=== PATIENT | female | born 1950 | race Caucasian/White ===

== ENCOUNTER 2018-02-04 08:22 | Outpatient (RCR) | payer MEDICARE, OTHER, SELFPAY | END 2018-02-20 23:59 | LOC: DC 08:22 | PROVIDERS: Family Provider Internal Medicine; PCP Internal Medicine; Visit Provider Internal Medicine | DX: E11.9 Type 2 diabetes mellitus without complications (principal); Z71.3 Dietary counseling and surveillance | CPT/HCPCS: G0108 ==

== ENCOUNTER 2018-02-22 14:54 | Outpatient (RCR) | payer MEDICARE, OTHER, SELFPAY | END 2018-03-22 23:59 | LOC: DC 14:54 | PROVIDERS: Family Provider Internal Medicine; PCP Internal Medicine; Visit Provider Internal Medicine | DX: E11.9 Type 2 diabetes mellitus without complications (principal); Z71.3 Dietary counseling and surveillance | CPT/HCPCS: 97802 ==

== ENCOUNTER → 2018-03-09 08:34 | Outpatient (CLI) | payer MEDICARE, OTHER, SELFPAY ==
[2018-03-09 10:46] LABS: Microalbumin,Random Urine 5.7 mg/L (NO RANGE EST.); Microalbumin:Creatinine Ratio 34.5 mg/g CRE (<30 mg/g CRE)
[2018-03-09 10:58] LABS: Hemoglobin A1c 8.6 % (4.2-6.3)
[2018-03-09 11:07] LABS: ALB/GLOB Ratio 0.9 RATIO (0.9-2.4); AST(SGOT) 14 U/L (15-37); Alanine Aminotransfer ALT/SGPT 25 U/L (13-56); Albumin, Serum 3.4 g/dL (3.2-5.0); Alkaline Phosphatase 120 U/L (45-117); Anion Gap 9 (5-15); BUN 15 mg/dL (7-18); BUN/Creat Ratio 19.4 RATIO (10-20); Calcium,Total 8.8 mg/dL (8.5-10.1); Chloride 103 mmol/L (98-107); Cholesterol 190 mg/dL (200); Creatinine, Serum 0.77 mg/dL (0.55-1.02); EST Glomerular Filtration Rate 80 mL/min (>60); Est Glom Filt Rate - Afr Amer 96 mL/min (>60); Globulin 3.8 g/dL (2.2-4.2); Glucose 152 mg/dL (74-106); High Density Lipoprotein 74 mg/dL; Protein, Total 7.2 g/dL (6.4-8.2); Sodium Level 140 mmol/L (136-145); T4 Free Direct 1.25 ng/dL (0.76-1.46); Thyroid Stim Hormone (TSH) 1.35 uIU/mL (0.358-3.74); Triglycerides 57 mg/dL; Very Low Density Lipoprotein 11 mg/dL (5-40)
== END ==
PROVIDERS: Family Provider Internal Medicine; PCP Internal Medicine; Visit Provider Internal Medicine
DX: E11.9 Type 2 diabetes mellitus without complications (principal); E03.9 Hypothyroidism, unspecified; I10 Essential (primary) hypertension
CPT/HCPCS: 36415; 80053; 80061; 82043; 82570; 83036; 84439; 84443

== ENCOUNTER 2018-04-01 16:32 | Outpatient (RCR) | payer MEDICARE, OTHER, SELFPAY | END 2018-04-22 23:59 | LOC: DC 16:32 | PROVIDERS: Family Provider Internal Medicine; PCP Internal Medicine; Visit Provider Internal Medicine | DX: E11.9 Type 2 diabetes mellitus without complications (principal); Z71.3 Dietary counseling and surveillance | CPT/HCPCS: G0109 ==

== ENCOUNTER 2018-05-05 17:14 | Outpatient (RCR) | payer MEDICARE, OTHER, SELFPAY | END 2018-05-22 23:59 | LOC: DC 17:14 | PROVIDERS: Family Provider Internal Medicine; PCP Internal Medicine; Visit Provider Internal Medicine | DX: E11.9 Type 2 diabetes mellitus without complications (principal); Z71.3 Dietary counseling and surveillance | CPT/HCPCS: G0109 ==

== ENCOUNTER 2018-06-02 16:07 | Outpatient (RCR) | payer MEDICARE, OTHER, SELFPAY | END 2018-06-22 23:59 | LOC: DC 16:07 | PROVIDERS: Family Provider Internal Medicine; PCP Internal Medicine; Visit Provider Internal Medicine | DX: E11.9 Type 2 diabetes mellitus without complications (principal); Z71.3 Dietary counseling and surveillance | CPT/HCPCS: G0109 ==

== ENCOUNTER → 2018-06-08 07:58 | Outpatient (CLI) | payer MEDICARE, OTHER, SELFPAY ==
[2018-06-08 10:14] LABS: Absolute Lymphocyte Count 1.74 X10^3/ul (0.83-4.51); Absolute Neutrophil Count 3.2 X10^3/uL (2.0-7.7); Basophil# 0.07 X10^3/uL; Basophil% 1.2 % (0-1); Eosinophil# 0.32 X10^3/uL; Eosinophils% 5.5 % (0-5); Hematocrit 35.9 % (37-47); Hemoglobin 11.6 g/dl (12.0-15.0); Lymphocyte # 1.74 X10^3/ul (4.0); Lymphocyte % 29.7 % (19-41); Mean Corp Hgb Conc 32.3 g/gl (32-36); Mean Corpuscular Hgb 29.8 pg (27.0-32.0); Mean Corpuscular Volume 92.3 fL (81-99); Mean Platelet Vol. 9.9 fl (6.2-12.0); Monocyte# 0.57 X10^3/uL; Monocyte% 9.7 % (0-10); Neutrophil # 3.15 X10^3/uL (2.7-7.7); Neutrophil % 53.9 % (47-70); Platelet Count 314 K/mm3 (150-450); RBC Distribution Width CV 13.7 % (11.6-14.6); RBC Distribution Width SD 45.8 fl (35.1-43.9); Red Blood Count 3.89 M/mm3 (4.2-5.4); White Blood Count 5.9 K/mm3 (4.4-11.0)
[2018-06-08 10:16] LABS: POSITIVE COUNT NO; POSITIVE DIFFERENTIAL NO; POSITIVE MORPHOLOGY NO
[2018-06-08 10:40] LABS: AST(SGOT) 18 U/L (15-37); Alanine Aminotransfer ALT/SGPT 22 U/L (13-56); Albumin, Serum 3.3 g/dL (3.2-5.0); Alkaline Phosphatase 95 U/L (45-117); Anion Gap 9 (5-15); BUN 15 mg/dL (7-18); BUN/Creat Ratio 17.4 RATIO (10-20); Calcium,Total 8.4 mg/dL (8.5-10.1); Chloride 104 mmol/L (98-107); Creatinine, Serum 0.86 mg/dL (0.55-1.02); EST Glomerular Filtration Rate 70 mL/min (>60); Est Glom Filt Rate - Afr Amer 85 mL/min (>60); Globulin 3.2 g/dL (2.2-4.2); Glucose 187 mg/dL (74-106); Potassium 4.2 mmol/L (3.5-5.1); Protein, Total 6.5 g/dL (6.4-8.2); Sodium Level 140 mmol/L (136-145)
[2018-06-08 11:30] LABS: Hemoglobin A1c 8.9 % (4.2-6.3)
== END ==
PROVIDERS: Family Provider Internal Medicine; PCP Internal Medicine; Visit Provider Internal Medicine
DX: E11.9 Type 2 diabetes mellitus without complications (principal); E03.9 Hypothyroidism, unspecified
CPT/HCPCS: 36415; 80053; 83036; 85025

== ENCOUNTER → 2018-06-10 08:26 | Outpatient (CLI) | payer MEDICARE, OTHER, SELFPAY ==
--- NOTE | 2018-06-10 08:30 | BD_ITS ---
STUDY: DUAL ENERGY X-RAY ABSORPTIOMETRY / DXA REASON FOR EXAM: Female, 67 years old. The patient is postmenopausal. Loss of height. TECHNIQUE: Bone Mineral Density (BMD) measurements of lumbar spine and bilateral hips were obtained. COMPARISON: Comparison is made with prior study dated August 29, 2002. FINDINGS: Lumbar Spine (L1-L4): g/cm2 (0.807) / T-score (-3.1) / Z-score (-1.5) Findings are suggestive of osteopenia with a high fracture risk. Left Femur Total: g/cm2 (0.822) / T-score (-1.5) / Z-score (-0.3) Left Femoral Neck: g/cm2 (0.814) / T-score (-1.6) / Z-score (-0.1) Right Femur Total: g/cm2 (0.787) / T-score (-1.8) / Z-score (-0.5) Right Femoral Neck: g/cm2 (0.796) / T-score (-1.7) / Z-score (-0.3) The T-Scores on the most recent prior examination were: Lumbar Spine (L1-L4): There has been worsening of bone density since the previous examination. Left Femur Total: which represents a worsening of 16.9%. BD/Dexa Bone Density Study IMPRESSION: The patient is considered osteoporotic as outlined below according to World Rex Organization (WHO) criteria with a high fracture risk. There has been worsening of bone density since the previous examination. Reference Information: The T-score is the number of standard deviations above or below the standard which is normal for young adults at their peak bone mineral density. The World Health Organization (WHO) interprets the T-scores as follows: Above -1 Normal bone density Between -1 and -2.5 Osteopenia Equal to / or below -2.5 Osteoporosis As a practical clinical guideline, osteopenia may be graded as follows: Mild -1 through -1.5 Moderate -1.6 through -2.0 Severe -2.1 through -2.4 The Z-score is the number of standard deviations above or below age-matched controls. A Z-score of less than -1.5 would be considered abnormal. References: 1. NIH Osteoporosis and Related Bone Diseases http://www.osteo.org 2. International Society for Clinical Densitometry http://www.iscd.org 3. National Osteoporosis Foundation http://www.nof.org Electronically Signed: Curry Maciel MD at 10:04 EDT Tel [phone], Service support ,
== END ==
PROVIDERS: Family Provider Internal Medicine; PCP Internal Medicine; Visit Provider Internal Medicine
DX: M81.0 Age-related osteoporosis without current pathological fracture (principal); Z78.0 Asymptomatic menopausal state
CPT/HCPCS: 77080

== ENCOUNTER → 2018-06-14 09:33 | Outpatient (CLI) | payer MEDICARE, OTHER, SELFPAY | PROVIDERS: Family Provider Internal Medicine; PCP Internal Medicine; Visit Provider Internal Medicine | DX: Z12.11 Encounter for screening for malignant neoplasm of colon (principal) | CPT/HCPCS: 82274 ==

== ENCOUNTER 2018-06-24 17:03 | Outpatient (RCR) | payer MEDICARE, OTHER, SELFPAY | END 2018-07-23 23:59 | LOC: DC 17:03 | PROVIDERS: Family Provider Internal Medicine; PCP Internal Medicine; Visit Provider Internal Medicine | DX: E11.9 Type 2 diabetes mellitus without complications (principal); Z71.3 Dietary counseling and surveillance | CPT/HCPCS: G0109 ==

== ENCOUNTER → 2018-08-20 14:26 | Outpatient (CLI) | payer MEDICARE, OTHER, SELFPAY ==
--- NOTE | 2018-08-20 14:29 | RAD_ITS ---
STUDY: X-RAY - PELVIS AND LEFT HIP REASON FOR EXAM: Female, 67 years old. Extreme left hip pain for 3 days. No injury. TECHNIQUE: Radiological exam, hip, unilateral, with pelvis when performed; 2 or 3 views. COMPARISON: None. FINDINGS: There is a non-specific bowel gas pattern. Normal visualized soft tissue structures. Normal bilateral iliac wings, sacroiliac joints and visualized sacrum. Normal bilateral superior and inferior pubic rami. Normal pubic symphysis. Normal bilateral ischial tuberosities. Normal visualized left femoral head. Normal left acetabulum. Normal left hip joint. RAD/HIP, UNI W/ Pelvis 2-3 Views IMPRESSION: Normal x-ray examination of the pelvis and left hip. Electronically Signed: Luke Harris DO at 19:41 EDT Tel [phone], Service support ,
== END ==
PROVIDERS: Family Provider Internal Medicine; PCP Internal Medicine; Referring Provider Internal Medicine; Visit Provider Internal Medicine
DX: M25.552 Pain in left hip (principal)
CPT/HCPCS: 73502

== ENCOUNTER 2018-09-27 10:11 | Outpatient (RCR) | payer MEDICARE, OTHER, SELFPAY | END 2018-10-22 23:59 | LOC: DC 10:11 | PROVIDERS: Family Provider Internal Medicine; PCP Internal Medicine; Visit Provider Internal Medicine | DX: E11.9 Type 2 diabetes mellitus without complications (principal); Z71.3 Dietary counseling and surveillance | CPT/HCPCS: 97803 ==

== ENCOUNTER 2018-09-29 08:00 | Outpatient (RCR) | payer MEDICARE, OTHER, SELFPAY ==
--- NOTE | 2018-08-31 08:10 | HP.PTEVAL ---
Patient's Visit Information MARISSA WINKLER is a 67 year old F referred to Physical Therapy by ADOLPH Velazquez with a diagnosis of LEFT SCIATICA/PIRIFORMIS. Date of Evaluation: 08/31/18 Physical Therapist: Aleks Rodriguez PT, - Visit Plan Frequency: 2x /Week Duration: 4 Weeks Plan: INTIALLY MODALITIES FOR PAIN RELIVEIVE,PROGRESS TO GRADED RROM/TUAN EX'S,. DLS ,POSTURAL EX'S - Subjective Subjective: This 67 y/o female presents to physical therapy with left sciatica /piriformis since 2weeks. Symptoms where incidous onset bno trauma or injury . Patient seen family DR recommended to see orthopedic. Patient had x-rays recommended PT. Patient symptoms located left L-S -gluteus radiates to anterior tibials. Symptoms worse bending,sitting,standing. Pain affects sleeping unable to sleep. C/O parathesia/tingling lower leg. Coughing/sneezing -. Bowel/bladder -. Patient taking mlocicam/tramadol. Patient has h/o lumbar pain many years ago.Symptoms not better with no activity. VOCATION: [email or web address] SOCAIL: - Pain Left Back Pain Intensity (Out of 10): 7 Pain Intensity Range: 10 Left Lower Extremity Pain Intensity (Out of 10): 7 Pain Intensity Range: 10 - Objective POSTURE: rounded shoulders head foward. PALPATION: tender Left L-S. NEURO: c/o parathesia/tingling lower leg,light touch intact,reflexes 2/3 L3-4,L4-5,L5-S1. MMT:4-/5 quad/hams ,hip flexion 4-/5,ankle 4/5. LUMBAR ROM: flexion WFL,extension mod loss pain left side,side glides min loss. SYMMTIES : align. GAIT: mild decrease antalgic. FLEXABLITY: hams MIN,Piriformis min loss. - Special Tests L/S Slump test left side: Positive L/S Slump test right side: Negative L/S Left Straight Leg Raise: Positive Lumbar Standing: Flexion - Mechanical Response: No effect Lumbar Standing: Flexion - Symptoms During Testing: Decreases Lumbar Standing: Flexion - Symptoms After Testing: No better Lumbar Standing: Extension - Mechanical Response: No effect Lumbar Standing: Extension - Symptoms During Testing: Increases Lumbar Standing: Extension - Symptoms After Testing: Worse Lumbar Standing: Right Side Glides - Mechanical Response: No effect Lumbar Standing: Right Side [place] - Symptoms During Testing: No effect Lumbar Standing: Right Side [place] - Symptoms After Testing: No effect Lumbar Standing: Left Side [place] - Mechanical Response: No effect Lumbar Standing: Left Side [place] - Symptoms During Testing: Increases Lumbar Standing: Left Side [place] - Symptoms After Testing: Worse Lumbar Lying: Flexion - Mechanical Response: No effect Lumbar Lying: Flexion - Symptoms During Testing: Abolishes Lumbar Lying: Flexion - Symptoms After Testing: No better Lumbar Lying: Extension - Mechanical Response: No effect Lumbar Lying: Extension - Symptoms During Testing: Increases Lumbar Lying: Extension - Symptoms After Testing: Worse - Goals Goal 1:: Independant with HEP Goal Time Frame: 4-6 Weeks Goal 2:: Indepependant with posture for ADL'S Goal Time Frame: 4-6 Weeks Goal 3:: Decrease lumbar pain and radicular symptoms by 50% or greatwer to improve function with ADL'S. Goal Time Frame: 4-6 Weeks Goal 4:: Patient to improve lumbar ROM for function of recovery Goal Time Frame: 4-6 Weeks Goal 5:: Patient to improve back owestry by 5 points to improve QOL Goal Time Frame: 4-6 Weeks - Rehabilitation Potential Physical Therapy Diagnosis: This patient has left lumbar pain with radicular symptoms possible left lateral stenosis vs derrangement below with pain with extension ,better flexion ,impairs gait ,standing and ADL'S Rehabilitation Potential: Good - Anticipated Interventions Patient/Client Instruction: Educate patient on: Condition, Plan of Care For the Purpose of:: To decrease pain, To increase ROM, To improve muscle performance and motor function, To improve ability to perform ADL's, To increase tolerance to activity/condition/position, To improve ability of physical actions for home/community/work/leisure, To improve health of tissue, To decrease soft tissue restriction, To increase flexibility/ROM, To assume or resume ADL's, To improve tolerance to ADL's Therapeutic Exercise to Include: Strength training, Body mechanics, Postural training, Flexibilty training, Dynamic Lumbar Stabilization, Tuan Exercises For the Purpose of:: To decrease pain, To increase ROM, To increase tolerance to activity/condition/position, To improve ability of physical actions for home/community/work/leisure, To improve health of tissue, To decrease soft tissue restriction, To increase flexibility/ROM, To reduce risk of recurrence, To improve ability to perform tasks related to life management TENS: Yes IF ES: Yes Cryotherapy (ice pack, ice massage): Yes Thermo therapy (hot pack): Yes Ultrasound (thermal/non thermal): Yes For the Purpose of:: To decrease pain, To increase ROM, To improve nutrient delivery to tissue, To increase oxygenation perfusion, To improve health of tissue, To decrease soft tissue restriction Thank you for the opportunity to evaluate your patient. For Medicare and Medicare HMO plans, please review the plan of care and approve it. It will need to be FAXED BACK to us at [phone] for Medicare purposes. Please let me know if there are questions or concerns regarding this plan of care. Physician Signature: Date:
--- NOTE | 2018-09-29 08:30 | HP.PTDCSUM ---
HP - PT D/C Summary It has been my pleasure to treat MARISSA WINKLER under orders from ADOLPH Velazquez, for the diagnosis of LEFT SCIATICA/PIRIFORMIS for a total of 9 visit(s). Discharge Date: 09/29/18 Please see the following information for a summary of their discharge status. - Subjective Subjective: Doing well no pain . Able to sleep all night. Working and all ADL'S no problem - Pain Left Back Pain Intensity (Out of 10): 0 Left Lower Extremity Pain Intensity (Out of 10): 0 - Overall Improvement % Improvement: 90 - Objective Objective/Function: POSTURE: mild foward posture. GAIT:reciprocal pattern. NEURO: intact denies parathesia/tingling. MMT: quads/hams4/5,hip 4/5,ankle 5/5. LUMBAR ROM: flexion WFL loss,extension min loss. -SLR - Goals Goal 1:: Independant with HEP Goal Progress: Goal Met Goal 2:: Indepependant with posture for ADL'S Goal Progress: Goal Met Goal 3:: Decrease lumbar pain and radicular symptoms by 50% or greatwer to improve function with ADL'S. Goal Progress: Goal Met Goal 4:: Patient to improve lumbar ROM for function of recovery Goal Progress: Goal Met Goal 5:: Patient to improve back owestry by 5 points to improve QOL Goal Progress: Goal Met - Plan Plan: D/C TO HEP - D/C Information Discharge Comments: HEP ..MET GOALS If there are questions or concerns regarding this patient's physical therapy, please feel free to call me at [phone]. Thank you for the referral of this patient. Sincerely, Aleks Rodriguez, PT,
== END 2018-09-29 19:00 | disposition home or self-care (01) ==
LOC: PT 08:00
PROVIDERS: Family Provider Internal Medicine; PCP Internal Medicine; Referring Provider Physician Assistant; Visit Provider Physician Assistant
DX: G57.02 Lesion of sciatic nerve, left lower limb (principal)
CPT/HCPCS: 97012; 97110; 97162; 97530

== ENCOUNTER → 2018-10-25 08:24 | Outpatient (CLI) | payer MEDICARE, OTHER, SELFPAY ==
[2018-10-18 13:58] VITALS: BMI 22.7
[2018-10-25 10:14] LABS: Absolute Lymphocyte Count 1.28 X10^3/ul (0.83-4.51); Absolute Neutrophil Count 4.7 X10^3/uL (2.0-7.7); Basophil# 0.04 X10^3/uL; Basophil% 0.6 % (0-1); Eosinophils% 2.9 % (0-5); Hematocrit 39.3 % (37-47); Hemoglobin 12.8 g/dl (12.0-15.0); Lymphocyte # 1.28 X10^3/ul (4.0); Lymphocyte % 18.8 % (19-41); Mean Corp Hgb Conc 32.6 g/gl (32-36); Mean Corpuscular Hgb 30.8 pg (27.0-32.0); Mean Corpuscular Volume 94.7 fL (81-99); Mean Platelet Vol. 10.4 fl (6.2-12.0); Monocyte# 0.54 X10^3/uL; Monocyte% 7.9 % (0-10); Neutrophil # 4.74 X10^3/uL (2.7-7.7); Neutrophil % 69.7 % (47-70); Platelet Count 327 K/mm3 (150-450); RBC Distribution Width CV 13.6 % (11.6-14.6); RBC Distribution Width SD 45.1 fl (35.1-43.9); Red Blood Count 4.15 M/mm3 (4.2-5.4); White Blood Count 6.8 K/mm3 (4.4-11.0)
[2018-10-25 10:15] LABS: POSITIVE COUNT NO; POSITIVE DIFFERENTIAL NO; POSITIVE MORPHOLOGY NO
[2018-10-25 10:41] LABS: Vitamin D,25 Hydroxy 35.7 ng/mL (29.95-100.01)
[2018-10-25 10:48] LABS: Hemoglobin A1c 8.3 % (4.2-6.3)
[2018-10-25 10:56] LABS: Microalbumin,Random Urine 5.5 mg/L (NO RANGE EST.); Microalbumin:Creatinine Ratio 5.6 mg/g CRE (<30 mg/g CRE)
[2018-10-25 11:02] LABS: Anion Gap 7 (5-15); BUN 15 mg/dL (7-18); BUN/Creat Ratio 18.2 RATIO (10-20); Calcium,Total 8.8 mg/dL (8.5-10.1); Chloride 105 mmol/L (98-107); Creatinine, Serum 0.82 mg/dL (0.55-1.02); EST Glomerular Filtration Rate 74 mL/min (>60); Est Glom Filt Rate - Afr Amer 89 mL/min (>60); Glucose 150 mg/dL (74-106); Potassium 4.2 mmol/L (3.5-5.1); Sodium Level 141 mmol/L (136-145); T4 Free Direct 1.11 ng/dL (0.76-1.46); Thyroid Stim Hormone (TSH) 2.28 uIU/mL (0.358-3.74)
--- OUTSIDE RECORDS SUMMARY | 2018-12-18 08:50 | XMS RPT_ITS ---
:1950 Author Organization [place] Support Name Relationship Address Phone SWAPNIL HOWARD Unavailable [id number] + [place] [address] LARRY LEE Unavailable [address] + [place] [address] [facility] Unavailable [address] + [place] [address] HORKeysha, SWAPNIL Unavailable [address] + [place] [address] LARRY LEE Unavailable [address] + [place] [address] [facility] Unavailable [address] + [place] [address] HORKeysha, SWAPNIL Unavailable [address] + [place] [address] LARRY LEE Unavailable [address] + [place] [address] [facility] Unavailable [address] + [place] [address] HORY, SWAPNIL Unavailable [address] + [place] [address] LARRY LEE Unavailable [address] + [place] [address] [facility]available [address] + [place] [address] HORKeysha, SWAPNIL Unavailable [address] + [place] [address] LARRY LEE Unavailable [address] + [place] [address] [facility] Unavailable [address] + [place] [address] HORY, SWAPNIL Unavailable [address] + [place] [address] LARRY LEE Unavailable [address] + [place] [address] [facility]available [address] + [place] [address] HORY, SWAPNIL Unavailable [address] + [place] [address] LARRY LEE Unavailable [address] + [place] [address] [facility] Unavailable [address] + [place] [address] HORKeysha, SWAPNIL Unavailable [address] + [place] [address] LARRY LEE Unavailable [address] + [place] [address] [facility] Unavailable [address] + [place] [address] HORY, SWAPNIL Unavailable [address] + [place] [address] LARRY LEE Unavailable [address] + [place] [address] [facility] Unavailable [address] + [place] [address] HORKeysha, SWAPNIL Unavailable [address] + [place] [address] LARRY LEE Unavailable [address] + [place] [address] [facility] Unavailable [address] + [place] [address] HORKeysha, SWAPNIL Unavailable [address] + [place] [address] LARRY LEE Unavailable [address] + [place] [address] [facility] Unavailable [address] + [place] [address] HORY, SWAPNIL Unavailable [address] + [place] [address] LARRY LEE Unavailable [address] + [place] [address] [facility] Unavailable [address] + [place] [address] HORY, SWAPNIL Unavailable [address] + [place] [address] LARRY LEE Unavailable [address] + [place] [address] [facility] Unavailable [address] + [place] [address] HORY, SWAPNIL Unavailable [address] + [place] [address] LARRY LEE Unavailable [address] + [place] [address] [facility] Unavailable [address] + [place] [address] HORY, SWAPNIL Unavailable [address] + [place] [address] LARRY LEE Unavailable [address] + [place] [address] [facility] Unavailable [address] + [place] [address] HORY, SWAPNIL Unavailable [address] + [place] [address] LARRY LEE Unavailable [address] + [place] [address] [facility]available [address] + [place] [address] HORY, SWAPNIL Unavailable [address] + [place] [address] LARRY LEE Unavailable [address] + [place] [address] [facility] Unavailable [address] + [place] [address] HORY, SWAPNIL Unavailable [address] + [place] [address] LARRY LEE Unavailable [address] + [place] [address] [facility] Unavailable [address] + [place] [address] HORY, SWAPNIL Unavailable [address] + [place] [address] LARRY LEE Unavailable [address] + [place] [address] [facility] Unavailable [address] + [facility] [place] [address] HORY, SWAPNIL Unavailable [address] + [place] [address] LARRY LEE Unavailable [address] + [facility] [place] [address] [facility] Unavailable [address] + [facility] [place] [address] HORY, SWAPNIL Unavailable [address] + [facility] [place] [address] LARRY LEE Unavailable [address] + [facility] [place] [address] [facility] Unavailable [address] + [facility] [place] [address] HORY, SWAPNIL Unavailable [address] + [facility] [place] [address] LARRY LEE Unavailable [address] + [facility] [place] [address] [facility]available [address] + [facility] [address] HORY, SWAPNIL Unavailable [address] + [place] [address] LARRY LEE Unavailable [address] + [facility] [place] [address] [facility] Unavailable [address] + [facility] [place] [address] LARRY LEE Unavailable [address] + [facility] [place] [place] [address] [facility] Unavailable [address] + [place] [address] Care Team Providers Name Role Phone GENET, PURVI (MULTI SPINDLE OPERATOR) Referring Unavailable GENET, PURVI (MULTI SPINDLE OPERATOR) Attending Unavailable GENET, PURVI (MULTI SPINDLE OPERATOR) Referring Unavailable GENET, PURVI (MULTI SPINDLE OPERATOR) Referring Unavailable GENET, PURVI (MULTI SPINDLE OPERATOR) Referring Unavailable Oleghe, Efewongbe Attending Unavailable Oleghe, Efewongbe Referring Unavailable Oleghe, Efewongbe Primary Care Unavailable Oleghe, Efewongbe Attending Unavailable Oleghe, Efewongbe Referring Unavailable Oleghe, Efewongbe Primary Care Unavailable Oleghe, Efewongbe Attending Unavailable Oleghe, Efewongbe Referring Unavailable Oleghe, Efewongbe Primary Care Unavailable Oleghe, Efewongbe Attending Unavailable Oleghe, Efewongbe Referring Unavailable Oleghe, Efewongbe Primary Care Unavailable Oleghe, Efewongbe Attending Unavailable Oleghe, Efewongbe Referring Unavailable Oleghe, Efewongbe Primary Care Unavailable Oleghe, Efewongbe Attending Unavailable Oleghe, Efewongbe Referring Unavailable Oleghe, Efewongbe Primary Care Unavailable Oleghe, Efewongbe Attending Unavailable Oleghe, Efewongbe Referring Unavailable Oleghe, Efewongbe Primary Care Unavailable Oleghe, Efewongbe Attending Unavailable Oleghe, Efewongbe Referring Unavailable Oleghe, Efewongbe Attending Unavailable Oleghe, Efewongbe Referring Unavailable Oleghe, Efewongbe Primary Care Unavailable Sue Serna Attending Unavailable Oleghe, Efewongbe Attending Unavailable Oleghe, Efewongbe Referring Unavailable Oleghe, Efewongbe Primary Care Unavailable Oleghe, Efewongbe Attending Unavailable Oleghe, Efewongbe Referring Unavailable Oleghe, Efewongbe Primary Care Unavailable Oleghe, Efewongbe Attending Unavailable Oleghe, Efewongbe Primary Care Unavailable Oleghe, Efewongbe Attending Unavailable Oleghe, Efewongbe Referring Unavailable Oleghe, Efewongbe Primary Care Unavailable Oleghe, Efewongbe Attending Unavailable Oleghe, Efewongbe Referring Unavailable Oleghe, Efewongbe Primary Care Unavailable Oleghe, Efewongbe Attending Unavailable Oleghe, Efewongbe Referring Unavailable Oleghe, Efewongbe Primary Care Unavailable Oleghe, Efewongbe Attending Unavailable Oleghe, Efewongbe Referring Unavailable Oleghe, Efewongbe Attending Unavailable Oleghe, Efewongbe Referring Unavailable [place]leg[place], Efewongbe Primary Care Unavailable Wayt, Felix Attending Unavailable Oleghe, Efewongbe Referring Unavailable Wayt, Felix Attending Unavailable Wayt, Felix Referring Unavailable Oleghe, Efewongbe Primary Care Unavailable Oleghe, Efewongbe Attending Unavailable Oleghe, Efewongbe Referring Unavailable Oleghe, Efewongbe Attending Unavailable Oleghe, Efewongbe Referring Unavailable Oleghe, Efewongbe Attending Unavailable Oleghe, Efewongbe Referring Unavailable Oleghe, Efewongbe Primary Care Unavailable Oleghe, Efewongbe Attending Unavailable Oleghe, Efewongbe Referring Unavailable Oleghe, Efewongbe Primary Care Unavailable PROBLEMS PROBLEMS DATE TYPE CONDITION / CODE ATTENDING STATUS SOURCE 10/27/2018 Active Other abnormal and NA Active [facility] inconclusive [facility] [place] findings on Repository diagnostic imaging of breast / R92.8(ICD-10) 10/18/2018 Unknown M25.552 - Pain in [place], Active [place] left hip / [facility] M25.552(ICD-10) Hospital Repository 10/18/2018 Unknown M81.0 - Age-related [place]leghe, Active [place] osteoporosis [facility] without current Hospital pathological Repository fracture / M81.0(ICD-10) 10/04/2018 Active Unknown / GENET, PURVI Active [facility] UNK(Unknown) ([facility]) [place] Repository 10/04/2018 Active Encounter for NA Active [facility] screening mammogram [facility] [place] for malignant Repository neoplasm of breast / Z12.31(ICD-10) 10/06/2018 Unknown G57.02 - Lesion of Felix Grant Active [place] sciatic nerve, left Community lower limb / Hospital G57.02(ICD-10) Repository 10/29/2018 Unknown E11.9 - Type 2 [place], Active [place] diabetes mellitus [facility] without Hospital complications / Repository E11.9(ICD-10) 08/30/2018 Unknown M54.32 - Sciatica, Felix Grant Active [place] left side / Community M54.32(ICD-10) Hospital Repository 08/20/2018 Unknown M79.606 - Pain in [place], Active [place] leg, unspecified / [facility] M79.606(ICD-10) Hospital Repository 06/14/2018 Unknown Z12.11 - Encounter [place], Active [place] for screening for [facility] malignant neoplasm Hospital of colon / Repository Z12.11(ICD-10) 06/08/2018 Unknown E03.9 - [place], Active [place] Hypothyroidism, [facility] unspecified / Hospital E03.9(ICD-10) Repository 06/04/2018 Unknown Z78.0 - Oleghe, Active [place] Asymptomatic [facility] menopausal state / Hospital Z78.0(ICD-10) Repository 03/09/2018 Unknown I10 - Essential [place]he, Active [place] (primary) [facility] hypertension / Hospital I10(ICD-10) Repository PROCEDURES PROCEDURES No Procedure Records FoundRESULTS RESULTS PROGRESS Observed: 10/27/2018 Status: COMPLETED Source: [place] 2:40 PM [facility] [place] REPOSITORY HNO ID: [id number] Author: Shannen Fernandez Service: (none) Author Type: (none) Type: Progress Notes Filed: 10/27/2018 2:41 PM Note Text: Radiology Service Progress Note PATIENT NAME: Marissa Lee DATE OF SERVICE: October 27, 2018 TIME: 2:40 PM PATIENT IDENTITY VERIFICATION COMPLETED USING TWO (2) METHODS: Patient confirmed name verbally and Date of . PATIENT GENDER DATA: Female. status: : No status: NO. PATIENT RELEVANT IMPLANT DATA REVIEWED: Not Applicable RADIOLOGY DEPARTMENT: [facility] diagnostic mammogram PERIPHERAL IV DATA: Not applicable SIGNED BY: Shannen Fernandez October 27, 2018 2:40 PM [facility] Observed: 10/27/2018 Status: COMPLETED Source: [place] 11:16 AM [facility] [place] REPOSITORY HNO ID: [id number] Author: Mammography Coordinator Service: (none) Author Type: Physician Type: Letter Filed: 10/28/2018 11:31 PM Note Text: October 27, 2018 PID: [id number] Marissa Anneall [address] [place] [address] Dear Ms. Lee, We are pleased to inform you that the results of your recent breast imaging exam on 10/27/2018 are normal and we recommend that you return to your annual screening Mammography schedule. Your mammogram demonstrates that you have dense breast tissue, which could hide abnormalities. Dense breast tissue, in and of itself, is a relatively common condition. Therefore, this information is not provided to cause undue concern; rather, it is to raise your awareness and promote discussion with your health care provider regarding the presence of dense breast tissue in addition to other risk factors. Early detection of cancer is very important. We also understand recommendations regarding breast cancer screening are controversial. Please discuss with your primary care provider which strategy is best for you and whether a mammogram is right for you. Your imaging studies and report will be kept on file at [facility] as part of your permanent medical record and are available for your continuing care. Thank you for allowing us to help in meeting your health care needs. Sincerely, Dr. Meléndez Interpreting Radiologist [facility] (Return to Annual Mammogram schedule) [facility] Observed: 10/27/2018 Status: COMPLETED Source: [place] 11:16 AM [facility] REPOSITORY HNO ID: [id number] Author: Mammography Coordinator Service: (none) Author Type: Physician Type: Letter Filed: 10/28/2018 11:31 PM Note Text: October 27, 2018 PID: [id number] Marissa JMadonna Lee [address] [place] [address] Dear Ms. Lee, We are pleased to inform you that the results of your recent breast imaging exam on 10/27/2018 are normal and we recommend that you return to your annual screening Mammography schedule. Your mammogram demonstrates that you have dense breast tissue, which could hide abnormalities. Dense breast tissue, in and of itself, is a relatively common condition. Therefore, this information is not provided to cause undue concern; rather, it is to raise your awareness and promote discussion with your health care provider regarding the presence of dense breast tissue in addition to other risk factors. Early detection of cancer is very important. We also understand recommendations regarding breast cancer screening are controversial. Please discuss with your primary care provider which strategy is best for you and whether a mammogram is right for you. Your imaging studies and report will be kept on file at [facility] as part of your permanent medical record and are available for your continuing care. Thank you for allowing us to help in meeting your health care needs. Sincerely, Dr. Meléndez Interpreting Radiologist [facility] (Return to Annual Mammogram schedule) PROGRESS Observed: 10/27/2018 Status: COMPLETED Source: [place] 11:15 AM [facility] REPOSITORY HNO ID: [id number] Author: Kaylah Bryant Service: (none) Author Type: Triage Nurse Type: Progress Notes Filed: 10/27/2018 11:15 AM Note Text: Radiology Service Progress Note PATIENT NAME: Marissa Lee DATE OF SERVICE: October 27, 2018 TIME: 11:15 AM PATIENT IDENTITY VERIFICATION COMPLETED USING TWO (2) METHODS: Patient confirmed name verbally and Date of . PATIENT GENDER DATA: Female. status: : No status: N/A PATIENT RELEVANT IMPLANT DATA REVIEWED: Not Applicable RADIOLOGY DEPARTMENT: Ultrasound PERIPHERAL IV DATA: Not applicable SIGNED BY: KAYLAH BRYANT RDMS RVT October 27, 2018 11:15 AM [facility] [employer] [employer] Observed: 10/27/2018 Status: F Source: [facility] 11:09 AM [facility] REPOSITORY * * *Final Report* * * DATE OF EXAM: Oct 27 2018 11:09AM WRU [id number] - [facility] LT / PROCEDURE REASON: Abnormal mammogram * * * * Physician Interpretation * * * * #[id number] - [facility] #[id number] - [email or web address] BREAST [employer] LT UNILATERAL LEFT DIGITAL DIAGNOSTIC MAMMOGRAM WITH CAD: 10/27/2018 HISTORY: Diagnostic Mammogram /Call back/abnormal mamm: Left Abnormal Mammogram. RESULT: TECHNIQUE: The study was acquired using full field digital technology and interpreted from soft copy. Current study was also evaluated with a Computer Aided Detection (CAD). Comparison is made to exams dated: 10/04/2018 mammogram, 06/11/2017 mammogram, and 10/29/2015 mammogram - [facility]. The tissue of left breast is heterogeneously dense. This may lower the sensitivity of mammography. Additional imaging reveals area of interest in the left breast on prior exam is not reproduced and presumably represents superimposed breast tissue. No significant masses, calcifications, or other findings are seen in the breast. IMPRESSION: There is no mammographic evidence of malignancy. LIMITED ULTRASOUND OF LEFT BREAST: 10/27/2018 RESULT: Comparison is made to exams dated: 10/04/2018 mammogram, 06/11/2017 mammogram, and 10/29/2015 mammogram - [facility]. Color flow and real-time ultrasound of the left breast upper outer quadrant were performed. Thompson scale images of the real-time examination were reviewed. IMPRESSION: There is no sonographic evidence of malignancy. There is no abnormality seen in the left breast to correspond with the mammographic density. Return to annual mammogram screening schedule is recommended. Matthew correa/leland:10/27/2018 11:16:03 Multiple national specialty organizations have released breast cancer screening guidelines for women at average risk for developing breast cancer - guidelines that are based on both evidence and opinion, yet differ on when to start and how often to screen for breast cancer. With representation from Breast Imaging, Internal Medicine, Women's Health, Family Medicine, and Medical/Surgical Oncology, the [facility] has carefully reviewed the data and reached the following consensus: 1) All women should engage in shared decision-making with their providers to decide when to start and how often to screen; 2) All women should have the opportunity to start screening mammography at age 40; 3) For women ages 45-55, we recommend annual screening mammograms; 4) For women ages 55 and over, we support both the transition from an annual to a biennial interval if this aligns more with patient's values and preferences, or continuation with annual screening; 5) All women should discuss with their providers when to stop screening mammograms. Tumbling Instructor(s): Shannen Buckner, RT(R)(M), [facility]; Kaylah Bryant, [facility] letter sent: Return to Annual OVERALL STUDY BIRADS: 2 Benign finding Navigation Teacher: Leland Transcribe Date/Time: Oct 27 2018 10:36A Dictated by : MATTHEW MELÉNDEZ MD This examination was interpreted and the report reviewed and electronically signed by: MATTHEW MELÉNDEZ MD on Oct 27 2018 11:16AM EST [id number] Observed: 10/27/2018 Status: F Source: [place] 10:36 AM [facility] REPOSITORY * * *Final Report* * * DATE OF EXAM: Oct 27 2018 10:36AM [id number] - [facility] / PROCEDURE REASON: Abnormal mammogram * * * * Physician Interpretation * * * * RESULT: #[id number] - [facility] #[id number] - [facility] US BREAST LTD LT UNILATERAL LEFT DIGITAL DIAGNOSTIC MAMMOGRAM WITH CAD: 10/27/2018 HISTORY: Diagnostic Mammogram /Call back/abnormal mamm: Left Abnormal Mammogram. RESULT: TECHNIQUE: The study was acquired using full field digital technology and interpreted from soft copy. Current study was also evaluated with a Computer Aided Detection (CAD). Comparison is made to exams dated: 10/04/2018 mammogram, 06/11/2017 mammogram, and 10/29/2015 mammogram - [facility]. The tissue of left breast is heterogeneously dense. This may lower the sensitivity of mammography. Additional imaging reveals area of interest in the left breast on prior exam is not reproduced and presumably represents superimposed breast tissue. No significant masses, calcifications, or other findings are seen in the breast. IMPRESSION: There is no mammographic evidence of malignancy. LIMITED ULTRASOUND OF LEFT BREAST: 10/27/2018 RESULT: Comparison is made to exams dated: 10/04/2018 mammogram, 06/11/2017 mammogram, and 10/29/2015 mammogram - [facility]. Color flow and real-time ultrasound of the left breast upper outer quadrant were performed. Thompson scale images of the real-time examination were reviewed. IMPRESSION: There is no sonographic evidence of malignancy. There is no abnormality seen in the left breast to correspond with the mammographic density. Return to annual mammogram screening schedule is recommended. Matthew correa/leland:10/27/2018 11:16:03 Multiple national specialty organizations have released breast cancer screening guidelines for women at average risk for developing breast cancer - guidelines that are based on both evidence and opinion, yet differ on when to start and how often to screen for breast cancer. With representation from Breast Imaging, Internal Medicine, Women's Health, Family Medicine, and Medical/Surgical Oncology, the [facility] has carefully reviewed the data and reached the following consensus: 1) All women should engage in shared decision-making with their providers to decide when to start and how often to screen; 2) All women should have the opportunity to start screening mammography at age 40; 3) For women ages 45-55, we recommend annual screening mammograms; 4) For women ages 55 and over, we support both the transition from an annual to a biennial interval if this aligns more with patient's values and preferences, or continuation with annual screening; 5) All women should discuss with their providers when to stop screening mammograms. Tumbling Instructor(s): Shannen Buckner, RT(R)(M), [facility]; Kaylah Bryant, [facility] letter sent: Return to Annual OVERALL STUDY BIRADS: 2 Benign finding Navigation Teacher: Leland Transcribe Date/Time: Oct 27 2018 10:36A Dictated by: MATTHEW MELÉNDEZ MD This examination was interpreted and the report reviewed and electronically signed by: MATTHEW MELÉNDEZ MD on Oct 27 2018 11:16AM EST [id number] CBC W/DIFF, AUTOMATED Collected: 10/25/2018 Status: F Source: [place] 8:34 AM [facility] REPOSITORY TYPE CODE TESTS RESULT OUT OF RANGE REFERENCE UNITS LAB L100.1000 4.4-11.0 K/mm3 Normal WBC 6.8 LAB L100.1200 4.2-5.4 M/mm3 Low RBC 4.15 LAB L100.1300 12.0-15.0 g/dl Normal HGB 12.8 LAB L100.1400 37-47 % Normal HCT 39.3 LAB L100.1500 81-99 fL Normal MCV 94.7 LAB L100.1600 27.0-32.0 pg Normal MCH 30.8 LAB L100.1700 32-36 g/gl Normal MCHC 32.6 LAB L100.1810 11.6-14.6 % Normal RDW CV 13.6 LAB L100.1820 35.1-43.9 fl High RDW SD 45.1 LAB L100.1900 150-450 K/mm3 Normal PLT 327 LAB L100.2000 6.2-12.0 fl Normal MPV 10.4 LAB L100.2100 47-70 % Normal NEUT% 69.7 LAB L100.2200 19-41 % Low LY% 18.8 LAB L100.2300 0-10 % Normal MONO% 7.9 LAB L100.2400 0-5 % Normal EO% 2.9 LAB L100.2500 0-1 % Normal BASO% 0.6 LAB L100.2550 0.0-0.9 % Normal IM GRAN % 0.100 Result Comment: IG% - Immature Granulocytes (promyelocytes, myelocytes and metamyelocytes) > 1% indicates that a LEFT SHIFT is Present. LAB L100.2620 2.0-7.7 X10 3/uL Normal Absolute Neut 4.7 LAB L100.2720 0.83-4.51 X10 3/ul Normal Absolute Lymph 1.28 Performed By: #### L100.0100 #### [facility] [address] [place], [address] VITAMIN D,25 HYDROXY Collected: 10/25/2018 Status: F Source: [place] 8:34 AM [facility] REPOSITORY TYPE CODE TESTS RESULT OUT OF RANGE REFERENCE UNITS LAB L506.1000 29.95-100.01 ng/mL Normal Vitamin D 35.7 25-OH Result Comment: Vitamin D 25(OH) Status Range Deficiency <20 ng/mL (50nmol/L) Insuffciency 20 - 30 ng/mL (50 - 75 nmol/L) Sufficiency 30 - 100 ng/mL (75 - 250 nmol/L) Toxicity >100 ng/mL (>250 nmol/L) Performed By: #### L506.1000 #### [facility] [address] [place], [address] HEMOGLOBIN A1C Collected: 10/25/2018 Status: F Source: [place] 8:34 AM [facility] REPOSITORY TYPE CODE TESTS RESULT OUT OF RANGE REFERENCE UNITS LAB L501.9985 4.2-6.3 % High HGB A1C 8.3 Performed By: #### L501.9985 #### [facility] [address] [place], [address] MICROALB:CREAT Collected: 10/25/2018 Status: F Source: [place] RATIO,[place] UR 8:34 AM [facility] REPOSITORY TYPE CODE TESTS RESULT OUT OF RANGE REFERENCE UNITS LAB L501.1200 NO RANGE EST. mg/dL Normal UR CREAT 98.30 LAB L502.0500 NO RANGE EST. mg/L Normal 5.5 MICROALBUMIN ,UR LAB L502.0600 <30 mg/g CRE mg/g CRE Normal 5.6 MALB:CREAT Performed By: #### L502.0250 #### [facility] [address] [place], [place], [address] BASIC METABOLIC Collected: 10/25/2018 Status: F Source: [place] PROFILE (BMP) 8:34 AM [facility] REPOSITORY TYPE CODE TESTS RESULT OUT OF RANGE REFERENCE UNITS LAB L501.0100 74-106 mg/dL High GLU 150 Result Comment: Fasting Glucose result greater than or equal to 126 mg/dL suggests DIABETES MELLITUS per A.D.A. criteria. Please note revised GLUCOSE reference range effective 2017. LAB L501.1000 7-18 mg/dL Normal BUN 15 LAB L501.1100 0.55-1.02 mg/dL Normal CREAT,SERUM 0.82 Result Comment: The validity of the calculated GFR AND GFRAA in patients over 70 years has not been determined. Clinical correlation is essential. LAB L501.1110 >60 mL/min Normal EST GFR 74 Result Comment: Non- GFR Calc LAB L501.1115 >60 mL/min Normal EST GFR - AA 89 Result Comment: GFR Calc LAB L501.1300 10-20 RATIO Normal BUN/CRE 18.2 LAB L501.2200 8.5-10.1 mg/dL CA Normal 8.8 LAB L501.5300 136-145 mmol/L NA Normal 141 LAB L501.5600 3.5-5.1 mmol/L K Normal 4.2 LAB L501.5900 98-107 mmol/L CL Normal 105 LAB L501.6100 21.0-32.0 mmol/L Normal CO2 29.0 LAB L501.6200 5-15 Normal GAP 7 Performed By: #### L500.2500, L501.9520, L506.0400 #### [facility] [address] [place], [address] THYROID STIM HORMONE Collected: 10/25/2018 Status: F Source: [place] (TSH) 8:34 AM [facility] REPOSITORY TYPE CODE TESTS RESULT OUT OF RANGE REFERENCE UNITS LAB L501.9520 0.358-3.74 uIU/mL Normal TSH 2.28 Performed By: #### L500.2500, L501.9520, L506.0400 #### [facility] [address] [place], [address] T4 FREE DIRECT Collected: 10/25/2018 Status: F Source: [place] 8:34 AM [facility] REPOSITORY TYPE CODE TESTS RESULT OUT OF RANGE REFERENCE UNITS LAB L506.0400 0.76-1.46 ng/dL Normal T4 FREE 1.11 DIRECT Performed By: #### L500.2500, L501.9520, L506.0400 #### [facility] [address] [place], [address] INTERNAL MEDICINE Observed: 10/18/2018 Status: F Source: [place] OFFICE VISIT 4:41 PM [facility] REPOSITORY [facility] [address] [place] [address] [place] [address] OFFICE VISIT Date of Service: 10/18/18 MR#: [id number] Acct: [id number] Name: MARISSA LEE Rep #: [id number] : 1950 Provider: Jesu Dennison MD Age/Sex: 67/F Location: [facility] Status: Signed Intake Vital Signs10/18/18 Height 5 ft 6 in Intake Visit Reasons: 6 WK FU, REQ MON Chief Complaint: Follow-up Is patient in pain?: No Allergies Tetracyclines Allergy (Verified 09/06/18 13:55) Unknown Medications Amlodipine Besylate 5 mg PO DAILY 03/31/14 [History Confirmed 09/06/18] levothyroxine 88 mcg tablet 88 mcg PO DAILY #90 tab 11/03/17 [Rx Confirmed 09/06/18] aspirin 81 mg tablet,delayed release PO 01/19/18 [History Confirmed 09/06/18] blood pressure monitor kit See Dose Instructions .ROUTE .MEDSUPPLY #1 ea 01/19/18 [Rx Confirmed 09/06/18] calcium carbonate 600 mg calcium (1,500 mg) tablet 600 mg PO ONCE tab 01/19/18 [History Confirmed 09/06/18] cholecalciferol (vitamin D3) 2,000 unit capsule 2,000 unit PO ONCE 01/19/18 [History Confirmed 09/06/18] insulin glargine (U-300) conc. 300 unit/mL (1.5 mL) subcutaneous pen 22 unit SC QDAY #4.5 ml 05/28/18 [Rx Confirmed 09/06/18] rosuvastatin 5 mg tablet 5 mg PO QDAY #90 tab 06/04/18 [Rx Confirmed 09/06/18] insulin lispro (U- 100) 100 unit/mL subcutaneous solution 5 unit SC .TIDAC #10 ml 09/06/18 [Rx Confirmed 09/06/18] lisinopril 20 mg tablet 20 mg PO DAILY #90 tab 09/06/18 [Rx Confirmed 09/06/18] denosumab 60 mg/mL subcutaneous syringe 60 mg SC [id number] #1 ml 10/18/18 [Rx Confirmed 10/18/18] Post menopausal: Yes PFSH Medical History Hypertension (Chronic) Diabetes (Chronic) Hypothyroidism (Chronic) Surgical History History of tonsillectomy (Acute) Family History Father Hypertension Cancer kidney Mother Hypertension Social History Smoking Status: Never smoker alcohol intake: never substance use type: does not use what type of physical activity do you participate in: walking frequency: daily HPI HPI Chief Complaint: Follow-up Details: MARISSA LEE, is a 67yo F who presents to the office today for follow up of her chronic medical conditions. Blood pressure is stable. She reports compliance with her medications. Blood sugar again with very control. She has completed a session with diabetes education. Bone density scan reviewed. Suggestive of osteoporosis with worsening compared to her last bone density in 2001. ROS Const Constitutional: No weight change, body ache, chills, fatigue, sleep problems, fever(s), change in appetite, snoring, weakness, frequent falls, headache(s) or excessive sweating Eyes Eyes: No change in vision, eye pain, light sensitivity or blurry vision ENT ENT: No headache(s), abnormal hearing, ear pain, tinnitus, nasal congestion, sore throat or neck pain Resp Respiratory: No snoring, cough, shortness of breath or wheezing Cardio Cardiology: No excessive sweating, chest pain at rest, chest pain with exertion, shortness of breath, dyspnea on exertion, palpitations, orthopnea or lightheadedness Gastro GI: No abdominal pain, change in bowel habits, constipation, diarrhea, vomiting, nausea/dyspepsia or cramping Genitourinary-Female: No burning urination, painful urination, urinary incontinence, urinary frequency, abnormal vaginal bleeding, pelvic pain or other Musc Musculoskeletal: No neck pain, abnormal walking, joint pain, back pain, limited range of motion, numbness or tingling Skin Skin: No redness, dry skin, itching, lesions, wounds or rash Neuro Neurology: No weakness, frequent falls, headache(s), abnormal hearing, abnormal walking, numbness, tingling, abnormal speech, dizziness or memory loss Psych Psychiatric: No change in appetite, No memory loss, No anxiety, No depression, No Thoughts of harming yourself/Others Endo Endocrine: No fatigue, excessive sweating, cold intolerance, increased thirst/drinking, heat intolerance, flushing or increased hunger Aller/Imm Allergy/Immunologic: No wheezing, itchy eyes, hives or seasonal allergy symptoms Elfego/Lymp Hematologic/Lymphatic: No easy bleeding, easy bruising or enlarged lymph nodes Exam Const General: cooperative, no acute distress, well developed Orientation: alert, awake, oriented x3 [facility] Head: normocephalic, atraumatic Ears: hearing grossly normal bilaterally Resp Effort AND Inspection: normal respiratory effort, able to speak in complete sentences Auscultation: Bilateral: Clear to Auscultation Cardio Rate: regular rate Rhythm: regular rhythm Heart Sounds: S1 normal, S2 normal GI Palpation: soft, no hepatosplenomegaly Musc Other: Neuro General: alert, awake, oriented x3, moves all extremities, CN's II-XI intact bilaterally Extrem General: no pedal edema Psych Appearance: grossly normal Affect: normal affect Assessment AND Plan 1. Hypertension I10 Plan Blood pressure. 136/82 mmHg. No concerns at this time. Continue current medication. Continue lifestyle and dietary modifications. 2. Type 2 diabetes mellitus E11.9 Plan She brings along a blood sugar log which again shows very controlled. Again I think this is likely due to her diet. BMP and A1c ordered. Follow-up with results. Continue current management. Orders Orders: 3. Osteoporosis M81.0 Plan Most recent bone density suggestive of osteoporosis with T score of -3.1 in her lumbar spine. Calcium and vitamin D supplements. BMP and vitamin D check. Muscle strengthening exercises. Prescription for Prolia sent. Before coverage, will start on Fosamax. Orders Orders: 4. Hypothyroidism E03.9 Plan Stable. No concerns at this time. Thyroid function studies ordered. Follow-up with results. Orders Orders: 5. Left hip pain M25.552 Plan Resolved. Has completed physical therapy and is currently not on meloxicam anymore. Will monitor. Orders Orders: 6. Healthcare maintenance Z00.00 Plan Recent Pap smear and mammogram done at the [facility].. Patient an abnormality was noted and a repeat was suggested. I have asked that she have them fax over results for our records. Has received her flu and pneumonia shot. This note was generated with [employer] dictation software. It may contain incorrect words, spelling, and punctuation that were not noted in checking the note before signing. Plan Detail Other Medications New: Coding Level of Care Code Off vis,est,level 4 Diagnoses Hypertension I10 Type 2 diabetes mellitus E11.9 Osteoporosis M81.0 Hypothyroidism E03.9 Left hip pain M25.552 Healthcare maintenance Z00.00 10/18/18 1641 <Electronically signed by Jesu Dennison MD> Date Jesu Dennison MD Cosigner Signature: Date (if applicable) CC: PROGRESS Observed: 10/12/2018 Status: COMPLETED Source: [place] 7:56 AM [facility] REPOSITORY HNO ID: [id number] Author: Danuta Arvizu Psr Service: (none) Author Type: (none) Type: Progress Notes Filed: 10/12/2018 8:00 AM Note Text: Pap logged and normal pap letter mailed to patient. Danuta Arvizu Psr CNCO Observed: 10/04/2018 Status: COMPLETED Source: [place] 4:38 PM [facility] REPOSITORY HNO ID: [id number] Author: Mammography Coordinator Service: (none) Author Type: Physician Type: Letter Filed: 10/05/2018 11:33 PM Note Text: October 04, 2018 PID: [id number] Marissa CherelleMadonna Lee [address] [place] [address] Dear Ms. Lee, Your recent breast imaging exam on 10/04/2018 showed a possible finding that requires additional imaging studies for a complete evaluation. Most such findings are probably benign (not cancer). Please call [phone] or [phone] to schedule an appointment for your additional imaging if you have not already done so. Your breast images and report will be kept on file here as part of your permanent medical record and are available for your continuing care. Thank you for allowing us to help in meeting your health care needs. Sincerely, Dr. Lopez Interpreting Radiologist [facility] (Additional imaging) CYTOLOGY Observed: 10/04/2018 Status: F Source: [place] 11:19 AM [facility] REPOSITORY Specimen originated from [facility] Specimen #: [id number] Submitting Physician: PURVI DE LEÓN SPECIMEN SUBMITTED A: CERVICAL, SCREENING, FLUID FINAL DIAGNOSIS A. CERVICAL, SCREENING, FLUID Satisfactory for interpretation. Negative for intraepithelial lesion or malignancy. Atrophic specimen. This specimen has been analyzed by the ThinPrep Imaging System, an automated imaging and review system, which assists the laboratory in evaluating cells on ThinPrep Pap tests. Following automated imaging, selected godfrey from every slide are reviewed by a amusement machine mechanic. PAUL Simental(ASCP) (Electronic Signature) CLINICAL DATA ROUTINE EXAM, HPV Testing: No HPV test Date of Last Menstrual Period: Postmenopausal STAINS A: CERVICAL, SCREENING, FLUID THIN PREP MARBLE CUTTER OPERATOR Tracie Bennett M.D., Hourly Associate Date of Report: 10/11/2018 Date of Procedure: 10/04/2018 Date of Receipt: 10/05/2018 Submitted by: PURVI DE LEÓN Location: [facility] Diagnostic interpretation performed at [facility], [address] [place] [address]. The Pap Smear is a screening test for cervical cancer. False negative results occur with all screening tests, emphasizing the need for rescreening at recommended intervals, and clinical correlation. CNOV Observed: 10/04/2018 Status: COMPLETED Source: [place] 11:00 AM [facility] REPOSITORY Office Visit (WOOB) MARISSA LEE ([id number]) 1950 F Date Time Provider Department 10/04/18 11:00 AM PURVI DE LEÓN (AISHWARYA) WOOB During your visit today, we recorded the following information about you: Blood pressure Weight Height 120/76 64.5 kg 1.676 m Purvi eD León APRN.CNP 10/04/2018 11:20 AM Signed Marissa Lee is a 67 year old who presents for her annual gynecologic exam without complaints. Postmenopausal: Yes since early 40's HRT use: No. Last Pap: 2012 normal HPV: 2012 negative History of abnormal pap: No Last mammogram: 2018 pending History of abnormal mammogram: No Sexually active: No Hot flashes: No Night sweats: No Vaginal dryness: Yes Obstetric History T0 L3 SAB0 TAB0 Ectopic0 Multiple0 Live Births0 PAST MEDICAL HISTORY Diagnosis Date - Hypertension - Hypothyroid - Type II or unspecified type diabetes mellitus without mention of complication, not stated as uncontrolled PAST SURGICAL HISTORY Procedure Laterality Date - REMOVAL ADENOIDS,PRIMARY,<12 Y/O Adenoidectomy - REMOVAL OF TONSILS,<12 Y/O Tonsillectomy - SKIN LESION BIOPSY 02/2015 FAMILY HISTORY Problem Relation Age of Onset - Hypertension Mother - Hypertension Father - Cancer Father renal - Thyroid Sister SOCIAL HISTORY Social History Substance Use Topics - Smoking status: Never Smoker - Smokeless tobacco: Never Used - Alcohol use No REVIEW OF SYSTEMS Abdomen: No abdominal pain, nausea, vomiting, diarrhea, or constipation. No bloating, early satiety, indigestion, or increased flatulence. Bladder: No dysuria, gross hematuria, urinary frequency, or incontinence +urgency Breast: No breast lumps, nipple d/c, overlying skin changes, redness or skin retraction Allergies and current medication updated:Yes EXAM: There were no vitals taken for this visit. GENERAL: pleasant, female in no apparent distress HEENT: Normocephalic, atraumatic, mucus membranes moist and no lesions NECK: Supple, full range of motion, no adenopathy and thyroid normal DERMATOLOGY: Normal, without lesions, non-icteric and non-hirsute BREAST: soft, non-tender, symmetric, no dominant mass, normal nipple-areolar complex, no lymphadenopathy and no nipple discharge CHEST: Normal inspiratory effort ABDOMEN: soft, non-tender and no masses PELVIC: external genitalia normal, normal Bartholin's glands, urethra, [place]'s glands, no vulvar lesions, no cervical lesions, good vaginal support, physiologic discharge present, normal appearing perineal body and perianal region BIMANUAL: uterus normal size, shape and consistency, no adnexal masses, non-tender and no cervical motion tenderness RECTOVAGINAL: deferred. NEURO: alert and oriented x3,exam grossly non-focal EXTREMITIES: normal ASSESSMENT/PLAN: 1) Health maintenance: Pap done with reflex HPV Mammogram up to date Nutrition, exercise and routine health maintenance exams reviewed. Calcium/Vitamin D supplementation information provided. BMD: up to date 2) Follow up one year or sooner as needed Purvi De León APRN.AISHWARYA Arvizu Pstejas 10/12/2018 8:00 AM Signed Pap logged and normal pap letter mailed to patient. Danuta Arvizu Psr Referring Provider: PURVI DE LEÓN (AISHWARYA) [[id number]] Allergies As of Date: 10/04/2018 Noted Allergy Reaction TETRACYCLINE 10/20/2005 4 - Hives Date Reviewed: 10/04/2018 Reviewed by: Purvi Montemayor) Genet - Fully Assessed Reason for Visit: Well Woman [1463] Primary Visit Diagnosis:Encounter for gynecological examination (general) (routine) without abnormal findings [Z01.419] Other Visit Diagnoses:Visit for screening mammogram [Z12.31] Encounter for Papanicolaou smear for cervical cancer screening [Z12.4] Order(s):RJ SCREENING [[id number]] Order #: [id number] FUTURE PAP FLUID CERVICAL SCREENING [[id number]] Order #: [id number]. #[id number] Prescriptions as of 10/04/2018 Sig: TOUDORON SOLOSTAR U-300 INSULIN* Inject 22 Units subcutaneousl* AMLODIPINE 5 MG TABLET Take 5 mg by mouth once daily. * LISINOPRIL 10 MG TABLET Take one(2) tablet daily. * LEVOXYL 88 MCG TABLET Take one(1) tablet daily. * HUMALOG PEN 100 UNIT/ML SUBCU* Use as directed. * ASPIRIN 81 MG TABLET Take one(1) tablet daily. * CALCIUM 600 + D(3) 600 MG-125* Take one(1) tablet twice garcia* Problem List As Of Date: 10/04/2018 (None) Disposition: Return in 1 year (on 10/04/2019) for Annual Exam. Follow-up and Disposition History Recorded Letter Text Purvi De León CNP [facility] [address] [place] [phone] Marissa Lee [address] [place] [id number] 10/12/2018 [facility]: [id number] Dear Marissa, We are pleased to inform you that your recent Pap Test was within normal limits. Because Pap tests are so effective in the early detection of cervical cancer, you are encouraged to continue having the test at regular intervals. You will be due for a 1 year Gynecological Exam after this date 10/04/2019. If you have any questions regarding the above information, do not hesitate to call our office at between the hours of 8:00 a.m. and 5:00 p.m. Sincerely, Purvi De León CNP Encounter Status:Closed by PURVI DE LEÓN on 10/04/18 PROGRESS Observed: 10/04/2018 Status: COMPLETED Source: [place] 10:53 AM [facility] REPOSITORY HNO ID: [id number] Author: Purvi Montemayor) Genet Service: (none) Author Type: Nurse Practitioner Type: Progress Notes Filed: 10/04/2018 11:20 AM Note Text: Marissa Lee is a 67 year old who presents for her annual gynecologic exam without complaints. Postmenopausal: Yes since early 's HRT use: No. Last Pap: 2012 normal HPV: 2012 negative History of abnormal pap: No Last mammogram: 2017 pending History of abnormal mammogram: No Sexually active: No Hot flashes: No Night sweats: No Vaginal dryness: Yes Obstetric History T0 L3 SAB0 TAB0 Ectopic0 Multiple0 Live Births0 PAST MEDICAL HISTORY Diagnosis Date - Hypertension - Hypothyroid - Type II or unspecified type diabetes mellitus without mention of complication, not stated as uncontrolled PAST SURGICAL HISTORY Procedure Laterality Date - REMOVAL ADENOIDS,PRIMARY,<12 Y/O Adenoidectomy - REMOVAL OF TONSILS,<12 Y/O Tonsillectomy - SKIN LESION BIOPSY 02/2015 FAMILY HISTORY Problem Relation Age of Onset - Hypertension Mother - Hypertension Father - Cancer Father renal - Thyroid Sister SOCIAL HISTORY Social History Substance Use Topics - Smoking status: Never Smoker - Smokeless tobacco: Never Used - Alcohol use No REVIEW OF SYSTEMS Abdomen: No abdominal pain, nausea, vomiting, diarrhea, or constipation. No bloating, early satiety, indigestion, or increased flatulence. Bladder: No dysuria, gross hematuria, urinary frequency, or incontinence +urgency Breast: No breast lumps, nipple d/c, overlying skin changes, redness or skin retraction Allergies and current medication updated:Yes EXAM: There were no vitals taken for this visit. GENERAL: pleasant, female in no apparent distress HEENT: Normocephalic, atraumatic, mucus membranes moist and no lesions NECK: Supple, full range of motion, no adenopathy and thyroid normal DERMATOLOGY: Normal, without lesions, non-icteric and non-hirsute BREAST: soft, non-tender, symmetric, no dominant mass, normal nipple-areolar complex, no lymphadenopathy and no nipple discharge CHEST: Normal inspiratory effort ABDOMEN: soft, non-tender and no masses PELVIC: external genitalia normal, normal Bartholin's glands, urethra, [place]'s glands, no vulvar lesions, no cervical lesions, good vaginal support, physiologic discharge present, normal appearing perineal body and perianal region BIMANUAL: uterus normal size, shape and consistency, no adnexal masses, non-tender and no cervical motion tenderness RECTOVAGINAL: deferred. NEURO: alert and oriented x3,exam grossly non-focal EXTREMITIES: normal ASSESSMENT/PLAN: 1) Health maintenance: Pap done with reflex HPV Mammogram up to date Nutrition, exercise and routine health maintenance exams reviewed. Calcium/Vitamin D supplementation information provided. BMD: up to date 2) Follow up one year or sooner as needed Purvi De León APRN.CNP [facility] SCREENING Observed: 10/04/2018 Status: F Source: [place] 10:43 AM [facility] REPOSITORY * * *Final Report* * * DATE OF EXAM: Oct 04 2018 10:43AM [facility] [id number] - [facility] SCREENING / PROCEDURE REASON: Screening breast examination * * * * Physician Interpretation * * * * RESULT: #[id number] - [facility] SCREENING BILATERAL DIGITAL SCREENING MAMMOGRAM WITH CAD: 10/04/2018 HISTORY: Screening Breast Examination\ Screening Mammogram - patient reports NO breast symptoms /priors available for comparison. RESULT: TECHNIQUE: The study was acquired using full field digital technology and interpreted from soft copy. Current study was also evaluated with a Computer Aided Detection (CAD). Comparison is made to exams dated: 06/11/2017 mammogram, 10/29/2015 mammogram - [facility], 03/06/2014 mammogram, and 12/06/2012 mammogram - [facility]. There are scattered fibroglandular elements in both breasts. There is possible architectural distortion in the left breast anterior depth upper region seen on the mediolateral oblique view only. No other significant masses, calcifications, or other findings are seen in either breast. IMPRESSION: INCOMPLETE: NEEDS ADDITIONAL IMAGING EVALUATION The possible architectural distortion in the left breast is indeterminate. Additional views are recommended. Chidi Lopez M.D., jr/penrad:10/04/2018 16:38:16 Tumbling Instructor: Melly MARSH)(Vera), [facility] letter sent: Additional Imaging Needed Mammogram BI-RADS: 0 Incomplete: needs additional imaging evaluation If this report indicates you need additional imaging, and it has NOT yet been performed, please call , to schedule. We sincerely thank you for choosing the [facility] for your breast imaging needs. Multiple national specialty organizations have released breast cancer screening guidelines for women at average risk for developing breast cancer - guidelines that are based on both evidence and opinion, yet differ on when to start and how often to screen for breast cancer. With representation from Breast Imaging, Internal Medicine, Women's Health, Family Medicine, and Medical/Surgical Oncology, the [facility] has carefully reviewed the data and reached the following consensus: 1) All women should engage in shared decision-making with their providers to decide when to start and how often to screen; 2) All women should have the opportunity to start screening mammography at age 40; 3) For women ages 45-55, we recommend annual screening mammograms; 4) For women ages 55 and over, we support both the transition from an annual to a biennial interval if this aligns more with patient's values and preferences, or continuation with annual screening; 5) All women should discuss with their providers when to stop screening mammograms. Navigation Teacher: Lealnd Transcribe Date/Time: Oct 04 2018 10:44A Dictated by: CHIDI LOPEZ MD This examination was interpreted and the report reviewed and electronically signed by: CHIDI LOPEZ MD on Oct 04 2018 4:38PM EST [id number] PT D/C SUMMARY (1) Observed: 09/30/2018 Status: F Source: [place] 2:08 PM [facility] REPOSITORY [facility] Physical Therapy Health[address] [place], [place] [address] Fax REHABILITATION SERVICES DISCHARGE SUMMARY MR#: [id number] Acct: [id number] Name: JESUSREJIMARISSA Cherelle Rep #: [id number] : 1950 67 From: [employer]. HORACIO jacob PT, OCS Referring Dr.: ADOLPH Grant Status: REG RCR Insurance: MEDICARE PART A B AARP HP - PT D/C Summary It has been my pleasure to treat MARISSA LEE under orders from ADOLPH Velazquez, for the diagnosis of LEFT SCIATICA/PIRIFORMIS for a total of 9 visit(s). Discharge Date: 09/29/18 Please see the following information for a summary of their discharge status. - Subjective Subjective: Doing well no pain . Able to sleep all night. Working and all ADL'S no problem - Pain Left Back Pain Intensity (Out of 10): 0 Left Lower Extremity Pain Intensity (Out of 10): 0 - Overall Improvement % Improvement: 90 - Objective Objective/Function: POSTURE: mild foward posture. GAIT:reciprocal pattern. NEURO: intact denies parathesia/tingling. MMT: quads/hams4/5,hip 4/5,ankle 5/5. LUMBAR ROM: flexion WFL loss,extension min loss. -SLR - Goals Goal 1:: Independant with HEP Goal Progress: Goal Met Goal 2:: Indepependant with posture for ADL'S Goal Progress: Goal Met Goal 3:: Decrease lumbar pain and radicular symptoms by 50% or greatwer to improve function with ADL'S. Goal Progress: Goal Met Goal 4:: Patient to improve lumbar ROM for function of recovery Goal Progress: Goal Met Goal 5:: Patient to improve back owestry by 5 points to improve QOL Goal Progress: Goal Met - Plan Plan: D/C TO HEP - D/C Information Discharge Comments: HEP ..MET GOALS If there are questions or concerns regarding this patient's physical therapy, please feel free to call me at [phone]. Thank you for the referral of this patient. Sincerely, Aleks Rodriguez PT, <Electronically signed by Cert. HORACIO Garcia PT, OCS> 09/30/18 1408 CC: ADOLPH Grant; Jesu Dennison MD [place] Signed INTERNAL MEDICINE Observed: 09/09/2018 Status: F Source: [place] OFFICE VISIT 5:02 PM [facility] Internal Medicine [address] [place] [address] [address] [place] [address] OFFICE VISIT Date of Service: 09/06/18 MR#: [id number] Acct: [id number] Name: MARISSA LEE Rep #: [id number] : 1950 Provider: Jesu Dennison MD Age/Sex: 67/F [place] [facility] [place] [facility] [place] Status: Signed Intake Vital Signs09/06/18 Height 5 ft 6 in 09/06/18 Blood Pressure 145/82 H 09/06/18 Blood Pressure Location Lt brachial 09/06/18 Blood Pressure Position Sitting Intake Visit Reasons: 3 mo f/u Chief Complaint: Follow-up of chronic medical conditions and left leg pain Is patient in pain?: Yes (L leg pain ) Pain scale (1-10): 3 Allergies Tetracyclines Allergy (Verified 09/06/18 13:55) Unknown Medications Amlodipine Besylate 5 mg PO DAILY 03/31/14 [History Confirmed 09/06/18] levothyroxine 88 mcg tablet 88 mcg PO DAILY #90 tab 11/03/17 [Rx Confirmed 09/06/18] aspirin 81 mg tablet,delayed release PO 01/19/18 [History Confirmed 09/06/18] blood pressure monitor kit See Dose Instructions .ROUTE .MEDSUPPLY #1 ea 01/19/18 [Rx Confirmed 09/06/18] calcium carbonate 600 mg calcium (1,500 mg) tablet 600 mg PO ONCE tab 01/19/18 [History Confirmed 09/06/18] cholecalciferol (vitamin D3) 2,000 unit capsule 2,000 unit PO ONCE 01/19/18 [History Confirmed 09/06/18] insulin glargine (U-300) conc. 300 unit/mL (1.5 mL) subcutaneous pen 22 unit SC QDAY #4.5 ml 05/28/18 [Rx Confirmed 09/06/18] rosuvastatin 5 mg tablet 5 mg PO QDAY #90 tab 06/04/18 [Rx Confirmed 09/06/18] ketorolac 15 mg/mL injection cartridge 15 mg IM ONCE #1 ml 08/20/18 [Rx Confirmed 09/06/18] tramadol 50 mg tablet 50 mg PO Q6H PRN #20 tab 08/27/18 [Rx Confirmed 09/06/18] insulin lispro (U- 100) 100 unit/mL subcutaneous solution 5 unit SC .TIDAC #10 ml 09/06/18 [Rx Confirmed 09/06/18] lisinopril 20 mg tablet 20 mg PO DAILY #90 tab 09/06/18 [Rx Confirmed 09/06/18] meloxicam 15 mg tablet 15 mg PO DAILY #30 tab 09/06/18 [Rx Confirmed 09/06/18] Post menopausal: Yes PFSH Medical History Hypertension (Chronic) Diabetes (Chronic) Hypothyroidism (Chronic) Surgical History History of tonsillectomy (Acute) Family History Father Hypertension Cancer kidney Mother Hypertension Social History Smoking Status: Never smoker alcohol intake: never substance use type: does not use what type of physical activity do you participate in: walking frequency: daily HPI HPI Chief Complaint: Follow-up of chronic medical conditions and left leg pain Details: MARISSA LEE, is a 67 F who presents to the office today for follow-up. She was seen about 2 weeks ago for an acute onset left hip pain. Imaging done was without any significant abnormalities however examination suggestive of possible sacroiliitis. She was referred to Ortho due to persistent pain from where she was subsequently referred to physical therapy. She has noted some improvement however still has significant pain. Currently on meloxicam and tramadol as needed. She brings along her blood sugar log which shows very blood sugar control. She reports compliance with her medication and is currently on 22 units of Toujeo. She is scheduled to follow-up with travel rn. ROS Const Constitutional: No anorexia, body ache, chills, fever(s), decreased energy, malaise, night sweats, weight change, sleep problems, other, snoring, weakness, frequent falls, headache(s), abnormal sleep pattern, change in appetite, excessive sweating or fatigue Eyes Eyes: No blurry vision, change in vision, double vision, discharge, dry eyes, bulging eyes, floaters, eye pain, light sensitivity, spots in vision, tunnel vision, other or visual disturbances ENT ENT: No ear pain, ear discharge, ear pressure, hearing loss, tinnitus, dizziness/vertigo, balance problems, nosebleed/epistaxis, nasal congestion, nasal obstruction, nose pain, sinus pressure, sinus pain, nasal discharge, post nasal drip, facial pain, dental pain, dry mouth, bad breath, hoarseness, mouth lesions, mouth pain, sore throat, difficulty swallowing, neck pain, abnormal hearing, headache(s), other, lip swelling, throat swelling or tongue swelling Resp Respiratory: No cough, change in phlegm color, chest congestion, excessive phlegm production, hemoptysis, pain on inspiration, shortness of breath, pain with cough, snoring, stridor, other or wheezing Cardio Cardiology: No chest pain at rest, chest pain with exertion, leg pain with exertion, shortness of breath, dyspnea on exertion, generalized swelling, irregular heart rhythm, lightheadedness, orthopnea, radiating jaw, neck or arm pain, fast heart rate, slow heart rate, palpitations, other or excessive sweating Gastro GI: No abdominal pain, belching, bloating, change in bowel habits, change in stool character, coffee ground emesis, constipation, cramping, diarrhea, heartburn, difficulty swallowing, feeling full early, excessive flatus, incontinent of stools, Vomiting blood/hematemesis, blood in stool, loose stools, Black,tarry stools, nausea/dyspepsia, pain with swallowing, vomiting or other Genitourinary-Female: No difficulty urinating, burning urination, painful urination, urinary incontinence, urinary frequency, urinary urgency, urinary hesitancy, urinary retention, blood in urine, Frequent nighttime urination/ nocturia, post void dribbling, suprapubic fullness, side pain, sexual problems, genital lesions, genital itching, hot flashes, abnormal periods, abnormal vaginal bleeding, absent period, painful periods, light periods, heavy periods, difficulty getting , painful intercourse, pelvic pain, vaginal dryness, vaginal odor, Vaginal Itching or other Musc Musculoskeletal: Positive for other (Sharp pain in L hip.); no joint pain, back pain, deformity, joint swelling, limited range of motion, loss of height, muscle cramps, decreased muscle mass, body aches, neck pain, radiating pain into limb, stiffness, abnormal walking, numbness or tingling Skin Skin: No acne, hair loss, change in hair, nail changes, boil, change in skin color, dry skin, redness, excessive hair growth, yellowing of the skin, lesions, rash, skin pain, skin ulcer, sores, skin swelling, wounds, other or itching Breast Breast: No change in breast shape, breast lump, breast pain, breast skin changes, breast swelling, nipple discharge or other Neuro Neurology: No abnormal walking, abnormal hearing, abnormal movements, abnormal speech, unsteady gait/balance, dizziness, weakness, frequent falls, headache(s), lack of coordination, loss of vision, numbness, tingling, visual disturbances, restless legs, fainting, tremor(s), other, behavioral changes, confusion or memory loss Psych Psychiatric: No abnormal sleep pattern, No lack of enjoyment, No anxiety, No behavioral changes, No change in appetite, No confusion, No depression, No difficulty concentrating, No hopelessness, No irritability, No memory loss, No mood swings, No panic attacks, No paranoia, No Thoughts of harming yourself/Others, No hallucinations, No other Endo Endocrine: No change in body appearance, cold intolerance, excessive sweating, fatigue, flushing, heat intolerance, increased thirst/drinking, increased hunger, increased urination or other Aller/Imm Allergy/Immunologic: No food intolerance, itchy eyes, lip swelling, seasonal allergy symptoms, throat swelling, tongue swelling, hives, wheezing or other Elfego/Lymp Hematologic/Lymphatic: No easy bleeding, easy bruising, enlarged lymph nodes or other Exam Const General: cooperative, no acute distress, well developed Orientation: alert, awake, oriented x3 [facility] Head: normocephalic, atraumatic Ears: hearing grossly normal bilaterally Resp Effort AND Inspection: normal respiratory effort, able to speak in complete sentences Auscultation: Bilateral: Clear to Auscultation Cardio Rate: regular rate Rhythm: regular rhythm Heart Sounds: S1 normal, S2 normal GI Palpation: soft, no hepatosplenomegaly Musc Other: Straight leg raise test negative. Tenderness on flexion and rotation of the hip. Neuro General: alert, awake, oriented x3, moves all extremities, CN's II-XI intact bilaterally Extrem General: no pedal edema Psych Appearance: grossly normal Affect: normal affect Immunizations Fluad 2018-19 65yr up(PF)45 mcg(15 mcgx3)/0.5 mL intramuscular syringe Performing Provider: Jesu Dennison MD Administered by: Moraima Anaya on 09/06/18 14:47 Dose Route Admin Location Lot Number Expiration Date NDC Transportation Supervisor 0.5 mL IM Left Deltoid [id number] 05/22/19 48640-163-58 SEQIRUS VIS Given Date VIS Publication Date 09/06/18 03/06/15 Eligibility Eligibility Date Assessment AND Plan 1. Left hip pain M25.552 Plan Somewhat better per Patient. Currently undergoing physical therapy. Continue meloxicam 15 mg daily. Take with food. Follow-up in 6 weeks 2. Type 2 diabetes mellitus E11.9 Plan Still not optimally controlled. Scheduled to start with diabetes education in about a week. Continue blood sugar log. Titrate Humalog as needed. 3. Hypertension I10 Plan Mildly elevated today however, home log with better control. We will make no changes at this time. Continue current medications. 4. Healthcare maintenance Z00.00 Plan Up-to-date with her Pap smear and mammogram. She also states that she has received her pneumonia vaccines. Flu shot given today. This note was generated with [employer] dictation software. It may contain incorrect words, spelling, and punctuation that were not noted in checking the note before signing. Plan Detail Other Orders Orders: Other Medications New: Changed: Refilled: insulin lispro (U- 5-10 units with meals base5 units (0.05 mL) subcut .TIDAC 10 mL 3RF d on sliding scale Discontinued: Fluad 65yr up(PF)45 mcg(15 mcgx3)/0.5 mL intramuscu0.5 mL IM ONCE 1 mL 0RF NS Z23 lar syringe (flu vac 2017 [id number](PF)) Discontinue d Reason: Office Medication has been Documented as given Coding Level of Care Code Off vis,est,level 3 Diagnoses Left hip pain M25.552 Type 2 diabetes mellitus E11.9 Hypertension I10 Healthcare maintenance Z00.00 09/09/18 1702 <Electronically signed by Jesu Dennison MD> Date Jesu Dennison MD Cosigner Signature: Date (if applicable) CC: INITAL EVALUATION (1) Observed: 09/01/2018 Status: F Source: [place] - PT 2:50 PM [facility] REPOSITORY [facility] Physical [facility] [address] [place] [address] Fax REHABILITATION SERVICES INITIAL EVALUATION MR#: [id number] Acct: [id number] Name: MARISSA LEE Rep #: [id number] : 1950 67 From: Aleks Rodriguez PT, Cert. T, OCS Referring Dr.: ADOLPH Grant Status: REG RCR Insurance: MEDICARE PART A B AAR Patient's Visit Information MARISSA LEE is a 67 year old F referred to Physical Therapy by ADOLPH Velazquez with a diagnosis of LEFT SCIATICA/PIRIFORMIS. Date of Evaluation: 08/31/18 Physical Therapist: Aleks Rodriguez PT, - Visit Plan Frequency: 2x /Week Duration: 4 Weeks Plan: INTIALLY MODALITIES FOR PAIN RELIVEIVE,PROGRESS TO GRADED RROM/TUAN EX'S,. DLS ,POSTURAL EX'S - Subjective Subjective: This 67 y/o female presents to physical therapy with left sciatica /piriformis since 2weeks. Symptoms where incidous onset bno trauma or injury . Patient seen family DR recommended to see orthopedic. Patient had x-rays recommended PT. Patient symptoms located left L-S -gluteus radiates to anterior tibials. Symptoms worse bending,sitting,standing. Pain affects sleeping unable to sleep. C/O parathesia/tingling lower leg. Coughing/sneezing -. Bowel/bladder -. Patient taking mlocicam/tramadol. Patient has h/o lumbar pain many years ago.Symptoms not better with no activity. VOCATION: [facility] [employer] [facility] SOCAIL: - Pain Left Back Pain Intensity (Out of 10): 7 Pain Intensity Range: 10 Left Lower Extremity Pain Intensity (Out of 10): 7 Pain Intensity Range: 10 - Objective POSTURE: rounded shoulders head foward. PALPATION: tender Left L-S. NEURO: c/o parathesia/tingling lower leg,light touch intact,reflexes 2/3 L3-4,L4-5,L5-S1. MMT:4-/5 quad/hams ,hip flexion 4-/5,ankle 4/5. LUMBAR ROM: flexion WFL,extension mod loss pain left side,side glides min loss. SYMMTIES : align. GAIT: mild decrease antalgic. FLEXABLITY: hams MIN,Piriformis min loss. - Special Tests L/S Slump test left side: Positive L/S Slump test right side: Negative L/S Left Straight Leg Raise: Positive Lumbar Standing: Flexion - Mechanical Response: No effect Lumbar Standing: Flexion - Symptoms During Testing: Decreases Lumbar Standing: Flexion - Symptoms After Testing: No better Lumbar Standing: Extension - Mechanical Response: No effect Lumbar Standing: Extension - Symptoms During Testing: Increases Lumbar Standing: Extension - Symptoms After Testing: Worse Lumbar Standing: Right Side Glides - Mechanical Response: No effect Lumbar Standing: Right Side [place] - Symptoms During Testing: No effect Lumbar Standing: Right Side [place] - Symptoms After Testing: No effect Lumbar Standing: Left Side [place] - Mechanical Response: No effect Lumbar Standing: Left Side [place] - Symptoms During Testing: Increases Lumbar Standing: Left Side [place] - Symptoms After Testing: Worse Lumbar Lying: Flexion - Mechanical Response: No effect Lumbar Lying: Flexion - Symptoms During Testing: Abolishes Lumbar Lying: Flexion - Symptoms After Testing: No better Lumbar Lying: Extension - Mechanical Response: No effect Lumbar Lying: Extension - Symptoms During Testing: Increases Lumbar Lying: Extension - Symptoms After Testing: Worse - Goals Goal 1:: Independant with HEP Goal Time Frame: 4-6 Weeks Goal 2:: Indepependant with posture for ADL'S Goal Time Frame: 4-6 Weeks Goal 3:: Decrease lumbar pain and radicular symptoms by 50% or greatwer to improve function with ADL'S. Goal Time Frame: 4-6 Weeks Goal 4:: Patient to improve lumbar ROM for function of recovery Goal Time Frame: 4-6 Weeks Goal 5:: Patient to improve back owestry by 5 points to improve QOL Goal Time Frame: 4-6 Weeks - Rehabilitation Potential Physical Therapy Diagnosis: This patient has left lumbar pain with radicular symptoms possible left lateral stenosis vs derrangement below with pain with extension ,better flexion ,impairs gait ,standing and ADL'S Rehabilitation Potential: Good - Anticipated Interventions Patient/Client Instruction: Educate patient on: Condition, Plan of Care For the Purpose of:: To decrease pain, To increase ROM, To improve muscle performance and motor function, To improve ability to perform ADL's, To increase tolerance to activity/condition/position, To improve ability of physical actions for home/community/work/leisure, To improve health of tissue, To decrease soft tissue restriction, To increase flexibility/ROM, To assume or resume ADL's, To improve tolerance to ADL's Therapeutic Exercise to Include: Strength training, Body mechanics, Postural training, Flexibilty training, Dynamic Lumbar Stabilization, Tuan Exercises For the Purpose of:: To decrease pain, To increase ROM, To increase tolerance to activity/condition/position, To improve ability of physical actions for home/community/work/leisure, To improve health of tissue, To decrease soft tissue restriction, To increase flexibility/ROM, To reduce risk of recurrence, To improve ability to perform tasks related to life management TENS: Yes IF ES: Yes Cryotherapy (ice pack, ice massage): Yes Thermo therapy (hot pack): Yes Ultrasound (thermal/non thermal): Yes For the Purpose of:: To decrease pain, To increase ROM, To improve nutrient delivery to tissue, To increase oxygenation perfusion, To improve health of tissue, To decrease soft tissue restriction Thank you for the opportunity to evaluate your patient. For Medicare and Medicare HMO plans, please review the plan of care and approve it. It will need to be FAXED BACK to us at [phone] for Medicare purposes. Please let me know if there are questions or concerns regarding this plan of care. Physician Signature: Date: <Electronically signed by Aleks Rodriguez PT, Cert. HORACIO, OCS> 09/01/18 2638 CC: ADOLPH Grant; Jesu Dennison MD [place] Signed For Medicare only, by signing this I certify the plan of care. Physicians Signature Date ORTHOPEDIC VISIT Observed: 08/31/2018 Status: F Source: [place] REPORT 4:34 PM [facility] REPOSITORY [facility] Orthopaedics AND Sports Medicine [address] [place] [address] [place] [address] OFFICE VISIT Date of Service: 08/30/18 MR#: [id number] Acct: [id number] Name: MARISSA LEE Rep #: [id number] : 1950 Provider: ADOLPH Grant Age/Sex: 67/F [place] [facility] [facility] [place] [place] Status: Signed Intake Intake Visit Reasons: LEFT HIP Is patient in pain?: Yes Pain scale (1-10): 6 Allergies Tetracyclines Allergy (Verified 08/30/18 14:12) Unknown Medications Amlodipine Besylate 5 mg PO DAILY 03/31/14 [History Confirmed 06/04/18] Lisinopril 20 mg PO DAILY 03/31/14 [History Confirmed 06/04/18] levothyroxine 88 mcg tablet 88 mcg PO DAILY #90 tab 11/03/17 [Rx Confirmed 06/04/18] aspirin 81 mg tablet,delayed release PO 01/19/18 [History Confirmed 06/04/18] blood pressure monitor kit See Dose Instructions .ROUTE .MEDSUPPLY #1 ea 01/19/18 [Rx Confirmed 06/04/18] calcium carbonate 600 mg calcium (1,500 mg) tablet 600 mg PO ONCE tab 01/19/18 [History Confirmed 06/04/18] cholecalciferol (vitamin D3) 2,000 unit capsule 2,000 unit PO ONCE 01/19/18 [History Confirmed 06/04/18] insulin lispro (U- 100) 100 unit/mL subcutaneous solution 5 unit SC .TIDAC #10 ml 02/16/18 [Rx Confirmed 06/04/18] insulin glargine (U-300) conc. 300 unit/mL (1.5 mL) subcutaneous pen 22 unit SC QDAY #4.5 ml 05/28/18 [Rx Confirmed 06/04/18] rosuvastatin 5 mg tablet 5 mg PO QDAY #90 tab 06/04/18 [Rx Confirmed 06/04/18] ketorolac 15 mg/mL injection cartridge 15 mg IM ONCE #1 ml 08/20/18 [Rx Confirmed 08/20/18] meloxicam 7.5 mg tablet 7.5 mg PO DAILY #20 tab 08/20/18 [Rx Confirmed 08/20/18] tramadol 50 mg tablet 50 mg PO Q6H PRN #20 tab 08/27/18 [Rx] PFSH Medical History Hypertension (Chronic) Diabetes (Chronic) Hypothyroidism (Chronic) Surgical History History of tonsillectomy (Acute) Family History Father Hypertension Cancer kidney Mother Hypertension Social History Smoking Status: Never smoker alcohol intake: never substance use type: does not use what type of physical activity do you participate in: walking frequency: daily HPI LEFT HIP: Details: MARISSA LEE is a 67 year old F here today for left hip pain. Patient notes that she has left lateral hip pain, into her knee and into her left calf. She denies any low back pain. She states that she has had pain for about 2 weeks with no known injury. She woke up one morning with this pain. She describes her pain as a burning pain. Patient has increased pain with laying down flat and she has difficulty sleeping. Patient saw her PCP who did hip xrays and has given her meloxicam and tramadol for pain which is not helpful. She denies any physical therapy, injections or MRI. ROS Const Reports system reviewed and no additional complaints, except as docu Eyes Reports system reviewed and no additional complaints, except as docu ENT Reports system reviewed and no additional complaints, except as docu Card Reports system reviewed and no additional complaints, except as docu Resp Reports system reviewed and no additional complaints, except as docu GI Reports system reviewed and no additional complaints, except as docu Reports system reviewed and no additional complaints, except as docu Musc Reports joint pain, Reports body aches Skin/Breast Reports system reviewed and no additional complaints, except as docu Neuro Yes system reviewed and no additional complaints, except as docu Psych Reports system reviewed and no additional complaints, except as docu Endo Reports system reviewed and no additional complaints, except as docu Ortho Exam Left Hip Hip: Absent soft tissue swelling, erythema or TTP Greater Troch Impingement Test: 1 Special Tests: pain with log roll, iliopsoas snap or IT band snap Dion test: 1 Sravan's Signs: no Overreaction Homans Sign: No HIP: Patient has FROM and normal 5/5 strength in the left hip. She does have localized tenderness within the sciatic notch / piriformis muscle. This is most notable / recreated on palpation with patient is lying on her right side with the hip and knee flexed Spine Neuro: Yes Light Touch Sensation (normal); no Guzman's or Straight Leg Raise General: moves all extremities Speech: speech normal Gait: antalgic DTR's: Rt Patellar: 4+, Lt Patellar: 4+, Rt Ankle: 4+, Lt Ankle: 4+ SPINE TESTING CERVICAL THORACIC LUMBAR Valsalvas: Negative SLR: Negative, Le Musculoskeletal General: Yes normal posture; no joint tenderness Thoracic/Lumbar Spine: No lumbar spinal tenderness, No thoracic spinal tenderness, No straight leg raise positive Sacrum: No swelling, No tenderness Strength 0=absent - 5=normal Details: PAtient has normal sensation in the entire lower extremity. She does though have some weakness in the left foot most notably with dorsiflexion against resistance. Some minor weakness with plantar flexion. Hip flexion and extension appears normal strength. Knee flexion and extension is pretty normal with maybe a very slight weakness. Assessment AND Plan Problems 1. Left hip pain M25.552 2. Sciatica of left side M54.32 Plan Obtained Xrays of patient's left hip. Personally reviewed Xrays. There is no obvious fracture, dislocation, or lucency noted. See chart for further details. Patients pains in the leg are intermittent pains that can change location in the leg and often radiate down the leg. She has had back problems in the jocelyn but states that she has not had any recent injury or pains in the back. She has no tenderness on palpation today and her straight leg raises both seated and supine are negative for any rediculopathy. She has some recreation of pains with palpation of the sciatic notch as discussed. HEr gait is a little antalgic at the same time she has no drop foot or disuse of the extremity. The concern as discussed with patient is that there is some weakness in the foot indicating some nerve involvement. Again though the pains are not there all the time. Patient is a diabetic with sugars typically running over 250 and thus I do not want to do PO steroids at this time. We are going to set her up with physical therapy as well as an EMG at this time. We discussed doing an MRI as well to look for disc involvement at the same time with some evidence of piriformis involvement will see if therapy can help this. she needs to notify RACHELLE of any foot drop or gross motor dysfunction in which an MRI would be indicated RACHELLE. We need to see her back in 2-3 weeks or sooner if other changes. Orders Orders: Plan Detail Follow Up 3 Weeks Coding Level of Care Code Off vis,new,level 3 Diagnoses Left hip pain M25.552 Sciatica of left side M54.32 08/31/18 1634 <Electronically signed by Felix FARFAN> Date Felix FARFAN Cosigner Signature: Date (if applicable) CC: INTERNAL MEDICINE Observed: 08/23/2018 Status: F Source: [place] OFFICE VISIT 3:18 PM [facility] Internal Medicine [address] [place] [address] [address] [place] [address] OFFICE VISIT Date of Service: 08/20/18 MR#: [id number] Acct: [id number] Name: MARISSA LEE Rep #: [id number] : 1950 Provider: Jesu Dennison MD Age/Sex: 67/F [facility] [facility] Status: Signed Intake Vital Signs08/20/18 Height 5 ft 6 in Intake Visit Reasons: Bad leg cramping Chief Complaint: left leg pain Is patient in pain?: Yes (left leg) Pain scale (1-10): 7 Allergies Tetracyclines Allergy (Verified 06/04/18 09:07) Unknown Medications Amlodipine Besylate 5 mg PO DAILY 03/31/14 [History Confirmed 06/04/18] Lisinopril 20 mg PO DAILY 03/31/14 [History Confirmed 06/04/18] levothyroxine 88 mcg tablet 88 mcg PO DAILY #90 tab 11/03/17 [Rx Confirmed 06/04/18] aspirin 81 mg tablet,delayed release PO 01/19/18 [History Confirmed 06/04/18] blood pressure monitor kit See Dose Instructions .ROUTE .MEDSUPPLY #1 ea 01/19/18 [Rx Confirmed 06/04/18] calcium carbonate 600 mg calcium (1,500 mg) tablet 600 mg PO ONCE tab 01/19/18 [History Confirmed 06/04/18] cholecalciferol (vitamin D3) 2,000 unit capsule 2,000 unit PO ONCE 01/19/18 [History Confirmed 06/04/18] insulin lispro (U- 100) 100 unit/mL subcutaneous solution 5 unit SC .TIDAC #10 ml 02/16/18 [Rx Confirmed 06/04/18] insulin glargine (U-300) 300 unit/mL (1.5 mL) subcutaneous pen 22 unit SC QDAY #4.5 ml 05/28/18 [Rx Confirmed 06/04/18] rosuvastatin 5 mg tablet 5 mg PO QDAY #90 tab 06/04/18 [Rx Confirmed 06/04/18] ketorolac 15 mg/mL injection cartridge 15 mg IM ONCE #1 ml 08/20/18 [Rx Confirmed 08/20/18] meloxicam 7.5 mg tablet 7.5 mg PO DAILY #20 tab 08/20/18 [Rx Confirmed 08/20/18] PFSH Medical History Hypertension (Chronic) Diabetes (Chronic) Hypothyroidism (Chronic) Surgical History History of tonsillectomy (Acute) Family History Father Hypertension Cancer kidney Mother Hypertension Social History Smoking Status: Never smoker alcohol intake: never substance use type: does not use what type of physical activity do you participate in: walking frequency: daily HPI HPI Chief Complaint: left leg pain Details: MARISSA LEE, is a 67yo F who presents to the office today due to persistent left hip pain. Said to have started about 3 days ago. Pain is said to begin in her buttock area and radiates down her leg. Denies pain in her spine. Denies any known precipitating factor. Has been taking Tylenol without any improvement in her symptoms. No other neurological deficits. ROS Const Constitutional: No weight change, body ache, chills, fatigue, sleep problems, fever(s), change in appetite, snoring, weakness, frequent falls, headache(s) or excessive sweating Eyes Eyes: No change in vision, eye pain, light sensitivity or blurry vision ENT ENT: No headache(s), abnormal hearing, ear pain, tinnitus, nasal congestion, sore throat or neck pain Resp Respiratory: No snoring, cough, shortness of breath or wheezing Cardio Cardiology: No excessive sweating, chest pain at rest, chest pain with exertion, shortness of breath, dyspnea on exertion, palpitations, orthopnea or lightheadedness Gastro GI: No abdominal pain, change in bowel habits, constipation, diarrhea, vomiting, nausea/dyspepsia or cramping Genitourinary-Female: No burning urination, painful urination, urinary incontinence, urinary frequency, abnormal vaginal bleeding, pelvic pain or other Musc Musculoskeletal: Positive for other (left leg pain.) and muscle cramps; no neck pain, abnormal walking, joint pain, back pain, limited range of motion or tingling Skin Skin: No redness, dry skin, itching, lesions, wounds or rash Neuro Neurology: No weakness, frequent falls, headache(s), abnormal hearing, abnormal walking, tingling, abnormal speech, dizziness or memory loss Psych Psychiatric: No change in appetite, No memory loss, No anxiety, No depression, No Thoughts of harming yourself/Others Endo Endocrine: No fatigue, excessive sweating, cold intolerance, increased thirst/drinking, heat intolerance, flushing or increased hunger Aller/Imm Allergy/Immunologic: No wheezing, itchy eyes, hives or seasonal allergy symptoms Elfego/Lymp Hematologic/Lymphatic: No easy bleeding, easy bruising or enlarged lymph nodes Exam Const General: cooperative, no acute distress, well developed Orientation: alert, awake, oriented x3 HENMT Head: normocephalic, atraumatic Ears: hearing grossly normal bilaterally Resp Effort AND Inspection: normal respiratory effort, able to speak in complete sentences Auscultation: Bilateral: Clear to Auscultation Cardio Rate: regular rate Rhythm: regular rhythm Heart Sounds: S1 normal, S2 normal GI Palpation: soft, no hepatosplenomegaly Musc Other: Straight leg raise test negative. Tenderness on flexion and rotation of the hip. 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 Left hip pain M25.552 Plan Acute. No history of trauma.??? Sacroiliitis. X-ray however ordered. Inadvertently given Kenalog. An order for Toradol had been put in. Meloxicam 7.5 mg daily as needed. Advised to take this with food. Advised to call the office with worsening symptoms. Orders Orders: 2. Type 2 diabetes mellitus E11.9 Plan Poorly controlled. Patient attest to being under a lot of stress. I am not very sure how compliant she is with her medications and dietary changes. She did not follow-up probably with diabetes education. However, my concern is for further poor control with administration of Kenalog. She was advised to adjust her insulin by 2 units upwards for blood sugars over 150mg/dl and titrate downwards with better control. This note was generated with [employer] dictation software. It may contain incorrect words, spelling, and punctuation that were not noted in checking the note before signing. Plan Detail Other Orders Orders: Other Medications New: Discontinued: Kenalog (triamcinolone acetonide) Discontinued Qoopxz23 mg IM ONCE 1 mL 0RF NS M79.606 : Office Medication has been Documented as given Coding Level of Care Code Off vis,est,level 3 Diagnoses Left hip pain M25.552 Type 2 diabetes mellitus E11.9 08/23/18 1518 <Electronically signed by Jesu Dennison MD> Date Jesu Dennison MD Cosigner Signature: Date (if applicable) CC: HIP, UNI W/ PELVIS Observed: 08/20/2018 Status: F Source: [place] 2-3 VIEWS 2:29 PM [facility] REPOSITORY [facility] Imaging Services [address] [place] [address] HIP, UNI W/ Pelvis 2-3 Views MR#: [id number] Acct: [id number] Name: MARISSA LEE Rep #: [id number] : 1950 F 67 From: Luke Harris DO PCP: Jesu Dennison MD Status: REG CLI Study: HIP, UNI W/ Pelvis 2-3 Views Date of Exam: 08/20/18 Exam# [id number] Ordering Dr: Jesu Dennison MD STUDY: X-RAY - PELVIS AND LEFT HIP REASON FOR EXAM: Female, 67 years old. Extreme left hip pain for 3 days. No injury. TECHNIQUE: Radiological exam, hip, unilateral, with pelvis when performed; 2 or 3 views. COMPARISON: None. FINDINGS: There is a non-specific bowel gas pattern. Normal visualized soft tissue structures. Normal bilateral iliac wings, sacroiliac joints and visualized sacrum. Normal bilateral superior and inferior pubic rami. Normal pubic symphysis. Normal bilateral ischial tuberosities. Normal visualized left femoral head. Normal left acetabulum. Normal left hip joint. RAD/HIP, UNI W/ Pelvis 2-3 Views IMPRESSION: Normal x-ray examination of the pelvis and left hip. Electronically Signed: Luke Harris DO at 19:41 EDT Tel [phone], Service support , CC: Jesu Dennison MD Navigation Teacher: Signed Observed: 06/14/2018 Status: F Source: [place] STOOL OCCULT BLOOD 9:37 AM [facility] IFOB REPOSITORY [facility] iFOB Occult Blood Negative Performed By: #### M100.7900 #### [facility] [address] [place], [address] DEXA BONE DENSITY Observed: 06/10/2018 Status: F Source: [place] STUDY 8:28 AM [facility] REPOSITORY [facility] Imaging Services [address] [place] [address] Dexa Bone Density Study MR#: [id number] Acct: [id number] Name: MARISSA LEE Rep #: [id number] : 1950 F 67 From: Curry Maciel MD PCP: Jesu Dennison MD Status: REG CLI Study: Dexa Bone Density Study Date of Exam: 06/10/18 Exam# [id number] Ordering Dr: Jesu Dennison MD STUDY: DUAL ENERGY X-RAY ABSORPTIOMETRY / DXA REASON FOR EXAM: Female, 67 years old. The patient is postmenopausal. Loss of height. TECHNIQUE: Bone Mineral Density (BMD) measurements of lumbar spine and bilateral hips were obtained. COMPARISON: Comparison is made with prior study dated August 29, 2002. FINDINGS: Lumbar Spine (L1-L4): g/cm2 (0.807) / T-score (-3.1) / Z-score (-1.5) Findings are suggestive of osteopenia with a high fracture risk. Left Femur Total: g/cm2 (0.822) / T-score (-1.5) / Z- score (-0.3) Left Femoral Neck: g/cm2 (0.814) / T-score (-1.6) / Z- score (-0.1) Right Femur Total: g/cm2 (0.787) / T-score (-1.8) / Z- score (-0.5) Right Femoral Neck: g/cm2 (0.796) / T-score (-1.7) / Z-score (-0.3) The T-Scores on the most recent prior examination were: Lumbar Spine (L1-L4): There has been worsening of bone density since the previous examination. Left Femur Total: which represents a worsening of 16.9%. BD/Dexa Bone Density Study IMPRESSION: The patient is considered osteoporotic as outlined below according to World Rex Organization (WHO) criteria with a high fracture risk. There has been worsening of bone density since the previous examination. Reference Information: The T-score is the number of standard deviations above or below the standard which is normal for young adults at their peak bone mineral density. The World Health Organization (WHO) interprets the T-scores as follows: Above -1 Normal bone density Between -1 and -2.5 Osteopenia Equal to / or below -2.5 Osteoporosis As a practical clinical guideline, osteopenia may be graded as follows: Mild -1 through -1.5 Moderate -1.6 through -2.0 Severe -2.1 through -2.4 The Z-score is the number of standard deviations above or below age-matched controls. A Z-score of less than -1.5 would be considered abnormal. References: 1. NIH Osteoporosis and Related Bone Diseases http://www.osteo.org 2. International Society for Clinical Densitometry http://www.iscd.org 3. National Osteoporosis Foundation http://www.nof.org Electronically Signed: Curry Maciel MD at 10:04 EDT Tel [phone], Service support , CC: Jesu Dennison MD Navigation Teacher: Signed CBC W/DIFF, AUTOMATED Collected: 06/08/2018 Status: F Source: [place] 8:03 AM [facility] REPOSITORY TYPE CODE TESTS RESULT OUT OF RANGE REFERENCE UNITS LAB L100.1000 4.4-11.0 K/mm3 Normal WBC 5.9 LAB L100.1200 4.2-5.4 M/mm3 Low RBC 3.89 LAB L100.1300 12.0-15.0 g/dl Low HGB 11.6 LAB L100.1400 37-47 % Low HCT 35.9 LAB L100.1500 81-99 fL Normal MCV 92.3 LAB L100.1600 27.0-32.0 pg Normal MCH 29.8 LAB L100.1700 32-36 g/gl Normal MCHC 32.3 LAB L100.1810 11.6-14.6 % Normal RDW CV 13.7 LAB L100.1820 35.1-43.9 fl High RDW SD 45.8 LAB L100.1900 150-450 K/mm3 Normal PLT 314 LAB L100.2000 6.2-12.0 fl Normal MPV 9.9 LAB L100.2100 47-70 % Normal NEUT% 53.9 LAB L100.2200 19-41 % Normal LY% 29.7 LAB L100.2300 0-10 % Normal MONO% 9.7 LAB L100.2400 0-5 % High EO% 5.5 LAB L100.2500 0-1 % High BASO% 1.2 LAB L100.2550 0.0-0.9 % Normal IM GRAN % 0.000 Result Comment: IG% - Immature Granulocytes (promyelocytes, myelocytes and metamyelocytes) > 1% indicates that a LEFT SHIFT is Present. LAB L100.2620 2.0-7.7 X10 3/uL Normal Absolute Neut 3.2 LAB L100.2720 0.83-4.51 X10 3/ul Normal Absolute Lymph 1.74 Performed By: #### L100.0100, L501.9985 #### [facility] [address] [place], [place], [id number] HEMOGLOBIN A1C Collected: 06/08/2018 Status: F Source: [place] 8:03 AM [facility] REPOSITORY TYPE CODE TESTS RESULT OUT OF RANGE REFERENCE UNITS LAB L501.9985 4.2-6.3 % High HGB A1C 8.9 Performed By: #### L100.0100, L501.9985 #### [facility] [address] [place], [place], [id number] COMPREHENSIVE METABOLIC Collected: 06/08/2018 Status: F Source: [place] [facility] 8:03 AM [facility] REPOSITORY TYPE CODE TESTS RESULT OUT OF RANGE REFERENCE UNITS LAB L501.0100 74-106 mg/dL High GLU 187 Result Comment: Fasting Glucose result greater than or equal to 126 mg/dL suggests DIABETES MELLITUS per A.D.A. criteria. Please note revised GLUCOSE reference range effective 2017. LAB L501.1000 7-18 mg/dL Normal BUN 15 LAB L501.1100 0.55-1.02 mg/dL Normal CREAT,SERUM 0.86 Result Comment: The validity of the calculated GFR AND GFRAA in patients over 70 years has not been determined. Clinical correlation is essential. LAB L501.1110 >60 mL/min Normal EST GFR 70 Result Comment: Non- GFR Calc LAB L501.1115 >60 mL/min Normal EST GFR - AA 85 Result Comment: GFR Calc LAB L501.1300 10-20 RATIO Normal BUN/CRE 17.4 LAB L501.1500 6.4-8.2 g/dL T Normal PROT 6.5 LAB L501.1800 3.2-5.0 g/dL Normal ALB 3.3 LAB L501.1950 2.2-4.2 g/dL Normal GLOB 3.2 LAB L501.2000 0.9-2.4 RATIO Normal A/G 1.0 LAB L501.2200 8.5-10.1 mg/dL Low CA 8.4 LAB L501.4100 15-37 U/L Normal AST 18 LAB L501.4305 45-117 U/L Normal ALK P 95 LAB L501.4405 13-56 U/L Normal ALT 22 LAB L501.4600 0.20-1.00 mg/dL T Normal BILI 0.50 LAB L501.5300 136-145 mmol/L NA Normal 140 LAB L501.5600 3.5-5.1 mmol/L K Normal 4.2 LAB L501.5900 98-107 mmol/L CL Normal 104 LAB L501.6100 21.0-32.0 mmol/L Normal CO2 27.0 LAB L501.6200 5-15 Normal GAP 9 Performed By: #### L500.4050 #### [facility] [address] [place], [address] INTERNAL MEDICINE Observed: 06/04/2018 Status: F Source: [place] OFFICE VISIT 12:40 PM [facility] Internal Medicine [address] [place] [address] OFFICE VISIT Date of Service: 06/04/18 MR#: [id number] Acct: [id number] Name: MARISSA LEE Rep #: [id number] : 1950 Provider: Jesu Dennison MD Age/Sex: 67/F Location: [facility] Status: Signed Intake Vital Signs06/04/18 Height 5 ft 6 in 06/04/18 Weight: 147 lb 06/04/18 Body Mass Index (BMI) 23.7 06/04/18 Blood Pressure 124/72 Intake Visit Reasons: FU Chief Complaint: Follow-up visit - Diabetes Is patient in pain?: No Allergies Tetracyclines Allergy (Verified 06/04/18 09:07) Unknown Medications Amlodipine Besylate [Amlodipine Besylate] 5 mg PO DAILY 03/31/14 [History Confirmed 06/04/18] Lisinopril [Lisinopril] 20 mg PO DAILY 03/31/14 [History Confirmed 06/04/18] levothyroxine 88 mcg tablet 88 mcg PO DAILY #90 tab 11/03/17 [Rx Confirmed 06/04/18] aspirin 81 mg tablet,delayed release PO 01/19/18 [History Confirmed 06/04/18] blood pressure monitor kit See Dose Instructions .ROUTE .MEDSUPPLY #1 ea 01/19/18 [Rx Confirmed 06/04/18] calcium carbonate 600 mg calcium (1,500 mg) tablet 600 mg PO ONCE tab 01/19/18 [History Confirmed 06/04/18] cholecalciferol (vitamin D3) 2,000 unit capsule 2,000 unit PO ONCE 01/19/18 [History Confirmed 06/04/18] insulin lispro (U-100) 100 unit/mL subcutaneous solution 5 unit SC .TIDAC #10 ml 02/16/18 [Rx Confirmed 06/04/18] insulin glargine (U-300) 300 unit/mL (1.5 mL) subcutaneous pen 22 unit SC QDAY #4.5 ml 05/28/18 [Rx Confirmed 06/04/18] rosuvastatin 5 mg tablet 5 mg PO QDAY #90 tab 06/04/18 [Rx Confirmed 06/04/18] PFSH Medical History Hypertension (Chronic) Diabetes (Chronic) Hypothyroidism (Chronic) Surgical History History of tonsillectomy (Acute) Family History Father Hypertension Cancer kidney Mother Hypertension Social History Smoking Status: Never smoker alcohol intake: never substance use type: does not use what type of physical activity do you participate in: walking frequency: daily HPI HPI Chief Complaint: Follow-up visit - Diabetes Details: MARISSA LEE, is a 67yo F who presents to the office today for follow-up of her chronic medical conditions. She has no acute complaints at this time. She brings along the blood sugar log which shows an average better blood sugar control. Last A1c was 8.6. Blood pressure is also optimally controlled. She reports compliance with her medications. ROS Const Constitutional: No chills, fatigue, fever(s), frequent falls, malaise, weakness, sleep problems or change in appetite Eyes Eyes: No blurry vision, change in vision, double vision, discharge or visual disturbances ENT ENT: No abnormal hearing, ear pain, ear pressure, tinnitus or dizziness/vertigo Resp Respiratory: No cough, shortness of breath or wheezing Cardio Cardiology: No chest pain at rest, chest pain with exertion, shortness of breath, dyspnea on exertion, generalized swelling, irregular heart rhythm, lightheadedness, orthopnea, fast heart rate or palpitations Gastro GI: No abdominal pain, change in bowel habits, constipation, diarrhea, nausea/dyspepsia or vomiting Genitourinary-Female: No difficulty urinating, burning urination, painful urination, urinary incontinence, urinary frequency, urinary urgency, urinary hesitancy, urinary retention, Frequent nighttime urination/ nocturia, sexual problems, genital lesions, abnormal vaginal bleeding, pelvic pain, vaginal dryness, vaginal odor or Vaginal Itching Musc Musculoskeletal: No joint pain, back pain, joint swelling, limited range of motion or numbness Skin Skin: No change in skin color, itching, rash or wounds Breast Breast: No breast lump or breast pain Neuro Neurology: No frequent falls, weakness, abnormal hearing, numbness, unsteady gait/balance, dizziness, loss of vision, memory loss or visual disturbances Psych Psychiatric: No memory loss, No anxiety, No change in appetite, No depression, No Thoughts of harming yourself/Others Endo Endocrine: No fatigue, heat intolerance, increased thirst/drinking, increased hunger or increased urination Aller/Imm Allergy/Immunologic: No wheezing, itchy eyes or seasonal allergy symptoms Elfego/Lymp Hematologic/Lymphatic: No easy bleeding, easy bruising or enlarged lymph nodes Exam Const General: cooperative, no acute distress, well developed Orientation: alert, awake, oriented x3 [facility] Head: normocephalic, atraumatic Ears: hearing grossly normal bilaterally Resp Effort AND Inspection: normal respiratory effort, able to speak in complete sentences Auscultation: Bilateral: Clear to Auscultation Cardio Rate: regular rate Rhythm: regular rhythm Heart Sounds: S1 normal, S2 normal GI Palpation: soft, no hepatosplenomegaly Neuro General: alert, awake, oriented x3, moves all extremities, CN's II-XI intact bilaterally Extrem General: no pedal edema Psych Appearance: grossly normal Affect: normal affect Assessment AND Plan 1. Type 2 diabetes mellitus E11.9 Plan From her log, it appears patient is achieving better control. Still some occasional highs. Increase Long acting insulin from 22 to 24. Continue pre meal per sliding scale. Will start on 5mg crestor daily. Continue dietary modifications. A1C ordered. Orders Orders: 2. Hypertension I10 Plan Better controlled. Continue current medications. Continue lifestyle modification. 3. Osteopenia M85.80 Plan Currently on calcium and vitamin D daily. Repeat DEXA scan. 4. Healthcare maintenance Z00.00 Plan Up-to-date with her Pap smear and mammogram. She also states that she has received her pneumonia vaccines. She is not open to colonoscopy. Stool occult ordered. This note was generated with [employer] software. It may contain incorrect words, spelling, and punctuation that were not noted in checking the note before signing. Plan Detail Other Orders Orders: Other Medications New: Follow Up 3 Months Coding Level of Care Code Off vis,est,level 4 Diagnoses Type 2 diabetes mellitus E11.9 Hypertension I10 Osteopenia M85.80 Healthcare maintenance Z00.00 06/04/18 1240 <Electronically signed by Jesu Dennison MD> Date Jesu Dennison MD Cosigner Signature: Date (if applicable) CC: MICROALB:CREAT Collected: 03/09/2018 Status: F Source: [place] [facility] UR 8:40 AM [facility] REPOSITORY TYPE CODE TESTS RESULT OUT OF RANGE REFERENCE UNITS LAB L501.1200 NO RANGE EST. mg/dL Normal UR CREAT 16.60 LAB L502.0500 NO RANGE EST. mg/L Normal 5.7 MICROALBUMIN ,UR LAB L502.0600 <30 mg/g CRE mg/g CRE High 34.5 MALB:CREAT Performed By: #### L502.0250 #### [facility] [address] [facility]. [place], [place], [address] HEMOGLOBIN A1C Collected: 03/09/2018 Status: F Source: [place] 8:40 AM [facility] REPOSITORY TYPE CODE TESTS RESULT OUT OF RANGE REFERENCE UNITS LAB L501.9985 4.2-6.3 % High HGB A1C 8.6 Performed By: #### L501.9985 #### [facility] [address] [facility] [place], [address] COMPREHENSIVE METABOLIC Collected: 03/09/2018 Status: F Source: [place] PROFIL 8:40 AM [facility] REPOSITORY Order Comment: Comments: Fasting Comments: Fasting TYPE CODE TESTS RESULT OUT OF RANGE REFERENCE UNITS LAB L501.0100 74-106 mg/dL High GLU 152 Result Comment: Fasting Glucose result greater than or equal to 126 mg/dL suggests DIABETES MELLITUS per A.D.A. criteria. Please note revised GLUCOSE reference range effective 2017. LAB L501.1000 7-18 mg/dL Normal BUN 15 LAB L501.1100 0.55-1.02 mg/dL Normal CREAT,SERUM 0.77 Result Comment: The validity of the calculated GFR AND GFRAA in patients over 70 years has not been determined. Clinical correlation is essential. LAB L501.1110 >60 mL/min Normal EST GFR 80 Result Comment: Non- GFR Calc LAB L501.1115 >60 mL/min Normal EST GFR - AA 96 Result Comment: GFR Calc LAB L501.1300 10-20 RATIO Normal BUN/CRE 19.4 LAB L501.1500 6.4-8.2 g/dL T Normal PROT 7.2 LAB L501.1800 3.2-5.0 g/dL Normal ALB 3.4 LAB L501.1950 2.2-4.2 g/dL Normal GLOB 3.8 LAB L501.2000 0.9-2.4 RATIO Normal A/G 0.9 LAB L501.2200 8.5-10.1 mg/dL CA Normal 8.8 LAB L501.4100 15-37 U/L Low AST 14 LAB L501.4305 45-117 U/L High ALK P 120 LAB L501.4405 13-56 U/L Normal ALT 25 LAB L501.4600 0.20-1.00 mg/dL T Normal BILI 0.60 LAB L501.5300 136-145 mmol/L NA Normal 140 LAB L501.5600 3.5-5.1 mmol/L K Normal 4.0 LAB L501.5900 98-107 mmol/L CL Normal 103 LAB L501.6100 21.0-32.0 mmol/L Normal CO2 28.0 LAB L501.6200 5-15 Normal GAP 9 Performed By: #### L500.4050, L500.4100, L501.9520, L506.0400 #### [facility] [address] [place], [address] LIPID PROFILE Collected: 03/09/2018 Status: F Source: [place] 8:40 AM [facility] REPOSITORY Order Comment: Comments: Fasting Comments: Fasting TYPE CODE TESTS RESULT OUT OF RANGE REFERENCE UNITS LAB L501.4900 200 mg/dL Normal CHOL 190 Result Comment: <200 mg/dL Desirable 200-240 mg/dL Borderline >240 mg/dL High Risk LAB L501.5000 mg/dL Normal TRIG 57 Result Comment: The drugs N-Acetylcysteine and Metamizole may falsely depress this assay. Serum Triglycerides Reference Interval Normal <150 mg/dL Borderline high 150 - 199 mg/dL High 200 - 499 mg/dL Very High > or = 500 mg/dL LAB L501.6400 mg/dL Normal HDL 74 Result Comment: The drugs N-Acetylcysteine and Metamizole may falsely depress this assay. Reference Range HDL <40 mg/dL Low HDL Cholesterol HDL >or= 60 mg/dL High HDL Cholesterol LAB L501.6500 0-130 mg/dL Normal LDL 105 LAB L501.6600 5-40 mg/dL Normal VLDL 11 Performed By: #### L500.4050, L500.4100, L501.9520, L506.0400 #### [facility] [address] [place], [place], [id number] THYROID STIM HORMONE Collected: 03/09/2018 Status: F Source: [place] (TSH) 8:40 AM [facility] REPOSITORY Order Comment: Comments: Fasting Comments: Fasting TYPE CODE TESTS RESULT OUT OF RANGE REFERENCE UNITS LAB L501.9520 0.358-3.74 uIU/mL Normal TSH 1.35 Performed By: #### L500.4050, L500.4100, L501.9520, L506.0400 #### [facility] [address] [place], [place], [address] T4 FREE DIRECT Collected: 03/09/2018 Status: F Source: [place] 8:40 AM [facility] REPOSITORY Order Comment: Comments: Fasting Comments: Fasting TYPE CODE TESTS RESULT OUT OF RANGE REFERENCE UNITS LAB L506.0400 0.76-1.46 ng/dL Normal T4 FREE 1.25 DIRECT Performed By: #### L500.4050, L500.4100, L501.9520, L506.0400 #### [facility] [address] [place], [place], [address] INTERNAL MEDICINE Observed: 02/16/2018 Status: F Source: [place] OFFICE VISIT 11:41 AM [facility] Internal Medicine [address] [place] [address] [place] [address] OFFICE VISIT Date of Service: 02/16/18 MR#: [id number] Acct: [id number] Name: MARISSA LEE Rep #: [id number] : 1950 Provider: Jesu Dennison MD Age/Sex: 67/F [place] [facility] [place] [place]: Signed Intake Vital Signs02/16/18 Height 5 ft 7 in 02/16/18 Weight: 146 lb 6 oz 02/16/18 Body Mass Index (BMI) 22.9 02/16/18 Blood Pressure 116/80 Intake Visit Reasons: 1 MO FU Chief Complaint: Follow-up visit Is patient in pain?: No Allergies Tetracyclines Allergy (Verified 03/31/14 07:42) Unknown Medications Amlodipine Besylate [Amlodipine Besylate] 5 mg PO DAILY 03/31/14 [History Confirmed 01/19/18] Lisinopril [Lisinopril] 20 mg PO DAILY 03/31/14 [History Confirmed 01/19/18] levothyroxine 88 mcg tablet 88 mcg PO DAILY #90 tab 11/03/17 [Rx Confirmed 01/19/18] aspirin 81 mg tablet,delayed release PO 01/19/18 [History Confirmed 01/19/18] blood pressure monitor kit See Dose Instructions .ROUTE .MEDSUPPLY #1 ea 01/19/18 [Rx Confirmed 01/19/18] calcium carbonate 600 mg calcium (1,500 mg) tablet 600 mg PO ONCE tab 01/19/18 [History Confirmed 01/19/18] cholecalciferol (vitamin D3) 2,000 unit capsule 2,000 unit PO ONCE 01/19/18 [History Confirmed 01/19/18] insulin glargine (U-100) 100 unit/mL subcutaneous solution 22 unit SC DAILY ml 02/16/18 [History Confirmed 02/16/18] insulin lispro (U-100) 100 unit/mL subcutaneous solution 5 unit SC .TIDAC #10 ml 02/16/18 [Rx Confirmed 02/16/18] PFSH Medical History Hypertension (Chronic) Diabetes (Chronic) Hypothyroidism (Chronic) Surgical History History of tonsillectomy (Acute) Family History Father Hypertension Cancer kidney Mother Hypertension Social History Smoking Status: Never smoker alcohol intake: never substance use type: does not use what type of physical activity do you participate in: walking frequency: daily HPI HPI Chief Complaint: Follow-up visit Details: MARISSA LEE, is a 67yo F who presents to the office today for follow-up. She has no acute complaints at this time. She brings along her blood sugar log which shows pretty decent blood sugars with occasional elevations. Her blood pressure log also shows well-controlled blood pressure. ROS Const Constitutional: No weight change, body ache, chills, fatigue, sleep problems, fever(s), change in appetite, snoring, weakness, frequent falls, headache(s) or excessive sweating Eyes Eyes: No change in vision, eye pain, light sensitivity or blurry vision ENT ENT: No headache(s), abnormal hearing, ear pain, tinnitus, nasal congestion, sore throat or neck pain Resp Respiratory: No snoring, cough, shortness of breath or wheezing Cardio Cardiology: No excessive sweating, chest pain at rest, chest pain with exertion, shortness of breath, dyspnea on exertion, palpitations, orthopnea or lightheadedness Gastro GI: No abdominal pain, change in bowel habits, constipation, diarrhea, vomiting, nausea/dyspepsia or cramping Musc Musculoskeletal: No neck pain, abnormal walking, joint pain, back pain, limited range of motion or tingling Skin Skin: No redness, dry skin, itching, lesions, wounds or rash Neuro Neurology: No weakness, frequent falls, headache(s), abnormal hearing, abnormal walking, tingling, abnormal speech, dizziness or memory loss Psych Psychiatric: No change in appetite, No memory loss, No anxiety, No depression, No Thoughts of harming yourself/Others Endo Endocrine: No fatigue, excessive sweating, cold intolerance, increased thirst/drinking, heat intolerance, flushing or increased hunger Aller/Imm Allergy/Immunologic: No wheezing, itchy eyes, hives or seasonal allergy symptoms Elfego/Lymp Hematologic/Lymphatic: No easy bleeding, easy bruising or enlarged lymph nodes Exam Const General: cooperative, no acute distress, well developed Orientation: alert, awake, oriented x3 HENMT Head: normocephalic, atraumatic Ears: hearing grossly normal bilaterally Resp Effort AND Inspection: normal respiratory effort, able to speak in complete sentences Auscultation: Bilateral: Clear to Auscultation Cardio Rate: regular rate Rhythm: regular rhythm Heart Sounds: S1 normal, S2 normal GI Palpation: soft, no hepatosplenomegaly Neuro General: alert, awake, oriented x3, moves all extremities, CN's II-XI intact bilaterally Extrem General: no pedal edema Psych Appearance: grossly normal Affect: normal affect Assessment AND Plan 1. Type 2 diabetes mellitus E11.9 Plan Blood sugar log shows pretty much decent blood sugar control. She still has occasional significant elevations in the 300s. I believe patient would benefit tremendously from diabetes education. Will make no adjustments to her medications at this time. Continue blood sugar log checking blood sugars twice a day. Follow-up in 2 months. A1c, microalbumin creatinine ratio and lipid profile ordered. Orders Orders: 2. Hypothyroidism E03.9 Plan Stable. Thyroid function test ordered. Continue current medication. Orders Orders: 3. Hypertension I10 Plan Better controlled. Continue current medication. Continue life style modification. This note was generated with [employer] dictation software. It may contain incorrect words, spelling, and punctuation that were not noted in checking the note before signing. Orders Orders: Plan Detail Other Medications Changed: To: insulin lispro (U- 5-10 units with meals based on5 units (0.05 mL) Sub-Q .TIDAC sliding scale Follow Up 2 Months Coding Level of Care Code Off vis,est,level 3 Diagnoses Type 2 diabetes mellitus E11.9 Hypothyroidism E03.9 Hypertension I10 02/16/18 1141 <Electronically signed by Jesu Dennison MD> Date Jesu Dennison MD Cosigner Signature: Date (if applicable) CC: INTERNAL MEDICINE Observed: 01/19/2018 Status: F Source: [place] OFFICE VISIT 3:11 PM [facility] Internal Medicine [address] [place] [address] OFFICE VISIT Date of Service: 01/19/18 MR#: [id number] Acct: [id number] Name: MARISSA LEE Rep #: [id number] : 1950 Provider: Jesu Dennison MD Age/Sex: 67/F Location: [facility] Status: Signed Intake Vital Signs01/19/18 Height 5 ft 7 in Intake Visit Reasons: FU VISIT Chief Complaint: Follow-up visit Is patient in pain?: Yes (right hip) Pain scale (1-10): 3 Allergies Tetracyclines Allergy (Verified 03/31/14 07:42) Unknown Medications Amlodipine Besylate [Amlodipine Besylate] 5 mg PO DAILY 03/31/14 [History Confirmed 01/19/18] Insulin Glargine,Hum.rec.anlog [Lantus] 28 units SC DAILY 03/31/14 [History Confirmed 01/19/18] Insulin Lispro [Humalog] units SC DAILY 03/31/14 [History Confirmed 01/19/18] Lisinopril [Lisinopril] 20 mg PO DAILY 03/31/14 [History Confirmed 01/19/18] levothyroxine 88 mcg tablet 88 mcg PO DAILY #90 tab 11/03/17 [Rx Confirmed 01/19/18] aspirin 81 mg tablet,delayed release PO 01/19/18 [History Confirmed 01/19/18] blood pressure monitor kit See Dose Instructions .ROUTE .MEDSUPPLY #1 ea 01/19/18 [Rx Confirmed 01/19/18] calcium carbonate 600 mg calcium (1,500 mg) tablet 600 mg PO ONCE tab 01/19/18 [History Confirmed 01/19/18] cholecalciferol (vitamin D3) 2,000 unit capsule 2,000 unit PO ONCE 01/19/18 [History Confirmed 01/19/18] PFSH Medical History Hypertension (Chronic) Diabetes (Chronic) Hypothyroidism (Chronic) Surgical History History of tonsillectomy (Acute) Family History Father Hypertension Cancer kidney Mother Hypertension Social History Smoking Status: Never smoker alcohol intake: never substance use type: does not use what type of physical activity do you participate in: walking frequency: daily HPI HPI Chief Complaint: Follow-up visit Details: MARISSA LEE, is a 67yo F who presents to the office today for follow-up of her chronic medical conditions. She has a history of hypertension, diabetes mellitus type 2, hypothyroidism and osteoarthritis. She reports right hip pain which has been ongoing for some time however she noted slight worsening around the holiday. She describes pain which is worse in the morning and improves as the day goes on. She currently takes only Tylenol as needed and has had no limitations of her daily activity. She denies any history of falls. Last A1c was around 8. She is currently only on insulin (both long-acting and meal coverage). She reports compliance with her medication. She routinely follows up with an funeral greeter in [facility]. Blood pressure in office today is mildly elevated at 139/88 mmHg. She is currently on 20 mg of lisinopril and 5 mg of amlodipine. She states that she for the most part is compliant with a low-salt diet and exercises every day. ROS Const Constitutional: No weight change, body ache, chills, fatigue, sleep problems, fever(s), change in appetite, snoring, weakness, frequent falls, headache(s) or excessive sweating Eyes Eyes: No change in vision, eye pain, light sensitivity or blurry vision ENT ENT: No headache(s), abnormal hearing, ear pain, tinnitus, nasal congestion, sore throat or neck pain Resp Respiratory: No snoring, cough, shortness of breath or wheezing Cardio Cardiology: No excessive sweating, chest pain at rest, chest pain with exertion, shortness of breath, dyspnea on exertion, palpitations, orthopnea or lightheadedness Gastro GI: No abdominal pain, change in bowel habits, constipation, diarrhea, vomiting, nausea/dyspepsia or cramping Musc Musculoskeletal: Positive for other (right hip pain); no neck pain, abnormal walking, joint pain, back pain, limited range of motion, numbness or tingling Skin Skin: No redness, dry skin, itching, lesions, wounds or rash Neuro Neurology: No weakness, frequent falls, headache(s), abnormal hearing, abnormal walking, numbness, tingling, abnormal speech, dizziness or memory loss Psych Psychiatric: No change in appetite, No memory loss, No anxiety, No depression, No Thoughts of harming yourself/Others Endo Endocrine: No fatigue, excessive sweating, cold intolerance, increased thirst/drinking, heat intolerance, flushing or increased hunger Aller/Imm Allergy/Immunologic: No wheezing, itchy eyes, hives or seasonal allergy symptoms Elfego/Lymp Hematologic/Lymphatic: No easy bleeding, easy bruising or enlarged lymph nodes Exam Const General: cooperative, no acute distress, well developed Orientation: alert, awake, oriented x3 HENCT Head: normocephalic, atraumatic Ears: hearing grossly normal bilaterally Resp Effort AND Inspection: normal respiratory effort, able to speak in complete sentences Auscultation: Bilateral: Clear to Auscultation Cardio Rate: regular rate Rhythm: regular rhythm Heart Sounds: S1 normal, S2 normal GI Palpation: soft, no hepatosplenomegaly Neuro General: alert, awake, oriented x3, moves all extremities, CN's II-XI intact bilaterally Extrem General: no pedal edema Psych Appearance: grossly normal Affect: normal affect Assessment AND Plan 1. Osteoarthritis M19.90 Plan Right hip. No significant limitation of activity. Only takes Tylenol as needed. Exercise as tolerated. Will monitor. 2. Type 2 diabetes mellitus E11.9 Plan Not optimally controlled. Last 4 A1c's have been around 8-9. Currently on Tujeo and mealtime insulin. Advised patient to keep a blood sugar log. 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 Follow-up in 1 month. Orders Referrals: 3. Hypertension I10 Plan Also not optimally controlled. Patient reports compliance with her diet, salt intake and medication. Advised to keep blood pressure log. Follow-up in 1 month and if blood pressure is still not optimally controlled, will increase amlodipine to 10 mg daily. This note was generated with [employer] dictation software. It may contain incorrect words, spelling, and punctuation that were not noted in checking the note before signing. Plan Detail Other Medications New: Follow Up 1 Month Coding Level of Care Code Off vis,est,level 3 Diagnoses Osteoarthritis M19.90 Type 2 diabetes mellitus E11.9 Hypertension I10 01/19/18 1511 <Electronically signed by Jesu Dennison MD> Date Jesu Dennison MD Cosigner Signature: Date (if applicable) CC: ALLERGIES ALLERGIES DATE TYPE / CODE NAME / CODE REACTION SEVERITY SOURCE 09/06/2018 Drug Tetracyclines/F0010 Unknown Unknown [place] Allergy/416 23428(RXNORM) Community 797309([facility] ED CT) Repository 10/20/2005 DRUG TETRACYCLINE HIVES Low [facility] INGREDI/[facility] [place] 048794([facility] ED CT) ENCOUNTERS ENCOUNTERS ADMIT/DISCHARGE ACCOUNT ADMITTING ENCOUNTER LOCATION SOURCE NUMBER CLASS 11/02/2018 [id number] Ambulatory [facility] Hospital ing:DC Repository 10/27/2018/10/27/20 [id number] Ambulatory [address] Repository 10/27/2018/10/27/20 [id number] Ambulatory [address] Repository 10/25/2018 [id number] Ambulatory [facility] Hospital ing:MTLAB Repository 10/18/2018/10/18/20 [id number] Ambulatory BMSBuilding:[place] [facility] [place] [place] 10/04/2018/10/05/20 [id number] Ambulatory [address] Repository 10/04/2018/10/04/20 [id number] Ambulatory [address] Repository 09/29/2018/09/29/20 [id number] Ambulatory [address] Hospital ing:PT Repository 09/27/2018/10/22/20 [id number] Ambulatory [address] Hospital ing:[place] Repository 09/06/2018/09/06/20 [id number] Ambulatory BMSBuilding:B [place] 18 MS.[facility] Repository 08/30/2018/08/30/20 [id number] Ambulatory BMSBuilding:B [place] 18 MS.SMO [facility] Hospital Repository 08/20/2018 [id number] Ambulatory [facility] Hospital ing:MTRAD Repository 08/20/2018/08/20/20 [id number] Ambulatory BMSBuilding:B [place] 18 [place] [facility] Hospital Repository 06/24/2018/07/23/20 [id number] [place] Hospital[facility] Hospital ing:[place] Repository 06/14/2018 [id number] [facility] ing:MTLAB Repository 06/10/2018 [id number] [facility] ing:OPBD Repository 06/08/2018 [id number] [facility] ing:MTLAB Repository 06/04/2018/06/04/20 [id number] Ambulatory BMSBuilding:B [place] 18 [place]AR[place] [facility] Hospital Repository 06/02/2018/06/22/20 [id number] Ambulatory [place] HospitalBuild Hospital ing:[place] Repository 05/28/2018 [id number] Ambulatory BMSBuilding:B [place] [facility] Hospital Repository 05/05/2018/05/22/20 [id number] Ambulatory [place] HospitalBuild Hospital ing:DC Repository 05/04/2018 [id number] Ambulatory BMSBuilding:B [place] [facility] Hospital Repository 04/01/2018/04/22/20 [id number] Ambulatory [place] HospitalBuild Hospital ing:[place] Repository 03/09/2018 [id number] [facility] ing:MTLAB Repository 02/22/2018/03/22/20 [id number] [place] HospitalBuild Hospital ing:[place] Repository 02/16/2018/02/17/20 [id number] Ambulatory BMSBuilding:B [place] 18 [place] [facility] Hospital Repository 02/04/2018/02/21/20 [id number] Ambulatory [place] [facility] Hospital[facility] Hospital ing:DC Repository 01/19/2018/01/19/20 [id number] Ambulatory BMSBuilding:B [place] 18 [place] [facility] Hospital Repository PAYERS PAYERS ENCOUNTER GUARANTOR PAYER SUBSCRIBER SOURCE 11/02/2018 MARISSA J Primary MARISSA J [place] [address] Insurance:MEDICARE MENDENHALLDOB: Community [address] [place] [address] PART [facility] [id number] Hospital 74578Zbu: (419) Number: Repository [phone] () [id number] Date:2018-02-02 11/02/2018 Secondary MARISSA J [place] Insurance:AARPPolicy MENDENHALLDOB: Community Number: [id number] Hospital [id number] Repository Date:8299-11-[address], [place] [address]BG: 11/02/2018 Tertiary NOT GIVENUNK [place] Insurance:SELF PAY [facility] Number: Effective Repository Date:2018-10-23 10/25/2018 MARISSA J Primary MARISSA J [place] [address] Insurance:MEDICARE MENDENHALLDOB: [address] PART A [facility] [id number] Hospital 50808Qne: (419) Number: Repository [phone] () [id number] Date:2018-10-25 10/25/2018 Secondary MARISSA J [place] Insurance:AARPPolicy MENDENHALLDOB: Community Number: [id number] Hospital [id number] Repository Date:1482-58-16[address], [place] [address]VJ: 10/25/2018 Tertiary NOT GIVENUNK [place] Insurance:SELF PAY [facility] Number: Effective Repository Date:2018-10-25 10/18/2018 MARISSA J Primary MARISSA J [place] [address] Insurance:MEDICARE MENDENHALLDOB: Community [address] [place] [address] PART [facility] [id number] Hospital 605[address]Cvn: (419) Number: Repository [phone] () [id number] Date:2018-09-06 10/18/2018 Secondary MARISSA J [place] Insurance:AARPPolicy MENDENHALLDOB: Community Number: [id number] Hospital [id number] Repository Date:3777-25-62[address], [place] [address]GB: 10/18/2018 Tertiary NOT GIVENUNK [place] Insurance:SELF PAY [facility] Number: Effective Repository Date:2018-10-18 09/29/2018 MARISSA J Primary MARISSA J [place] [address] Insurance:MEDICARE MENDENHALLDOB: [address] PART [facility] [id number] Hospital [address]Psp: (419) Number: Repository [phone] () [id number] Date:2017-10-23 09/29/2018 Secondary MARISSA J [place] Insurance:AARPPolicy MENDENHALLDOB: Community Number: [id number] Hospital [id number] Repository Date:7640-76-36FX [facility] [place], [place] [address]DS: 09/29/2018 Tertiary NOT GIVENUNK [place] Insurance:SELF PAY [facility] Number: Effective Repository Date:2018-08-30 09/27/2018 MARISSA J Primary MARISSA J [place] [address] Insurance:MEDICARE MENDENHALLDOB: [address] PART [facility] [id number] Hospital [address]Prj: (419) Number: Repository [phone] () [id number] Date:2018-02-02 09/27/2018 Secondary MARISSA J [place] Insurance:AARPPolicy MENDENHALLDOB: Community Number: [id number] Hospital [id number] Repository Date:8115-70-96[address], [place] [address]ZG: 09/27/2018 Tertiary NOT GIVENUNK [place] Insurance:SELF PAY [facility] Number: Effective Repository Date:2018-07-24 09/06/2018 MARISSA J Primary MARISSA J [place] [address] Insurance:MEDICARE MENDENHALLDOB: [address] [facility] [id number] Hospital [address]Ksg: (419) Number: Repository [phone] () [id number] Date:2018-06-04 09/06/2018 Secondary MARISSA J [place] Insurance:AARPPolicy MENDENHALLDOB: Community Number: [id number] Hospital [id number] Repository Date:1104-85-64[address], [place] [address]XQ: 09/06/2018 Tertiary NOT GIVENUNK [place] Insurance:SELF PAY [facility] Number: Effective Repository Date:2018-09-02 08/30/2018 MARISSA J Primary MARISSA J [place] [address] Insurance:MEDICARE MENDENHALLDOB: [address] [facility] [id number] Hospital [address]Oac: (419) Number: Repository [phone] () [id number] Date:2018-08-24 08/30/2018 Secondary MARISSA J [place] Insurance:AARPPolicy MENDENHALLDOB: Community Number: [id number] Hospital [id number] Repository Date:8755-37-66[address]FDZBW, [place] [address]UH: 08/30/2018 Tertiary NOT GIVENUNK [place] Insurance:SELF PAY [facility] Number: Effective Repository Date:2018-08-30 08/20/2018 MARISSA J Primary MARISSA J [place] [address] Insurance:MEDICARE MENDENHALLDOB: [address] [facility] [id number] [facility] 17935Vzo: (419) Number: Repository [phone] () [id number] Date:2018-08-20 08/20/2018 Secondary MARISSA J [place] Insurance:AARPPolicy MENDENHALLDOB: Community Number: [id number] Hospital [id number] Repository Date:4358-42-38[address]X [address], [place] [address]AF: 08/20/2018 Tertiary NOT GIVENUNK [place] Insurance:SELF PAY [facility] Number: Effective Repository Date:2018-08-20 08/20/2018 MARISSA J Primary MARISSA J [place] [address] Insurance:MEDICARE MENDENHALLDOB: Community [address] [place] [address] [facility] [id number] Hospital [address]Afz: (419) Number: Repository [phone] () [id number] Date:2018-08-19 08/20/2018 Secondary MARISSA J [place] Insurance:AARPPolicy MENDENHALLDOB: Community Number: [id number] Hospital [id number] Repository Date:8942-56-71CJ [address], [place] [address]OM: 08/20/2018 Tertiary NOT GIVENUNK [place] Insurance:SELF PAY [facility] Number: Effective Repository Date:2018-08-20 06/24/2018 MARISSA J Primary MARISSA J [place] [address] Insurance:MEDICARE MENDENHALLDOB: [address] [facility] [id number] Hospital [address]Ody: (419) Number: Repository [phone] () [id number] Date:2018-02-02 06/24/2018 Secondary MARISSA J [place] Insurance:AARPPolicy MENDENHALLDOB: Community Number: [id number] [facility] [id number] Repository Date:2739-61-91RT [facility] [address], [place] [address]PL: 06/24/2018 Tertiary NOT GIVENUNK [place] Insurance:SELF PAY [facility] Number: Effective Repository Date:2018-06-23 06/14/2018 MARISSA J Primary MARISSA J [place] [address] Insurance:MEDICARE MENDENHALLDOB: Community [address] [place] [address] [facility] [id number] Hospital 323[address]Jku: (419) Number: Repository [phone] () [id number] Date:2018-06-14 06/14/2018 Secondary MRAISSA J [place] Insurance:AARPPolicy MENDENHALLDOB: Community Number: [id number] Hospital [id number] Repository Date:6523-69-93[address], [place] [address]IG: 06/14/2018 Tertiary NOT GIVENUNK [place] Insurance:SELF PAY [facility] Number: Effective Repository Date:2018-06-14 06/10/2018 MARISSA J Primary MARISSA J [place] [address] Insurance:MEDICARE MENDENHALLDOB: Community [address] [place] [address] [facility] [id number] Hospital 13099Nos: (419) Number: Repository [phone] () [id number] Date:2018-06-04 06/10/2018 Secondary MARISSA J [place] Insurance:AARPPolicy MENDENHALLDOB: Community Number: [id number] Hospital [id number] Repository Date:4800-15-91[address]QX[place], [place] [address]LT: 06/10/2018 Tertiary NOT GIVENUNK [place] Insurance:SELF PAY [facility] Number: Effective Repository Date:2018-06-04 06/08/2018 MARISSA J Primary MARISSA J [place] [address] Insurance:MEDICARE MENDENHALLDOB: [address] [facility] [id number] Hospital [address]Zrl: (419) Number: Repository [phone] () [id number] Date:2018-06-08 06/08/2018 Secondary MARISSA J [place] Insurance:AARPPolicy MENDENHALLDOB: Community Number: [id number] [id number] Repository Date:1800-00-17[address], [place] [address]FJ: 06/08/2018 Tertiary NOT [place]IV[place]UNK [place] Insurance:SELF PAY [facility]: Effective Repository Date:2018-06-08 06/04/2018 MARISSA J Primary MARISSA J [place] M[address]EN[address]ALLPO [address]OX Insurance:MEDICARE MENDENHALLDOB: Community [address] [place] [address] PART [facility] [id number] Hospital [id number]: (419) Number: Repository [phone] () [id number] Date:2018-05-05 06/04/2018 Secondary MARISSA J [place] Insurance:AARPPolicy MENDENHALLDOB: Community Number: [id number] [facility] [id number] Repository Date:0175-22-28[address], [place] [address]XD: 06/04/2018 Tertiary NOT GIVENUNK [place] Insurance:SELF PAY [facility] Number: Effective Repository Date:2018-05-20 06/02/2018 MARISSA J Primary MARISSA J [place] M[address]ENHALLPO [address]OX Insurance:MEDICARE MENDENHALLDOB: [address] PART [facility] [id number] Hospital [address]Yzf: (419) Number: Repository [phone] () [id number] Date:2018-02-02 06/02/2018 Secondary MARISSA J [place] Insurance:AARPPolicy MENDENHALLDOB: Community Number: [id number] [facility] [id number] Repository Date:4098-09-12[address], [place] [address]CN: 06/02/2018 Tertiary NOT GIVENUNK [place] Insurance:SELF PAY [facility] Number: Effective Repository Date:2018-05-23 05/28/2018 MARISSA J Primary MARISSA J [place] [address]ALL[address] Insurance:MEDICARE MENDENHALLDOB: Community [address] [place] [address] [facility] [id number] Hospital [address]Blc: (419) Number: Repository [phone] () [id number] Date:2018-05-28 05/28/2018 Secondary MARISSA J [place] Insurance:AARPPolicy MENDENHALLDOB: Community Number: [id number] [facility] [id number] Repository Date:8166-31-00[address], [place] [address]II: 05/28/2018 Tertiary NOT GIVENUNK [place] Insurance:SELF PAY [facility] Number: Effective Repository Date:2018-05-28 05/05/2018 MARISSA J Primary MARISSA J [place] [address] Insurance:MEDICARE MENDENHALLDOB: Community [address] [place] [address] [facility] [id number] Hospital [address]Ywj: (419) Number: Repository [phone] () [id number] Date:2018-02-02 05/05/2018 Secondary MARISSA J [place] Insurance:AARPPolicy MENDENHALLDOB: Community Number: [id number] Hospital [id number] Repository Date:0984-93-47EW [address], [place] [address]XQ: 05/05/2018 Tertiary NOT GIVENUNK [place] Insurance:SELF PAY [facility] Number: Effective Repository Date:2018-04-23 05/04/2018 MARISSA J Primary MARISSA J [place] [address] Insurance:MEDICARE MENDENHALLDOB: Community [address] [place] [address] [facility] [id number] Hospital [address]655Met: (419) Number: Repository [phone] () [id number] Date:2018-02-16 05/04/2018 Secondary MARISSA J [place] Insurance:AARPPolicy MENDENHALLDOB: Community Number: [id number] Hospital [id number] Repository Date:8345-23-44EO [address], [place] [address]JU: 05/04/2018 Tertiary NOT GIVENUNK [place] Insurance:SELF PAY [facility] Number: Effective Repository Date:2018-02-16 04/01/2018 MARISSA J Primary MARISSA J [place] [address] Insurance:MEDICARE MENDENHALLDOB: Community [address] [place] [address] [facility] [id number] Hospital [address]Whl: (419) Number: Repository [phone] () [id number] Date:2018-02-02 04/01/2018 Secondary MARISSA J [place] Insurance:AARPPolicy MENDENHALLDOB: Community Number: [id number] Hospital [id number] Repository Date:9385-75-24HY [address], [place] [address]AC: 04/01/2018 Tertiary NOT GIVENUNK [place] Insurance:SELF PAY [facility] Number: Effective Repository Date:2018-03-23 03/09/2018 MARISSA J Primary MARISSA J [place] [address] Insurance:MEDICARE MENDENHALLDOB: Community [address] [place] [address] [facility] [id number] Hospital [address]Smf: (419) Number: Repository [phone] () [id number] Date:2018-03-09 03/09/2018 Secondary MARISSA J [place] Insurance:AARPPolicy MENDENHALLDOB: Community Number: [id number] [facility] [id number] Repository Date:2312-80-10US [address], [place] [address]GE: 03/09/2018 Tertiary NOT GIVENUNK [place] Insurance:SELF PAY [facility] Number: Effective Repository Date:2018-03-09 02/22/2018 AMRISSA J Primary MARISSA J [place] [address] Insurance:MEDICARE MENDENHALLDOB: [address] PART [facility] [id number] Hospital [address]Xya: (419) Number: Repository [phone] () [id number] Date:2018-02-02 02/22/2018 Secondary MARISSA J [place] Insurance:AARPPolicy MENDENHALLDOB: Community Number: [id number] Hospital [id number] Repository Date:6045-84-24ZF [address], [place] [address]NL: 02/22/2018 Tertiary NOT GIVENUNK [place] Insurance:SELF PAY [facility] Number: Effective Repository Date:2018-02-21 02/16/2018 MARISSA J Primary MARISSA J [place] [address] Insurance:MEDICARE MENDENHALLDOB: Community [address] [place] [address] [facility] [id number] Hospital [address]Ved: (419) Number: Repository [phone] () [id number] Date:2018-01-19 02/16/2018 Secondary MARISSA J [place] Insurance:AARPPolicy MENDENHALLDOB: Community Number: [id number] [id number] Repository Date:4734-60-32ID [address], [place] [address]AL: 02/16/2018 Tertiary NOT GIVENUNK [place] Insurance:SELF PAY [facility] Number: Effective Repository Date:2018-02-16 02/04/2018 MARISSA J Primary MARISSA J [place] [address] Insurance:MEDICARE MENDENHALLDOB: Community [address] [place] [address] [facility] [id number] Hospital [address]Inq: (419) Number: Repository [phone] () [id number] Date:2018-02-02 02/04/2018 Secondary MARISSA J [place] Insurance:AARPPolicy MENDENHALLDOB: Community Number: [id number] Hospital [id number] Repository Date:0657-59-18EK [address], [place] [address]EK: 02/04/2018 Tertiary NOT GIVENUNK [place] Insurance:SELF PAY [facility] Number: Effective Repository Date:2018-02-02 01/19/2018 MARISSA J Primary MARISSA J [place] [address] Insurance:MEDICARE MENDENHALLDOB: Community [address] [place] [address] [facility] [id number] Hospital [address]Jrs: (419) Number: Repository [phone] () [id number] Date:2018-01-01 01/19/2018 Secondary NOT GIVENUNK [place] Insurance:SELF PAY [facility] Number: Effective Repository Date:2018-01-01
== END ==
PROVIDERS: Family Provider Internal Medicine; PCP Internal Medicine; Referring Provider Internal Medicine; Visit Provider Internal Medicine
DX: E11.9 Type 2 diabetes mellitus without complications (principal); M81.0 Age-related osteoporosis without current pathological fracture; M25.552 Pain in left hip
CPT/HCPCS: 36415; 80048; 82043; 82306; 82570; 83036; 84439; 84443; 85025

== ENCOUNTER → 2019-06-27 11:08 | Outpatient (CLI) | payer MEDICARE, OTHER, SELFPAY ==
[2019-06-27 10:30] VITALS: BMI 22.7
[2019-06-27 12:45] LABS: Anion Gap 6 (5-15); BUN 16 mg/dL (7-18); BUN/Creat Ratio 23.4 RATIO (10-20); Calcium,Total 9.1 mg/dL (8.5-10.1); Chloride 109 mmol/L (98-107); Creatinine, Serum 0.68 mg/dL (0.55-1.02); EST Glomerular Filtration Rate 91 mL/min (>60); Est Glom Filt Rate - Afr Amer 110 mL/min (>60); Glucose 49 mg/dL (74-106); Potassium 3.8 mmol/L (3.5-5.1); Sodium Level 143 mmol/L (136-145)
== END ==
PROVIDERS: PCP Internal Medicine; Visit Provider Internal Medicine
DX: I10 Essential (primary) hypertension (principal)
CPT/HCPCS: 36415; 80048

== ENCOUNTER → 2019-10-17 11:01 | Outpatient (CLI) | payer MEDICARE, OTHER, SELFPAY ==
[2019-10-17 10:33] VITALS: BMI 23.6
[2019-10-17 12:02] LABS: Absolute Lymphocyte Count 1.78 X10^3/uL (0.83-4.51); Absolute Neutrophil Count 5.6 X10^3/uL (2.0-7.7); Basophil# 0.06 X10^3/uL; Basophil% 0.7 % (0-1); Eosinophil# 0.21 X10^3/uL; Eosinophils% 2.5 % (0-5); Hematocrit 40.8 % (37-47); Hemoglobin 13.2 g/dL (12.0-15.0); Lymphocyte # 1.78 X10^3/ul (4.0); Lymphocyte % 21.5 % (19-41); Mean Corp Hgb Conc 32.4 g/dL (32-36); Mean Corpuscular Hgb 30.6 pg (27.0-32.0); Mean Corpuscular Volume 94.7 fL (81-99); Monocyte# 0.65 X10^3/uL; Monocyte% 7.9 % (0-10); NRBC Flagged by Analyzer 0 % (0-5); Neutrophil # 5.56 X10^3/uL (2.7-7.7); Neutrophil % 67.3 % (47-70); Platelet Count 349 K/mm3 (150-450); RBC Distribution Width CV 13.2 % (11.6-14.6); RBC Distribution Width SD 46.5 fl (35.1-43.9); Red Blood Count 4.31 M/mm3 (4.2-5.4); White Blood Count 8.3 K/mm3 (4.4-11.0)
[2019-10-17 12:23] LABS: ALB/GLOB Ratio 1.2 RATIO (0.9-2.4); AST(SGOT) 14 U/L (15-37); Alanine Aminotransfer ALT/SGPT 22 U/L (13-56); Albumin, Serum 3.8 g/dL (3.2-5.0); Alkaline Phosphatase 72 U/L (45-117); Anion Gap 7 (5-15); BUN 20 mg/dL (7-18); BUN/Creat Ratio 24.6 RATIO (10-20); Calcium,Total 9.3 mg/dL (8.5-10.1); Chloride 104 mmol/L (98-107); Cholesterol 157 mg/dL (200); Creatinine, Serum 0.81 mg/dL (0.55-1.02); EST Glomerular Filtration Rate 75 mL/min (>60); Est Glom Filt Rate - Afr Amer 90 mL/min (>60); Globulin 3.3 g/dL (2.2-4.2); Glucose 156 mg/dL (74-106); High Density Lipoprotein 79 mg/dL; Potassium 4.1 mmol/L (3.5-5.1); Protein, Total 7.1 g/dL (6.4-8.2); Sodium Level 139 mmol/L (136-145); Thyroid Stim Hormone (TSH) 1.14 uIU/mL (0.358-3.74); Triglycerides 82 mg/dL; Very Low Density Lipoprotein 16 mg/dL (5-40)
[2019-10-17 12:40] LABS: Microalbumin,Random Urine 10.6 mg/L (NO RANGE EST.); Microalbumin:Creatinine Ratio 10.6 mg/g CRE (<30 mg/g CRE)
== END ==
PROVIDERS: PCP Internal Medicine; Visit Provider Internal Medicine
DX: E03.9 Hypothyroidism, unspecified (principal); M81.0 Age-related osteoporosis without current pathological fracture; I10 Essential (primary) hypertension; E11.9 Type 2 diabetes mellitus without complications
CPT/HCPCS: 36415; 80053; 80061; 82043; 82570; 84443; 85025

== ENCOUNTER → 2019-11-07 11:42 | Outpatient (CLI) | payer MEDICARE, OTHER, SELFPAY ==
[2019-10-17 10:33] VITALS: BMI 23.6
--- NOTE | 2019-11-07 12:17 | BI_ITS ---
MAMMOGRAPHY - BILATERAL SCREENING REASON FOR EXAM: Female, 69 years old. Routine annual screening examination. PERTINENT HISTORY: Sister with breast cancer. TECHNIQUE: Digital bilateral breast isac (3D mammographic acquisition) in the CC and MLO projections. 2-D mediolateral oblique (MLO) and craniocaudad (CC) views of both breasts were obtained. CAD: Full Field Digital Mammography with Computer Added Detection was performed. COMPARISON: Comparison is made with prior examination dated October 04, 2018. FINDINGS: Breast Composition: There are scattered areas of fibroglandular density. There are no dominant masses or suspicious calcifications. There is asymmetry of breast tissue where more breast tissue is seen in the retroareolar region of the left breast as compared to the right side. Stable appearance of the small bilateral axillary lymph nodes. No other significant abnormalities are identified. There has been no significant change since the prior study. BI/SCREEN MAMM (CAD) W/ISAC BILAT IMPRESSION: Stable bilateral screening mammogram. Yearly follow-up mammogram recommended. (A) ASSESSMENT CATEGORY: BIRADS Category 2: Benign. A letter regarding these results will be sent to the patient by the facility within 30 days. Approximately 10% of breast cancers are not detected by mammography. A normal mammogram should not delay biopsy of a clinically suspicious abnormality. [id number] Electronically Signed: Curry Maciel, at 13:39 EST , Service support ,
== END ==
PROVIDERS: Family Provider Internal Medicine; PCP Internal Medicine; Referring Provider Internal Medicine; Visit Provider Internal Medicine
DX: Z12.31 Encounter for screening mammogram for malignant neoplasm of breast (principal); Z80.3 Family history of malignant neoplasm of breast
CPT/HCPCS: 77063; 77067

== ENCOUNTER 2020-04-18 08:44 | Emergency (ER) | payer MEDICARE, OTHER, SELFPAY ==
[2019-12-12 10:17] VITALS: BMI 23.6
[2020-04-18 08:45] VITALS: BP 159/82; PULSE 67; RESP 21; TEMP 36.4; O2SAT 99; BMI 24.7
[2020-04-18 09:02] LABS: Basophil# 0.04 X10^3/uL; Basophil% 0.4 % (0-1); Eosinophil# 0.04 X10^3/uL; Eosinophils% 0.4 % (0-5); Hematocrit 40.8 % (37-47); Lymphocyte % 11.3 % (19-41); Mean Corp Hgb Conc 31.9 g/dL (32-36); Mean Corpuscular Hgb 30.7 pg (27.0-32.0); Mean Corpuscular Volume 96.5 fL (81-99); Mean Platelet Vol. 9.5 fl (6.2-12.0); Monocyte# 0.52 X10^3/uL; Monocyte% 5.3 % (0-10); NRBC Flagged by Analyzer 0 % (0-5); Neutrophil % 82.3 % (47-70); Platelet Count 289 K/mm3 (150-450); RBC Distribution Width CV 13.7 % (11.6-14.6); RBC Distribution Width SD 49.1 fl (35.1-43.9); Red Blood Count 4.23 M/mm3 (4.2-5.4); White Blood Count 9.7 K/mm3 (4.4-11.0)
--- NOTE | 2020-04-18 09:08 | CT_ITS ---
STUDY: CT BRAIN WITHOUT CONTRAST REASON FOR EXAM: Female, 69 years old. CONFUSION UPON WAKING UP, LOW BS, HX-DB ON INSULIN, HTN RADIATION DOSAGE (If Supplied By Facility): CTDIvol = ( 60.81 ) mGy, DLP = ( 998.67 ) mGycm TECHNIQUE: Transaxial CT imaging of the brain was performed without administration of intravenous contrast material. Individualized dose optimization techniques were used for this CT. COMPARISON: No relevant priors. FINDINGS: Normal soft tissue structures. Normal calvarium. There is mild cerebral atrophy with widening of the extra-axial spaces and ventricular dilatation. Normal white matter tracts of the cerebral hemispheres. Normal basal ganglia and thalami. Normal brainstem. There is mild cerebellar atrophy. There is no intracranial hemorrhage. There are no findings of an acute ischemic infarction. Normal visualized paranasal sinuses. CT/Brain/Head without Contrast IMPRESSION: Chronic involutional changes of the brain. Electronically Signed: Curry Maciel, at 9:42 EDT , Service support ,
--- NOTE | 2020-04-18 09:08 | EKG12_ITS ---
Test Reason : NEURO SX Blood Pressure : / mmHG Vent. Rate : 061 BPM Atrial Rate : 061 BPM P-R Int : 146 ms QRS Dur : 082 ms QT Int : 438 ms P-R-T Axes : 042 006 023 degrees QTc Int : 440 ms Normal sinus rhythm Normal ECG Confirmed by ROX LAZO ([id number]), makeup editor ROBINSON WILLAMS ([id number]) on 04/23/2020 10:55:20 AM Referred By: AMANDA Confirmed By:ROX LAZO
[2020-04-18 09:17] LABS: AST(SGOT) 42 U/L (15-37); Alanine Aminotransfer ALT/SGPT 33 U/L (13-56); Albumin, Serum 3.6 g/dL (3.2-5.0); Alkaline Phosphatase 59 U/L (45-117); Anion Gap 4 (5-15); BUN 19 mg/dL (7-18); BUN/Creat Ratio 25.2 RATIO (10-20); Calcium,Total 8.7 mg/dL (8.5-10.1); Chloride 109 mmol/L (98-107); Creatinine, Serum 0.75 mg/dL (0.55-1.02); EST Glomerular Filtration Rate 81 mL/min (>60); Est Glom Filt Rate - Afr Amer 98 mL/min (>60); Estimated Creatinine Clearance 51.11 ml/min; Globulin 3.7 g/dL (2.2-4.2); Glucose 131 mg/dL (74-106); Potassium 4.8 mmol/L (3.5-5.1); Protein, Total 7.3 g/dL (6.4-8.2); Sodium Level 142 mmol/L (136-145)
--- NOTE | 2020-04-18 09:22 | ED.DCSUM_ITS ---
History of Present Illness Chief Complaint: Confusion Informant: Patient Onset: Today Context: - - Woke with symptoms Current Severity: - - Resolved Maximum Severity: Moderate Narrative: Patient presents with a 45-minute episode of confusion and weakness this morning. She states she woke around 715 this morning. She states she did not have the strength to turn in bed or sit up. When asked specifically if one side was weaker than the other she stated to her right arm did not want to move right. She states symptoms lasted approximate 45 minutes and resolved. Her son checked her blood sugar at that time and is in the 70s. She felt fine when she went to bed last evening. Right now she states she feels back to her normal baseline. - Past Medical History (1) Diabetes Status: Chronic (2) Hypertension Status: Chronic (3) Hypothyroidism Status: Chronic (4) Type 2 diabetes mellitus Status: Chronic Past Medical History - Allergies and Home Meds Allergies/Adverse Reactions: Allergies Tetracyclines Allergy (Verified 04/18/20 08:49) Unknown Primary Care Physician: Jesu Dennison MD [Primary Care Provider] - Prior records reviewed: Yes Smoking Status: Never smoker Review of Systems General: Denies: Chills, Fever Eyes: Denies: Visual changes - bilaterally ENT: Denies: Bilateral ear pain Cardiovascular: Denies: Chest pain Respiratory: Denies: Dyspnea, Cough Gastrointestinal: Denies: Abdominal pain, Nausea, Vomiting, Diarrhea Genitourinary: Denies: Dysuria Musculoskeletal: Denies: Extremity Pain Skin: Denies: Rash Neurological: Reports: Weakness - Now improved. Denies: Headache Hematologic: Denies: Easy bruising, Easy bleeding Allergy: Denies: Uticaria Physical Exam Vital Signs/Narrative: Vital Signs Temp Pulse Resp BP Pulse Ox 04/18/20 08:45 97.6 F L 67 21 H 159/82 H 99 Inital Vital Signs reviewed: Yes General: Well nourished, Well developed Head: Normocephalic ENT: Moist mucous membranes Neck: Supple Cardiovascular: Regular rate, Regular rhythm Respiratory: No distress, CTA bilaterally Abdomen: Soft, Nontender Extremities: Nontender Skin: Normal color Neurological: Alert, Oriented x3, Normal Strength, Normal Sensation, - - NIH equals 0 at the time of my exam. Psychological: Normal affect Diagnostic/Tx/Re-eval Impressions Brain CT 04/18/20 09:08 IMPRESSION: Chronic involutional changes of the brain. Electronically Signed: Curry Maciel, at 9:42 EDT , Service support , Brain MRI 04/18/20 10:09 IMPRESSION: No acute intracranial abnormality Electronically Signed: Saadia Tamayo MD at 13:45 EDT Tel , Service support , Head MRA 04/18/20 10:11 IMPRESSION: Normal MRA of the head Electronically Signed: Leslie Juarez, at 13:25 EDT Tel , Service support , 04/18/20 09:08 Brain/Head without Contrast [CT] Stat 04/18/20 10:09 MRI Brain [Brain without Contrast] [MRI] Stat 04/18/20 10:11 MRA Head ONLY without Contrast [MRI] Stat Laboratory Results 04/18/20 04/18/20 04/18/20 08:49 08:49 08:49 WBC 9.7 RBC 4.23 Hgb 13.0 Hct 40.8 MCV 96.5 MCH 30.7 MCHC 31.9 L RDW Std Deviation 49.1 H RDW Coeff of Odalys 13.7 Plt Count 289 MPV 9.5 Immature Gran % (Auto) 0.300 Neut % (Auto) 82.3 H Lymph % (Auto) 11.3 L [place] % (Auto) 5.3 Eos % (Auto) 0.4 Baso % (Auto) 0.4 Absolute Neuts (auto) 8.0 H Absolute Lymphs (auto) 1.10 Nucleated RBC % 0 Sodium 142 Potassium 4.8 Chloride 109 H Carbon Dioxide 29.0 Anion Gap 4 L BUN 19 H Creatinine 0.75 Estim Creat Clear Calc 51.11 Est GFR (MDRD) Af Amer 98 Est GFR (MDRD) Non-Af 81 BUN/Creatinine Ratio 25.2 H Glucose 131 H Calcium 8.7 Total Bilirubin 0.60 AST 42 H ALT 33 Alkaline Phosphatase 59 Troponin I < 0.015 Total Protein 7.3 Albumin 3.6 Globulin 3.7 Albumin/Globulin Ratio 1.0 Urine Color Urine Clarity Urine pH Ur Specific [place] Urine Protein Urine Glucose (UA) Urine Ketones Urine Occult Blood Urine Nitrite Urine Bilirubin Urine Urobilinogen Ur Leukocyte Esterase Urine RBC Urine WBC Ur Squamous Epith Cells Urine Bacteria Urine Mucus 04/18/20 09:37 WBC RBC Hgb Hct MCV MCH MCHC RDW Std Deviation RDW Coeff of Odalys Plt Count MPV Immature Gran % (Auto) Neut % (Auto) Lymph % (Auto) [place] % (Auto) Eos % (Auto) Baso % (Auto) Absolute Neuts (auto) Absolute Lymphs (auto) Nucleated RBC % Sodium Potassium Chloride Carbon Dioxide Anion Gap BUN Creatinine Estim Creat Clear Calc Est GFR (MDRD) Af Amer Est GFR (MDRD) Non-Af BUN/Creatinine Ratio Glucose Calcium Total Bilirubin AST ALT Alkaline Phosphatase Troponin I Total Protein Albumin Globulin Albumin/Globulin Ratio Urine Color Yellow Urine Clarity Clear Urine pH 6.0 Ur Specific [place] 1.020 Urine Protein Negative Urine Glucose (UA) Normal Urine Ketones 50 H Urine Occult Blood 10 H Urine Nitrite Negative Urine Bilirubin Negative Urine Urobilinogen Normal Ur Leukocyte Esterase Negative Urine RBC 0 SEEN Urine WBC 0-5 SEEN Ur Squamous Epith Cells 0 SEEN Urine Bacteria 0 SEEN Urine Mucus 0 SEEN - EKG Initial EKG Interpretation: Sinus Rhythm - Sinus at 61. No acute ischemia. - Medical Decision Making Test results are discussed with the patient. Because she had subjectively more weakness in the right arm than elsewhere there was concern for TIA. MRIs at this time are negative. I will discuss patient's findings with her PCP whom she is scheduled to see next week. ED Disposition - Plan for ED Patient: Disposition: Home or Assisted Living Diagnosis: Confusion Instructions: ED Confusion Referrals: Jesu Dennison MD [Primary Care Provider] - Keep Ilda appointment
[2020-04-18 09:42] LABS: Bacteria 0 SEEN /hpf (None Seen); Mucous, Urine 0 SEEN /hpf (<or=2+); Red Blood Cells-Urine 0 SEEN /hpf (0-5); Squamous Epithelial Cells - UA 0 SEEN /hpf (5-10)
[2020-04-18 09:48] LABS: Color, Urine Yellow (Yellow); Glucose, Dipstick Normal (Normal); Ketone-Dipstick 50 mg/dl (Negative); Leukocyte Esterase-Dipstick Negative /ul (Negative); Nitrite-Dipstick Negative (Negative); Occult Blood-Urine 10 /ul (Negative); Protein-Dipstick Negative (Negative); Urine Bilirubin Dipstick Negative (Negative); Urine Clarity Clear (Clear); Urine Urobilinogen Normal (Normal)
[2020-04-18 09:55] LABS: White Blood Cells 0-5 SEEN /hpf (0-5)
--- NOTE | 2020-04-18 10:09 | MRI_ITS ---
STUDY: MRI BRAIN WITHOUT CONTRAST REASON FOR EXAM: Female, 69 years old. tia, episode of confusion/weakness this a.m. TECHNIQUE: Standardized multiplanar fat and water weighted pulse sequences were obtained. COMPARISON: CT of the head dated 04/18/2020 FINDINGS: There is mild cerebral atrophy with widening of the extra-axial spaces and ventricular dilatation. Normal white matter tracts of the supratentorial brain. Normal bilateral basal ganglia. Normal thalami. There is no extra-axial fluid accumulation. Normal flow voids within the major intracranial circulation suggesting patency by spin echo criteria. Normal sella turcica, pituitary gland, infundibular stalk, optic chiasm and hypothalamus. Normal tectal plate and pineal gland. Normal midbrain, milena and medulla. Normal cerebellum. Normal basal cisterns. MRI/Brain without Contrast IMPRESSION: No acute intracranial abnormality Electronically Signed: Saadia Tamayo MD at 13:45 EDT Tel , Service support ,
--- NOTE | 2020-04-18 10:11 | MRI_ITS ---
STUDY: MRA OF THE HEAD WITHOUT CONTRAST REASON FOR EXAM: Female, 69 years old. tia, confusion,weakness x 45 min. today TECHNIQUE: 3-D gabq-[id number]-gmkgox (TOF) imaging was performed with MIPs. The study was performed unenhanced. COMPARISON: CT and MR brain performed the same day. Head MRA 03/31/2014 FINDINGS: Normal bilateral petrous carotid arteries. Normal right cavernous carotid artery with a normal supraclinoid bifurcation. Normal left cavernous carotid artery with a normal supraclinoid bifurcation. Normal right A1 segments of the anterior cerebral artery. Normal left A1 segments of the anterior cerebral artery. Normal intact anterior communicating artery (ACOM). Normal bilateral A2 segments of the anterior cerebral arteries. Normal right M1 and M2 segments of the middle cerebral arteries, with a normal M1 bifurcation. Normal left M1 and M2 segments of the middle cerebral arteries, with a normal M1 bifurcation. Normal right posterior communicating artery (PCOM). Normal left posterior communicating artery (PCOM). Normal bilateral vertebral arteries. Normal basilar artery with a normal basilar bifurcation. The visualized bilateral superior cerebellar (SCA) arteries are normal. Normal bilateral P1, P2 and visualized P3 segments of the posterior cerebral arteries. There is no demonstrated aneurysm of the rosebud of [place]. There is no major vessel occlusion or hemodynamically significant stenosis. Mild cerebral atrophy. MRI/MRA Head ONLY without Contrast IMPRESSION: Normal MRA of the head Electronically Signed: Leslie Juarez, at 13:25 EDT Tel , Service support ,
[2020-04-18 10:51] VITALS: BP 143/76; PULSE 61; RESP 18; O2SAT 100
[2020-04-18 12:00] VITALS: BP 152/74; PULSE 61; RESP 18; O2SAT 99
[2020-04-18 14:26] VITALS: BP 138/62; PULSE 74; RESP 15; O2SAT 97
== END 2020-04-18 14:32 | disposition home or self-care (01) ==
PROVIDERS: Emergency Provider Emergency Medicine; PCP Internal Medicine
DX: R41.0 Disorientation, unspecified (principal); E11.9 Type 2 diabetes mellitus without complications; E03.9 Hypothyroidism, unspecified; I10 Essential (primary) hypertension; Z79.82 Long term (current) use of aspirin; Z79.4 Long term (current) use of insulin
CPT/HCPCS: 70450; 70544; 70551; 80053; 81001; 84484; 85025; 93005; 99285; A4216

== ENCOUNTER → 2020-05-08 12:47 | Outpatient (CLI) | payer MEDICARE, OTHER, SELFPAY ==
[2020-04-23 09:58] VITALS: BMI 24.7
--- NOTE | 2020-05-08 12:48 | CDU_ITS ---
Reason For Study: TIA Rt. Velocities/BP Lt. Velocities/BP Prox CCA 102.1/27.8 cm/sec. Prox CCA 113.3/26.2 cm/sec. Mid CCA 94.3/27.8 cm/sec. Mid CCA 94.9/23.7 cm/sec. Dist CCA 83.9/25.2 cm/sec. Dist CCA 77.7/26.2 cm/sec. Prox ICA 77.3/22.5 cm/sec. Prox ICA 65.1/19 cm/sec. Mid ICA 77.7/24.9 cm/sec. Mid ICA 76.1/31.1 cm/sec. Dist ICA 87.6/32.3 cm/sec. Dist ICA 86/33.3 cm/sec. Rt. ICA/CCA = 0.9. Lt. ICA/CCA = 0.9. Prox ECA 119.3/20.6 cm/sec. Prox ECA 112/13.3 cm/sec. Rt. Vert. 49.5/11.4 cm/sec. Lt. Vert. 54.2/14.6 cm/sec. Right Extracranial There is intimal thickening but no significant atherosclerotic plaque noted in the right common carotid artery. There is intimal thickening but no significant atherosclerotic plaque noted in the right internal carotid artery. There is intimal thickening but no significant atherosclerotic plaque noted in the right external carotid artery. Antegrade flow is noted in the right vertebral artery. Left Extracranial There is intimal thickening but no significant atherosclerotic plaque noted in the left common carotid artery. There is homogeneous, smooth atherosclerotic plaque noted in the left internal carotid artery. There is intimal thickening but no significant atherosclerotic plaque noted in the left external carotid artery. Antegrade flow is noted in the left vertebral artery. There is heterogeneous, irregular atherosclerotic plaque noted in the left bulb. Procedure Carotid Duplex [id number]. Exam performed in department. Interpretation Summary No evidence of hemodynamically significant plaque or stenosis right extracranial internal carotid with less than 50% stenosis <50% stenosis right external carotid No evidence of hemodynamically significant plaque or stenosis left extracranial internal carotid with less than 50% stenosis <50% stenosis left external carotid Small amount of calcific plaque of the left carotid bulb Patent and antegrade bilateral vertebrals Ordering Physician: Jesu Dennison Referring Physician: Jesu Dennison Performed By: Ambar Yan RVT
--- NOTE | 2020-05-08 12:48 | ECHOD_ITS ---
Reason For Study: TIA/CVA Procedure This was a 2D Doppler, Color Flow transthoracic echocardiogram. The exam was of adequate technical quality. Exam performed in department. Left Ventricle Normal LV size. Left ventricular systolic function is normal. The estimated ejection fraction is 65 %. No evidence for diastolic dysfunction. No regional wall motion abnormalities noted. Right Ventricle Normal RV size. Normal systolic function. Atria Normal left atrium. Normal right atrium. Aneurysmal atrial septum. Bubble contrast study negative for right to left interatrial shunt. Mitral Valve There is no mitral annular calcification. Mild diffuse mitral valve thickening. Mild (1+) mitral valve insufficiency. Tricuspid Valve Normal tricuspid valve. Trivial tricuspid valve insufficiency. Right ventricular systolic pressure estimated to be 26 mmHg. Aortic Valve Trisinus/trileaflet aortic valve. Normal aortic valve. Pulmonic Valve The pulmonic valve is not well visualized. Trivial pulmonic valve insufficiency. Great Vessels Normal sized aortic root. Pericardium/Pleural No pericardial effusion. MMode/2D Measurements & Calculations LVIDd: 4.3 cm IVSd: 1.2 cm Ao root diam: 3.7 cm LVIDs: 2.2 cm LVPWd: 1.1 cm LA dimension: 3.6 cm RVDd: 3.3 cm FS: 47.9 % LAV(MOD-bp): 48.6 ml LA A4 area: 17.8 cm2 RA A4 area: 12.1 cm2 LAV(MOD-bp) Indexed: 27.6 ml/m2 LAV(MOD-sp2): 44.0 ml LAV(MOD-sp4): 51.7 ml Time Measurements MV dec time: 0.20 sec Doppler Measurements & Calculations MV E max ej: 66.3 cm/sec Lat Peak E' Ej: 6.1 cm/sec Med Peak E' Ej: 9.9 cm/sec MV A max ej: 88.4 cm/sec E/E' lat: 10.9 E/E' med: 6.7 MV E/A: 0.75 MV V2 max: 88.9 cm/sec MV P1/2t max ej: 74.2 cm/sec Ao V2 max: 114.7 cm/sec MV max P.2 mmHg MV P1/2t: 111.4 msec Ao max P.3 mmHg MV V2 mean: 45.3 cm/sec MV dec slope: 195.1 cm/sec2 MV mean P.98 mmHg MVA(P1/2t): 2.0 cm2 MV V2 VTI: 28.6 cm LV V1 max: 121.3 cm/sec PA V2 max: 85.7 cm/sec TR max ej: 240.6 cm/sec LV V1 max P.9 mmHg TR max P.2 mmHg Interpretation Summary Left ventricular systolic function is normal. The estimated ejection fraction is 65 %. Aneurysmal atrial septum. Mild diffuse mitral valve thickening. Mild (1+) mitral valve insufficiency. Trivial tricuspid valve insufficiency. Trivial pulmonic valve insufficiency. Right ventricular systolic pressure estimated to be 26 mmHg. No evidence for diastolic dysfunction. Bubble contrast study negative for right to left interatrial shunt. Ordering Physician: Jesu Dennison Referring Physician: Jesu Dennison Performed By: Avi Garcia RCS
== END ==
PROVIDERS: PCP Internal Medicine; Referring Provider Internal Medicine; Visit Provider Internal Medicine
DX: Z86.73 Personal history of transient ischemic attack (TIA), and cerebral infarction without residual deficits (principal)
CPT/HCPCS: 93306; 93880; A4216

== ENCOUNTER → 2020-10-15 10:51 | Outpatient (CLI) | payer MEDICARE, OTHER, SELFPAY ==
[2020-10-15 12:58] LABS: Absolute Lymphocyte Count 1.74 X10^3/uL (0.83-4.51); Absolute Neutrophil Count 5.5 X10^3/uL (2.0-7.7); Basophil# 0.04 X10^3/uL; Basophil% 0.5 % (0-1); Eosinophil# 0.18 X10^3/uL; Eosinophils% 2.2 % (0-5); Hemoglobin 13.4 g/dL (12.0-15.0); Lymphocyte # 1.74 X10^3/ul (4.0); Lymphocyte % 21.6 % (19-41); Mean Corp Hgb Conc 31.9 g/dL (32-36); Mean Corpuscular Hgb 30.9 pg (27.0-32.0); Mean Corpuscular Volume 96.8 fL (81-99); Mean Platelet Vol. 10.1 fl (6.2-12.0); Monocyte# 0.61 X10^3/uL; Monocyte% 7.6 % (0-10); NRBC Flagged by Analyzer 0 % (0-5); Neutrophil # 5.47 X10^3/uL (2.7-7.7); Neutrophil % 67.7 % (47-70); Platelet Count 359 K/mm3 (150-450); RBC Distribution Width SD 46.7 fl (35.1-43.9); Red Blood Count 4.34 M/mm3 (4.2-5.4); White Blood Count 8.1 K/mm3 (4.4-11.0)
[2020-10-15 13:26] LABS: Microalbumin,Random Urine 6.6 mg/L (NO RANGE EST.); Microalbumin:Creatinine Ratio 21.3 mg/g CRE (<30 mg/g CRE)
[2020-10-15 13:49] LABS: ALB/GLOB Ratio 1.1 RATIO (0.9-2.4); AST(SGOT) 23 U/L (15-37); Alanine Aminotransfer ALT/SGPT 38 U/L (13-56); Alkaline Phosphatase 105 U/L (45-117); Anion Gap 6 (5-15); BUN 18 mg/dL (7-18); BUN/Creat Ratio 21.6 RATIO (10-20); Calcium,Total 8.7 mg/dL (8.5-10.1); Chloride 108 mmol/L (98-107); Cholesterol 174 mg/dL (200); Creatinine, Serum 0.83 mg/dL (0.55-1.02); EST Glomerular Filtration Rate 72 mL/min (>60); Est Glom Filt Rate - Afr Amer 87 mL/min (>60); Globulin 3.8 g/dL (2.2-4.2); Glucose 115 mg/dL (74-106); High Density Lipoprotein 97 mg/dL; Potassium 4.1 mmol/L (3.5-5.1); Protein, Total 7.8 g/dL (6.4-8.2); Sodium Level 140 mmol/L (136-145); Thyroid Stim Hormone (TSH) 0.29 uIU/mL (0.358-3.74); Triglycerides 43 mg/dL; Very Low Density Lipoprotein 9 mg/dL (5-40)
== END ==
PROVIDERS: PCP Internal Medicine; Referring Provider Internal Medicine; Visit Provider Internal Medicine
DX: E11.9 Type 2 diabetes mellitus without complications (principal); E03.9 Hypothyroidism, unspecified; I10 Essential (primary) hypertension
CPT/HCPCS: 36415; 80053; 80061; 82043; 82570; 84443; 85025

== ENCOUNTER → 2020-11-19 09:33 | Outpatient (CLI) | payer MEDICARE, OTHER, SELFPAY ==
[2020-11-19 12:42] LABS: Thyroid Stim Hormone (TSH) 0.22 uIU/mL (0.358-3.74)
== END ==
PROVIDERS: PCP Internal Medicine; Referring Provider Internal Medicine; Visit Provider Internal Medicine
DX: E03.9 Hypothyroidism, unspecified (principal)
CPT/HCPCS: 36415; 84443

== ENCOUNTER → 2020-12-31 12:45 | Outpatient (CLI) | payer MEDICARE, OTHER, SELFPAY ==
[2020-06-11 08:39] VITALS: BMI 24.7
--- NOTE | 2020-12-31 12:49 | BI_ITS ---
MAMMOGRAPHY - BILATERAL SCREENING REASON FOR EXAM: Female, 70 years old. Routine annual screening examination. PERTINENT HISTORY: Sister with breast cancer. TECHNIQUE: Digital bilateral breast isac (3D mammographic acquisition) in the CC and MLO projections. 2-D mediolateral oblique (MLO) and craniocaudad (CC) views of both breasts were obtained. CAD: Full Field Digital Mammography with Computer Added Detection was performed. COMPARISON: Comparison is made with prior study dated 11/07/2019. FINDINGS: Breast Composition: There are scattered areas of fibroglandular density. There are no dominant masses or suspicious calcifications. Stable asymmetry of breast tissue were more breast tissue is seen in the retroareolar region of the left breast as compared to the right side. No other significant abnormalities are identified. There has been no significant change since the prior study. BI/SCRN MAMM (CAD)W/ISAC BILAT IMPRESSION: Stable bilateral screening mammogram. Yearly follow-up mammogram recommended. (A) ASSESSMENT CATEGORY: BIRADS Category 2: Benign. A letter regarding these results will be sent to the patient by the facility within 30 days. Approximately 10% of breast cancers are not detected by mammography. A normal mammogram should not delay biopsy of a clinically suspicious abnormality. [id number] Electronically Signed: Curry Maciel MD at 13:33 EST , Service support ,
== END ==
PROVIDERS: PCP Internal Medicine; Referring Provider Internal Medicine; Visit Provider Internal Medicine
DX: Z12.31 Encounter for screening mammogram for malignant neoplasm of breast (principal); Z80.3 Family history of malignant neoplasm of breast
CPT/HCPCS: 77063; 77067

== ENCOUNTER → 2021-02-04 13:21 | Outpatient (CLI) | payer MEDICARE, OTHER, SELFPAY ==
[2021-02-04 15:41] LABS: Thyroid Stim Hormone (TSH) 1.25 uIU/mL (0.358-3.74)
== END ==
PROVIDERS: PCP Internal Medicine; Visit Provider Internal Medicine
DX: E03.9 Hypothyroidism, unspecified (principal)
CPT/HCPCS: 36415; 84443

== ENCOUNTER → 2021-07-01 10:59 | Outpatient (CLI) | payer MEDICARE, OTHER, SELFPAY ==
[2021-07-01 10:40] VITALS: BMI 24.7
[2021-07-01 12:06] LABS: Absolute Neutrophil Count 4.9 X10^3/uL (2.0-7.7); Basophil# 0.02 X10^3/uL; Basophil% 0.3 % (0-1); Eosinophil# 0.03 X10^3/uL; Eosinophils% 0.5 % (0-5); Hematocrit 38.3 % (37-47); Hemoglobin 12.3 g/dL (12.0-15.0); Lymphocyte % 18.4 % (19-41); Mean Corp Hgb Conc 32.1 g/dL (32-36); Mean Corpuscular Hgb 30.3 pg (27.0-32.0); Mean Corpuscular Volume 94.3 fL (81-99); Mean Platelet Vol. 9.6 fl (6.2-12.0); Monocyte# 0.41 X10^3/uL; Monocyte% 6.3 % (0-10); NRBC Flagged by Analyzer 0 % (0-5); Neutrophil # 4.85 X10^3/uL (2.7-7.7); Neutrophil % 74.2 % (47-70); Platelet Count 331 K/mm3 (150-450); RBC Distribution Width CV 13.2 % (11.6-14.6); RBC Distribution Width SD 45.5 fl (35.1-43.9); Red Blood Count 4.06 M/mm3 (4.2-5.4); White Blood Count 6.5 K/mm3 (4.4-11.0)
[2021-07-01 12:23] LABS: ALB/GLOB Ratio 1.1 RATIO (0.9-2.4); AST(SGOT) 21 U/L (15-37); Alanine Aminotransfer ALT/SGPT 30 U/L (13-56); Albumin, Serum 3.8 g/dL (3.2-5.0); Alkaline Phosphatase 60 U/L (45-117); Anion Gap 5 (5-15); BUN 17 mg/dL (7-18); Calcium,Total 9.3 mg/dL (8.5-10.1); Chloride 103 mmol/L (98-107); Creatinine, Serum 0.81 mg/dL (0.55-1.02); EST Glomerular Filtration Rate 75 mL/min (>60); Est Glom Filt Rate - Afr Amer 91 mL/min (>60); Globulin 3.4 g/dL (2.2-4.2); Glucose 232 mg/dL (74-106); Potassium 4.2 mmol/L (3.5-5.1); Protein, Total 7.2 g/dL (6.4-8.2); Sodium Level 137 mmol/L (136-145)
[2021-07-01 13:00] LABS: Microalbumin,Random Urine < 5.0 mg/L (NO RANGE EST.)
== END ==
PROVIDERS: PCP Internal Medicine; Referring Provider Internal Medicine; Visit Provider Internal Medicine
DX: E11.9 Type 2 diabetes mellitus without complications (principal); I10 Essential (primary) hypertension
CPT/HCPCS: 36415; 80053; 82043; 82570; 85025

== ENCOUNTER → 2021-08-13 12:26 | Outpatient (CLI) | payer MEDICARE, OTHER, SELFPAY ==
[2021-07-01 10:40] VITALS: BMI 24.7
--- NOTE | 2021-08-13 12:33 | BD_ITS ---
STUDY: DUAL ENERGY X-RAY ABSORPTIOMETRY / DXA REASON FOR EXAM: Female, 70 years old. Osteoporosis TECHNIQUE: Bone Mineral Density (BMD) measurements of lumbar spine and bilateral hips were obtained. COMPARISON: Comparison is made with prior study 06/10/2018. FINDINGS: Lumbar Spine (L1-L4): g/cm2 (0.910) / T-score (-1.2) / Z-score (0.8) Findings are suggestive of osteopenia with a low fracture risk. Left Femur Total: g/cm2 (0.783) / T-score (-1.3) / Z-score (0.1) Left Femoral Neck: g/cm2 (0.658) / T-score (-1.7) / Z-score (0.0) Right Femur Total: g/cm2 (0.73) / T-score (-1.3) / Z-score (0.1) Right Femoral Neck: g/cm2 (0.645) / T-score (-1.8) / Z-score (0.1) The T-Scores on the most recent prior examination were: Lumbar Spine (L1-L4): There has been improvement of bone density since the previous examination. Left Femur Total: which represents an improvement of 2.9%. Right Femur Total: which represents an improvement of 7.7%. BD/Dexa Bone Density Study IMPRESSION: The patient is considered osteopenic as outlined below according to World Rex Organization (WHO) criteria with a moderate fracture risk. There has been improvement of bone density since the previous examination. Reference Information: The T-score is the number of standard deviations above or below the standard which is normal for young adults at their peak bone mineral density. The World Health Organization (WHO) interprets the T-scores as follows: Above -1 Normal bone density Between -1 and -2.5 Osteopenia Equal to / or below -2.5 Osteoporosis As a practical clinical guideline, osteopenia may be graded as follows: Mild -1 through -1.5 Moderate -1.6 through -2.0 Severe -2.1 through -2.4 The Z-score is the number of standard deviations above or below age-matched controls. A Z-score of less than -1.5 would be considered abnormal. References: 1. NIH Osteoporosis and Related Bone Diseases www osteo.org 2. International Society for Clinical Densitometry www iscd.org 3. National Osteoporosis Foundation www nof.org Electronically Signed: Curry Maciel MD at 12:25 EDT , Service support ,
== END ==
PROVIDERS: PCP Internal Medicine; Referring Provider Internal Medicine; Visit Provider Internal Medicine
DX: M81.0 Age-related osteoporosis without current pathological fracture (principal)
CPT/HCPCS: 77080

== ENCOUNTER → 2021-09-03 13:01 | Outpatient (CLI) | payer MEDICARE, OTHER, SELFPAY ==
--- NOTE | 2021-09-03 13:02 | RAD_ITS ---
STUDY: X-RAY - RIGHT KNEE REASON FOR EXAM: Female, 70 years old. Right knee Pain and Swelling TECHNIQUE: 3 view(s) of the knee. COMPARISON: None. FINDINGS: No acute fracture, dislocation or osseous destruction. Mild patellofemoral joint arthrosis. Tiny quadriceps enthesophyte. No significant soft tissue swelling. Vascular calcifications. Small joint effusion. RAD/Knee 3 Views IMPRESSION: Right knee intact with mild patellofemoral arthrosis Small joint effusion Electronically Signed: Junior Castro DO at 11:09 EDT Tel , Service support ,
== END ==
PROVIDERS: PCP Internal Medicine; Referring Provider Internal Medicine; Visit Provider Internal Medicine
DX: M17.11 Unilateral primary osteoarthritis, right knee (principal)
CPT/HCPCS: 73562

== ENCOUNTER 2021-10-16 12:30 | Outpatient (RCR) | payer MEDICARE, OTHER, SELFPAY ==
--- NOTE | 2021-09-16 13:33 | HP.PTEVAL ---
Patient's Visit Information MARISSA WINKLER is a 70 year old F referred to Physical Therapy by JONATHAN PACE with a diagnosis of Right Knee Pain. Date of Evaluation: 09/16/21 Physical Therapist: Cori Joel DPT - Visit Plan Frequency: 2x /Week Duration: 4 Weeks Plan: Focus on LE ROM and strength/stabilization - Subjective Patient reports that 3-3.5 weeks ago the right knee started to swell. Insidious onset- would go down at night then she went to work and it would come back. Last Thursday she was walking in from the barn and felt something pop and had severe pain in the posterior knee. She went back to MD who gave her ointment, ice and elevation. 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 Is still working just trying to take it easy. Has had x-rays which showed arthritic changes. Worst: 2/10 Agg: stairs, walking, standing, getting socks on (bending). Best: 0/10 Eases: ice and rest. Sleep: disturbed- side sleeper but is currently sleeping on her back with a pillow under her knee. Describes the pain as a beatriz pain when she bends it but when she is sitting or standing still its just there. Pain is located along the medial joint line and posterior. No radiating pain. No N/T in the toes. Very active- has a horse, dog, grandkids. No MRI at this point- no injection. Is not swelling as much anymore as it was before. PMHx/Meds: no changes since she saw MD - Objective Posture: FH, RS- can correct but does not maintain. Gait: antalgic- decrease heel toe pattern due to diminished terminal knee extension. HR/TR: able reports pulling with TR. SLS: weight shift but unable to take hands off wall- fear of pain. Observation: no edema noted. Palpation: tender along posterior knee. ROM: 5-120 degrees with pain at end ranges- can achieve full extension with slight over pressure. Strength: Core: fair, Hip: 4+/5 throughout, Knee: 4-/5 with pain, ankle: 5/5. Flex: HS: severe, Gastroc: moderate. Special Test: Mame: negative, Slump: negative. Stairs: non recip- attempted recip and pain was severe patient cried- went away quickly. - Balance/Special Test Scores Lower Extremity Functional Score: 29 - Goals Goal 1:: Patient will be I with HEP and progression Goal Time Frame: 4-6 Weeks Goal 2:: Patient will ambulate >300 feet with a normalized gait pattern Goal Time Frame: 4-6 Weeks Goal 3:: Patient will asc/desc 8 stairs recip with normalized gait pattern Goal Time Frame: 4-6 Weeks Goal 4:: Patient will demo 0-125 degrees of ROM in the right knee Goal Time Frame: 4-6 Weeks - Rehabilitation Potential Physical Therapy Diagnosis: Patient presents with hypomobility- she has decreased painfree ROM, strength, flex and muscular endurance leading to abnormal gait and increased pain with ADL's. Rehabilitation Potential: Fair - Anticipated Interventions Patient/Client Instruction: Educate patient on: Benefits of Fitness Program Therapeutic Exercise to Include: Strength training, Endurance training, Balance training, Body mechanics, Postural training, Flexibilty training, Gait and locomotor training, Neuromotor development, Passive ROM, Active ROM, Dynamic Lumbar Stabilization For the Purpose of:: To improve muscle performance and motor function TENS: Yes Cryotherapy (ice pack, ice massage): Yes Thermo therapy (hot pack): Yes Ultrasound (thermal/non thermal): Yes Thank you for the opportunity to evaluate your patient. For Medicare and Medicare HMO plans, please review the plan of care and approve it. It will need to be FAXED BACK to us at [phone] for Medicare purposes. For Medicare only, by signing this I certify the plan of care. Please let me know if there are questions or concerns regarding this plan of care. Physician Signature: Date:
--- NOTE | 2021-10-16 12:47 | HP.PTDCSUM_ITS ---
It has been my pleasure to treat MARISSA WINKLER referred by JONATHAN PACE, with the diagnosis of Right Knee Pain for a total of 9 visit(s). Discharge Date: Please see the following information for a summary of their discharge status. Subjective: Patient reports that its much better but not perfect. She feels like she can live with it. Goes back to the MD on Thursday. % Improvement: 93 Objective/Function: Posture: good throughout session Gait: no deviation noted HR/TR: able reports pulling with TR. SLS: 10 sec without loss of balance Observation: no edema noted. Palpation: tender along posterior knee. ROM: 0- 130 degrees . Strength: Core: fair, Hip: 4+/5 throughout, Knee: 4+/5, ankle: 5/5. Flex: HS: mod, Gastroc: moderate. Special Test: Mame: negative, Slump: negative. Stairs: reciprocal with no HR Goal 1:: Patient will be I with HEP and progression Goal Progress: Goal Met Goal 2:: Patient will ambulate >300 feet with a normalized gait pattern Goal Progress: Goal Met Goal 3:: Patient will asc/desc 8 stairs recip with normalized gait pattern Goal Progress: Goal Met Goal 4:: Patient will demo 0-125 degrees of ROM in the right knee Goal Progress: Goal Met Plan: Focus on LE ROM and strength/stabilization. 10/16/21: Discharge to [facility] If there are questions or concerns regarding this patient's physical therapy, please feel free to call me at [phone]. Thank you for the referral of this patient. Sincerely, Cori Joel, DPT Balance/Gait/Functional tests - Balance/Special Test Scores Lower Extremity Functional Score: 68
== END 2021-10-16 13:06 | disposition home or self-care (01) ==
LOC: PT 12:30
PROVIDERS: PCP Internal Medicine
DX: M17.11 Unilateral primary osteoarthritis, right knee (principal); M25.561 Pain in right knee
CPT/HCPCS: 97110; 97162; 97164

== ENCOUNTER → 2021-10-21 10:18 | Outpatient (CLI) | payer MEDICARE, OTHER, SELFPAY ==
[2021-10-21 12:55] LABS: ALB/GLOB Ratio 0.9 RATIO (0.9-2.4); AST(SGOT) 19 U/L (15-37); Alanine Aminotransfer ALT/SGPT 36 U/L (13-56); Albumin, Serum 3.4 g/dL (3.2-5.0); Alkaline Phosphatase 77 U/L (45-117); Anion Gap 6 (5-15); BUN 16 mg/dL (7-18); BUN/Creat Ratio 18.8 RATIO (10-20); Calcium,Total 8.9 mg/dL (8.5-10.1); Chloride 101 mmol/L (98-107); Cholesterol 149 mg/dL (200); Creatinine, Serum 0.85 mg/dL (0.55-1.02); EST Glomerular Filtration Rate 71 mL/min (>60); Est Glom Filt Rate - Afr Amer 85 mL/min (>60); Globulin 3.8 g/dL (2.2-4.2); Glucose 315 mg/dL (74-106); High Density Lipoprotein 81 mg/dL; Potassium 4.3 mmol/L (3.5-5.1); Protein, Total 7.2 g/dL (6.4-8.2); Sodium Level 135 mmol/L (136-145); Thyroid Stim Hormone (TSH) 0.46 uIU/mL (0.358-3.74); Triglycerides 71 mg/dL; Very Low Density Lipoprotein 14 mg/dL (5-40)
[2021-10-21 13:02] LABS: Microalbumin,Random Urine 5.5 mg/L (NO RANGE EST.); Microalbumin:Creatinine Ratio 6.6 mg/g CRE (<30 mg/g CRE)
== END ==
PROVIDERS: PCP Internal Medicine; Referring Provider Internal Medicine; Visit Provider Internal Medicine
DX: E11.9 Type 2 diabetes mellitus without complications (principal); E03.9 Hypothyroidism, unspecified
CPT/HCPCS: 36415; 80053; 80061; 82043; 82570; 84443

== ENCOUNTER 2022-01-11 16:36 | Inpatient (IN) | payer MEDICARE, OTHER, SELFPAY ==
[2022-01-11 16:37] VITALS: BP 160/78
[2022-01-11 16:38] VITALS: PULSE 93; RESP 18; TEMP 36.1; O2SAT 98; BMI 27.8
--- NOTE | 2022-01-11 17:05 | RAD_ITS ---
STUDY: X-RAY - PELVIS AND RIGHT HIP REASON FOR EXAM: Female, 71 years old. Fall on ice, deformity, pain TECHNIQUE: 3 views of the pelvis and hip. COMPARISON: None. FINDINGS: There is a non-specific bowel gas pattern. Normal visualized soft tissue structures. Normal bilateral iliac wings, sacroiliac joints and visualized sacrum. Normal bilateral superior and inferior pubic rami. Normal pubic symphysis. Normal bilateral ischial tuberosities. Transverse fracture of the right femoral neck with proximal subsidence of the femoral shaft. Normal acetabulum. Normal hip joint. RAD/HIP, UNI W/ Pelvis 2-3 Views IMPRESSION: Right femoral neck fracture. Electronically Signed: Todd Ambrose MD ([place]) at 18:13 EST ,
--- NOTE | 2022-01-11 17:05 | EX.ED.DYSGE1 ---
HPI History of Present Illness Chief Complaint: Fall Informant: patient and EMS Onset/Context/Timing Onset: Today Current Severity: Moderate Maximum Severity: Severe Narrative Narrative: Patient presents secondary to right hip pain. She was walking to her chicken coop when her dogs hit her legs and she fell onto her lateral right hip. Patient is sitting upright on a vacuum mattress from EMS. At this time she has equal leg lengths with strong distal pulses. Patient denies striking her head. EMS did note that her blood sugar reading was high. Patient states she had a low reading this morning but did take her normal medications and made sure she ate well. [facility] Medical History Cervical lymphadenopathy COVID-19 vaccine series completed Diabetes Hypertension Hypothyroidism Right knee pain Venous insufficiency of both lower extremities Home Medications aspirin 81 mg tablet,delayed release 1 tab PO DAILY 01/19/18 [History Last Taken Unknown] calcium carbonate 600 mg calcium (1,500 mg) tablet 600 mg PO ONCE tab 01/19/18 [History Last Taken Unknown] cholecalciferol (vitamin D3) 50 mcg (2,000 unit) capsule 2,000 unit PO ONCE 01/19/18 [History Last Taken Unknown] denosumab 60 mg/mL subcutaneous syringe 60 mg SC [id number] #1 ml 10/18/18 [Rx Last Taken Unknown] mecobalamin-levomefolate calcium-pyridoxal phos 3 mg-35 mg-2 mg tablet 1 tab PO BID 04/23/20 [History Last Taken Unknown] pen needle, diabetic 31 gauge x 1/4 #200 ea 11/19/20 [Rx Last Taken Unknown] insulin lispro 100 unit/mL subcutaneous solution See Rx Instructions .ROUTE .COMPLEX #30 ml 03/05/21 [Rx Last Taken Unknown] amlodipine 10 mg tablet See Rx Instructions .ROUTE .COMPLEX #90 tab 03/18/21 [Rx Last Taken Unknown] lisinopril 20 mg tablet 20 mg PO DAILY #90 tab 08/13/21 [Rx Last Taken Unknown] compr.stocking,thigh,reg,large #2 ea 10/21/21 [Rx Last Taken Unknown] insulin glargine U-300 conc 300 unit/mL (1.5 mL) subcutaneous pen See Rx Instructions .ROUTE .COMPLEX 90 Days #4.5 ml 10/21/21 [Rx Last Taken Unknown] levothyroxine 88 mcg tablet See Rx Instructions .ROUTE .COMPLEX #90 tab 11/26/21 [Rx Last Taken Unknown] rosuvastatin 10 mg tablet See Rx Instructions .ROUTE .COMPLEX #90 tab 11/26/21 [Rx Last Taken Unknown] Allergy/AdvReac Type Severity Reaction Status Date / Time Tetracyclines Allergy Unknown Verified 01/11/22 16:42 Family History Father Hypertension Cancer kidney Mother Hypertension Surgical History History of tonsillectomy Social History Smoking Status: Never smoker alcohol intake: never substance use type: does not use what type of physical activity do you participate in: walking frequency: daily ROS ROS ED Constitutional Constitutional ED: Denies chills or fever(s) Eyes Eyes: Denies change in vision ENT ENT ED: Denies sore throat Cardiovascular Cardiovascular: Denies chest pain Respiratory/Chest Respiratory/Chest: Denies cough or dyspnea Gastrointestinal Gastrointestinal: Denies abdominal pain, diarrhea, nausea or vomiting Genitourinary Genitourinary ED: Denies dysuria Musculoskeletal Musculoskeletal: Reports arthralgias; Denies back pain Integumentary Denies rash Neurologic Neurologic: Denies headache(s), paresthesias or weakness Allergic/Immunologic Allergic/Immunologic ED: Denies urticaria EXAM Physical Exam Const Vital Signs: 01/11/22 16:37 01/11/22 16:38 Temperature 97.0 F L Temperature Source Temporal Pulse Rate 93 Respiratory Rate 18 Blood Pressure 160/78 H Blood Pressure Mean 105 Pulse Ox 98 Oxygen Delivery Method Room Air Positive well nourished and well developed General Appearance ED: well developed HEENT Reports moist mucous membranes Eyes PERRL and EOMs intact bilaterally Neck supple Chest Wall inspection of chest normal and palpation of chest normal Resp normal respiratory effort and clear to auscultation bilaterally Cardio regular rate and regular rhythm GI normal to inspection, nondistended, normoactive bowel sounds and non-tender Palpation: soft Extremity Extremity Narrative: Tenderness palpation lateral right hip. Strong distal pulses with normal sensation. Equal leg lengths noted. Neuro oriented x3 Sensorium / Orientation: alert Psych mental status grossly normal Skin no rashes or lesions noted MDM MDM MDM Narrative Medical decision making narrative: Patient was given morphine and Zofran here for pain. She received 25 mcg of fentanyl with EMS. Lab work and pelvis/hip x-ray obtained. Lab Data Attestation: I reviewed the patient's lab results. Labs: Laboratory Results - last 24 hr 01/11/22 01/11/22 17:10 17:10 WBC 9.1 RBC 4.40 Hgb 13.4 Hct 40.7 MCV 92.5 MCH 30.5 MCHC 32.9 RDW Std Deviation 45.5 H RDW Coeff of Odalys 13.4 Plt Count 324 MPV 9.3 Immature Gran % (Auto) 0.400 Neut % (Auto) 77.6 H Lymph % (Auto) 15.0 L Hyde % (Auto) 6.6 Eos % (Auto) 0.2 Baso % (Auto) 0.2 Absolute Neuts (auto) 7.0 Absolute Lymphs (auto) 1.36 Nucleated RBC % 0 Sodium 135 L Potassium 4.4 Chloride 101 Carbon Dioxide 27.0 Anion Gap 7 BUN 22 H Creatinine 1.05 H Estim Creat Clear Calc 47.34 Est GFR (MDRD) Af Amer 67 Est GFR (MDRD) Non-Af 55 L BUN/Creatinine Ratio 21.0 H Glucose 402 H Calcium 9.6 Total Bilirubin 0.40 Direct Bilirubin 0.15 AST 23 ALT 38 Alkaline Phosphatase 108 Total Protein 7.9 Albumin 4.1 Globulin 3.8 Radiography Chest X-Ray - ED: 1 View, Read by ED Physician and Chronic Changes EKG Initial EKG: Attestation: I personally reviewed and interpreted this EKG as follows: Interpretation: Sinus Rhythm (Sinus at 83 with no acute ischemia.) Treatment and Re-Evaluation Comments:: Lab work remarkable for a blood sugar of 402. Bicarb normal. Anion gap normal. Pelvis and right hip x-ray per my interpretation reveals a femoral neck fracture. At that time Covid swab, EKG, portable chest x-ray ordered for preop clearance. Patient was given 10 units of subcu insulin. Patient discussed with Dr. Sebastian Boyer. He did request a hemoglobin A1c and admission to hospitalist service. I will speak with the hospitalist to arrange admission. Discharge Plan Triage Chief Complaint: Fall Other Complaint: Hyperglycemia ED Provider: Moe,Tracie Dx/Rx/DC Orders Clinical Impression: Closed fracture of right hip, Hyperglycemia Prescriptions: No Action cholecalciferol (vitamin D3) 2,000 unit capsule 2,000 unit PO ONCE RF: 0 aspirin [Adult Aspirin Regimen] 81 mg tablet,delayed release (DR/EC) 1 tab PO DAILY RF: 0 calcium carbonate [Calcium 600] 600 mg calcium (1,500 mg) tablet 600 mg PO ONCE RF: 0 Prolia 60 mg/mL syringe 60 mg SC [id number] Qty: 1 RF: 4 mecobal-levomefolat Ca-B6 phos 3-35-2 mg tablet 1 tab PO BID RF: 0 Toujeo SoloStar U-300 Insulin 300 unit/mL (1.5 mL) insulin pen See Rx Instructions .ROUTE .COMPLEX 90 Days Qty: 4.5 RF: 4 (DME) compr.stocking,thigh,reg,large Misc See Rx Instructions .ROUTE .MEDSUPPLY Qty: 2 RF: 0 (DME) pen needle, diabetic [[place] II Pen Needle] 31 gauge x 1/4 needle See Rx Instructions .ROUTE .MEDSUPPLY Qty: 200 RF: 3 insulin lispro [Humalog U-100 Insulin] 100 unit/mL solution See Rx Instructions .ROUTE .COMPLEX Qty: 30 RF: 1 amlodipine 10 mg tablet See Rx Instructions .ROUTE .COMPLEX Qty: 90 RF: 3 lisinopril 20 mg tablet 20 mg PO DAILY Qty: 90 RF: 3 rosuvastatin 10 mg tablet See Rx Instructions .ROUTE .COMPLEX Qty: 90 RF: 2 levothyroxine 88 mcg tablet See Rx Instructions .ROUTE .COMPLEX Qty: 90 RF: 3 Primary Care Provider: Jesu Dennison Referrals: Jesu Dennison MD [Primary Care Provider] - Disposition Disposition: Acute Care Hospital [facility]
[2022-01-11] MEDS: Morphine 4 MG/ML Syringe IV ×2 (17:10→20:18)
[2022-01-11] MEDS: 0.9% Normal Saline 1,000 ML 150 ML IV (17:11)
[2022-01-11] MEDS: Ondansetron 4 MG/2 ML Vial IV (17:11)
[2022-01-11 17:17] LABS: Absolute Lymphocyte Count 1.36 X10^3/uL (0.83-4.51); Basophil# 0.02 X10^3/uL; Basophil% 0.2 % (0-1); Eosinophil# 0.02 X10^3/uL; Eosinophils% 0.2 % (0-5); Hematocrit 40.7 % (37-47); Hemoglobin 13.4 g/dL (12.0-15.0); Lymphocyte # 1.36 X10^3/ul (0.83-4.51); Mean Corp Hgb Conc 32.9 g/dL (32-36); Mean Corpuscular Hgb 30.5 pg (27.0-32.0); Mean Corpuscular Volume 92.5 fL (81-99); Mean Platelet Vol. 9.3 fl (6.2-12.0); Monocyte% 6.6 % (0-10); NRBC Flagged by Analyzer 0 % (0-5); Neutrophil # 7.03 X10^3/uL (2.7-7.7); Neutrophil % 77.6 % (47-70); Platelet Count 324 K/mm3 (150-450); RBC Distribution Width CV 13.4 % (11.6-14.6); RBC Distribution Width SD 45.5 fl (35.1-43.9); White Blood Count 9.1 K/mm3 (4.4-11.0)
--- NOTE | 2022-01-11 17:38 | RAD_ITS ---
STUDY: X-RAY CHEST REASON FOR EXAM: Female, 71 years old. pre-op TECHNIQUE: AP COMPARISON: None. FINDINGS: The lungs are clear and expanded. There is no demonstrated pleural abnormality. Normal size heart. Normal mediastinum and rianna. Normal visualized pulmonary arteries. Normal visualized aortic arch and descending thoracic aorta. Normal visualized thoracic spine. There is degenerative osteoarthritis of the bilateral shoulders. There is no demonstrated abnormality of the visualized soft tissue structures of the upper abdomen. RAD/Chest 1 View (Portable) IMPRESSION: Nonacute portable x-ray examination of the chest. Electronically Signed: Todd Ambrose MD (Brooks) at 17:56 EST Reading Location ID and State: [facility] / [place] , Service support ,
--- NOTE | 2022-01-11 17:38 | EKG12_ITS ---
Test Reason : FALL Blood Pressure : / mmHG Vent. Rate : 083 BPM Atrial Rate : 083 BPM P-R Int : 144 ms QRS Dur : 078 ms QT Int : 362 ms P-R-T Axes : 059 047 032 degrees QTc Int : 425 ms Normal sinus rhythm Normal ECG Confirmed by ISSA MARCOS, JONEL ([id number]), market editor JACKIE ALMANZA ([id number]) on 01/15/2022 12:33:53 P M Referred By: BROOKLYNN/LOIS Confirmed By:ILA PARSONS MD
[2022-01-11 17:41] LABS: AST(SGOT) 23 U/L (15-37); Alanine Aminotransfer ALT/SGPT 38 U/L (13-56); Albumin, Serum 4.1 g/dL (3.2-5.0); Alkaline Phosphatase 108 U/L (45-117); Anion Gap 7 (5-15); BUN 22 mg/dL (7-18); Bilirubin, Direct 0.15 mg/dL (0.00-0.30); Calcium,Total 9.6 mg/dL (8.5-10.1); Chloride 101 mmol/L (98-107); Creatinine, Serum 1.05 mg/dL (0.55-1.02); EST Glomerular Filtration Rate 55 mL/min (>60); Est Glom Filt Rate - Afr Amer 67 mL/min (>60); Estimated Creatinine Clearance 47.34 ml/min; Globulin 3.8 g/dL (2.2-4.2); Glucose 402 mg/dL (74-106); Potassium 4.4 mmol/L (3.5-5.1); Protein, Total 7.9 g/dL (6.4-8.2); Sodium Level 135 mmol/L (136-145)
[2022-01-11] MEDS: Insulin Lispro 100 UNIT/ML INSULN.PEN 10 UNIT SC (18:10)
--- NOTE | 2022-01-11 18:25 | HP.PCM.HOS_ITS ---
HPI - General General Date of Admission: 01/11/22 Date of Service: 01/11/22 Chief Complaint: Fall HPI Narrative MARISSA WINKLER, is a 71 F who presents with right hip pain. Patient was out in her yard and that one of her dogs bumped into her and she fell directly onto her right hip. She had pain. She did not hit her head or have loss of consciousness. Presented to the emergency room and had an x-ray that showed a right femoral neck fracture. Dr. Sebastian Boyer of orthopedics was contacted and would be seeing the patient in consultation with hospitalist admission. Patient feels fine at this time unless she has to move worse she has a significant pain at that time. [facility] Medical History Cervical lymphadenopathy COVID-19 vaccine series completed Diabetes Hypertension Hypothyroidism Right knee pain Venous insufficiency of both lower extremities Home Medications aspirin 81 mg tablet,delayed release 1 tab PO DAILY 01/19/18 [History Last Taken Unknown] calcium carbonate 600 mg calcium (1,500 mg) tablet 600 mg PO ONCE tab 01/19/18 [History Last Taken Unknown] cholecalciferol (vitamin D3) 50 mcg (2,000 unit) capsule 2,000 unit PO ONCE 01/19/18 [History Last Taken Unknown] denosumab 60 mg/mL subcutaneous syringe 60 mg SC [id number] #1 ml 10/18/18 [Rx Last Taken Unknown] mecobalamin-levomefolate calcium-pyridoxal phos 3 mg-35 mg-2 mg tablet 1 tab PO BID 04/23/20 [History Last Taken Unknown] pen needle, diabetic 31 gauge x 1/4 #200 ea 11/19/20 [Rx Last Taken Unknown] insulin lispro 100 unit/mL subcutaneous solution See Rx Instructions .ROUTE .COMPLEX #30 ml 03/05/21 [Rx Last Taken Unknown] amlodipine 10 mg tablet See Rx Instructions .ROUTE .COMPLEX #90 tab 03/18/21 [Rx Last Taken Unknown] lisinopril 20 mg tablet 20 mg PO DAILY #90 tab 08/13/21 [Rx Last Taken Unknown] compr.stocking,thigh,reg,large #2 ea 10/21/21 [Rx Last Taken Unknown] insulin glargine U-300 conc 300 unit/mL (1.5 mL) subcutaneous pen See Rx Instructions .ROUTE .COMPLEX 90 Days #4.5 ml 10/21/21 [Rx Last Taken Unknown] levothyroxine 88 mcg tablet See Rx Instructions .ROUTE .COMPLEX #90 tab 11/26/21 [Rx Last Taken Unknown] rosuvastatin 10 mg tablet See Rx Instructions .ROUTE .COMPLEX #90 tab 11/26/21 [Rx Last Taken Unknown] Allergy/AdvReac Type Severity Reaction Status Date / Time Tetracyclines Allergy Unknown Verified 01/11/22 16:42 Family History (Updated 01/11/22 @ 18:[address] Junior Mccord DO) Father Hypertension Cancer kidney Mother Hypertension Surgical History History of tonsillectomy Social History Smoking Status: Never smoker alcohol intake: never substance use type: does not use what type of physical activity do you participate in: walking frequency: daily ROS ROS Narrative All review of systems were negative except as mentioned above in the history of present illness and the other review of systems. Vital Signs Vital Signs Vital Signs: 01/11/22 16:37 01/11/22 16:38 Temperature 36.1 C L Temperature Source Temporal Pulse Rate 93 Respiratory Rate 18 Blood Pressure 160/78 H Blood Pressure Mean 105 Pulse Ox 98 Oxygen Delivery Method Room Air Weight Weight: 78.3 kg Body Mass Index (BMI) 27.8 Physical Exam Const alert General Appearance: cooperative HEENT normocephalic and head/scalp atraumatic Resp normal respiratory effort, no retractions, no use of accessory muscles and clear to auscultation bilaterally Cardio regular rate, regular rhythm, S1 normal heart sound and S2 normal heart sound GI normal to inspection, nondistended, normoactive bowel sounds, soft to palpation, non-tender and non-distended Extremity normal to inspection Neuro Sensorium / Orientation: awake and alert Results Lab / Micro Data Result Diagrams: 01/11/22 17:10 01/11/22 17:10 Labs: Laboratory Results - last 24 hr 01/11/22 17:10: WBC 9.1, RBC 4.40, Hgb 13.4, Hct 40.7, MCV 92.5, MCH 30.5, MCHC 32.9, RDW Std Deviation 45.5 H, RDW Coeff of Odalys 13.4, Plt Count 324, MPV 9.3, Immature Gran % (Auto) 0.400, Neut % (Auto) 77.6 H, Lymph % (Auto) 15.0 L, [place] % (Auto) 6.6, Eos % (Auto) 0.2, Baso % (Auto) 0.2, Absolute Neuts (auto) 7.0, Absolute Lymphs (auto) 1.36, Nucleated RBC % 0 01/11/22 17:10: Sodium 135 L, Potassium 4.4, Chloride 101, Carbon Dioxide 27.0, Anion Gap 7, BUN 22 H, Creatinine 1.05 H, Estim Creat Clear Calc 47.34, Est GFR (MDRD) Af Amer 67, Est GFR (MDRD) Non-Af 55 L, BUN/Creatinine Ratio 21.0 H, Glucose 402 H, Calcium 9.6, Total Bilirubin 0.40, Direct Bilirubin 0.15, AST 23, ALT 38, Alkaline Phosphatase 108, Total Protein 7.9, Albumin 4.1, Globulin 3.8 01/11/22 17:20: Acetone Level NEGATIVE Radiology Impression Hip/Pelvis X-Ray 01/11/22 17:05 IMPRESSION: Right femoral neck fracture. Electronically Signed: Todd Ambrose MD (Brooks) at 18:13 EST , Chest X-Ray 01/11/22 17:38 IMPRESSION: Nonacute portable x-ray examination of the chest. Electronically Signed: Todd Ambrose MD (Brooks) at 17:56 EST , Assessment & Plan Assessment/Plan (1) Closed fracture of right hip: QUALIFIERS: Encounter type: initial encounter Qualified Code(s): S72.001A - Fracture of unspecified part of neck of right femur, initial encounter for closed fracture (2) Hyperglycemia: PLAN: 1. Closed right hip fracture Status post mechanical fall Patient is a very good functional status at baseline and is independent in her ADLs and IADLs. Patient able to complete greater than 4 METS of activity. And Q SIP shows the patient is slightly higher than average for serious complications, any complications, surgical site infection and discharged to [place] or [facility]hab. None of this is medically prohibitive from her proceeding with surgery. Patient is otherwise medically optimized to proceed with surgery. Bedrest Check 25-hydroxy vitamin D level Dr. Sebastian Boyer was contacted through the emergency room and would be seeing the patient on consultation. Timing of surgery to be determined by Dr. Sebastian Boyer. 2. Diabetes mellitus type 2 Uncontrolled Continue with basal, prandial and sliding scale insulin Blood sugar may be very elevated currently due to stress response with her fall. 3. Hypertension Continue with her home medications with hold parameters 4. VTE prophylaxis SCDs for now until after surgery then chemical prophylaxis thereafter. 5. CODE STATUS: Addressed with the patient. Patient is full code. Charges/Coding Visit Charges Inpatient E&M: 03919 Init Hosp L2
[2022-01-11 18:39] VITALS: BP 140/70; PULSE 84; RESP 18; TEMP 36.6; O2SAT 99
[2022-01-11 18:39] LABS: Hemoglobin A1c 8.4 % (3.8-5.6)
[2022-01-11 18:57] VITALS: BP 173/90; PULSE 97; RESP 16; TEMP 37; O2SAT 98
[2022-01-11 18:59] VITALS: BMI 23.4
[2022-01-11 21:29] VITALS: BP 129/64; PULSE 78; RESP 16; TEMP 37.1; O2SAT 98
[2022-01-11] MEDS: 0.9% Normal Saline 1,000 ML 100 ML IV (22:24)
[2022-01-11] MEDS: Atorvastatin Calcium 20 MG Tablet PO (22:24)
[2022-01-11 22:36] LABS: Bedside Glucose 113 mg/dL (70-110)
[2022-01-11 22:36] LABS: Bedside Glucose 78 mg/dL (70-110)
[2022-01-12] VITALS (11 sets, daily range): BP systolic 104–140; BP diastolic 58–79; PULSE 65–85; RESP 14–20; TEMP 36.5–37.5; O2SAT 91–99; BMI 23.4
--- NOTE | 2022-01-12 | HIP_PTH ---
PATIENT: MARISSA WINKLER LOC: MS3 U#:[id number] AGE/SX: 71/F ROOM: [facility] [place]11/[address]: Dr. Cash Sevilla MD : 1950 BED: 1 DIS: 01/13/2022 SPEC #: [id number] RECD: 01/13/22 08:16 STATUS: LINDSEY HARRIS #: [id number] HI: 01/12/22 00:[address]: Sebastian Boyer DEPT: SURGICAL PATHOLOGY RECD BY: Balaji Ballesteros ENTERED: 01/13/22 11:10 SP TYPE: TOTAL HIP OTHR DR: DO Dr. Jesu Choudhury MD Dr. Prakash Chand, MD Dr. Rodney Miller, MD Tissues: Hip, NOS Procedures: Decalcification bone/plaque Surgery Specimen Level IV Comments: @ Ordering doctor for DEC edited from to DR.[email or web address] Marcos DONOVAN at 01/14/22 [facility] @ Ordering doctor for SUIV edited from to DR.[email or web address] Marcos DONOVAN at 01/14/22 [facility] @ Submitting doctor edited from to DR.[email or web address] Marcos DONOVAN at 01/14/22 [facility] HEADER OPERATION: Right hip hemiarthroplasty PRE-OP DIAGNOSIS: Closed fracture of right hip TISSUE SUBMITTED: Bone and soft tissue of right hip MICROSCOPIC DIAGNOSIS Bone and tissue of right hip, total hip resection: Consistent with organizing fracture callus. Mild synovial hyperplasia. AM:ra 01/15/2022 MICROSCOPIC DESCRIPTION Slides are reviewed. GROSS DESCRIPTION Received is one container labeled with the patient's name and designated bone and soft tissue right hip. The specimen consists of a femoral head measuring 4 x 4.5 x 4 cm. The articular surface is smooth. Resection margin is irregular and hemorrhagic. Also present at the top of femoral head is a piece of soft tissue measuring 2 x 1 x 0.3 cm. Also present in the specimen container are multiple detached pieces of bone measuring in aggregate 5.5 x 4.5 x 3 cm. Appliance Service Representative sections are submitted in three cassettes as follows: 1 - soft tissue, entirely submitted, 2 - detached pieces of bone, 3 - femoral head. Cassettes 2 and 3 are submitted after decalcification. / SJ:ra 01/13/2022 TC:5 [facility] [place]: [id number], [id number]
[2022-01-12 06:14] LABS: Anion Gap 5 (5-15); BUN 18 mg/dL (7-18); BUN/Creat Ratio 25.1 RATIO (10-20); Calcium,Total 7.9 mg/dL (8.5-10.1); Chloride 107 mmol/L (98-107); Creatinine, Serum 0.72 mg/dL (0.55-1.02); EST Glomerular Filtration Rate 86 mL/min (>60); Est Glom Filt Rate - Afr Amer 104 mL/min (>60); Glucose 205 mg/dL (74-106); Potassium 4.4 mmol/L (3.5-5.1); Sodium Level 138 mmol/L (136-145); Thyroid Stim Hormone (TSH) 3.65 uIU/mL (0.358-3.74)
[2022-01-12 07:46] LABS: Bedside Glucose 175 mg/dL (70-110)
[2022-01-12] MEDS: 0.9% Normal Saline 1,000 ML 100 ML IV ×2 (08:02→18:21)
--- NOTE | 2022-01-12 09:43 | PCM.CONS.GEN ---
Assessment & Plan Assessment/Plan (1) Closed fracture of right hip: QUALIFIERS: Encounter type: initial encounter Qualified Code(s): S72.001A - Fracture of unspecified part of neck of right femur, initial encounter for closed fracture PLAN: Her diagnosis and treatment options regarding her right hip fracture discussed with her and her at length. Surgical options for partial hip replacement/hemiarthroplasty or total hip replacement explained. After explaining risk benefits and alternative procedure she is decided to proceed with hemiarthroplasty. With her elevated blood sugars, hemoglobin A1c, history of peripheral vascular disease, I think this is a very reasonable choice. No guarantees were stated or implied with the the procedure. Risk of surgery including but not limited to from operative or postoperative complications. Risk of anesthetic complications such as heart attacks, strokes, seizures, or . Risk of infections. Risk of damage to nerves arteries tendons. Risk of inadvertent fractures or dislocations. Risk of bone or wound healing complications. Possibility of nonunion malunion pain stiffness weakness, progressive arthritis that could require further intervention discussed. Possible need for further surgery such as hardware removal. Risk of DVT PE and other potential complications could lead to or disability explained. No guarantees were stated or implied. All of their questions were answered. Appropriate informed consent was obtained and signed for surgical intervention. Ancef will be used for perioperative antibiotic. We will plan to use aspirin 81 mg twice a day for DVT prevention. Poorly controlled diabetes discussed with her at length. She understands the goal of trying to maintain her blood sugars below 200 in the perioperative period. She understands diabetes, especially poorly controlled diabetes, significantly increases her risks for surgery This note was generated with [employer]aggable dictation software. It may contain incorrect words, spelling, and punctuation that were not noted in checking the note before signing. HPI Consult Data Date of Consult: 01/12/22 HPI Narrative HPI Narrative: MARISSA WINKLER, is a 71 F who presents with right hip pain after falling yesterday August 11, 2022 are walking her dogs outside. She states she normally walks up to 2 miles daily. She denies pre-existing hip pain. She denies head injury or loss of consciousness. No chest pain or shortness of breath. Patient denies left hip pain. She admits to having poorly controlled diabetes. Also some venous insufficiency of the legs. Denies history of DVT or PE. Pain currently controlled while laying still. Severe right hip pain with moving. [facility] Medical History (Updated 01/11/22 @ 19:51 by Amaya Shea) Cervical lymphadenopathy COVID-19 vaccine series completed Current use of insulin Diabetes Hypertension Hypothyroidism Post-menopausal Right knee pain Venous insufficiency of both lower extremities Home Medications aspirin 81 mg tablet,delayed release 1 tab PO DAILY 01/19/18 [History Last Taken 01/11/22 07:30] calcium carbonate 600 mg calcium (1,500 mg) tablet 600 mg PO BID tab 01/19/18 [History Last Taken 01/11/22 07:30] cholecalciferol (vitamin D3) 50 mcg (2,000 unit) capsule 2,000 unit PO BID 01/19/18 [History Last Taken 01/11/22 07:30] denosumab 60 mg/mL subcutaneous syringe 60 mg SC [id number] #1 ml 10/18/18 [Rx Last Taken 01/01/22] pen needle, diabetic 31 gauge x 1/4 #200 ea 11/19/20 [Rx Last Taken Unknown] lisinopril 20 mg tablet 20 mg PO DAILY #90 tab 08/13/21 [Rx Last Taken 01/11/22 07:30] compr.stocking,thigh,reg,large #2 ea 10/21/21 [Rx Last Taken Unknown] insulin glargine U-300 conc 300 unit/mL (1.5 mL) subcutaneous pen See Rx Instructions .ROUTE .COMPLEX 90 Days #4.5 ml 10/21/21 [Rx Last Taken 01/11/22 07:30] levothyroxine 88 mcg tablet See Rx Instructions .ROUTE .COMPLEX #90 tab 11/26/21 [Rx Last Taken 01/11/22 00:30] amlodipine 10 mg PO DAILY 01/11/22 [History Last Taken 01/10/22 07:30] insulin lispro [Humalog U-100 Insulin] See Rx Instructions .ROUTE .COMPLEX 01/11/22 [History Last Taken 01/11/22 15:00 7 units] mecobal-levomefolat Ca-B6 phos [Metanx] 1 tab PO BID 01/11/22 [History Last Taken 01/11/22 07:30] rosuvastatin 10 mg PO DAILY 01/11/22 [History Last Taken 01/11/22 07:30] Allergy/AdvReac Type Severity Reaction Status Date / Time Tetracyclines Allergy Hives Verified 01/11/22 19:25 Family History (Updated 01/11/22 @ 18:[address] Junior Mccord DO) Father Hypertension Cancer kidney Mother Hypertension Surgical History History of tonsillectomy Social History Smoking Status: Never smoker alcohol intake: never substance use type: does not use what type of physical activity do you participate in: walking frequency: daily ROS ROS Narrative Patient denies any new or increasing problems with heart or lungs bowel or bladder. No chest pain or shortness of breath. Denies problems with eyes ears nose or throat heart or lungs. Denies history of peripheral neuropathy. She states she is taking medication for vascular insufficiency Physical Exam Narrative Patient lying comfortably in bed. She has shortening and external rotation of the right hip. She has pain on palpation about the right hip. Hip was initialed. Left hip has no pain on palpation. Left hip range of motion causes some right hip pain. She had no calf pain or swelling bilaterally. Negative Homans' sign bilaterally. She has good plantar flexion dorsiflexion toes and ankles. Distal pulses are intact. X-rays AP pelvis AP and lateral right hip shows a Garden 4 displaced right femoral neck fracture. No obvious pre-existing hip joint arthritis. Laboratory work and vital signs reviewed. History and physical by hospitalist reviewed Lab / Micro Data Result Diagrams: 01/11/22 17:10 01/12/22 05:12 Labs: Laboratory Results - last 24 hr 01/11/22 17:10: WBC 9.1, RBC 4.40, Hgb 13.4, Hct 40.7, MCV 92.5, MCH 30.5, MCHC 32.9, RDW Std Deviation 45.5 H, RDW Coeff of Odalys 13.4, Plt Count 324, MPV 9.3, Immature Gran % (Auto) 0.400, Neut % (Auto) 77.6 H, Lymph % (Auto) 15.0 L, [place] % (Auto) 6.6, Eos % (Auto) 0.2, Baso % (Auto) 0.2, Absolute Neuts (auto) 7.0, Absolute Lymphs (auto) 1.36, Nucleated RBC % 0 01/11/22 17:10: Sodium 135 L, Potassium 4.4, Chloride 101, Carbon Dioxide 27.0, Anion Gap 7, BUN 22 H, Creatinine 1.05 H, Estim Creat Clear Calc 47.34, Est GFR (MDRD) Af Amer 67, Est GFR (MDRD) Non-Af 55 L, BUN/Creatinine Ratio 21.0 H, Glucose 402 H, Calcium 9.6, Total Bilirubin 0.40, Direct Bilirubin 0.15, AST 23, ALT 38, Alkaline Phosphatase 108, Total Protein 7.9, Albumin 4.1, Globulin 3.8 01/11/22 17:10: Hemoglobin A1c 8.4 H 01/11/22 17:20: Acetone Level NEGATIVE 01/11/22 21:20: POC Glucose 78 01/11/22 22:27: POC Glucose 113 H 01/12/22 05:12: Sodium 138, Potassium 4.4, Chloride 107, Carbon Dioxide 26.0, Anion Gap 5, BUN 18, Creatinine 0.72, Estim Creat Clear Calc 49.70, Est GFR (MDRD) Af Amer 104, Est GFR (MDRD) Non-Af 86, BUN/Creatinine Ratio 25.1 H, Glucose 205 H, Calcium 7.9 L, TSH 3.65 01/12/22 05:12: Blood Type O POSITIVE, Antibody Screen NEGATIVE 01/12/22 07:31: POC Glucose 175 H Micro: Microbiology 01/11/22 17:43 Nasal Secretion SARS-CoV-2 Antigen (Rapid) - Final Radiology Impression Hip/Pelvis X-Ray 01/11/22 17:05 IMPRESSION: Right femoral neck fracture. Electronically Signed: Todd Ambrose MD (Brooks) at 18:13 EST , Chest X-Ray 01/11/22 17:38 IMPRESSION: Nonacute portable x-ray examination of the chest. Electronically Signed: Todd Ambrose MD (Brooks) at 17:56 EST ,
--- NOTE | 2022-01-12 09:51 | NURSING ---
Patient left floor for surgery approximately 0945.
[2022-01-12] MEDS: Lactated Ringers 1,000 ML 100 ML IV (10:00)
[2022-01-12] MEDS: Cefazolin 2 GM in 0.9% Normal Saline 100 ML IV (10:30)
[2022-01-12] MEDS: TXA 1000mg in NS100 100ml (IVPB at Incision) 660 MG IV (10:32)
--- NOTE | 2022-01-12 10:43 | PCM.PN.HOSP ---
Subjective Subjective No new events. Pain is controlled. Objective Data Objective Data Vital Signs: Vital Signs Temp Pulse Resp BP Pulse Ox 37.0 C 80 16 133/77 H 95 01/12/22 09:18 01/12/22 09:18 01/12/22 09:18 01/12/22 09:18 01/12/22 09:18 Oxygen Delivery Method Room Air Weight: 65.8 kg Body Mass Index (BMI) 23.4 Intake & Output: Intake and Output for Last 24 Hours 01/10/22 01/11/22 01/12/22 23:59 23:59 23:59 Intake Total 792.5 / 792.5 963.33 / 963.33 Output Total 950 / 950 Balance 792.5 / 142.5 13.33 / 13.33 Lab / Micro Data Result Diagrams: 01/11/22 17:10 01/12/22 05:12 Labs: Laboratory Results - last 24 hr 01/11/22 17:10: WBC 9.1, RBC 4.40, Hgb 13.4, Hct 40.7, MCV 92.5, MCH 30.5, MCHC 32.9, RDW Std Deviation 45.5 H, RDW Coeff of Odalys 13.4, Plt Count 324, MPV 9.3, Immature Gran % (Auto) 0.400, Neut % (Auto) 77.6 H, Lymph % (Auto) 15.0 L, [place] % (Auto) 6.6, Eos % (Auto) 0.2, Baso % (Auto) 0.2, Absolute Neuts (auto) 7.0, Absolute Lymphs (auto) 1.36, Nucleated RBC % 0 01/11/22 17:10: Sodium 135 L, Potassium 4.4, Chloride 101, Carbon Dioxide 27.0, Anion Gap 7, BUN 22 H, Creatinine 1.05 H, Estim Creat Clear Calc 47.34, Est GFR (MDRD) Af Amer 67, Est GFR (MDRD) Non-Af 55 L, BUN/Creatinine Ratio 21.0 H, Glucose 402 H, Calcium 9.6, Total Bilirubin 0.40, Direct Bilirubin 0.15, AST 23, ALT 38, Alkaline Phosphatase 108, Total Protein 7.9, Albumin 4.1, Globulin 3.8 01/11/22 17:10: Hemoglobin A1c 8.4 H 01/11/22 17:20: Acetone Level NEGATIVE 01/11/22 21:20: POC Glucose 78 01/11/22 22:27: POC Glucose 113 H 01/12/22 05:12: Sodium 138, Potassium 4.4, Chloride 107, Carbon Dioxide 26.0, Anion Gap 5, BUN 18, Creatinine 0.72, Estim Creat Clear Calc 49.70, Est GFR (MDRD) Af Amer 104, Est GFR (MDRD) Non-Af 86, BUN/Creatinine Ratio 25.1 H, Glucose 205 H, Calcium 7.9 L, TSH 3.65 01/12/22 05:12: Blood Type O POSITIVE, Antibody Screen NEGATIVE 01/12/22 07:31: POC Glucose 175 H Micro: Microbiology 01/11/22 17:43 Nasal Secretion SARS-CoV-2 Antigen (Rapid) - Final Radiography Diagnostic Testing: Radiology Impression Hip/Pelvis X-Ray 01/11/22 17:05 IMPRESSION: Right femoral neck fracture. Electronically Signed: Todd Ambrose MD (Brooks) at 18:13 EST , Chest X-Ray 01/11/22 17:38 IMPRESSION: Nonacute portable x-ray examination of the chest. Electronically Signed: Todd Ambrose MD (Brooks) at 17:56 EST , Physical Exam Const alert and no apparent distress Resp normal respiratory effort, no retractions, no use of accessory muscles and clear to auscultation bilaterally Cardio regular rate, regular rhythm, S1 normal heart sound and S2 normal heart sound GI normal to inspection, nondistended, normoactive bowel sounds and soft to palpation Extremity normal to inspection Assessment & Plan Assessment/Plan (1) Closed fracture of right hip: QUALIFIERS: Encounter type: initial encounter Qualified Code(s): S72.001A - Fracture of unspecified part of neck of right femur, initial encounter for closed fracture (2) Hyperglycemia: PLAN: 1. Closed right hip fracture Status post mechanical fall Patient is a very good functional status at baseline and is independent in her ADLs and IADLs. Patient able to complete greater than 4 METS of activity. NQSIP shows the patient is slightly higher than average for serious complications, any complications, surgical site infection and discharged to retirement facility or rehab. None of this is medically prohibitive from her proceeding with surgery. Patient is otherwise medically optimized to proceed with surgery. Bedrest Check 25-hydroxy vitamin D pending Plan for hemiarthroplasty today with Dr. Boyer 2. Diabetes mellitus type 2 Uncontrolled Continue with basal, prandial and sliding scale insulin Blood sugar may be very elevated currently due to stress response with her fall. 3. Hypertension Continue with her home medications with hold parameters 4. VTE prophylaxis SCDs for now until after surgery then chemical prophylaxis thereafter. 5. CODE STATUS: Addressed with the patient. Patient is full code. Charges/Coding Visit Charges Inpatient E&M: 87330 Subs Hosp L2
[2022-01-12] MEDS: TXA 1000mg in NS100 100ml (IVPB at Closure) 660 MG IV (11:37)
--- NOTE | 2022-01-12 11:48 | RAD_ITS ---
STUDY: X-RAY - PELVIS AND RIGHT HIP REASON FOR EXAM: Female, 71 years old. Post Op -- AP both hips on single layton/lateral of op hip PACU TECHNIQUE: 2 views of the pelvis and hip. COMPARISON: 01/11/2022 FINDINGS: There is a non-specific bowel gas pattern. Normal visualized soft tissue structures. Normal bilateral iliac wings, sacroiliac joints and visualized sacrum. Normal bilateral superior and inferior pubic rami. Normal pubic symphysis. Normal bilateral ischial tuberosities. Recent right hip hemiarthroplasty for treatment of femoral neck fracture with skin lai and subcutaneous emphysema. Normal acetabulum. Normal hip joint. RAD/Hip Min 2 Views (Portable) IMPRESSION: Interval recent right hip hemiarthroplasty for treatment of femoral neck fracture. Electronically Signed: Tony Acosta MD at 13:57 EST ,
--- NOTE | 2022-01-12 11:54 | OP.PCM_ITS ---
Problems Associated Problem List Diagnoses (1) Closed fracture of right hip: Operative Report Date of Procedure: 01/12/22 Preoperative diagnosis: Right hip displaced femoral neck fracture Postoperative diagnosis: Same Operation: Right hip cemented hemiarthroplasty Surgeon: Dr. Sebastian Boyer MD Director Financial Analysis: Kimberly Pringle PA-C Anesthesia: General Anesthesiologist; Dr. Sparks Special medications: IV [Ancef] 2 g, IV Tranexamic acid IV x 2 Indications for surgery : Patient is a (71) -year-old that fell yesterday fracturing the involved hip. Appropriate informed consent was obtained and signed. Appropriate medical workup was performed preoperatively and patient was deemed safe for surgery by the anesthesia department assistant bookkeeper, ADOLPH was utilized throughout the entire procedure. They were vital in helping with patient positioning, holding of retractors, e xposing the tissues adequately for safe completion of the procedure including cutting of the bone, helping transplant immunologist appropriate alignment and sizing of the components, implantation of the components, as well as wound closure, bandage application, and safe patient transfer. Without starch treating assistant, physician assistant unit forester, surgical time would have been significantly increased, and surgical outcome would have been less optimal. Operative findings: Patient had displaced comminuted femoral neck fracture. We used a Marisela accolade II stem size #5 cemented 127 degree neck angle. Bipolar 48 mm outer diameter, 26 mm inner diameter femoral head with a +0 neck length. This reproduced there anatomy nicely. Clinically good leg lengths were noted. Good hip stability through range of motion with no undue pistoning. Standard wound closure in layers, followed by lai, followed by Mepilex dressing Details of procedure: Patient was taken to the operating room and transferred to the operating table. Given appropriate anesthetic agent by that department. Patient was then rolled into a lateral decubitus position with the involved painful hip up in the air. Appropriate timeouts had been performed. Hip had been appropriately marked with my initials. Padded anterior and posterior position was utilized. Axillary roll placed. JASKARAN hose and SCDs on the nonoperative limb utilized throughout the procedure. Operative lower extremity was prepped padded and draped in the usual orthopedic sterile fashion for the procedure. I injected the pain relieving solution in the standard sterile technique of the soft tissues of the hip carefully. Incision was made curving over the tip of the greater trochanter posteriorly. Full thickness skin flaps are raised down on the fascia lisa. Fascia lisa was opened in length with our incision. Charnley self-retaining hip retractor was carefully placed by the surgeon. Leg was appropriately rotated by the assistant unit forester. Retractor was used to lift the abductors anteriorly to visualize the piriformis tendon and external rotators. Piriformis tendon and external rotators released off the greater trochanter with the Bovie. Tagging suture was placed in each of these separately. We then split the tissue superior to the piriformis tendon through capsule and onto the pelvis. Acetabular labrum was preserved. Retractors were carefully placed around the femoral neck. Displaced unstable femoral neck fracture identified. cutting guide was utilized to map out the proposed cut approximately 1 fingerbreadth above the lesser trochanter. This femoral neck cut was carried out with a saw. Fractured femoral head removed from the acetabulum and measured and inspected. Appropriate trial was utilized. A proximal femoral elevator utilized. We used a sharp awl entering down inside the bone of the proximal femur. Utilized the Smashburger cutting osteotome the proximal lateral greater trochanteric region. The fragment removed. Broaching was then done from the smallest broach, upto the appropriate size. Good stability was confirmed. We then trialed the construct with a standard neck length and appropriate sized femoral head. We were happy with the construct. Good stability to flexion, rotation. At this point trials removed. 2 full batches of antibiotic bone cement were mixed. 2 sponges were placed in the acetabulum we prepared the canal with brushing. Cement restrictor was placed down to the appropriate depth. It was thoroughly irrigated clean and dry. When the cement was as the appropriate texture, we pressurized cement down in the femoral canal. The appropriate size stem then hammered into the proximal femur and seated down to a similar position as the trial had. Excess bone cement removed. Stem was held still while cement fully hardened. Pain relieving solution was injected while this was occurring. The cement was fully hardened, sponges were removed from the acetabulum. We now again trialed and appropriate neck length decided upon. It was then opened. Now impacted the appropriate sized femoral head, neck construct onto the clean dried trunion. Was noted to be stable. Hip was inspected, and joint was reduced for a final time. Good hip stability and leg lengths noted. This was then irrigated with saline, irrisept, and sterile Betadine and cleaned. Next the remainder of the pain relieving solution was injected carefully throughout the soft tissues of the hip joint. Closure was carried out with a combination of #1 Vicryl repairing the hip capsule as well as piriformis tendon and external rotators to bone, running #2 strata fix in the fascia lisa, followed by mid layer #1 Vicryl with #1 strata fix running. Next running 0 strata fix, followed by skin lai, Xeroform, Mepilex dressing. We placed JASKARAN hose and SCD on the operative leg. Patient awoken from the anesthetic and transferred back to room bed in recovery room in satisfactory condition. Patient will be admitted to the hospital. Hospitalist service will continue to manage the medical issues. Hopeful discharge to home or ECF in 2-3 days. This note was generated with [employer] dictation software. It may contain incorrect words, spelling, and punctuation that were not noted in checking the note before signing.
[2022-01-12 12:35] LABS: Bedside Glucose 118 mg/dL (70-110)
[2022-01-12] MEDS: Scopolamine 1mg/72hr Patch 1 PATCH TD (12:36)
[2022-01-12] MEDS: Insulin Lispro 100 UNIT/ML INSULN.PEN SC ×2 (16:55→16:56)
[2022-01-12 17:00] LABS: Bedside Glucose 153 mg/dL (70-110)
[2022-01-12] MEDS: Cefazolin 1 GM/50 ML BAG IV (18:21)
[2022-01-12] MEDS: Atorvastatin Calcium 20 MG Tablet PO (21:34)
[2022-01-12] MEDS: Senna/Docusate Sodium 1 Tablet 2 TABLET PO (21:34)
[2022-01-12 21:40] LABS: Bedside Glucose 52 mg/dL (70-110)
[2022-01-12 22:11] LABS: Bedside Glucose 125 mg/dL (70-110)
[2022-01-13 01:30] VITALS: BP 120/66; PULSE 75; RESP 16; TEMP 37.2; O2SAT 97
[2022-01-13] MEDS: Cefazolin 1 GM/50 ML BAG IV (01:33)
[2022-01-13 05:00] VITALS: BP 119/65; PULSE 82; RESP 16; TEMP 36.8; O2SAT 97
[2022-01-13] MEDS: Levothyroxine 88 MCG Tablet PO (05:29)
[2022-01-13] MEDS: 0.9% Normal Saline 1,000 ML 100 ML IV (05:29)
[2022-01-13] MEDS: oxyCODONE 5 MG Tablet PO (06:03)
[2022-01-13 06:09] LABS: Hematocrit 32.2 % (37-47); Hemoglobin 10.6 g/dL (12.0-15.0); Mean Corp Hgb Conc 32.9 g/dL (32-36); Mean Corpuscular Hgb 31.5 pg (27.0-32.0); Mean Corpuscular Volume 95.5 fL (81-99); Mean Platelet Vol. 9.5 fl (6.2-12.0); Platelet Count 210 K/mm3 (150-450); RBC Distribution Width CV 13.8 % (11.6-14.6); RBC Distribution Width SD 48.4 fl (35.1-43.9); Red Blood Count 3.37 M/mm3 (4.2-5.4); White Blood Count 8.8 K/mm3 (4.4-11.0)
[2022-01-13 06:31] LABS: Anion Gap 3 (5-15); BUN 12 mg/dL (7-18); BUN/Creat Ratio 19.7 RATIO (10-20); Calcium,Total 7.5 mg/dL (8.5-10.1); Chloride 109 mmol/L (98-107); Creatinine, Serum 0.61 mg/dL (0.55-1.02); EST Glomerular Filtration Rate 104 mL/min (>60); Est Glom Filt Rate - Afr Amer 125 mL/min (>60); Glucose 98 mg/dL (74-106); Potassium 4.2 mmol/L (3.5-5.1); Sodium Level 138 mmol/L (136-145)
--- NOTE | 2022-01-13 07:22 | PN.HOSP_ITS ---
Objective Data Objective Data Vital Signs: Vital Signs Temp Pulse Resp BP Pulse Ox 98.3 F 82 16 119/65 97 01/13/22 05:00 01/13/22 05:00 01/13/22 05:00 01/13/22 05:00 01/13/22 05:00 Oxygen Flow Rate (L/min) 2 Oxygen Delivery Method Nasal Cannula Weight: 145 lb 1.027 oz Body Mass Index (BMI) 23.4 Intake & Output: Intake and Output for Last 24 Hours 01/11/22 01/12/22 01/13/22 23:59 23:59 23:59 Intake Total 792.5 / 792.5 2938.33 / 2938.33 1650 / 1650 Output Total 2400 / 2750 650 / 650 Balance 792.5 / 142.5 538.33 / 188.33 1000 / 1000 Lab / Micro Data Result Diagrams: 01/13/22 05:25 01/13/22 05:25 Labs: Laboratory Results - last 24 hr 01/12/22 07:31: POC Glucose 175 H 01/12/22 12:24: POC Glucose 118 H 01/12/22 16:47: POC Glucose 153 H 01/12/22 21:31: POC Glucose 52 L 01/12/22 22:02: POC Glucose 125 H 01/13/22 05:25: WBC 8.8, RBC 3.37 L, Hgb 10.6 L, Hct 32.2 L, MCV 95.5, MCH 31.5, MCHC 32.9, RDW Std Deviation 48.4 H, RDW Coeff of Odalys 13.8, Plt Count 210, MPV 9.5 01/13/22 05:25: Sodium 138, Potassium 4.2, Chloride 109 H, Carbon Dioxide 26.0, Anion Gap 3 L, BUN 12, Creatinine 0.61, Estim Creat Clear Calc 49.70, Est GFR (MDRD) Af Amer 125, Est GFR (MDRD) Non-Af 104, BUN/Creatinine Ratio 19.7, Glucose 98, Calcium 7.5 L Micro: Microbiology 01/11/22 17:43 Nasal Secretion SARS-CoV-2 Antigen (Rapid) - Final Radiography Diagnostic Testing: Radiology Impression Hip X-Ray 01/12/22 11:48 IMPRESSION: Interval recent right hip hemiarthroplasty for treatment of femoral neck fracture. Electronically Signed: Tony Acosta MD at 13:57 EST , Assessment & Plan Assessment/Plan (1) Closed fracture of right hip: QUALIFIERS: Encounter type: initial encounter Qualified Code(s): S72.001A - Fracture of unspecified part of neck of right femur, initial encounter for closed fracture (2) Hyperglycemia: PLAN: 1. Closed right hip fracture Status post mechanical fall Patient is a very good functional status at baseline and is independent in her ADLs and IADLs. Patient able to complete greater than 4 METS of activity. NQSIP shows the patient is slightly higher than average for serious complications, any complications, surgical site infection and discharged to retirement facility or rehab. None of this is medically prohibitive from her proceeding with surgery. Patient is otherwise medically optimized to proceed with surgery. Bedrest Check 25-hydroxy vitamin D pending Plan for hemiarthroplasty today with Dr. Boyer 2. Diabetes mellitus type 2 Uncontrolled Continue with basal, prandial and sliding scale insulin Blood sugar may be very elevated currently due to stress response with her fall. 3. Hypertension Continue with her home medications with hold parameters 4. VTE prophylaxis SCDs for now until after surgery then chemical prophylaxis thereafter. 5. CODE STATUS: Addressed with the patient. Patient is full code.
[2022-01-13 07:45] LABS: Bedside Glucose 109 mg/dL (70-110)
[2022-01-13 08:12] VITALS: BP 116/71; PULSE 69; RESP 16; TEMP 37.3; O2SAT 97
[2022-01-13] MEDS: Senna/Docusate Sodium 1 Tablet 2 TABLET PO (09:41)
[2022-01-13] MEDS: Calcium Carbonate 500 MG Tablet PO (09:41)
[2022-01-13] MEDS: Aspirin 81 MG TAB.CHEW PO (09:41)
[2022-01-13] MEDS: amLODIPine 10 MG Tablet PO (09:42)
[2022-01-13] MEDS: Insulin Lispro 100 UNIT/ML INSULN.PEN SC ×3 (09:43→10:57)
[2022-01-13] MEDS: Lisinopril 20 MG Tablet PO (09:47)
[2022-01-13] MEDS: Cholecalciferol (VIT D3) 25 MCG TABLET (1,000 UNITS) 50 MCG PO (09:47)
--- NOTE | 2022-01-13 09:47 | TREXTCAR_ITS ---
Diet 01/12/22 16:00 Diet: Consistent Carb - Calorie Controlled Is pt able to select menu?: Yes How many daily calories?: 1800 calorie Routine Orders/Code Status Suppository Type: Dulcolax 10mg Suppository Frequency: Daily PRN Routine Lab Work: CBC Code Status: Full Code Wound(s) RIGHT HIP: Wound Type: Surgical Incision Therapies Weight Bearing: Weight bearing as tolerated Extremity Affected:: Right Lower Physical Therapy: Eval and Treat Occupational Therapy: Eval and Treat Speech Therapy: Eval and Treat Problem/Diagnosis (1) Closed fracture of right hip: Status: Acute (2) Hyperglycemia: Status: Acute Allergies/Procedures Done in Hospital Allergies Tetracyclines Allergy (Verified 01/11/22 19:25) Hives Type of Care/Length of Stay Estimated LOS: Convalescent Care Less Than 30 days Type of Care Needed: Skilled Rehab Potential: Good Prognosis: Good Additional Orders/Day of Discharge Day of Discharge: 01/13/22 Discharge Plan Admission Admit Date/Time: 01/11/22 18:14 Primary Reason for Your Visit: Right hip fracture Attending Provider: Cash Sevilla Primary Care Provider: Jesu Dennison Consulting Providers: Sebastian Boyer Discharge Orders/Prescriptions Prescriptions: New acetaminophen [Tylenol] 325 mg Tablet 650 mg PO Q6H PRN PRN (Reason: Pain Score 1-10/Temp > 100.7 F) Qty: 0 RF: 0 oxycodone 5 mg Tablet 5 mg PO Q4H PRN PRN (Reason: Pain Score 6-10) 3 Days Qty: 10 RF: 0 insulin lispro [Humalog KwikPen Insulin] 100 unit/mL Insulin Pen 5 unit subcut TIDAC Qty: 0 RF: 0 insulin lispro [Humalog KwikPen Insulin] 100 unit/mL Insulin Pen See Protocol unit subcut TIDAC Qty: 0 RF: 0 sennosides-docusate sodium [Stool Softener-Stimulant Laxat] 8.6-50 mg Tablet 2 tab PO BID Qty: 0 RF: 0 aspirin 81 mg Tablet,Chewable 81 mg PO 0800,1700 Qty: 0 RF: 0 Continued cholecalciferol (vitamin D3) 2,000 unit capsule 2,000 unit PO BID RF: 0 calcium carbonate [Calcium 600] 600 mg calcium (1,500 mg) tablet 600 mg PO BID RF: 0 Prolia 60 mg/mL syringe 60 mg SC [id number] Qty: 1 RF: 4 (DME) compr.stocking,thigh,reg,large Misc See Rx Instructions .ROUTE .MEDSUPPLY Qty: 2 RF: 0 rosuvastatin 10 mg Tablet 10 mg PO DAILY RF: 0 amlodipine 10 mg tablet 10 mg PO DAILY RF: 0 mecobal-levomefolat Ca-B6 phos 3-35-2 mg Tablet 1 tab PO BID RF: 0 lisinopril 20 mg tablet 20 mg PO DAILY Qty: 90 RF: 3 Toujeo SoloStar U-300 Insulin 300 unit/mL (1.5 mL) insulin pen See Rx Instructions .ROUTE .COMPLEX 90 Days Qty: 25 RF: 4 (DME) pen needle, diabetic [Maxicomfort II Pen Needle] 31 gauge x 1/4 needle See Rx Instructions .ROUTE .MEDSUPPLY Qty: 200 RF: 3 levothyroxine 88 mcg tablet See Rx Instructions .ROUTE .COMPLEX Qty: 90 RF: 3 Discontinued aspirin [Adult Aspirin Regimen] 81 mg tablet,delayed release (DR/EC) 1 tab PO DAILY RF: 0 insulin lispro [Humalog U-100 Insulin] 100 unit/mL solution See Rx Instructions .ROUTE .COMPLEX RF: 0 Referrals / Follow Up: Jesu Dennison MD [Primary Care Provider] - Within 2 Weeks Sebastian Boyer MD [STAFF PHYSICIAN] - Within 2 Weeks (Postop follow-up right hemiarthroplasty) Disposition Disposition (needs filled in before D/C Order can be placed): Senior Care Facility
[2022-01-13 09:48] LABS: Vitamin D,25 Hydroxy 40.5 ng/mL
--- NOTE | 2022-01-13 10:30 | CASEMGMT ---
TONY FENG Face to Face with patient for initial transition planning/care coordination assessment. RN JUNG introduced self and role at [facility]. Patient lying in bed, alert and oriented, at bedside. Patient willing to participate in assessment and is able to answer all questions appropriately. Care providers, pharmacy, and demographics verified. Patient wishes to discharge home but willing to go to SNF if recommended. TONY FENG provided SNF list to patient and . Patient states she has no further needs or concerns at this time. SW updated regarding potential SNF at discharge. CM to follow for discharge planning needs that may arise. PCP: Juma Specialists: Rima, human resources trainee [facility]erred [facility]: [facility] Pres[facility] Benefit: yes Living Will/HPOA: none LNOK: Living Arrangements: Patient lives with in a 2 story home with bed and bath on first floor. 3 steps and railing to enter the home. Patient was independent at home prior to admission. Transportation: self, DME/HHC: Patient states she has crutches and grab bars. Patient will need walker if goes home. Patient denies previous HHC or SNF. Disposition Plan: SNF vs HHC vs outpatient therapy. Will monitor progress with therapy. Ambar HAWTHORNE, RN, CM
--- NOTE | 2022-01-13 10:35 | DCINST_ITS ---
Discharge Instructions Diet Discharge Diet: 1800 Calorie Control Diet Dressing / Incision Call your doctor if you observe: Fever of 101 or Higher, Coldness, Increased Pain, Numbness or Tingling, Change in Color, Inability to urinate, Inability to have a bowel movement, Using more than 1 pad per hour, Shortness of breath, Dizziness, Fainting spells, Swelling in the ankles, Chest pain, Prolonged hiccupping, Increased palpitations (irregular heartbeat), Calf discomfort and Un controlled pain Follow Up Care Test Results: Test results from this visit will be discussed in further detail at your follow-up appointment, if applicable. Discharge Plan Admission Admit Date/Time: 01/11/22 18:14 Primary Reason for Your Visit: Right hip fracture Attending Provider: Cash Sevilla Primary Care Provider: Jesu Dennison Consulting Providers: Sebastian Boyer Discharge Orders/Prescriptions Prescriptions: New acetaminophen [Tylenol] 325 mg Tablet 650 mg PO Q6H PRN PRN (Reason: Pain Score 1-10/Temp > 100.7 F) Qty: 0 RF: 0 oxycodone 5 mg Tablet 5 mg PO Q4H PRN PRN (Reason: Pain Score 6-10) 3 Days Qty: 10 RF: 0 insulin lispro [Humalog KwikPen Insulin] 100 unit/mL Insulin Pen 5 unit subcut TIDAC Qty: 0 RF: 0 insulin lispro [Humalog KwikPen Insulin] 100 unit/mL Insulin Pen See Protocol unit subcut TIDAC Qty: 0 RF: 0 sennosides-docusate sodium [Stool Softener-Stimulant Laxat] 8.6-50 mg Tablet 2 tab PO BID Qty: 0 RF: 0 aspirin 81 mg Tablet,Chewable 81 mg PO 0800,1700 Qty: 0 RF: 0 Continued cholecalciferol (vitamin D3) 2,000 unit capsule 2,000 unit PO BID RF: 0 calcium carbonate [Calcium 600] 600 mg calcium (1,500 mg) tablet 600 mg PO BID RF: 0 Prolia 60 mg/mL syringe 60 mg SC [id number] Qty: 1 RF: 4 (DME) compr.stocking,thigh,reg,large Misc See Rx Instructions .ROUTE .MEDSUPPLY Qty: 2 RF: 0 rosuvastatin 10 mg Tablet 10 mg PO DAILY RF: 0 amlodipine 10 mg tablet 10 mg PO DAILY RF: 0 mecobal-levomefolat Ca-B6 phos 3-35-2 mg Tablet 1 tab PO BID RF: 0 lisinopril 20 mg tablet 20 mg PO DAILY Qty: 90 RF: 3 Toujeo SoloStar U-300 Insulin 300 unit/mL (1.5 mL) insulin pen See Rx Instructions .ROUTE .COMPLEX 90 Days Qty: 25 RF: 4 (DME) pen needle, diabetic [Maxicomfort II Pen Needle] 31 gauge x 1/4 needle See Rx Instructions .ROUTE .MEDSUPPLY Qty: 200 RF: 3 levothyroxine 88 mcg tablet See Rx Instructions .ROUTE .COMPLEX Qty: 90 RF: 3 Discontinued aspirin [Adult Aspirin Regimen] 81 mg tablet,delayed release (DR/EC) 1 tab PO DAILY RF: 0 insulin lispro [Humalog U-100 Insulin] 100 unit/mL solution See Rx Instructions .ROUTE .COMPLEX RF: 0 Referrals / Follow Up: Jesu Dennison MD [Primary Care Provider] - Within 2 Weeks Sebastian Boyer MD [STAFF PHYSICIAN] - Within 2 Weeks (Postop follow-up right hemiarthroplasty) Disposition Disposition (needs filled in before D/C Order can be placed): Inpatient Rehab Unit/Facility
[2022-01-13 11:10] VITALS: BP 123/63; PULSE 75; RESP 16; TEMP 37.2; O2SAT 97
[2022-01-13 11:11] LABS: Bedside Glucose 233 mg/dL (70-110)
--- NOTE | 2022-01-13 11:33 | PCM.PN.ORT ---
Subjective Subjective Patient is s/p right sided terri hip arthroplasty with Dr. Boyer on 01/12/2022. Patient resting comfortably in bed. Rates pain 5/ 10 at rest. With movement 5/10. States taking Tylenol and oxycodone and ice help to relieve pain. Patient has been up with therapy. Walking with the assit of a walker. Afebrile, no chest pain, shortness of breath, negative calf pain/ erythema, and no other signs of DVT. Objective Data Objective Data Vital Signs: Vital Signs Temp Pulse Resp BP Pulse Ox 98.9 F 75 16 123/63 H 97 01/13/22 11:10 01/13/22 11:10 01/13/22 11:10 01/13/22 11:10 01/13/22 11:10 Oxygen Flow Rate (L/min) 2 Oxygen Delivery Method Room Air Weight: 65.8 kg Body Mass Index (BMI) 23.4 Intake & Output: Intake and Output for Last 24 Hours 01/11/22 01/12/22 01/13/22 23:59 23:59 23:59 Intake Total 792.5 / 792.5 2938.33 / 2938.33 2533.33 / 2533.33 Output Total 2400 / 2750 1250 / 1250 Balance 792.5 / 142.5 538.33 / 188.33 1283.33 / 1283.33 Lab / Micro Data Result Diagrams: 01/13/22 05:25 01/13/22 05:25 Labs: Laboratory Results - last 24 hr 01/11/22 17:20: Vitamin D 25-Hydroxy 40.5 01/12/22 12:24: POC Glucose 118 H 01/12/22 16:47: POC Glucose 153 H 01/12/22 21:31: POC Glucose 52 L 01/12/22 22:02: POC Glucose 125 H 01/13/22 05:25: WBC 8.8, RBC 3.37 L, Hgb 10.6 L, Hct 32.2 L, MCV 95.5, MCH 31.5, MCHC 32.9, RDW Std Deviation 48.4 H, RDW Coeff of Odalys 13.8, Plt Count 210, MPV 9.5 01/13/22 05:25: Sodium 138, Potassium 4.2, Chloride 109 H, Carbon Dioxide 26.0, Anion Gap 3 L, BUN 12, Creatinine 0.61, Estim Creat Clear Calc 49.70, Est GFR (MDRD) Af Amer 125, Est GFR (MDRD) Non-Af 104, BUN/Creatinine Ratio 19.7, Glucose 98, Calcium 7.5 L 01/13/22 07:37: POC Glucose 109 01/13/22 10:55: POC Glucose 233 H Micro: Microbiology 01/11/22 17:43 Nasal Secretion SARS-CoV-2 Antigen (Rapid) - Final Radiography Diagnostic Testing: Radiology Impression Hip X-Ray 01/12/22 11:48 IMPRESSION: Interval recent right hip hemiarthroplasty for treatment of femoral neck fracture. Electronically Signed: Tony Acosta MD at 13:57 EST , Physical Exam Narrative Patient resting comfortably in bed No signs of acute distress Satting well on room air Limb is warm to touch, Sensation intact throughout entire lower extremity, including saphenous, sural, superficial and deep peroneal, and tibial distribution. DP/PT pulses bounding. Dorsiflexion plantarflexion strength 5/5 Dressing clear dry intact Calf nontender to palpation, no erythema, no edema. Negative Homans Assessment & Plan Assessment/Plan (1) Closed fracture of right hip: QUALIFIERS: Encounter type: initial encounter Qualified Code(s): S72.001A - Fracture of unspecified part of neck of right femur, initial encounter for closed fracture (2) S/P hip hemiarthroplasty: PLAN: Patient is status post right-sided hemiarthroplasty right hip. With Dr. Boyer on 01/12/2022 1. Will continue PT today . Weightbearing as tolerated. Posterior hip precautions x6 weeks 2. Ultimate discharge per primary team. 3. Patient will follow up for his post op appointment on in 2 weeks. This appointment needs to be arranged. 4. WBC 8.8 no acute reactive leukocytosis 5. H/H 10.7/32.2: post operavtive anemia secondary to acute blood loss intraoperatively. Patient is asymptomatic at this time. No intraoperative complications. will continue to monitor. no acute interventions. 6. DVT prophylaxis : Aspirin 81 mg twice daily x4 weeks 7. Pain control: patient instructed to take tylenol 500mg 2 tablets TID. and oxycodone 1-2 tablets every 4-6 hours only as needed for pain control. 8. Postop dressing can be removed on postop day 5. 9. Okay from orthopedic standpoint to be discharged per primary team. Orthopedics will sign off at this time.
--- NOTE | 2022-01-13 11:48 | CASEMGMT ---
Addendum entered by Ambar Castaneda 01/13/22 13:13: SW recieved call from Christina with [facility] stating referral has been made to [facility], waiting for determination. Original Note: Social Work Note SW reviewed chart. Pt may be a good candidate for [facility]. SW in to speak with pt and pt's Miguel. SW spoke with pt and Miguel about discharge plans and explained differences between SNF and [facility]. Pt and Miguel agreeable to [facility]. SW explained that this worker has a call out to admissions to inquire about bed availability. Pt and Miguel state understanding. SW placed a call to Christina in [facility] and left message. Plan: TBD Ambar Castaneda AUDIO OPERATOR, AUDITOR/QUALITY
--- NOTE | 2022-01-13 12:09 | DS.PCM_ITS ---
Providers Date of Admission: 01/11/22 Date of Discharge: 01/13/22 Primary Care Physician: Dr. Jesu Dennison MD Consultations 01/11/22 18:52 Consult: Orthopedics Routine Consulting Provider: Sebastian Boyer Reason for Consult: right hip fxr EMERGENT Consult: No MD Notified: Yes Date Notified: 01/11/22 Time Notified: 18:21 Method of Notification: Verbal Reason For Visit: RIGHT HIP FXR Diagnosis Discharge Diagnosis (1) Closed fracture of right hip: Status: Acute Code(s): S72.001A - Fracture of unspecified part of neck of right femur, initial encounter for closed fracture Qualifiers: Encounter type: initial encounter Qualified Code(s): S72.001A - Fracture of unspecified part of neck of right femur, initial encounter for closed fracture (2) Hyperglycemia: Status: Acute Code(s): R73.9 - Hyperglycemia, unspecified Medications at Discharge Home Medications calcium carbonate 600 mg calcium (1,500 mg) tablet 600 mg PO BID tab 01/19/18 cholecalciferol (vitamin D3) 50 mcg (2,000 unit) capsule 2,000 unit PO BID 01/19/18 denosumab 60 mg/mL subcutaneous syringe 60 mg SC [id number] #1 ml 10/18/18 pen needle, diabetic 31 gauge x 1/4 #200 ea 11/19/20 compr.stocking,thigh,reg,large #2 ea 10/21/21 levothyroxine 88 mcg tablet See Rx Instructions .ROUTE .COMPLEX #90 tab 11/26/21 amlodipine 10 mg PO DAILY 01/11/22 mecobal-levomefolat Ca-B6 phos 1 tab PO BID 01/11/22 rosuvastatin 10 mg PO DAILY 01/11/22 Toujeo SoloStar U-300 Insulin See Rx Instructions .ROUTE .COMPLEX 90 Days #25 units 01/13/22 acetaminophen [Tylenol] 650 mg PO Q6H PRN PRN #0 tab 01/13/22 aspirin 81 mg PO 0800,1700 #0 tab 01/13/22 insulin lispro [Humalog KwikPen Insulin] 5 unit SUBCUT TIDAC #0 ml 01/13/22 insulin lispro [Humalog KwikPen Insulin] See Protocol SUBCUT TIDAC #0 ml 01/13/22 lisinopril 20 mg PO DAILY #90 tab 01/13/22 oxycodone 5 mg PO Q4H PRN PRN 3 Days #10 tab 01/13/22 sennosides-docusate sodium [Stool Softener-Stimulant Laxat] 2 tab PO BID #0 tab 01/13/22 Hospital Course Summary of Care Provided Hospital Course: 71-year-old female admitted with right hip pain when she fell on it while she was walking with her dogs in the yard. Denies loss of consciousness or hitting the head. In ED, x-ray showed right femoral neck fracture. 1. Closed right hip fracture, pathological from osteoporosis: Patient fell from standing height. The patient had right hip cemented hemiarthroplasty by Dr. Sebastian Boyer on 01/12/2022. Had Ortho follow-up today and recommended change of dressing after 5 days. Follow-up in orthopedic clinic 2 Sebastian Boyer in 2 weeks. Patient is a very good functional status at baseline and is independent in her ADLs and IADLs. Patient able to complete greater than 4 METS of activity. NQSIP shows the patient is slightly higher than average for serious complications, any complications, surgical site infection and discharged to [facility]. None of this is medically prohibitive from her proceeding with surgery. Patient is otherwise medically optimized to proceed with surgery. Vitamin D hydroxy 40.5. TSH normal. 2. Diabetes mellitus type 2, uncontrolled. Patient blood pressure fluctuates. Sometimes however sometimes hypoglycemia. Continue with basal, prandial and sliding scale insulin, dose changed as per Accu-Cheks 3. Hypertension Continue with her home medications with hold parameters 4. VTE prophylaxis SCDs for now until after surgery then chemical prophylaxis thereafter. 5. CODE STATUS: Addressed with the patient. Patient is full code. Discharge medication reconciliation done. Discharge follow-up instructions completed. Discharge process discussed with the patient and all questions were answered to patient's satisfaction. Discharged to acute rehab, fourth floor. Prescription for oxycodone given. Total time spent, exact 35 minutes on discharge meds reconciliation, examination, coordination of care with nurses and ancillary staff, review of imaging and blood test and discussion with the patient on follow-up instructions Physical Exam Narrative Seen and examined. Heart rate and blood pressure is controlled. Patient has not moved bowel for 1 day. On senna S, Continue. Blood pressure and heart rate in normal range. Denies burning micturition. Patient missed 2 people assist, to stand. General: Alert, Oriented x3, Cooperative HEENT: Atraumatic, PERRLA, EOMI, Normocephalic Oral: No Gingival or Mucosal Lesions/ Ulcerations Neck: Supple, No JVD, Negative Carotid Bruits Lungs: Air entry diminished in bilateral lung bases. No crepitation/rhonchi Cardiovascular: Regular rate, Regular Rhythm, Normal S1, Normal S2, No murmurs Abdomen: Bowel Sounds Present, Soft, Non Tender, Non-Distended : No renal angle tenderness. No suprapubic tenderness. Extremities: No edema, Capillary Refill Less than 3 Seconds Skin: No rashes, No breakdown Musculoskeletal: Right hip surgical dressing is dry. No hematoma or bleeding. Neurological: Cranial nerves II-XII grossly intact, DTR 2+/4 and Symmetrical, Neuro grossly intact Psych/Mental Status: Normal Affect, Appropriate. Weight / BMI Weight Weight: 145 lb 1.027 oz Body Mass Index (BMI) 23.4 ABG / Lab / Microbiology Data Result Diagrams: 01/13/22 05:25 01/13/22 05:25 Laboratory: Laboratory Results - last 24 hr 01/11/22 17:20: Vitamin D 25-Hydroxy 40.5 01/12/22 12:24: POC Glucose 118 H 01/12/22 16:47: POC Glucose 153 H 01/12/22 21:31: POC Glucose 52 L 01/12/22 22:02: POC Glucose 125 H 01/13/22 05:25: WBC 8.8, RBC 3.37 L, Hgb 10.6 L, Hct 32.2 L, MCV 95.5, MCH 31.5, MCHC 32.9, RDW Std Deviation 48.4 H, RDW Coeff of Odalys 13.8, Plt Count 210, MPV 9.5 01/13/22 05:25: Sodium 138, Potassium 4.2, Chloride 109 H, Carbon Dioxide 26.0, Anion Gap 3 L, BUN 12, Creatinine 0.61, Estim Creat Clear Calc 49.70, Est GFR (MDRD) Af Amer 125, Est GFR (MDRD) Non-Af 104, BUN/Creatinine Ratio 19.7, Glucose 98, Calcium 7.5 L 01/13/22 07:37: POC Glucose 109 01/13/22 10:55: POC Glucose 233 H Microbiology: Microbiology 01/11/22 17:43 Nasal Secretion SARS-CoV-2 Antigen (Rapid) - Final Radiography Diagnostic Testing: Radiology Impression Hip X-Ray 01/12/22 11:48 IMPRESSION: Interval recent right hip hemiarthroplasty for treatment of femoral neck fracture. Electronically Signed: Tony Acosta MD at 13:57 EST , Meaningful Use Info Meaningful Use Diagnoses (Choose all that apply): None applicable Discharge Plan Admission Admit Date/Time: 01/11/22 18:14 Primary Reason for Your Visit: Right hip fracture Attending Provider: Cash Sevilla Primary Care Provider: Jesu Dennison Consulting Providers: Sebastian Boyer Discharge Orders/Prescriptions Prescriptions: New acetaminophen [Tylenol] 325 mg Tablet 650 mg PO Q6H PRN PRN (Reason: Pain Score 1-10/Temp > 100.7 F) Qty: 0 RF: 0 oxycodone 5 mg Tablet 5 mg PO Q4H PRN PRN (Reason: Pain Score 6-10) 3 Days Qty: 10 RF: 0 insulin lispro [Humalog KwikPen Insulin] 100 unit/mL Insulin Pen 5 unit subcut TIDAC Qty: 0 RF: 0 insulin lispro [Humalog KwikPen Insulin] 100 unit/mL Insulin Pen See Protocol unit subcut TIDAC Qty: 0 RF: 0 sennosides-docusate sodium [Stool Softener-Stimulant Laxat] 8.6-50 mg Tablet 2 tab PO BID Qty: 0 RF: 0 aspirin 81 mg Tablet,Chewable 81 mg PO 0800,1700 Qty: 0 RF: 0 Continued cholecalciferol (vitamin D3) 2,000 unit capsule 2,000 unit PO BID RF: 0 calcium carbonate [Calcium 600] 600 mg calcium (1,500 mg) tablet 600 mg PO BID RF: 0 Prolia 60 mg/mL syringe 60 mg SC [id number] Qty: 1 RF: 4 (DME) compr.stocking,thigh,reg,large Misc See Rx Instructions .ROUTE .MEDSUPPLY Qty: 2 RF: 0 rosuvastatin 10 mg Tablet 10 mg PO DAILY RF: 0 amlodipine 10 mg tablet 10 mg PO DAILY RF: 0 mecobal-levomefolat Ca-B6 phos 3-35-2 mg Tablet 1 tab PO BID RF: 0 lisinopril 20 mg tablet 20 mg PO DAILY Qty: 90 RF: 3 Toujeo SoloStar U-300 Insulin 300 unit/mL (1.5 mL) insulin pen See Rx Instructions .ROUTE .COMPLEX 90 Days Qty: 25 RF: 4 (DME) pen needle, diabetic [[place] II Pen Needle] 31 gauge x 1/4 needle See Rx Instructions .ROUTE .MEDSUPPLY Qty: 200 RF: 3 levothyroxine 88 mcg tablet See Rx Instructions .ROUTE .COMPLEX Qty: 90 RF: 3 Discontinued aspirin [Adult Aspirin Regimen] 81 mg tablet,delayed release (DR/EC) 1 tab PO DAILY RF: 0 insulin lispro [Humalog U-100 Insulin] 100 unit/mL solution See Rx Instructions .ROUTE .COMPLEX RF: 0 Referrals / Follow Up: Jesu Dennison MD [Primary Care Provider] - Within 2 Weeks Sebastian Boyer MD [STAFF PHYSICIAN] - Within 2 Weeks (Postop follow-up right hemiarthroplasty) Disposition Disposition (needs filled in before D/C Order can be placed): Inpatient Rehab Unit/Facility Charges/Coding Visit Charges Inpatient E&M: 54991 Disch Hosp
--- NOTE | 2022-01-13 14:15 | CASEMGMT ---
Social Work Note CHIDI received call from Christina in [facility] stating [facility] can accept pt today. CHIDI updated physician. SW in to speak with pt. SW updated pt that she has been accepted to [facility]. Pt states understanding, states she will call her to update him. Plan: [facility] today Ambar Castaneda [employer], [employer]
--- NOTE | 2022-01-13 14:26 | CHAPLAIN ---
Type of Pastoral Visit _x__ Initial Visit ___ Follow-up Visit ___ On-call Visit ___ General Patient Visit ___ Spiritual Assessment ___ Family Conference ___ Bereavement ___ Rapid Response ___ Code Blue ___ Other (describe below) Pastoral Care Referral From _x__ Patient ___ Family ___ Nurse ___ Physician ___ Neighborhood Aide ___ Staff Development Nurse ___ Other (describe below) Sacrament/Intervention ___ Active listening ___ Anointing ___ Yarsani ___ Bereavement ___ Communion ___ Jaja exploration ___ ___ Life review _x__ Prayer ___ Reconciliation ___ Sacrament of Sick _x__ Supportive presence ___ Wedding ___ Other (describe below) Pastoral Comments
[2022-01-13] MEDS: Acetaminophen 325 MG Tablet 650 MG PO (14:45)
[2022-01-13 14:54] VITALS: BP 126/70; PULSE 73; RESP 16; TEMP 37.7; O2SAT 96
== END 2022-01-13 16:19 | DRG 522 ==
LOC: ED 17:57 → MS3 18:27
PROVIDERS: Anesthesiology; Orthopaedic Surgery; Emergency Provider Emergency Medicine; PCP Internal Medicine; Visit Provider Internal Medicine
PROC: 0SRR019 Replacement of Right Hip Joint, Femoral Surface with Metal Synthetic Substitute, Cemented, Open Approach (ICD-10-PCS; CPT 27125; principal; 2022-01-12 11:00)
DX: M80.051A Age-related osteoporosis with current pathological fracture, right femur, initial encounter for fracture (principal); E03.9 Hypothyroidism, unspecified; E11.51 Type 2 diabetes mellitus with diabetic peripheral angiopathy without gangrene; E11.65 Type 2 diabetes mellitus with hyperglycemia; Z79.4 Long term (current) use of insulin; M19.90 Unspecified osteoarthritis, unspecified site; I10 Essential (primary) hypertension; W01.0XXA Fall on same level from slipping, tripping and stumbling without subsequent striking against object, initial encounter; Y93.K1 Activity, walking an animal; Y92.007 Garden or yard of unspecified non-institutional (private) residence as the place of occurrence of the external cause; Z79.82 Long term (current) use of aspirin; Z79.899 Other long term (current) drug therapy
CPT/HCPCS: 36415; 71045; 73502; 80048; 80076; 82009; 82306; 82962; 83036; 84443; 85025; 85027; 86850; 86900; 86901; 87426; 88305; 88311; 93005; 97162; 97166; 99251; 99285; C1776; J7030; J7040; J7120; A4216; G0463; J2405

== ENCOUNTER 2022-01-13 16:10 | Inpatient (IN) | payer MEDICARE, OTHER, SELFPAY ==
[2022-01-13 16:32] VITALS: BP 128/65; PULSE 80; RESP 16; TEMP 36.4; O2SAT 96; BMI 24.0
[2022-01-13 17:01] LABS: Bedside Glucose 103 mg/dL (70-110)
[2022-01-13] MEDS: Insulin Lispro 100 UNIT/ML INSULN.PEN SC (17:44)
--- NOTE | 2022-01-13 18:39 | NURSING ---
Pleasant and alert, aware of rehab routine.
[2022-01-13 19:13] VITALS: O2SAT 95
[2022-01-13 19:55] VITALS: BP 127/64; PULSE 76; RESP 14; TEMP 36.4; O2SAT 96
[2022-01-13] MEDS: Atorvastatin Calcium 20 MG Tablet PO (20:04)
[2022-01-13 21:55] LABS: Bedside Glucose 101 mg/dL (70-110)
[2022-01-14] MEDS: oxyCODONE 5 MG Tablet PO ×3 (05:31→19:59)
[2022-01-14] MEDS: Levothyroxine 88 MCG Tablet 44 MCG PO (05:31)
[2022-01-14 06:04] LABS: Hematocrit 33.5 % (37-47); Hemoglobin 11.2 g/dL (12.0-15.0); Mean Corp Hgb Conc 33.4 g/dL (32-36); Mean Corpuscular Hgb 31.2 pg (27.0-32.0); Mean Corpuscular Volume 93.3 fL (81-99); Mean Platelet Vol. 9.3 fl (6.2-12.0); Platelet Count 219 K/mm3 (150-450); RBC Distribution Width CV 13.6 % (11.6-14.6); RBC Distribution Width SD 46.6 fl (35.1-43.9); Red Blood Count 3.59 M/mm3 (4.2-5.4); White Blood Count 10.1 K/mm3 (4.4-11.0)
[2022-01-14 06:32] VITALS: O2SAT 96
[2022-01-14 06:38] LABS: ALB/GLOB Ratio 0.8 RATIO (0.9-2.4); AST(SGOT) 53 U/L (15-37); Alanine Aminotransfer ALT/SGPT 39 U/L (13-56); Albumin, Serum 2.7 g/dL (3.2-5.0); Alkaline Phosphatase 62 U/L (45-117); Anion Gap 4 (5-15); BUN 11 mg/dL (7-18); BUN/Creat Ratio 15.3 RATIO (10-20); Calcium,Total 7.8 mg/dL (8.5-10.1); Chloride 108 mmol/L (98-107); Creatinine, Serum 0.72 mg/dL (0.55-1.02); EST Glomerular Filtration Rate 86 mL/min (>60); Est Glom Filt Rate - Afr Amer 104 mL/min (>60); Globulin 3.4 g/dL (2.2-4.2); Glucose 137 mg/dL (74-106); Phosphorus 2.8 mg/dL (2.5-4.9); Protein, Total 6.1 g/dL (6.4-8.2); Sodium Level 138 mmol/L (136-145)
[2022-01-14 07:10] VITALS: BP 134/75; PULSE 74; RESP 16; TEMP 37.2; O2SAT 96
[2022-01-14 07:41] LABS: Bedside Glucose 167 mg/dL (70-110)
[2022-01-14] MEDS: Insulin Lispro 100 UNIT/ML INSULN.PEN SC ×6 (08:36→16:57)
[2022-01-14] MEDS: Aspirin 81 MG TAB.CHEW PO ×2 (08:37→16:58)
[2022-01-14] MEDS: amLODIPine 10 MG Tablet PO (08:38)
[2022-01-14] MEDS: Senna/Docusate Sodium 1 Tablet 2 TABLET PO ×2 (08:39→19:52)
--- NOTE | 2022-01-14 09:30 | HP.PCM_ITS ---
[facility] - General General Date of Admission: 01/13/22 HPI Narrative MARISSA WINKLER, is a 71 YO F with a PMH of diabetes mellitus type 2 (poorly controlled), hypertension, hypothyroidism, osteoarthritis and venous insufficiency of both lower extremities. She presented to the emergency department at [facility] on 01/11/2022 complaining of right hip pain after falling over her dog at home. X-ray in the emergency department showed a right femoral neck fracture. Dr. Sebastian Boyer was consulted and after discussing the fracture and surgical options with the patient and her family she was scheduled for a right hip hemiarthroplasty which was done on 01/12/22. The post operative course was unremarkable. She was seen and evaluated by PT/OT post op and the recommendation was made for acute inpt rehab. She was transferred to the acute inpatient unit at [facility] on 01/13/2022 for 3 hours of therapy daily to restore her at or near her level of f unction prior to the hip fracture. All lab from today was personally reviewed. Hemoglobin is mildly decreased at 11.2. The MCV is normal. Calcium corrected for hypoalbuminemia is within normal limits. Magnesium and phosphorus are normal. TSH was within normal limits recently. Hemoglobin A1c on 01/11/2022 was high at 8.4. HS blood sugar was 101 and the fasting this morning is 167. She is currently on Lantus 35 units subcu daily and 5 units of lispro 3 times daily + a sliding scale. At home she also takes Toujeo. She denies any hx of VTE. Has been diabetic for about 16 years. No FH of DM. [facility] Medical History (Updated 01/14/22 @ 09:[address] Ninoska Perry, ) Cervical lymphadenopathy Current use of insulin Hypertension Hypothyroidism Osteoarthritis Osteoporosis Post-menopausal Type 2 diabetes mellitus Venous insufficiency of both lower extremities Home Medications calcium carbonate 600 mg calcium (1,500 mg) tablet 600 mg PO BID tab 01/19/18 [History Last Taken 01/11/22 07:30] cholecalciferol (vitamin D3) 50 mcg (2,000 unit) capsule 2,000 unit PO BID [History Last Taken 01/11/22 07:30] pen needle, diabetic 31 gauge x 1/4 #200 ea 11/19/20 [Rx Last Taken Unknown] compr.stocking,thigh,reg,large #2 ea 10/21/21 [Rx Last Taken Unknown] amlodipine 10 mg PO DAILY 01/11/22 [History Last Taken 01/10/22 07:30] mecobal-levomefolat Ca-B6 phos 1 tab PO BID 01/11/22 [History Last Taken 01/11/22 07:30] rosuvastatin 10 mg PO DAILY 01/11/22 [History Last Taken 01/11/22 07:30] Prolia 60 mg SC [id number] 01/13/22 [History Last Taken Unknown] Toujeo SoloStar U-300 Insulin See Rx Instructions .ROUTE .COMPLEX 01/13/22 [History Last Taken Unknown] acetaminophen [Tylenol] 650 mg PO Q6H PRN PRN #0 tab 01/13/22 [Rx Last Taken Unknown] aspirin 81 mg PO 0800,1700 01/13/22 [History Last Taken Unknown] insulin lispro [Humalog KwikPen Insulin] 5 unit SUBCUT TIDAC 01/13/22 [History Last Taken Unknown] insulin lispro [Humalog KwikPen Insulin] See Protocol SUBCUT TIDAC 01/13/22 [History Last Taken Unknown] levothyroxine See Rx Instructions .ROUTE .COMPLEX 01/13/22 [History Last Taken Unknown] lisinopril 20 mg PO DAILY 01/13/22 [History Last Taken Unknown] oxycodone 5 mg PO Q4H PRN PRN 01/13/22 [History Last Taken Unknown] sennosides-docusate sodium [Stool Softener-Stimulant Laxat] 2 tab PO BID 01/13/22 [History Last Taken Unknown] Allergy/AdvReac Type Severity Reaction Status Date / Time Tetracyclines Allergy Hives Verified 01/11/22 19:25 Family History Father Hypertension Cancer kidney Mother Hypertension Surgical History (Updated 01/14/22 @ 09:[address] Ninoska Perry DO) History of right hip hemiarthroplasty History of tonsillectomy Social History Smoking Status: Never smoker alcohol intake: never substance use type: does not use what type of physical activity do you participate in: walking frequency: daily ROS Constitutional Constitutional: Denies anorexia, change in weight, chills, fatigue, fever(s), night sweats or weakness Eyes Eyes: Denies blurry vision, change in vision, eye pain or loss of vision ENT HEENT: Denies abnormal hearing, dysphagia, headache(s), hearing loss, nasal congestion or sore throat Cardiovascular Cardiovascular: Reports edema; Denies chest pain, dyspnea on exertion, lightheadedness, orthopnea, orthostatic symptoms, palpitations, paroxysmal noct urnal dyspnea or syncope Respiratory/Chest Respiratory/Chest: Denies cough, dyspnea, shortness of breath at rest, shortness of breath with exertion or wheezing Gastrointestinal Gastrointestinal: Reports other Details: no hx of PUD ; Denies abdominal pain, constipation, diarrhea, dyspepsia, hematemesis, hematochezia, nausea or vomiting Genitourinary Genitourinary: Denies dysuria, hematuria, nocturia, urinary frequency, urinary hesitancy, urinary incontinence or urinary urgency Musculoskeletal Musculoskeletal: Reports abnormal gait, arthralgias and joint pain; Denies back pain, joint swelling, muscle cramps, neck pain, numbness, radiating pain into limb or tremors Integumentary Integumentary: Denies alopecia, change in hair, non-healing lesions, skin ulcer or unusual bruising Neurologic Neurologic: Denies confusion, disequilibrium, dizziness, focal weakness, headache(s), paresthesias, seizures or tremor(s) Psychiatric Psychiatric: Denies anxiety, depression, homicidal ideation or suicidal ideation Endocrine Endocrinology: Denies change in body appearance, polydipsia or polyuria Hematologic/Lymphatic Hematologic/Lymphatic: Denies easy bleeding, easy bruising or lymphadenopathy Allergic/Immunologic Allergic/Immunologic: Denies rhinitis, eczemia or asthma Vital Signs Vital Signs Vital Signs: 01/13/22 16:32 01/13/22 19:13 01/13/22 19:55 Temperature 97.5 F L 97.5 F L Temperature Source Oral Oral Pulse Rate 80 76 Respiratory Rate 16 14 Respiratory Effort Normal Non-Labored Respiratory Depth Normal Respiratory Pattern Normal Blood Pressure 128/65 H 127/64 H Blood Pressure Mean 86 85 Blood Pressure Source Monitor Blood Pressure Position Semi-Fowlers Blood Pressure Location Left Arm Pulse Ox 96 95 96 Oxygen Delivery Method Room Air Room Air Room Air 01/14/22 06:32 01/14/22 07:10 Temperature 99.0 F Temperature Source Oral Pulse Rate 74 Respiratory Rate 16 Respiratory Effort Respiratory Depth Respiratory Pattern Blood Pressure 134/75 H Blood Pressure Mean 94 Blood Pressure Source Monitor Blood Pressure Position Semi-Fowlers Blood Pressure Location Right Arm Pulse Ox 96 96 Oxygen Delivery Method Room Air Room Air Weight Weight: 148 lb 12.992 oz Body Mass Index (BMI) 24.0 Physical Exam Const alert, oriented x3 and no apparent distress Constitutional Narrative: Sitting in the recliner at the bedside. Recently had pain medication and she is comfortable now. General Appearance: cooperative, comfortable, well kempt and well developed HEENT normocephalic and hearing grossly normal bilaterally HEENT Narrative: Mucous membranes are dry. Eyes PERRL, EOMs intact bilaterally, conjunctivae normal and no scleral icterus Neck No nuchal rigidity, supple and no carotid bruits Neck Narrative: No jugular vein distention Chest Chest: symmetrical chest wall rise Resp normal respiratory effort, normal air movement, no use of accessory muscles and clear to auscultation bilaterally Effort and Inspection: able to speak in complete sentences; Negative for tachypneic Cardio regular rate, regular rhythm, S1 normal heart sound, S2 normal heart sound, no rub and no gallops Cardio Narrative: There is a very soft systolic MM at the LLSB GI normal to inspection, nondistended, normoactive bowel sounds, soft to palpation and non-tender GI Narrative: No guarding with palpation Auscultation: normoactive bowel sounds Extremity normal capillary refill, no calf tenderness and no pedal edema Extremity Narrative: JASKARAN hose are in place. No clubbing of the digits. No cyanosis. Skin General Skin Exam: no breakdown Rashes: no rashes Wound Narrative: Dressing is in place and there is no erythema around the bandage and no drainage on the dressing. Neuro oriented x3, CN's II-XII intact bilaterally and moves all extremities Neuro Narrative: antalgic gait Psych mental status grossly normal, thought process normal, cooperative, affect normal and activity/motor behavior normal Attitude: calm and engaged Activity / Motor Behavior: appropriate eye contact Results Lab / Micro Data Result Diagrams: 01/14/22 05:45 01/14/22 05:45 Labs: Laboratory Results - last 24 hr 01/13/22 16:54: POC Glucose 103 01/13/22 21:47: POC Glucose 101 02/22/22 05:45: WBC 10.1, RBC 3.59 L, Hgb 11.2 L, Hct 33.5 L, MCV 93.3, MCH 31.2, MCHC 33.4, RDW Std Deviation 46.6 H, RDW Coeff of Odalys 13.6, Plt Count 219, MPV 9.3 01/14/22 05:45: Sodium 138, Potassium 4.0, Chloride 108 H, Carbon Dioxide 26.0, Anion Gap 4 L, BUN 11, Creatinine 0.72, Estim Creat Clear Calc 49.70, Est GFR (MDRD) Af Amer 104, Est GFR (MDRD) Non-Af 86, BUN/Creatinine Ratio 15.3, Glucose 137 H, Calcium 7.8 L, Phosphorus 2.8, Magnesium 2.0, Total Bilirubin 0.60, AST 53 H, ALT 39, Alkaline Phosphatase 62, Total Protein 6.1 L, Albumin 2.7 L, Globulin 3.4, Albumin/Globulin Ratio 0.8 L 01/14/22 07:38: POC Glucose 167 H Assessment & Plan Assessment/Plan (1) Physical debility: (2) Fall: (3) Closed fracture of right hip: QUALIFIERS: Encounter type: initial encounter Qualified Code(s): S72.001A - Fracture of unspecified part of neck of right femur, initial encounter for closed fracture (4) S/P hip hemiarthroplasty: (5) Acute blood loss anemia: (6) Uncontrolled diabetes mellitus: (7) Hypothyroidism: (8) Hypertension: QUALIFIERS: Hypertension type: primary hypertension Qualified Code(s): I10 - Essential (primary) hypertension (9) Venous insufficiency of both lower extremities: PLAN: PLAN PT for gait stability OT for ADL's Analgesics as needed Bowel protocol Fall precautions Assess for Anxiety/Depression GI prophylaxis not necessary-she has no epigastric pain, no nausea, no vomiting and no history of peptic ulcer disease. DVT prophylaxis with aspirin 81 mg p.o. twice daily per orthopedics. JASKARAN hose have been ordered also. Follow up with Dr. Boyer and Dr. Dennison following DC from Rehab AM lab including CMP, CBC, Mag and Phos was personally reviewed. She woke up last night thinking there were children in the room and she was talking to them. This is more likely than not due to narcotic. She tried Tramadol in the past for sciatica and did not think it helped. Will schedule Tylenol adn maybe this will cut down on the Oxycodone use. Unit Exclusion This patient is an acute care inpatient being housed in the excluded unit because of capacity issues related to the disaster or emergency.: Yes Charges/Coding Visit Charges Inpatient E&M: 28894 Init Hosp L2
--- NOTE | 2022-01-14 09:55 | REHABEVAL_ITS ---
Admission Information Primary Diagnosis:: Physical debility secondary to right hip fracture/R hip hemiarthroplasty. Status Changes from Prescreening?: No changes Identified Actual Problem List:: Falls, Skin Intergrity, Pain, ALteration in Cmfrt, Alteration in Sleep, Mobility Impaired, Self Care Deficit, Diabetes, Hyperglycemia and Alteration-Leisure Activ. Potential Problem List:: DVT, Bleeding, Infection, UTI, Aspiration, Falls, Skin Integrity and Depression Risk of Complications DVT: JASKARAN Zheng and - (Aspirin 81 mg twice daily x4 weeks per orthopedics) Bleeding: Monitor Lab Values, Nursing to Teach Precautions for anti-coagulation therapy., Wound, if applicable, to be assessed every shift. and Stroke patients assessed for lethargy or change in status. Infection: Clinical Staff to Monitor for S/S of infection: and S/S of infection include fever, redness, warmth, etc. Urinary Tract Infection: Monitor for frequency, burning, discomfort, or inco ntinence. and Nursing will obtain urine sample for urinalysis and C&S when ordered. Aspiration: Clinical staff will monitor for coughing, drooling, congestion., Speech will evaluate swallowing and dsyphasia. and Nursing will monitor patient swallowing during meals. Falls: Patient will be evaluated for Fall Precautions and Patient will be placed on Fall Precautions as indicated per protocol. Skin Breakdown: Nursing will assess skin daily using assessment tool. and Nursing will place on Skin Breakdown Precautions as indicated. Pain: Clinical staff will assess patient's pain level per protocol., Medications will be given, if needed, and the pain level reassessed. and Other methods: Massage, distraction, decrease stimulus, etc. used PRN. Plan of Care Patient requires physician specializing in physical medicine and rehab oversight to provide close medical supervision of rehab issues including: Pain Management, Sleep Problems, Bowel and Bladder, Medical and co-morbidity Management, DVT prophylaxis, Rehabilitation Leadership and Coordination of treatment team Patient needs Physical Therapy: For a minimum of 1 hour and At least 5 out of 7 days Patient needs Physical Therapy to improve:: Mobility, Strengthening, Transfers, Stretching, ROM, Endurance, Stairs, Gait and Balance Patient needs Occupational Therapy: For a minimum of 1 hour and At least 5 out of 7 days Patient needs Occupational Therapy to improve ADL's incl.: Eating, Grooming, Bathing, Dressing, Toileting, Toilet transfers, Community Reintegration, Higher functioning activities, Household tasks, Adaptive Equipment, Splinting and Other activities as determined Patient requires 24/7 Rehabilitation Nursing for: Pain Issues, Identifying and preventing risk factors, Monitoring and reporting current medical conditions, Assisting with ambulation, transfer, and all ADL's, Teaching patients about disease process and medications, Family teaching, Providing safe environment, Bowel and Bladder Issues, Skin integrity and Medication Management Patient needs Vp Cardiovascular Service Line/ Case Management for: Discharge Planning, Arranging Home Equipment or Services and Family Interventions Patient needs Dietary and Nutrition Services for: Adequate Nutrition, Nutritional Supplements and Nutritional Education Goals Patient will remain: free from falls and or injury at time of discharge. Patient will perform bed mobility at: MOD I level of assist. Patient will complete transfers from bed to chair at: MOD I level of assist. Patient will ambulate: with LRD and - (300 ft with a WW at MOD I) Patient will complete upper body dressing at: MOD I level of assist. Patient will complete lower body dressing at: MOD I level of assist. (With assistive equipment for lower body dressing while adhering to posterior hip precautions) Patient will complete toileting at: MOD I level of assist. (On elevated commode) Patient will perform bathing at: - (Supervision level with a long handled brush for lower body bathing) Patient will complete grooming at: MOD I level of assist. Patient will complete home management skills at: MOD I level of assist. Patient will achieve: - (1 curb step and 3 steps with HR at SBA to be able to enter her home while maintaining posterior hip precautions) Patient will have pain level of: of 3 or less Patient's skin will: remain intact Patient will receive: adequate nutrition. Discharge Planning Estimated Length of stay (days): 14 Anticipated D/C Destination: Home Was Preadmission Assessment Accurate?: Yes
[2022-01-14 11:21] LABS: Bedside Glucose 228 mg/dL (70-110)
[2022-01-14 18:07] LABS: Bedside Glucose 168 mg/dL (70-110)
[2022-01-14 19:22] VITALS: BP 107/56; PULSE 84; RESP 18; TEMP 37; O2SAT 94
[2022-01-14] MEDS: Atorvastatin Calcium 20 MG Tablet PO (19:52)
[2022-01-14 22:10] LABS: Bedside Glucose 47 mg/dL (70-110)
[2022-01-14] MEDS: 0.9% Saline Lock 10 ML Syringe IV (22:16)
[2022-01-14 22:25] LABS: Bedside Glucose 76 mg/dL (70-110)
[2022-01-14 23:26] LABS: Bedside Glucose 233 mg/dL (70-110)
[2022-01-15 02:23] LABS: Bedside Glucose 305 mg/dL (70-110)
--- NOTE | 2022-01-15 03:14 | NURSING ---
Reviewed and agree with FREIGHT INSPECTOR documentation and assessment charting.
[2022-01-15] MEDS: Levothyroxine 88 MCG Tablet PO (05:50)
[2022-01-15] MEDS: oxyCODONE 5 MG Tablet PO ×2 (05:55→10:35)
[2022-01-15 06:31] LABS: Bedside Glucose 259 mg/dL (70-110)
[2022-01-15 07:06] VITALS: BP 117/70; PULSE 81; RESP 16; TEMP 37.1; O2SAT 94
[2022-01-15] MEDS: Insulin Lispro 100 UNIT/ML INSULN.PEN SC ×5 (07:55→17:25)
[2022-01-15] MEDS: Aspirin 81 MG TAB.CHEW PO ×2 (07:56→17:26)
[2022-01-15] MEDS: amLODIPine 10 MG Tablet PO (07:56)
[2022-01-15] MEDS: Senna/Docusate Sodium 1 Tablet 2 TABLET PO ×2 (07:57→20:40)
[2022-01-15 11:15] LABS: Bedside Glucose 291 mg/dL (70-110)
--- NOTE | 2022-01-15 14:48 | PCM.PN.BLA ---
Progress Note Afebrile Blood pressure is well controlled She is maintaining appropriate oxygen saturation on room air She tells me she slept well last night She is happy with her pain regimen as is. Blood sugar record was reviewed. She was hypoglycemic last night at 10:04 PM. She was initially given orange juice and banana bread and the blood sugar at 10:19 was 76. She was then given abelardo crackers with peanut butter and the blood sugar at 11:19 PM was 233 and has been high ever since. She now tells me that she was not taking Lantus at home she was on Toujeo. After talking to the pharmacist the hospital does not have Toujeo and uses Lantus as a therapeutic interchange. The pt does not know how much Toujeo she was taking. I left a message on the nurse line at Dr. Dennison's office to have them send me the med list. She also admitted to me that she sometimes forgets to take her insulin. She did eat a good supper last night. She was on Metformin at one time and had no adverse side effects. She denies nausea/vomiting/abdominal pain, dizziness, dysuria, diarrhea/constipation, a chest pain, calf pain, shortness of breath. Physical Exam Const alert and no apparent distress General Appearance: cooperative Resp clear to auscultation bilaterally Cardio regular rate and regular rhythm GI normal to inspection, nondistended, normoactive bowel sounds, soft to palpation and non-tender Extremity no calf tenderness and no pedal edema Extremity Narrative: JASKARAN hose are in place Skin General Skin Exam: no breakdown Rashes: no rashes Psych mental status grossly normal, thought process normal and affect normal Assessment & Plan Assessment/Plan (1) Uncontrolled diabetes mellitus: (2) S/P hip hemiarthroplasty: (3) Acute blood loss anemia: PLAN: 1. Awaiting a call from Dr. Dennison's office or a fax with the patient's med list. 2. We talked about the importance of eating meals regularly and taking insulin as instructed. She denies having hypoglycemia at home. It concerns me that she does not know how much Toujeo she takes and that she forgets her insulin sometimes. 3. Continue therapy. 4. DC the [facility] Visit Charges Inpatient E&M: 71913 Subs Hosp L2
[2022-01-15 16:31] LABS: Bedside Glucose 221 mg/dL (70-110)
[2022-01-15] MEDS: Atorvastatin Calcium 20 MG Tablet PO (20:40)
[2022-01-15 20:42] VITALS: BP 121/52; PULSE 86; RESP 14; TEMP 37.1; O2SAT 99
[2022-01-15 21:55] LABS: Bedside Glucose 182 mg/dL (70-110)
[2022-01-15 22:00] VITALS: PULSE 86; RESP 16; O2SAT 99
[2022-01-16] MEDS: oxyCODONE 5 MG Tablet PO ×3 (01:15→12:47)
[2022-01-16] MEDS: Levothyroxine 88 MCG Tablet PO (05:55)
[2022-01-16 06:36] LABS: Bedside Glucose 149 mg/dL (70-110)
[2022-01-16] MEDS: Insulin Lispro 100 UNIT/ML INSULN.PEN SC ×2 (08:02→17:26)
[2022-01-16] MEDS: Aspirin 81 MG TAB.CHEW PO ×2 (08:03→17:26)
[2022-01-16] MEDS: amLODIPine 10 MG Tablet PO (08:03)
[2022-01-16] MEDS: Senna/Docusate Sodium 1 Tablet 2 TABLET PO ×2 (08:03→21:38)
[2022-01-16] MEDS: Lisinopril 20 MG Tablet PO (08:03)
[2022-01-16 10:00] VITALS: BP 133/72; PULSE 81; RESP 16; TEMP 36.1; O2SAT 97
--- NOTE | 2022-01-16 12:05 | PN_ITS ---
Progress Note Afebrile VSS Maintaining appropriate oxygen saturation on RA Discussed with nursing - no problems that need addressed Reviewed the PT/OT notes Medication list reviewed. blood sugar record was reviewed. FBS was 149 today. HS sugar was 183. We did not cover the BS of 221 at supper......she received only 5 units because she was hypoglycemic the previous HS. BS at lunch is 186. she did not get any coverage this AM, just the scheduled 5 units. Her brought in the TouHello Universeo pen she uses at home. Pain is well controlled and she denies any pain at present. No CP, SOB, cough, hemoptysis, dysuria, N/V/abd pain. No calf pain and no swelling in the legs. Physical Exam Const alert, oriented x3 and no apparent distress Constitutional Narrative: appropriate and cooperative. Sitting in the recliner at the bedside. Eyes conjunctivae normal and no scleral icterus Resp clear to auscultation bilaterally Cardio regular rate, regular rhythm and no gallops GI normal to inspection, nondistended, normoactive bowel sounds, soft to palpation and non-tender GI Narrative: having regular BM's Extremity normal capillary refill, no calf tenderness and no pedal edema Skin General Skin Exam: no breakdown Rashes: no rashes Assessment & Plan Assessment/Plan (1) Memory deficit: (2) Acute blood loss anemia: (3) Physical debility: (4) Uncontrolled diabetes mellitus: (5) S/P hip hemiarthroplasty: (6) Closed fracture of right hip: QUALIFIERS: Encounter type: initial encounter Qualified Code(s): S72.001A - Fracture of unspecified part of neck of right femur, initial encounter for closed fracture PLAN: 1. Continue therapy 2. Workup for dementia as an OP. Visit Charges Inpatient E&M: 25331 Subs Hosp L2
[2022-01-16 12:16] LABS: Bedside Glucose 183 mg/dL (70-110)
[2022-01-16] MEDS: Acetaminophen 500 MG Tablet 1000 MG PO ×2 (14:38→21:36)
--- NOTE | 2022-01-16 15:04 | CASEMGMT ---
Social Work IDT met with patient for Team meeting. Discussed patient's progress in PT/OT and nursing. Explained Medicare approved 12 days with DC 01/25. Pt lives at home alone and has been following hip precautions. At DC, recommended outpatient PT. SW to order closer to DC, as long as pt has transportation. She lives outside of [place]. Will ReTeam next week. SW to continue to follow. Joan Hernadez, CLIENT ENGAGEMENT SPECIALIST TOWER OBSERVER
[2022-01-16 16:31] LABS: Bedside Glucose 180 mg/dL (70-110)
[2022-01-16 19:24] VITALS: BP 138/53; PULSE 74; RESP 18; TEMP 36.4; O2SAT 96
[2022-01-16 21:01] LABS: Bedside Glucose 91 mg/dL (70-110)
[2022-01-16] MEDS: Atorvastatin Calcium 20 MG Tablet PO (21:37)
[2022-01-17] MEDS: Acetaminophen 500 MG Tablet 1000 MG PO ×3 (06:01→21:09)
[2022-01-17] MEDS: oxyCODONE 5 MG Tablet PO ×2 (06:01→10:07)
[2022-01-17] MEDS: Levothyroxine 88 MCG Tablet PO (06:02)
[2022-01-17 06:21] LABS: Bedside Glucose 81 mg/dL (70-110)
[2022-01-17 07:15] VITALS: BP 100/56; PULSE 77; RESP 12; TEMP 36.2; O2SAT 97
[2022-01-17] MEDS: Senna/Docusate Sodium 1 Tablet 2 TABLET PO ×2 (07:49→21:08)
[2022-01-17] MEDS: Aspirin 81 MG TAB.CHEW PO ×2 (07:49→17:23)
[2022-01-17] MEDS: Insulin Lispro 100 UNIT/ML INSULN.PEN 7 UNIT SC (07:49)
[2022-01-17] MEDS: amLODIPine 10 MG Tablet PO (09:34)
--- NOTE | 2022-01-17 10:41 | PN_ITS ---
Subjective Subjective Afebrile VSS-blood pressure in the a.m. is a little on the low side however the mean arterial pressure is never lower than 70. She denies lightheadedness. Maintaining appropriate oxygen saturation on RA Oral intake is adequate Last bowel movement was 01/14/2022. She was only taking 1 senna tablet BID but increased to 2 tabs BID yesterday AM. Weight is stable. Discussed with nursing - no problems that need addressed Reviewed the PT/OT notes - PT and OT have commented on her memory. It is inconsistent. Medication list reviewed. Blood sugar record was reviewed. The blood sugar at at bedtime was 91 and the fasting today was 81. Her BS's are erratic and labile. She is eating well. She has no complaints and her pain is well controlled. She was seen by ST and they are going to pick her up. she did not do terrible on the cognitive testing but, there are problems they believe they can help with........like memory aids. Alert and oriented x 3. Lungs - CTA HRRR Abd is soft ND and NT no peripheral edema and no calf pain Impressions 1. physical debility due to fracture of the hip due to a fall 2. S/P ORIF of hip fracture 3. uncontrolled DM - I have the sense that we should simplify her diabetic regimen.....I am worried about her getting hypoglycemic - Will continue the Lantus or Toujeo and try Glucophage BID with this. 4. Needs to have MRI or CT as an OP for memory loss. Objective Data Objective Data Vital Signs: Vital Signs Temp Pulse Resp BP Pulse Ox 97.2 F L 77 12 100/56 L 97 01/17/22 07:15 01/17/22 07:15 01/17/22 07:15 01/17/22 07:15 01/17/22 07:15 Oxygen Delivery Method Room Air Weight: 149 lb 4.047 oz Body Mass Index (BMI) 24.0 Intake & Output: Intake and Output for Last 24 Hours 01/15/22 01/16/22 01/17/22 23:59 23:59 23:59 Intake Total 720 / 720 1080 / 1080 Balance 720 / 720 1080 / 1080 Lab / Micro Data Result Diagrams: 01/18/22 06:59 01/18/22 06:59 Labs: Laboratory Results - last 24 hr 01/16/22 12:13: POC Glucose 183 H 01/16/22 16:28: POC Glucose 180 H 01/16/22 20:54: POC Glucose 91 01/17/22 06:14: POC Glucose 81 Assessment & Plan Assessment/Plan (1) Memory deficit: PLAN: 1. Check a T4, HGB and a BMP in the AM. TSH is higher than usual. She is having some memory deficits. Admitted to me that she sometimes forgets to take her insulin at home and she could not tell me the dose of the Toujeo that she takes every day. She may be forgetting to take the Levothyroxine as well. 2. ST to evaluate for cognition. 3. Will try to reach a family member and inquire if she has been having trouble with memory and when this may have started. I reviewed a CTB done in 2019 and it was unremarkable and also a carotid US which showed no stenosis > 50%. 4. She has had diplopia in the past and saw an global marketing coordinator who thought the diplopia was related to a cataract. She also had a TIA in April of 2020. I do not see that she has ever had an event monitor. Charges/Coding Visit Charges Inpatient E&M: 22419 Subs Hosp L1
[2022-01-17 11:41] LABS: Bedside Glucose 157 mg/dL (70-110)
--- NOTE | 2022-01-17 11:43 | NURSING ---
mepilex to R hip removed at this time per Dr. Boyer's orders. 19 lai intact, no active drainage noted. no s/sx of infection. old dry drainage noted to some lai. hip has very mild nonpitting edema. incision washed with soap and water, pat to dry. ABD pad applied for protection. pt tolerated well, denies pain or discomfort. pt has call light within reach and denies further needs.
[2022-01-17] MEDS: Insulin Lispro 100 UNIT/ML INSULN.PEN SC ×2 (12:14→17:23)
[2022-01-17 16:16] LABS: Bedside Glucose 95 mg/dL (70-110)
[2022-01-17 19:12] VITALS: BP 146/71; PULSE 79; RESP 16; TEMP 36.5; O2SAT 96
[2022-01-17] MEDS: Atorvastatin Calcium 20 MG Tablet PO (21:09)
[2022-01-17 21:26] LABS: Bedside Glucose 110 mg/dL (70-110)
[2022-01-17 22:00] VITALS: PULSE 79; RESP 16; O2SAT 96
[2022-01-18] MEDS: Acetaminophen 500 MG Tablet 1000 MG PO ×2 (05:33→21:15)
[2022-01-18] MEDS: Levothyroxine 88 MCG Tablet PO (05:33)
[2022-01-18 06:51] LABS: Bedside Glucose 278 mg/dL (70-110)
[2022-01-18 07:30] VITALS: BP 139/75; PULSE 70; RESP 17; TEMP 36.5; O2SAT 97
[2022-01-18 07:37] LABS: Anion Gap 3 (5-15); BUN 16 mg/dL (7-18); BUN/Creat Ratio 20.7 RATIO (10-20); Calcium,Total 8.7 mg/dL (8.5-10.1); Chloride 103 mmol/L (98-107); Creatinine, Serum 0.77 mg/dL (0.55-1.02); EST Glomerular Filtration Rate 79 mL/min (>60); Est Glom Filt Rate - Afr Amer 95 mL/min (>60); Glucose 288 mg/dL (74-106); Potassium 5.2 mmol/L (3.5-5.1); Sodium Level 134 mmol/L (136-145); T4 Free Direct 1.25 ng/dL (0.76-1.46)
[2022-01-18] MEDS: Aspirin 81 MG TAB.CHEW PO ×2 (07:50→17:33)
[2022-01-18] MEDS: metFORMIN HCl 500 MG Tablet PO ×2 (07:50→17:33)
[2022-01-18] MEDS: amLODIPine 10 MG Tablet PO (07:50)
[2022-01-18] MEDS: Insulin Lispro 100 UNIT/ML INSULN.PEN SC ×3 (07:50→17:32)
[2022-01-18] MEDS: Senna/Docusate Sodium 1 Tablet 2 TABLET PO ×2 (07:51→21:15)
[2022-01-18 11:46] LABS: Bedside Glucose 368 mg/dL (70-110)
[2022-01-18 17:01] LABS: Bedside Glucose 234 mg/dL (70-110)
[2022-01-18 19:20] VITALS: BP 132/70; PULSE 78; RESP 14; TEMP 36.3; O2SAT 96
[2022-01-18] MEDS: Atorvastatin Calcium 20 MG Tablet PO (21:15)
[2022-01-18 22:00] LABS: Bedside Glucose 156 mg/dL (70-110)
[2022-01-19] MEDS: Levothyroxine 88 MCG Tablet PO (05:34)
[2022-01-19] MEDS: Acetaminophen 500 MG Tablet 1000 MG PO ×3 (05:35→21:08)
[2022-01-19 06:46] LABS: Bedside Glucose 153 mg/dL (70-110)
--- NOTE | 2022-01-19 07:15 | NURSING ---
REVIEWED AND AGREE WITH [employer]'S FUNCTIONAL ASSESSMENT AND HANDOFF CHARTING.
[2022-01-19 07:39] VITALS: BP 124/68; PULSE 66; RESP 16; TEMP 36.1; O2SAT 100
[2022-01-19] MEDS: Insulin Lispro 100 UNIT/ML INSULN.PEN SC ×3 (08:23→17:01)
[2022-01-19] MEDS: metFORMIN HCl 500 MG Tablet PO ×2 (08:24→17:01)
[2022-01-19] MEDS: Aspirin 81 MG TAB.CHEW PO ×2 (08:24→17:01)
[2022-01-19] MEDS: Senna/Docusate Sodium 1 Tablet 2 TABLET PO ×2 (08:24→21:08)
[2022-01-19] MEDS: amLODIPine 10 MG Tablet PO (08:25)
[2022-01-19 11:50] LABS: Bedside Glucose 302 mg/dL (70-110)
[2022-01-19 17:21] LABS: Bedside Glucose 193 mg/dL (70-110)
[2022-01-19 19:07] VITALS: BP 118/71; PULSE 72; RESP 17; TEMP 36.1; O2SAT 98
[2022-01-19] MEDS: Atorvastatin Calcium 20 MG Tablet PO (21:08)
[2022-01-19 22:11] LABS: Bedside Glucose 54 mg/dL (70-110)
[2022-01-20 00:51] LABS: Bedside Glucose 162 mg/dL (70-110)
--- NOTE | 2022-01-20 03:57 | NURSING ---
REVIEWED AND AGREE WITH MANUFACTURING RECRUITER'S FUNCTIONAL ASSESSMENT AND HANDOFF CHARTING.
[2022-01-20] MEDS: Acetaminophen 500 MG Tablet 1000 MG PO ×3 (06:33→21:08)
[2022-01-20] MEDS: Levothyroxine 88 MCG Tablet PO (06:33)
[2022-01-20 07:06] LABS: Bedside Glucose 145 mg/dL (70-110)
[2022-01-20 07:23] VITALS: BP 139/76; PULSE 70; RESP 18; TEMP 36.8; O2SAT 98
[2022-01-20 07:31] LABS: Bedside Glucose 64 mg/dL (70-110)
[2022-01-20 07:31] LABS: Bedside Glucose 91 mg/dL (70-110)
[2022-01-20] MEDS: metFORMIN HCl 500 MG Tablet PO ×2 (07:59→17:14)
[2022-01-20] MEDS: Aspirin 81 MG TAB.CHEW PO ×2 (07:59→17:15)
[2022-01-20] MEDS: Lisinopril 20 MG Tablet PO (08:00)
[2022-01-20] MEDS: amLODIPine 10 MG Tablet PO (08:00)
[2022-01-20 11:21] LABS: Bedside Glucose 298 mg/dL (70-110)
[2022-01-20] MEDS: Insulin Lispro 100 UNIT/ML INSULN.PEN SC ×2 (11:36→17:16)
[2022-01-20 16:56] LABS: Bedside Glucose 192 mg/dL (70-110)
--- NOTE | 2022-01-20 19:02 | PN_ITS ---
Subjective Subjective Afebrile VSS Maintaining appropriate oxygen saturation on RA Oral intake is good Discussed with nursing - no problems that need addressed Reviewed the PT/OT/ST notes - ST thinks she will benefit from additional the rapy prior to DC. She wanted to go home tomorrow but, she agrees to stay for additional cognitive therapy and teaching to use memory aids. Medication list reviewed. The blood sugar record was reviewed and the blood sugars are very labile......yesterday she was 153 in the AM and 302 at noon and then she was hypoglycemic at HS at 54. she had snacks and this AM she was 145 then 298 at noon. I was trying to see if I could control her on 1 dose of Long acting in the AM and Glucophage but I believe she needs the insulin with breakfast.....she is very sensitive to lispro. Pain is well controlled and she has not taken any Oxycodone since 01/17/22. She denies calf pain, shortness of breath, chest pain, cough, sore throat, nausea/vomiting/abdominal pain, dysuria, lightheadedness. She tells me that she is eating well and she is sleeping well at night. Objective Data Objective Data Vital Signs: Vital Signs Temp Pulse Resp BP Pulse Ox 98.3 F 70 18 139/76 H 98 01/20/22 07:23 01/20/22 07:23 01/20/22 07:23 01/20/22 07:23 01/20/22 07:23 Oxygen Delivery Method Room Air Weight: 149 lb 4.047 oz Body Mass Index (BMI) 24.0 Intake & Output: Intake and Output for Last 24 Hours 01/18/22 01/19/22 01/20/22 23:59 23:59 23:59 Intake Total 1919 360 / 360 Balance 1919 360 / 360 Lab / Micro Data Result Diagrams: 01/18/22 06:59 01/18/22 06:59 Labs: Laboratory Results - last 24 hr 01/19/22 22:02: POC Glucose 54 L 01/19/22 22:18: POC Glucose 64 L 01/19/22 22:33: POC Glucose 91 01/20/22 00:44: POC Glucose 162 H 01/20/22 06:49: POC Glucose 145 H 01/20/22 11:14: POC Glucose 298 H 01/20/22 16:51: POC Glucose 192 H Physical Exam Const alert and oriented x3 General Appearance: cooperative Resp normal respiratory effort, normal air movement and clear to auscultation bilaterally Resp Narrative: Able to speak in complete sentences with no tachypnea or respiratory distress. Cardio regular rate, regular rhythm and no gallops Cardio Narrative: No ectopy GI normal to inspection, nondistended, normoactive bowel sounds, soft to palpation and non-tender GI Narrative: No guarding with palpation Extremity normal capillary refill General Extremity: Negative for clubbing, cyanosis or edema Skin Skin Narrative: The incision is healing well with no dehiscence, erythema or purulent discharge. Neuro CN's II-XII intact bilaterally, no focal motor deficits and no sensory deficits noted Psych Psych Narrative: She is anxious and worried that she is losing her memory and that dementia runs in the family and she has a cousin her age who is already in a LT care facility. Assessment & Plan Assessment/Plan (1) Uncontrolled diabetes mellitus: (2) Memory deficit: (3) S/P hip hemiarthroplasty: (4) Closed fracture of right hip: QUALIFIERS: Encounter type: initial encounter Qualified Code(s): S72.001A - Fracture of unspecified part of neck of right femur, initial encounter for closed fracture PLAN: 1. BMP in the AM 2. B12 and RPR in the AM. TSH and the T4 are WNL 3. Needs a CT head or MRI at DC to evaluate for cause of memory loss. 4. Will ask for a consult with Dr. Wise to manage the blood sugars without putting her at risk for hypoglycemia......I think we need to simplify the regimen because of the memory loss and the fact that she sometimes can not remember if she took her insulin or not and sometimes she does forget to take it. She could not remember the dose of the Toujeo she has been taking every day. 5. Will discuss the memory issues with Dr. Dennison prior to her DC and she will be following up with Dr. Dennison. Charges/Coding Visit Charges Inpatient E&M: 05278 Subs Hosp L2
[2022-01-20 19:22] VITALS: BP 120/69; PULSE 73; RESP 16; TEMP 36.5; O2SAT 98
[2022-01-20] MEDS: Atorvastatin Calcium 20 MG Tablet PO (21:08)
[2022-01-20 21:31] LABS: Bedside Glucose 191 mg/dL (70-110)
[2022-01-21] MEDS: Levothyroxine 88 MCG Tablet 44 MCG PO (06:02)
[2022-01-21] MEDS: Acetaminophen 500 MG Tablet 1000 MG PO ×3 (06:03→21:09)
[2022-01-21 06:34] LABS: Anion Gap 5 (5-15); BUN 15 mg/dL (7-18); BUN/Creat Ratio 21.6 RATIO (10-20); Calcium,Total 8.6 mg/dL (8.5-10.1); Chloride 103 mmol/L (98-107); Creatinine, Serum 0.69 mg/dL (0.55-1.02); EST Glomerular Filtration Rate 89 mL/min (>60); Est Glom Filt Rate - Afr Amer 108 mL/min (>60); Glucose 106 mg/dL (74-106); Sodium Level 136 mmol/L (136-145)
[2022-01-21 06:41] LABS: Bedside Glucose 102 mg/dL (70-110)
[2022-01-21] MEDS: metFORMIN HCl 500 MG Tablet PO ×2 (07:48→17:18)
[2022-01-21] MEDS: Aspirin 81 MG TAB.CHEW PO ×2 (07:48→17:18)
[2022-01-21] MEDS: Lisinopril 20 MG Tablet PO (07:48)
[2022-01-21] MEDS: amLODIPine 10 MG Tablet PO (07:50)
[2022-01-21 08:06] VITALS: BP 134/75; PULSE 72; RESP 19; TEMP 36.4; O2SAT 98
[2022-01-21 08:45] LABS: Syphilis Antibodies Non-reactive; Vitamin B12 > 2000 pg/mL (211-911)
[2022-01-21 11:06] LABS: Bedside Glucose 235 mg/dL (70-110)
--- NOTE | 2022-01-21 11:24 | PN_ITS ---
Subjective Subjective Afebrile VSS Maintaining appropriate oxygen saturation on RA Oral intake is okay-mucous membranes are moist. The BUN/creatinine ratio is still elevated. Discussed with nursing - no problems that need addressed Reviewed the PT/OT/ST notes Medication list reviewed. Blood sugar record was reviewed. Fasting blood sugar was good today however she increased to 235 at lunch. All lab was personally reviewed. The B12 is 2000 and the RPR is negative. TSH and T4 are WNL. No complaints today other than she is worried that her blood sugars are high. Alert, oriented X 3 Lungs - CTA HRRR abd - soft , NT, ND no ankle edema and no calf pain the incision is intact with no DC and no significant erythema. Impressions 1. Hip fracture - S/P ORIF 2. Uncontrolled DM II - Diagnosed with diabetes about 16 years ago 3. memory deficits with a + FH of dementia. B12 normal, TSH and T4 WNL on supplementation, RPR negative, Will need an TONE as an OP to r/o lupus cerebritis and a CT head or MRI to look for tumors, NPH, white matter disease, etc as etiology of the memory loss that has been progressing, jessica in the past [address] Wise to help simplify her regimen and decrease risk for hypoglycemia and to get the HGBA1C down. Teleconsult. Will follow up with Dr. Dennison to complete the W/U for dementia. May need a referral to Dr. 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 DC on Thursday - home F/U with orthopedics Objective Data Objective Data Vital Signs: Vital Signs Temp Pulse Resp BP Pulse Ox 97.6 F L 72 19 H 134/75 H 98 01/21/22 08:06 01/21/22 08:06 01/21/22 08:06 01/21/22 08:06 01/21/22 08:06 Oxygen Delivery Method Room Air Weight: 149 lb 4.047 oz Body Mass Index (BMI) 24.0 Intake & Output: Intake and Output for Last 24 Hours 01/19/22 01/20/22 01/21/22 23:59 23:59 23:59 Intake Total 360 / 360 Balance 360 / 360 Lab / Micro Data Result Diagrams: 01/18/22 06:59 01/21/22 05:37 Labs: Laboratory Results - last 24 hr 01/20/22 16:51: POC Glucose 192 H 01/20/22 21:09: POC Glucose 191 H 01/21/22 05:37: Vitamin B12 > 2000 H, Syphilis Total Ab Non-reactive 01/21/22 05:37: Sodium 136, Potassium 5.0, Chloride 103, Carbon Dioxide 28.0, Anion Gap 5, BUN 15, Creatinine 0.69, Estim Creat Clear Calc 49.70, Est GFR (MDRD) Af Amer 108, Est GFR (MDRD) Non-Af 89, BUN/Creatinine Ratio 21.6 H, Glucose 106, Calcium 8.6 01/21/22 06:29: POC Glucose 102 01/21/22 11:01: POC Glucose 235 H Charges/Coding Visit Charges Inpatient E&M: 03712 Subs Hosp L2
[2022-01-21] MEDS: Insulin Lispro 100 UNIT/ML INSULN.PEN SC (12:14)
[2022-01-21 14:36] LABS: Bedside Glucose 132 mg/dL (70-110)
--- NOTE | 2022-01-21 16:11 | CON.PCM_ITS ---
Assessment & Plan Assessment/Plan (1) Diabetes 1.5, managed as type 1: PLAN: The patient is a thin type 2 diabetic. She has no family history of diabetes. It is possible that she was a late onset type 1. She states that another pre sales systems engineer worked her up for late onset type 1, but it was negative. She is sensitive to insulin. It is unlikely that we will be able to get her off of meal time insulin. We discussed changing to premix 50-50 tid with meals so she is only on one insulin, but she likes the flexibility of being able to skip a meal. On premix, meals need to be regularly spaced. I discussed with her some strategies for how to remember if she took her insulin. I think the best for her would be to have a dedicated diabetes calender where she graham each time she takes her insulin and the doses so she can look back later and she that she took it. Unfortunately, insulin sensitive diabetes is complicated. I reviewed her blood sugars. Her best blood sugar is in the morning and then they rise during the day, to fall again over night. This means that her Toujeo dose is too high. Decrease Toujeo from 35 units to 38 units. Program Lispro 6 units TID with meals and adjust as needed. I will also order for her a Dominguez 2 CGM from [employer]. Medicare will cover this. It will allow her to rest her sore fingers, as well as it will beep at her if her blood sugar is too high and MOST importantly if her blood sugar is too low. The patient will see me in the office within 2 weeks of discharge and we will continue to work with her to develop strategies for improved control and improved safety. I have spent [60] minutes today reviewing labs, records and history. Time includes coordinating care, interpretation of tests, discussion with patient's other health care providers via telephone. This also includes time I spent with the patient for exam, treatment plan and education as well as documenting clinical information. HPI Consult Data Date of Consult: 01/21/22 HPI Narrative HPI Narrative: MARISSA WINKLER, is a 71 F who was diagnosed with diabetes mellitus in 2004. She was briefly started on oral agents which did not work. She was then placed on insulin. She is currently taking Toujeo once a day and Humalog with meals. Her A1Cs are always over 8%. She is worried because she sometimes forgets if she has taken her insulin or not. I was asked to see the patient in order to potentially simplify her medication regimen. [facility] Medical History (Updated 01/21/22 @ 16:[address] Josiah Wise MD) Cervical lymphadenopathy Closed fracture of right hip Current use of insulin Diabetes 1.5, managed as type 1 Hypertension Hypothyroidism Osteoarthritis Osteoporosis Post-menopausal Type 2 diabetes mellitus Venous insufficiency of both lower extremities Home Medications calcium carbonate 600 mg calcium (1,500 mg) tablet 600 mg PO BID tab 01/19/18 [History Last Taken 01/11/22 07:30] cholecalciferol (vitamin D3) 50 mcg (2,000 unit) capsule 2,000 unit PO BID 01/19/18 [History Last Taken 01/11/22 07:30] pen needle, diabetic 31 gauge x / #200 ea 11/19/20 [Rx Last Taken Unknown] compr.stocking,thigh,reg,large #2 ea 10/21/21 [Rx Last Taken Unknown] amlodipine 10 mg PO DAILY 01/11/22 [History Last Taken 01/10/22 07:30] mecobal-levomefolat Ca-B6 phos 1 tab PO BID 01/11/22 [History Last Taken 01/11/22 07:30] rosuvastatin 10 mg PO DAILY 01/11/22 [History Last Taken 01/11/22 07:30] Prolia 60 mg SC [id number] 01/13/22 [History Last Taken Unknown] Toujeo SoloStar U-300 Insulin See Rx Instructions .ROUTE .COMPLEX 01/13/22 [Hi story Last Taken Unknown] acetaminophen [Tylenol] 650 mg PO Q6H PRN PRN #0 tab 01/13/22 [Rx Last Taken Unknown] aspirin 81 mg PO 0800,1700 01/13/22 [History Last Taken Unknown] insulin lispro [Humalog KwikPen Insulin] 5 unit SUBCUT TIDAC 01/13/22 [History Last Taken Unknown] insulin lispro [Humalog KwikPen Insulin] See Protocol SUBCUT TIDAC 01/13/22 [History Last Taken Unknown] levothyroxine See Rx Instructions .ROUTE .COMPLEX 01/13/22 [History Last Taken Unknown] lisinopril 20 mg PO DAILY 01/13/22 [History Last Taken Unknown] oxycodone 5 mg PO Q4H PRN PRN 01/13/22 [History Last Taken Unknown] sennosides-docusate sodium [Stool Softener-Stimulant Laxat] 2 tab PO BID 01/13/22 [History Last Taken Unknown] Allergy/AdvReac Type Severity Reaction Status Date / Time Tetracyclines Allergy Hives Verified 01/11/22 19:25 Family History Father Hypertension Cancer kidney Mother Hypertension Surgical History History of right hip hemiarthroplasty History of tonsillectomy S/P hip hemiarthroplasty Social History Smoking Status: Never smoker alcohol intake: never substance use type: does not use what type of physical activity do you participate in: walking frequency: daily ROS Constitutional Constitutional: Reports weight gain; Denies fever(s) or malaise Eyes Eyes: Denies blurry vision ENT HEENT: Denies abnormal hearing Cardiovascular Cardiovascular: Denies chest pain or palpitations Respiratory/Chest Respiratory/Chest: Denies cough or shortness of breath at rest Gastrointestinal Gastrointestinal: Denies abdominal pain Genitourinary Genitourinary: Denies dysuria Musculoskeletal Musculoskeletal: Reports extremity pain Psychiatric Psychiatric: Reports anxiety Physical Exam Const alert, oriented x3, no apparent distress and well nourished General Appearance: cooperative HEENT head/scalp atraumatic and moist oral mucous membranes Eyes EOMs intact bilaterally Neck supple General: trachea midline Resp normal respiratory effort Auscultation: Negative for wheezes Cardio regular rate and regular rhythm GI normal to inspection, nondistended, normoactive bowel sounds Skin skin turgor normal Neuro CN's II-XII intact bilaterally Psych affect normal Appearance: appropriate Lab / Micro Data Result Diagrams: 01/18/22 06:59 01/21/22 05:37 Labs: Laboratory Results - last 24 hr 01/20/22 16:51: POC Glucose 192 H 01/20/22 21:09: POC Glucose 191 H 01/21/22 05:37: Vitamin B12 > 2000 H, Syphilis Total Ab Non-reactive 01/21/22 05:37: Sodium 136, Potassium 5.0, Chloride 103, Carbon Dioxide 28.0, Anion Gap 5, BUN 15, Creatinine 0.69, Estim Creat Clear Calc 49.70, Est GFR (MDRD) Af Amer 108, Est GFR (MDRD) Non-Af 89, BUN/Creatinine Ratio 21.6 H, Glucose 106, Calcium 8.6 01/21/22 06:29: POC Glucose 102 01/21/22 11:01: POC Glucose 235 H 01/21/22 14:27: POC Glucose 132 H
[2022-01-21 16:26] LABS: Bedside Glucose 109 mg/dL (70-110)
[2022-01-21] MEDS: Insulin Lispro 100 UNIT/ML INSULN.PEN 6 UNIT SC (17:46)
[2022-01-21 19:06] VITALS: BP 127/69; PULSE 80; RESP 15; TEMP 36.7; O2SAT 98
[2022-01-21] MEDS: Senna/Docusate Sodium 1 Tablet 2 TABLET PO (21:08)
[2022-01-21] MEDS: Atorvastatin Calcium 20 MG Tablet PO (21:09)
--- NOTE | 2022-01-21 21:27 | NURSING ---
Pt BS this hs was 63. Pt asymptomatic. OJ and peanut butter provided with yogurt. 2nd BS check was 80. Will continue with protocol.
[2022-01-21 22:00] VITALS: PULSE 80; RESP 16; O2SAT 98
[2022-01-21 22:01] LABS: Bedside Glucose 111 mg/dL (70-110)
[2022-01-21 22:01] LABS: Bedside Glucose 80 mg/dL (70-110)
[2022-01-21 22:01] LABS: Bedside Glucose 63 mg/dL (70-110)
[2022-01-21 23:06] LABS: Bedside Glucose 131 mg/dL (70-110)
[2022-01-22 00:36] LABS: Bedside Glucose 168 mg/dL (70-110)
[2022-01-22] MEDS: Acetaminophen 500 MG Tablet 1000 MG PO ×3 (05:47→20:11)
[2022-01-22] MEDS: Levothyroxine 88 MCG Tablet PO (05:47)
[2022-01-22 07:05] LABS: Bedside Glucose 93 mg/dL (70-110)
[2022-01-22 07:37] VITALS: BP 124/66; PULSE 71; RESP 16; TEMP 36.5; O2SAT 94
[2022-01-22] MEDS: metFORMIN HCl 500 MG Tablet PO ×2 (08:05→17:24)
[2022-01-22] MEDS: amLODIPine 10 MG Tablet PO (08:05)
[2022-01-22] MEDS: Insulin Lispro 100 UNIT/ML INSULN.PEN 6 UNIT SC ×2 (08:05→17:24)
[2022-01-22] MEDS: Aspirin 81 MG TAB.CHEW PO ×2 (08:05→17:24)
[2022-01-22] MEDS: Senna/Docusate Sodium 1 Tablet 2 TABLET PO (08:06)
[2022-01-22 11:11] LABS: Bedside Glucose 81 mg/dL (74-106)
[2022-01-22 16:20] LABS: Bedside Glucose 133 mg/dL (74-106)
[2022-01-22 20:00] VITALS: BP 119/71; PULSE 73; RESP 14; TEMP 36.7; O2SAT 99
[2022-01-22] MEDS: Atorvastatin Calcium 20 MG Tablet PO (20:11)
[2022-01-22 21:31] LABS: Bedside Glucose 52 mg/dL (74-106)
[2022-01-22 21:31] LABS: Bedside Glucose 79 mg/dL (74-106)
[2022-01-22 21:56] LABS: Bedside Glucose 133 mg/dL (74-106)
[2022-01-22 23:16] LABS: Bedside Glucose 139 mg/dL (74-106)
--- NOTE | 2022-01-22 23:18 | NURSING ---
Addendum entered by Diane Horton 01/23/22 06:22: blood sugar should read 52 at the 1999 documentation and not 59 Original Note: 1999 pt blood sugar was 59 when checked this hs and pt reports that she felt a little low. pt stated that her spouse had already brought her a snack that she had eaten. pt given another snack and will recheck blood sugar. 2044 blood sugar was 79, pt finished apple juice and cookies and that spouse gave here earlier 2154 blood sugar is now 133. 2299 blood sugar is 139. pt reports that she is with out sx and got up to the br and returned to bed. no other needs are voiced. rn aware of pt blood sugar values
--- NOTE | 2022-01-23 05:14 | NURSING ---
Reviewed and agree with COACH CLEANER documentation and assessment charting.
[2022-01-23] MEDS: Levothyroxine 88 MCG Tablet PO (05:41)
[2022-01-23] MEDS: Acetaminophen 500 MG Tablet 1000 MG PO ×3 (05:41→20:24)
[2022-01-23 06:26] LABS: Bedside Glucose 158 mg/dL (74-106)
[2022-01-23 07:47] VITALS: BP 121/67; PULSE 72; RESP 17; TEMP 36.6; O2SAT 97
[2022-01-23] MEDS: Insulin Lispro 100 UNIT/ML INSULN.PEN SC ×3 (08:03→17:53)
[2022-01-23] MEDS: amLODIPine 10 MG Tablet PO (08:04)
[2022-01-23] MEDS: metFORMIN HCl 500 MG Tablet PO ×2 (08:04→17:53)
[2022-01-23] MEDS: Aspirin 81 MG TAB.CHEW PO ×2 (08:04→17:53)
[2022-01-23 11:45] LABS: Bedside Glucose 231 mg/dL (74-106)
--- NOTE | 2022-01-23 12:07 | PN_ITS ---
Subjective Subjective Shakira was seen on TEAM rounds today. No family was available to participate. Afebrile VSS Maintaining appropriate oxygen saturation on RA Oral intake is adequate Discussed with nursing - no problems that need addressed Reviewed the PT/OT/ST notes Medication list reviewed. Blood sugar record was reviewed. Dr. Wise's consult was reviewed and much appreciated. She will follow up with Dr. Wise in the office within 2 weeks of DC from rehab. Dr. Wise is ordering a Dominguez 2CGM for her so she does not have to poke her fingers all the time and because it alarms if she is hypoglycemic or the BS is very high. Shakira tells me that she has occasionally felt depressed but this is not a general rule. She sleeps well and has a good appetite. Unfortunately if her blood sugar is high she just does not eat and when it is low she is not making good choices about what to do. She does not have adequate protein intake and the supervisor bottle house cleaners has been working to educate her and thinks she would be a good candidate to follow up with the supervisor bottle house cleaners's as an OP. She is very sensitive to insulin and Dr. Wise suspects she is actually a late onset Type I diabetic and not a Type II. She is back on Toujeo at a lower dose of 28 and meal time Lispro. Shakira denies calf pain, shortness of breath, chest pain, sore t hroat, cough, dysuria. Her bowels are moving regularly. She is doing very well in therapy. Objective Data Objective Data Vital Signs: Vital Signs Temp Pulse Resp BP Pulse Ox 97.9 F 72 17 121/67 H 97 01/23/22 07:47 01/23/22 07:47 01/23/22 07:47 01/23/22 07:47 01/23/22 07:47 Oxygen Delivery Method Room Air Weight: 149 lb 4.047 oz Body Mass Index (BMI) 24.0 Intake & Output: Intake and Output for Last 24 Hours 01/21/22 01/22/22 01/23/22 23:59 23:59 23:59 Intake Total 720 / 720 400 / 400 Balance 720 / 720 400 / 400 Lab / Micro Data Result Diagrams: 01/18/22 06:59 01/21/22 05:37 Labs: Laboratory Results - last 24 hr 01/22/22 16:11: POC Glucose 133 H 01/22/22 20:18: POC Glucose 52 L 01/22/22 20:43: POC Glucose 79 01/22/22 21:52: POC Glucose 133 H 01/22/22 23:04: POC Glucose 139 H 01/23/22 06:14: POC Glucose 158 H 01/23/22 11:39: POC Glucose 231 H Physical Exam Const alert, oriented x3 and no apparent distress Constitutional Narrative: She is doing everything the speech therapist asks of her but, she does not like it because when she can not come up with the correct answers. General Appearance: cooperative Eyes EOMs intact bilaterally, conjunctivae normal and no scleral icterus Neck no carotid bruits Resp normal respiratory effort, normal air movement and clear to auscultation bilaterally Effort and Inspection: able to speak in complete sentences Cardio regular rate, regular rhythm, no murmurs and no gallops GI normal to inspection, nondistended, normoactive bowel sounds, soft to palpation and non-tender Extremity no calf tenderness and no pedal edema Skin General Skin Exam: no breakdown Rashes: no rashes Wound Narrative: the incision is intact with no erythema and no purulent DC Hair: normal Neuro no focal motor deficits and no sensory deficits noted Assessment & Plan Assessment/Plan (1) Physical debility: (2) Fall: (3) Fracture of right hip: (4) History of right hip hemiarthroplasty: (5) Acute blood loss anemia: (6) Diabetes 1.5, managed as type 1: (7) Anosmia: (8) Hypogeusia: (9) Memory deficit: (10) Uncontrolled diabetes mellitus: PLAN: 1. Needs an TONE and a MRI of the brain to complete work up for causes of memory loss. 2. If the W/U is negative for treatable causes of dementia would have her follow up with Dr. Oneida Lipscomb who is a reduction furnace operator specializing in dementia and providing comprehensive care for dementia patients. 3. She is going to follow up with Dr. Dennison and Dr. Wise in about 2 weeks. She will also be following up with Dr. Sebastian Boyer 4. I spoke with her dtr Sapphire on the phone and updated her on the findings/work up for memory loss and encouraged he to accompany her mother to the appts with Dr. Dennison and Dr. Wise. She is aware of memory loss but she thought it was all due to low blood sugars. 5. Plan DC home on 01/25/22 with OP PT/ST at [facility] 6. check a potassium in the AM....everything else is stable Charges/Coding Visit Charges Inpatient E&M: 70431 Subs Hosp L2
--- NOTE | 2022-01-23 16:07 | CASEMGMT ---
Social Work IDT met with patient for Team meeting. Discussed patient's progress in PT/OT/ST and nursing. Pt progressing well and all agreeable for DC 01/25. Pt would like outpatient therapy at [facility] for PT/ST. Referral made. No DME needs. Pt has own transport. Plan: DC home 01/25, [facility] PT/ST Joan Hernadez, CLOTH COVERER CLUBHOUSE MANAGER
[2022-01-23 16:46] LABS: Bedside Glucose 86 mg/dL (74-106)
[2022-01-23] MEDS: Senna/Docusate Sodium 1 Tablet 2 TABLET PO (20:24)
[2022-01-23] MEDS: Atorvastatin Calcium 20 MG Tablet PO (20:25)
[2022-01-23 21:15] LABS: Bedside Glucose 75 mg/dL (74-106)
[2022-01-23 22:00] VITALS: BP 122/76; PULSE 73; RESP 17; TEMP 36.5; O2SAT 97
[2022-01-24] MEDS: Levothyroxine 88 MCG Tablet PO (05:36)
[2022-01-24] MEDS: Acetaminophen 500 MG Tablet 1000 MG PO ×3 (05:37→19:41)
[2022-01-24 06:01] LABS: Bedside Glucose 150 mg/dL (74-106)
[2022-01-24 08:32] VITALS: BP 137/73; PULSE 71; RESP 16; TEMP 36.4; O2SAT 96
[2022-01-24] MEDS: metFORMIN HCl 500 MG Tablet PO ×2 (09:15→16:52)
[2022-01-24] MEDS: amLODIPine 10 MG Tablet PO (09:15)
[2022-01-24] MEDS: Lisinopril 20 MG Tablet PO (09:15)
[2022-01-24] MEDS: Insulin Lispro 100 UNIT/ML INSULN.PEN SC ×3 (09:15→16:55)
[2022-01-24] MEDS: Aspirin 81 MG TAB.CHEW PO ×2 (09:15→16:52)
--- NOTE | 2022-01-24 11:36 | DCINST_ITS ---
Discharge Instructions Diet Discharge Diet: Carb Control Diet (3-4 carb servings per meal. Make sure you are getting protein with every meal.) Activity Discharge Activity: May Not Drive, May Shower, Use Walker and - (may use a cane in the house if you feel comfortable) Lifting Restrictions: No lifting until cleared by Dr. Boyer. Keep extremity elevated above heart level: Right Leg Additional Activity Instructions:: 1. No flexing of the hip greater than 90 degrees 2. Do not cross your legs 3. No twisting Dressing / Incision Call your doctor if your incision/area has: Continuous Slow Oozing, Increased Pain/ Swelling, Increased Redness, Foul Smelling Discharge and Swelling at the incision site Call your doctor if you observe: Fever of 101 or Higher, Coldness, Increased Pain, Numbness or Tingling (of the R leg), Inability to have a bowel movement, Shortness of breath, Dizziness, Fainting spells, Swelling in the ankles, Chest pain, Increased palpitations (irregular heartbeat), Calf discomfort and Uncontrolled pain Suture Line Care: Avoid Pulling/Pushing, Avoid Pinching/Bending and - (You may leave the dressing off OR you can cover with a dry dressing if desired. ) Cleanse incision/area with: Soap & Water Follow Up Care Please Follow Up With: Sebastian Boyer MD When: 01/29/22 at 3:15 PM Test Results: Test results from this visit will be discussed in further detail at your follow-up appointment, if applicable. Pending Tests Upon Discharge: none Discharge Plan Admission Admit Date/Time: 01/13/22 16:10 Primary Reason for Your Visit: Debility due to R hip fracture and ORIF Attending Provider: Ninoska Perry Primary Care Provider: Jesu Dennison Consulting Providers: Josiah Wise Instructions Patient Instructions: Hypoglycemia (Low Blood Sugar), Depression Affects Your M ind ..., Nutrition and MyPlate Protein Foods, Hypoglycemia Steps, ED Depression Additional Instructions / Restrictions: 1. You must increase the protein in your diet for at least the next 6 weeks so that the wound and the bone can heal properly. 2. Don't stop eating even if the blood sugar is high. You need to eat to heal. If the BS is consistently over [address] Wise [address] Dr. Dennison for instructions on how to adjust the insulin dosing. 3. If your blood sugar is low it is OK to eat something sweet like a tablespoon of honey or 3-4 glucose tabs or 4 ounces of a fruit juice or a soda (non-diet soda). Then recheck the blood sugar in 15 minutes. 4. Keep a chart of when you are supposed to take your insulin and devon it off when have taken that dose so if you don't remember if you took your insulin you can refer to your chart. I think it may bee a good idea to do this with your other meds as well........so you don't miss doses. 5. You will see Dr. Dennison and Dr. Wise both on 01/28/22 since they are in the same office. I think it would be a good idea to have Sapphire go with you........it is always good to have a second pair of ears when something important is being said. You will see Dr. Boyer on 01/29/22. 6. You know you have some memory challenges and this is scary. IF you have dementia then we have caught it very early and this is the ideal time to start taking steps to fight further decline in memory. The medications and interventions work MUCH better when the disease is detected early. There is new research being done all the time and we already have some effective medications. If you have dementia the longer you ignore the problem the more advanced the disease will be before you get treated and the results will not be as good. Use your daughter as a support system....everyone needs support when they are afraid. 7. It has been a pleasure meeting you Shakira. You are a strong woman with good pain tolerance and you have worked hard in rehab. I hope we have not added to your stress. I will update Dr. Dennison on your progress in rehab and the other things we have addressed since you have been in rehab. You are in great hands with Dr. Dennison and Dr. Wise. I would not refer my patients to anyone I would not see myself or have my family see. I think highly of both of them. 8. If you have any questions for me after you leave rehab please do not hesitate to reach out to me. OFFICE: [phone] CELL: [phone]. Discharge Orders/Prescriptions Prescriptions: New acetaminophen 500 mg Tablet 1,000 mg PO Q8H PRN PRNQty: 0 RF: 0 Toujeo SoloStar U-300 Insulin 300 unit/mL (1.5 mL) Insulin Pen 28 unit subcut DAILY 30 Days Qty: 2.799 RF: 0 amlodipine 10 mg Tablet 10 mg PO DAILY Qty: 0 RF: 0 Continued cholecalciferol (vitamin D3) 2,000 unit capsule 2,000 unit PO BID RF: 0 rosuvastatin 10 mg Tablet 10 mg PO DAILY RF: 0 mecobal-levomefolat Ca-B6 phos 3-35-2 mg Tablet 1 tab PO BID RF: 0 levothyroxine 88 mcg tablet See Rx Instructions .ROUTE .COMPLEX RF: 0 insulin lispro [Humalog KwikPen Insulin] 100 unit/mL insulin pen 5 unit subcut TIDAC RF: 0 Prolia 60 mg/mL syringe 60 mg SC [id number] RF: 0 lisinopril 20 mg tablet 20 mg PO DAILY Qty: 30 RF: 0 calcium carbonate [Calcium 600] 600 mg calcium (1,500 mg) tablet 600 mg PO BID Qty: 0 RF: 0 amlodipine 10 mg tablet 10 mg PO DAILY Qty: 30 RF: 0 aspirin 81 mg tablet,chewable 81 mg PO 0800,1700 Qty: 0 RF: 0 sennosides-docusate sodium [Stool Softener-Stimulant Laxat] 8.6-50 mg tablet 2 tab PO BID Qty: 120 RF: 0 (DME) pen needle, diabetic [[place] II Pen Needle] 31 gauge x 1/4 needle See Rx Instructions .ROUTE .MEDSUPPLY Qty: 200 RF: 3 Discontinued acetaminophen [Tylenol] 325 mg Tablet 650 mg PO Q6H PRN PRN (Reason: Pain Score 1-10/Temp > 100.7 F) Qty: 0 RF: 0 oxycodone 5 mg tablet 5 mg PO Q4H PRN PRN (Reason: Pain) RF: 0 insulin lispro [Humalog KwikPen Insulin] 100 unit/mL insulin pen See Protocol unit subcut TIDAC RF: 0 Toujeo SoloStar U-300 Insulin 300 unit/mL (1.5 mL) insulin pen See Rx Instructions .ROUTE .COMPLEX RF: 0 No Action (DME) compr.stocking,thigh,reg,large Misc See Rx Instructions .ROUTE .MEDSUPPLY Qty: 2 RF: 0 Referrals / Follow Up: Jesu Dennison MD [Primary Care Provider] - 01/28/22 2:15 pm Sebastian Boyer MD [STAFF PHYSICIAN] - 01/29/22 3:15 pm Josiah Wise MD [STAFF PHYSICIAN] - 01/28/22 3:15 am Disposition Disposition (needs filled in before D/C Order can be placed): Home, Self Care
[2022-01-24 12:16] LABS: Bedside Glucose 316 mg/dL (74-106)
--- NOTE | 2022-01-24 13:10 | DS.PCM_ITS ---
Providers Date of Admission: 01/13/22 Date of Discharge: 01/25/22 Primary Care Physician: Dr. Jesu Dennison MD Consultations 01/21/22 11:26 Consult: Endocrinology Routine Consulting Provider: Josiah Wise Reason for Consult: uncontrolled DM EMERGENT Consult: Yes MD Notified: Yes Date Notified: 01/21/22 Time Notified: 08:00 Method of Notification: Verbal Reason For Visit: RIGHT HIP FRACTURE Diagnosis Discharge Diagnosis (1) Physical debility: Status: Acute Code(s): R53.81 - Other malaise (2) Fall: Status: Acute Code(s): W19.XXXA - Unspecified fall, initial encounter (3) Fracture of right hip: Status: Acute Code(s): S72.001A - Fracture of unspecified part of neck of right femur, initial encounter for closed fracture (4) History of right hip hemiarthroplasty: Status: Inactive Code(s): Z96.641 - Presence of right artificial hip joint (5) Acute blood loss anemia: Status: Acute Code(s): D62 - Acute posthemorrhagic anemia (6) Diabetes 1.5, managed as type 1: Status: Chronic Code(s): E13.9 - Other specified diabetes mellitus without complications (7) Anosmia: Status: Chronic Code(s): R43.0 - Anosmia (8) Hypogeusia: Status: Chronic Code(s): R43.8 - Other disturbances of smell and taste (9) Memory deficit: Status: Chronic Code(s): R41.3 - Other amnesia (10) Uncontrolled diabetes mellitus: Status: Chronic Code(s): E11.65 - Type 2 diabetes mellitus with hyperglycemia (11) Hypothyroidism: Status: Chronic Code(s): E03.9 - Hypothyroidism, unspecified (12) Venous insufficiency of both lower extremities: Status: Chronic Code(s): I87.2 - Venous insufficiency (chronic) (peripheral) (13) Hypertension: Status: Chronic Code(s): I10 - Essential (primary) hypertension Qualifiers: Hypertension type: primary hypertension Qualified Code(s): I10 - Essential (primary) hypertension Plan: DC home with OP PT/ST at [facility]. No DME needs. Follow up with Dr. Wise and Dr. Dennison on 01/28/[address] Sebastian Boyer on 01/29/22. Medications at Discharge Home Medications cholecalciferol (vitamin D3) 50 mcg (2,000 unit) capsule 2,000 unit PO BID 01/19/18 pen needle, diabetic 31 gauge x 1/4 #200 ea 11/19/20 compr.stocking,thigh,reg,large #2 ea 10/21/21 mecobal-levomefolat Ca-B6 phos 1 tab PO BID 01/11/22 rosuvastatin 10 mg PO DAILY 01/11/22 Prolia 60 mg SC [id number] 01/13/22 insulin lispro [Humalog KwikPen Insulin] 5 unit SUBCUT TIDAC 01/13/22 levothyroxine See Rx Instructions .ROUTE .COMPLEX 01/13/22 acetaminophen 1,000 mg PO Q8H PRN PRN #0 tab 01/24/22 amlodipine 10 mg PO DAILY #0 tab 01/24/22 amlodipine 10 mg PO DAILY #30 tab 01/24/22 aspirin 81 mg PO 0800,1700 #0 tab 01/24/22 calcium carbonate [Calcium 600] 600 mg PO BID #0 tab 01/24/22 insulin glargine U-300 conc [Toujeo SoloStar U-300 Insulin] 28 unit SUBCUT DAILY 30 Days #2.799 ml 01/24/22 lisinopril 20 mg PO DAILY #30 tab 01/24/22 sennosides-docusate sodium [Stool Softener-Stimulant Laxat] 2 tab PO BID #120 tab 01/24/22 Hospital Course Operations - Procedures - (R hip hemiarthroplasty on 01/12/[address] Sebastian Boyer.) Summary of Care Provided Minutes Spent on Discharge: 45 Hospital Course: SHAKIRA WINKLER, is a 71 YO F with a PMH of diabetes mellitus type 2 (poorly controlled with HGBA1C's > 8), hypertension, hypothyroidism, osteoarthritis and venous insufficiency of both lower extremities. She presented to the emergency department at [facility] on 01/11/2022 complaining of right hip pain after falling over her dog at home. X-ray in the emergency department showed a right femoral neck fracture. Dr. Sebastian Boyer was consulted and after discussing the fracture and surgical options with the patient and her family she was scheduled for a right hip hemiarthroplasty which was done on 01/12/22. The post operative course was unremarkable. She was seen and evaluated by PT/OT post op and the recommendation was made for acute inpt rehab. She was transferred to the acute inpatient unit at [facility] on 01/13/2022 for 3 hours of therapy daily to restore her at or near her level of function prior to the hip fracture. When she arrived on rehab and I was evaluating her she was having some trouble remembering things. She was aware that she has been having problems remembering things for at least 6 months. She admitted to forgetting to take her insulin sometimes and she could not recall the dose of Toujeo that she takes everyday. She was quite upset about this and told me that dementia runs in her family and she has a cousin her age who is in an extended care facility already for dementia. The PT and the OT both brought up to me during her visit that she was having difficulty remembering instructions they had given her. A consult was placed for the speech therapist to evaluate her cognition. She had difficulty on the cognitive testing remembering information given to her after a 15 min lapse in time. She also had difficulty with number sequences longer than 5 numbers. She required verbal cues to assist her memory. A memory book was created w/tabs for months/weekly calendar, notes and education on compensatory strategies. She was educated on internal and external memory strategies and compensatory strategies to address working memory deficits. Continued OP therapy was recommended at [facility] and she will be following up with ST at [facility]. I suspect she has been forgetting to take Levothyroxine at times also because the most recent TSH was higher than her normal. Her T4 was WNL. B12 was 2,000 and an RPR was negative. I did not do an TONE to r/o lupus cerebritis as cause of memory loss and confusion. She has not had an imaging study of the brain to look for NPH, tumors, multiple lacunar infarcts, etc. This will be done as an OP. Shakira has discussed the memory issues with her dtr and I encouraged her dtr to attend the appts with Dr. Wise and Dr. Dennison. If the W/U does not reveal any treatable causes of dementia/memory loss I encouraged her to follow up with Dr. Oneida Lipscomb who is a geothermal powerplant mechanic helper with special interest in dementia who provides comprehensive evaluation and treatment for dementia patients. Because of the memory loss and the trouble with remembering if she took her medications or not I attempted to simplify the diabetic regimen and gave her 1 shot of Toujeo a day and started her on Glucophage to minimize risk for hypoglycemia......this failed miserably and a consult was placed for Dr. Wise. Dr. Wise feels is has late onset Type I diabetes and lispro was restarted with meals. Dr. Wise also decreased the Toujeo to 28 units daily in the AM because she had been having hypoglycemia. She is very sensitive to insulin. Breakfast seems to be her best meal of the day. Dr. Wise was going to order a Dominguez 2CGM for her to decrease the number of times she had to poke her fingers and it will alarm for high BS's and hypoglycemia. She was given literature at [facility] on the sx of hypoglycemia and what to do if she became hypoglycemic. Shakira did very well in therapy. She has not had to take any narcotic since 01/17/22. Prior to discharge she had ambulated 163 feet with a standard cane at supervision. She still needs assistance to don her R sock. She is able to remove her shoes without assistance. She is able to ascend/descend 13 steps with 1 handrail and a straight cane at standby assist. She is independent with all ADLs except for shower transfer. She was instructed to have her supervise her during her initial shower transfers when she is home to allow for safe transition to her living environment. Shakira was discharged home on 01/25/22 and she will follow up with Dr. Wise and Dr. Dennison on 01/28/[address] Boyer on 01/29/22. She will call my office or Cell phone if she has questions prior to seeing Dr. Dennison. Dr. Oneida Lipscomb MD. Board certified in Geriatrics and Internal Medicine. [address] [place] [address] . Also has offices in [facility] Physical Exam Const alert, oriented x3 and no apparent distress General Appearance: cooperative HEENT moist oral mucous membranes Eyes PERRL, EOMs intact bilaterally, conjunctivae normal and no scleral icterus Neck supple, no JVD and no carotid bruits Chest Chest: symmetrical chest wall rise Resp normal respiratory effort, normal air movement, No no use of accessory muscles and clear to auscultation bilaterally Effort and Inspection: able to speak in complete sentences Cardio regular rate, regular rhythm, S1 normal heart sound, S2 normal heart sound, no rub and no gallops Cardio Narrative: There is a soft systolic MM at the LLSB that I suspect may be related to the acute anemia due to increased turbulence. Jugular Venous Distention: Negative for JVD GI normal to inspection, nondistended, normoactive bowel sounds, soft to palpation and non-tender GI Narrative: No guarding with palpation, no organomegaly. Extremity normal capillary refill, no calf tenderness and no pedal edema Skin General Skin Exam: no breakdown Rashes: no rashes Wound Narrative: the incision of the R hip is intact with no erythema, no purulent DC and no significant swelling. The ecchymosis has almost completely resolved. Neuro oriented x3, CN's II-XII intact bilaterally, moves all extremities and no focal motor deficits Psych cooperative Psych Narrative: I would say she has some anxiety about the memory loss. she has been sleeping well and has not been irritable. I gave her a handout on the sx of depression and related to her that untreated depression can lead to memory difficulties. Appearance: appropriate and well kempt Attitude: calm Weight / BMI Weight Weight: 149 lb 0.52 oz Body Mass Index (BMI) 24.0 ABG / Lab / Microbiology Data Result Diagrams: 01/18/22 06:59 01/21/22 05:37 Laboratory: Laboratory Results - last 24 hr 01/23/22 16:39: POC Glucose 86 01/23/22 20:22: POC Glucose 75 01/24/22 05:33: POC Glucose 150 H 01/24/22 12:07: POC Glucose 316 H D/C Instructions Discharge Diet: Carb Control Diet (3-4 carb servings per meal. Make sure you are getting protein with every meal.) Keep extremity elevated above heart level: Right Leg Additional Activity Instructions: 1. No flexing of the hip greater than 90 degrees 2. Do not cross your legs 3. No twisting Call your doctor if your incision/area has: Continuous Slow Oozing, Increased Pain/ Swelling, Increased Redness, Foul Smelling Discharge and Swelling at the incision site Call your doctor if you observe: Fever of 101 or Higher, Coldness, Increased Pain, Numbness or Tingling (of the R leg), Inability to have a bowel movement, Shortness of breath, Dizziness, Fainting spells, Swelling in the ankles, Chest pain, Increased palpitations (irregular heartbeat), Calf discomfort and Uncontrolled pain Suture Line Care: Avoid Pulling/Pushing, Avoid Pinching/Bending and - (You may leave the dressing off OR you can cover with a dry dressing if desired. ) Cleanse incision/area with: Soap & Water Pending Tests Upon Discharge: none Please Follow Up With: Sebastian Boyer MD When: 01/29/22 at 3:15 PM Meaningful Use Info Meaningful Use Diagnoses (Choose all that apply): None applicable Discharge Plan Admission Admit Date/Time: 01/13/22 16:10 Primary Reason for Your Visit: Debility due to R hip fracture and ORIF Attending Provider: Ninoska Perry Primary Care Provider: Jesu Dennison Consulting Providers: Josiah Wise Instructions Patient Instructions: Hypoglycemia (Low Blood Sugar), Depression Affects Your Mind ..., Nutrition and MyPlate Protein Foods, Hypoglycemia Steps, ED Depression Additional Instructions / Restrictions: 1. You must increase the protein in your diet for at least the next 6 weeks so that the wound and the bone can heal properly. 2. Don't stop eating even if the blood sugar is high. You need to eat to heal. If the BS is consistently over [address] Wise or Dr. Dennison for instructions on how to adjust the insulin dosing. 3. If your blood sugar is low it is OK to eat something sweet like a tablespoon of honey or 3-4 glucose tabs or 4 ounces of a fruit juice or a soda (non-diet soda). Then recheck the blood sugar in 15 minutes. 4. Keep a chart of when you are supposed to take your insulin and devon it off when have taken that dose so if you don't remember if you took your insulin you can refer to your chart. I think it may bee a good idea to do this with your other meds as well........so you don't miss doses. 5. You will see Dr. Dennison and Dr. Wise both on 01/28/22 since they are in the same office. I think it would be a good idea to have [place] go with you........it is always good to have a second pair of ears when something important is being said. You will see Dr. Boyer on 01/29/22. 6. You know you have some memory challenges and this is scary. IF you have dementia then we have caught it very early and this is the ideal time to start taking steps to fight further decline in memory. The medications and interventions work MUCH better when the disease is detected early. There is new research being done all the time and we already have some effective medications. If you have dementia the longer you ignore the problem the more advanced the disease will be before you get treated and the results will not be as good. Use your daughter as a support system....everyone needs support when they are afraid. 7. It has been a pleasure meeting you Shakira. You are a strong woman with good pain tolerance and you have worked hard in rehab. I hope we have not added to your stress. I will update Dr. Dennison on your progress in rehab and the other things we have addressed since you have been in rehab. You are in great hands with Dr. Dennison and Dr. Wise. I would not refer my patients to anyone I would not see myself or have my family see. I think highly of both of them. 8. If you have any questions for me after you leave rehab please do not hesitate to reach out to me. OFFICE: [phone] CELL: [phone]. Discharge Orders/Prescriptions Prescriptions: New acetaminophen 500 mg Tablet 1,000 mg PO Q8H PRN PRNQty: 0 RF: 0 Toujeo SoloStar U-300 Insulin 300 unit/mL (1.5 mL) Insulin Pen 28 unit subcut DAILY 30 Days Qty: 2.799 RF: 0 amlodipine 10 mg Tablet 10 mg PO DAILY Qty: 0 RF: 0 Continued cholecalciferol (vitamin D3) 2,000 unit capsule 2,000 unit PO BID RF: 0 rosuvastatin 10 mg Tablet 10 mg PO DAILY RF: 0 mecobal-levomefolat Ca-B6 phos 3-35-2 mg Tablet 1 tab PO BID RF: 0 levothyroxine 88 mcg tablet See Rx Instructions .ROUTE .COMPLEX RF: 0 insulin lispro [Humalog KwikPen Insulin] 100 unit/mL insulin pen 5 unit subcut TIDAC RF: 0 Prolia 60 mg/mL syringe 60 mg SC [id number] RF: 0 lisinopril 20 mg tablet 20 mg PO DAILY Qty: 30 RF: 0 calcium carbonate [Calcium 600] 600 mg calcium (1,500 mg) tablet 600 mg PO BID Qty: 0 RF: 0 amlodipine 10 mg tablet 10 mg PO DAILY Qty: 30 RF: 0 aspirin 81 mg tablet,chewable 81 mg PO 0800,1700 Qty: 0 RF: 0 sennosides-docusate sodium [Stool Softener-Stimulant Laxat] 8.6-50 mg tablet 2 tab PO BID Qty: 120 RF: 0 (DME) pen needle, diabetic [[place] II Pen Needle] 31 gauge x 1/4 needle See Rx Instructions .ROUTE .MEDSUPPLY Qty: 200 RF: 3 Discontinued acetaminophen [Tylenol] 325 mg Tablet 650 mg PO Q6H PRN PRN (Reason: Pain Score 1-10/Temp > 100.7 F) Qty: 0 RF: 0 oxycodone 5 mg tablet 5 mg PO Q4H PRN PRN (Reason: Pain) RF: 0 insulin lispro [Humalog KwikPen Insulin] 100 unit/mL insulin pen See Protocol unit subcut TIDAC RF: 0 Toujeo SoloStar U-300 Insulin 300 unit/mL (1.5 mL) insulin pen See Rx Instructions .ROUTE .COMPLEX RF: 0 No Action (DME) compr.stocking,thigh,reg,large Misc See Rx Instructions .ROUTE .MEDSUPPLY Qty: 2 RF: 0 Referrals / Follow Up: Jesu Dennison MD [Primary Care Provider] - 01/28/22 2:15 pm Sebastian Boyer MD [STAFF PHYSICIAN] - 01/29/22 3:15 pm Josiah Wise MD [STAFF PHYSICIAN] - 01/28/22 3:15 am Disposition Disposition (needs filled in before D/C Order can be placed): Home, Self Care Charges/Coding Visit Charges Inpatient E&M: 52528 Disch Hosp
[2022-01-24 17:11] LABS: Bedside Glucose 151 mg/dL (74-106)
[2022-01-24 19:40] VITALS: BP 134/65; PULSE 74; RESP 17; TEMP 36.5; O2SAT 95
[2022-01-24] MEDS: Atorvastatin Calcium 20 MG Tablet PO (19:42)
--- NOTE | 2022-01-24 21:19 | NURSING ---
BLOOD SUGAR IS 47-PT FEELS NO SYMPTOMS OF LOW BLOOD SUGAR. PT GIVEN ORANGE JUICE TO DRINKS WHICH SHE DRINKS IMMEDIATELY.
--- NOTE | 2022-01-24 21:35 | NURSING ---
PT IS EATING 2ND SMALL CONTAINER OF PEANUT BUTTER WITH CRACKERS. BLOOD SUGAR IS 71.
[2022-01-24 21:41] LABS: Bedside Glucose 71 mg/dL (74-106)
[2022-01-24 21:41] LABS: Bedside Glucose 47 mg/dL (74-106)
[2022-01-24 23:11] LABS: Bedside Glucose 206 mg/dL (74-106)
--- NOTE | 2022-01-25 01:57 | NURSING ---
REVIEWED AND AGREE WITH MICROSTRATEGY ARCHITECT'S FUNCTIONAL ASSESSMENT AND HANDOFF CHARTING.
[2022-01-25] MEDS: Levothyroxine 88 MCG Tablet PO (06:31)
[2022-01-25] MEDS: Acetaminophen 500 MG Tablet 1000 MG PO (06:31)
[2022-01-25 07:06] LABS: Bedside Glucose 223 mg/dL (74-106)
[2022-01-25 07:44] VITALS: BP 127/72; PULSE 67; RESP 16; TEMP 36.4; O2SAT 97
[2022-01-25] MEDS: metFORMIN HCl 500 MG Tablet PO (08:02)
[2022-01-25] MEDS: Aspirin 81 MG TAB.CHEW PO (08:02)
[2022-01-25] MEDS: amLODIPine 10 MG Tablet PO (08:02)
[2022-01-25] MEDS: Insulin Lispro 100 UNIT/ML INSULN.PEN SC (08:02)
--- NOTE | 2022-01-25 09:32 | NURSING ---
19 lai removed. Incision D&I, well approximated. No S/S of infection noted. pt tolerated well
[2022-01-25 11:16] LABS: Bedside Glucose 271 mg/dL (74-106)
[2022-01-25 11:40] VITALS: BP 127/72; PULSE 67; RESP 16; TEMP 36.4; O2SAT 97
--- NOTE | 2022-01-25 11:40 | NURSING ---
discharged home with family. discharged instruction, medications and appointments reviewed with pt. denies questions or concerns
== END 2022-01-25 11:42 | disposition home or self-care (01) | DRG 560 ==
PROVIDERS: Admitting Provider Internal Medicine; PCP Internal Medicine; Visit Provider Internal Medicine
DX: S72.001D Fracture of unspecified part of neck of right femur, subsequent encounter for closed fracture with routine healing (principal); D62 Acute posthemorrhagic anemia; E13.59 Other specified diabetes mellitus with other circulatory complications; E13.65 Other specified diabetes mellitus with hyperglycemia; Z79.4 Long term (current) use of insulin; I10 Essential (primary) hypertension; E03.9 Hypothyroidism, unspecified; I87.2 Venous insufficiency (chronic) (peripheral); W01.0XXD Fall on same level from slipping, tripping and stumbling without subsequent striking against object, subsequent encounter; M19.90 Unspecified osteoarthritis, unspecified site; Z96.641 Presence of right artificial hip joint; F32.A Depression, unspecified; Z79.899 Other long term (current) drug therapy; Z79.890 Hormone replacement therapy; Z79.82 Long term (current) use of aspirin; R41.3 Other amnesia
CPT/HCPCS: 36415; 80048; 80053; 82607; 82962; 83735; 84100; 84439; 85018; 85027; 86780; 92507; 96125; 97110; 97116; 97129; 97130; 97162; 97166; 97530; 97535; 97802; 97803; 99251; A4216; G0463

== ENCOUNTER 2022-02-14 17:28 | Outpatient (CLI) | payer MEDICARE, OTHER, SELFPAY ==
--- NOTE | 2022-02-14 17:29 | MRI_ITS ---
EXAM: MR HEAD WITHOUT AND WITH INTRAVENOUS CONTRAST CLINICAL INDICATION: Memory Deficit, TIA TECHNIQUE: Multiplanar and multisequence MR images of the brain were obtained without and with intravenous contrast. This report was created using [employer] report generation technology. CONTRAST: 14ml Dotarem via IV COMPARISON: 04/18/2020 FINDINGS: BRAIN AND EXTRA-AXIAL SPACES: Unremarkable. No intra- or extra-axial hemorrhage. No evidence of acute infarct. No intracranial mass or mass effect. There is preservation of the ford/white matter interface. Posterior fossa structures are unremarkable. Ventricles are appropriate for age. No hydrocephalus. Basal cisterns are patent. SELLA: Unremarkable. Normal sella turcica, pituitary gland, infundibular stalk, optic chiasm and hypothalamus. AUDITORY SYSTEM: Unremarkable. The internal auditory canals are patent. BONES/JOINTS: Unremarkable. No discrete lytic or blastic abnormalities. SINUSES: Unremarkable as visualized. Clear. MASTOID AIR CELLS: Unremarkable as visualized. Clear. ORBITS: Unremarkable as visualized. Both globes, extraocular muscles, optic nerves and retrobulbar fat appear unremarkable. VASCULATURE: Unremarkable as visualized. Normal flow voids in the major intracranial circulation. MRI/Brain W/WO Contrast IMPRESSION: Negative MRI brain without and with intravenous contrast. Electronically Signed: Chang Cobos MD at 19:27 EDT ,
== END 2022-02-14 23:59 | disposition home or self-care (01) ==
LOC: MRI 17:29
PROVIDERS: PCP Internal Medicine; Referring Provider Internal Medicine; Visit Provider Internal Medicine
DX: R41.3 Other amnesia (principal)
CPT/HCPCS: 70553; A9575

== ENCOUNTER 2022-03-20 13:30 | Outpatient (RCR) | payer MEDICARE, OTHER, SELFPAY ==
--- NOTE | 2022-01-28 12:44 | HP.PTEVAL ---
Patient's Visit Information MARISSA WINKLER is a 71 year old F referred to Physical Therapy by Dr. Ninoska Perry DO with a diagnosis of R LOUIE posterior approach.. Date of Evaluation: 01/28/22 Physical Therapist: Junior Butler, DPT, OCS, CSCS - Visit Plan Frequency: 2x /Week Duration: 4-6 Weeks Plan: 2x/week for 4-6 weeks for. 1. hip ext ROM for ambulation. 2. hip strength and core strength adn funcitonal strength, progressing HEP. 3. Gait training, steps, trasnfer training and shoe on training and progression. - Subjective Broken hip walking after work when dogs knocked her down. Surgery 01/13 for new hip R side by Dr. Boyer. Prior was walking 2 miles per day in snow. 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 Currently comfortable at rest but hurts to move. Pain to 1/10 or getting up after sitting for a while is stiff. Takes tylenol as needed. Sleeping well. Using a cane to get around home, no AD needed prior. Lives with spouse. 3 steps to enter with railing and has up and basement but not doing. Dresses self, dtr helps with compression stockings. Bathroom and shower are done, Dtr helps with shower and has sit down pivoter. Hobbies include walking since she is semi retired. Has a horse to take care of and ride. Had posterior approach surgery. Precautions include crossing legs, twisting and not bending over. - Pain R hip Pain Intensity (Out of 10): 0 Pain Intensity Range: 0, 2 - Objective Walks with cane in L hand to therapy from speech mod I. Transfer chair and bed I, slow and hesitant on transfers but able. Steps are using L only with rail mod I. R 40# ext adn 22# flexion, AROM 90 to 5 ext. Incision is healed well and just mild scar tissue distally. Pt is obeying precautions well and verbalizing them today, VC for sitting with R leg out in front of chair to avoid 90 at hip. R trendelenberg in gait is mild and more noticeable without cane. Ambulates without cane with short L step and decreased stance time on R. PROM abd and ext rotation WFL, tender at end range. - Balance/Special Test Scores Functional Gait Assessment Score: 21 % Disability: 30.0000 Lower Extremity Functional Score: 12 TUG Test Time Seconds: 16 WOMAC Total Score: 54 WOMAC Percentatge: 43.7500 - Goals Goal 1:: Patient able to walk 1+ mile without symptoms or gait deviations Goal Time Frame: 4-6 Weeks Goal 2:: Pt feel hip and acitvity 80% back to normal Goal Time Frame: 4-6 Weeks Goal 3:: TUG to <10 sec Goal Time Frame: 4-6 Weeks Goal 4:: Patient ready to return to work Goal Time Frame: 4-6 Weeks Goal 5:: Put on shoes and socks without help Goal Time Frame: 4-6 Weeks - Rehabilitation Potential Physical Therapy Diagnosis: R LOUIE Rehabilitation Potential: Good - Anticipated Interventions Patient/Client Instruction: Educate patient on: Condition, Plan of Care For the Purpose of:: To decrease pain, To increase ROM, To improve muscle performance and motor function, To increase tolerance to activity/condition/position, To improve ability of physical actions for home/community/work/leisure Therapeutic Exercise to Include: Strength training, Flexibilty training, Gait and locomotor training, Passive ROM, Active ROM For the Purpose of:: To decrease pain, To increase ROM, To improve muscle performance and motor function, To improve ability of physical actions for home/community/work/leisure, To improve gait and locomotor functions Thank you for the opportunity to evaluate your patient. For Medicare and Medicare HMO plans, please review the plan of care and approve it. It will need to be FAXED BACK to us at [phone] for Medicare purposes. For Medicare only, by signing this I certify the plan of care. Please let me know if there are questions or concerns regarding this plan of care. Physician Signature: Date:
--- NOTE | 2022-02-12 11:09 | HP.SP.AD_ITS ---
History - History Date of Eval: 01/28/22 Medical Diagnosis (from RX): DECLINE IN COGNITION/HIP FX. RX HERE Previous speech therapy: Yes Results: Per pt.'s rehab unit d/c summary - Shakira has participated in ~[address] intervention targeting memory and implementation of internal and external compensatory strategies. Patient demonstrated improvement in recall w/ use of compensatory strategies. OP ST recommended to address attention, working memory and compensatory strategy implementation. Without continued tx, this patient is at risk for further cognitive decline and loss of functional independence. Pt to f/u w/ PCP for further imaging and cognitive testing. 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 The CLQT is to assess strength and weaknesses in five cognitive domains. Severity ratings are within normal limits, mild, moderate, severe deficits. The subtests are as follows: Date: 02/12/22 - Attention Attention: WNL - Memory Memory: WNL - Executive Functions Executive Functions: WNL - Language Language: WNL - Visuospatial Skills Visuospatial Skills: WNL - Composite Severity Rating Composite Severity Rating: WNL - Clock Drawing Severity Rating Clock Drawing Severity Rating: WNL - CLQT Comments IMPRESSIONS Informal evaluation measures were utilized in conjunction with administration of the Cognitive-Linguistic Quick Test (CLQT), which is a criterion-referenced assessment designed for adults between the ages of 18 to 89 years old with known or suspected neurological dysfunctions. The CLQT assesses the following cognitive domains - Attention, Memory, Executive Function, Language, and Visuospatial Skills. Tasks completed within this test include Personal Facts, Symbol Cancellation, Confrontation Naming, Clock Drawing, Story Retelling, Symbol Trails, Generative Naming, Design Memory, Mazes, and Design Generation, with each task addressing different cognitive-linguistic functions. COGNITIVE DOMAINS. -Personal Facts (memory and language ability): 8/8 (a score of 8 is considered WNL for patient?s age). -Symbol Cancellation (nonlinguistic task of visual attention and perception, integrity of the upper/lower quadrants of the left/right visual godfrey): 11/03 (a score of 11 or above is considered WNL for patient?s age). -Confrontation Naming (aphasia, perseveration, verbosity): 09/01 (a score of 10 is considered WNL for patient?s age). -Clock Drawing (screening of all cognitive domains): . -Story Retelling (memory and comp rehension, arousal, attention, storage capacity, narrative skills): 08/02 (a score of 6 or above is considered WNL for patient?s age). -Symbol Trails (nonlinguistic task to assess planning, self-monitoring, working memory, and visual attention, and impulsivity): 09/01 (a score of 9 or above is considered WNL for patient?s age). -Generative Naming (word retrieval skills, perseveration): 05/31 with a perseveration ratio of 0.0%. -Design Memory (nonlinguistic task to assess visual discrimination & analysis, attention, and visual memory, impulsivity, perseveration): 04/28 (a score of 5 or above is considered WNL for patient?s age). -Mazes (planning, mental flexibility, self- monitoring, visual discrimination, and impulsivity): 05/30 (a score of 7 or above is considered WNL for patient?s age). -Design Generation (nonlinguistic task of creativity and mental flexibility): 04/04 IMPAIRED (a score of 6 or above is considered WNL for patient?s age) - DIFFICULTY DETERMINING IF SHE WAS REPEATING HER OWN DESIGNS, POOR RECALL/ATTENTION TO INSTRUCTION DETAILS - DO NOT COPY EXAMPLE DESIGNS, EACH DESIGN SHOULD HAVE 4 AND ONLY 4 LINES. . SEVERITY RATING. -Attention: Cognitive Domain Score = 192 (a score of 180-215 is considered WNL for patient?s age) WNL. -Memory: Cognitive Domain Score = 176 (a score of 155-185 is considered WNL for patient?s age). -Executive Functioning: Cognitive Domain Score = 28 (a score of 24-40 is considered WNL for patient?s age). -Language: Cognitive Domain Score = 33 (a score of 29-37 is considered WNL for patient?s age). -Visuospatial Skills: Cognitive Domain Score = 92 (a score of 82-105 is considered WNL for patient?s age). -Clock Drawing: Score = 11 (a score of 12-13 is considered WNL for patient?s age). COMPOSITE SEVERITY RATIN.0 (a score of 3.5-4.0 Is considered WNL for patient?s age). Pt has noticed increased difficulty thinking of the words she wants to say, recalling details/info, forgetting to take her medications, etc over the past 6-6 months and expresses concern for dementia. Although performance was WNL for patient?s age for all cognitive domains, performance w/ generative naming, clock drawing and design generation were difficult for pt. Reviewed results of CLQT w/ patient, as well as plans for continued tx per plan of care targeting attention, memory and word retrieval skills w/ a focus on compensatory strategy use. Pt verbalized understanding and agreement with plan of care. Pt reports intermittent diplopia - attributed to cataract per ophthalmology. Patient has diplopia in conjunction w/ recent onset of cognitive decline over the past 6-8 months, hx of TIA and family hx of dementia. Plan - Plan Plan: OP ST recommended to address attention, working memory and compensatory strategy implementation. Without continued tx, this patient is at risk for further cognitive decline and loss of functional independence. Pt to f/u w/ ST after f/u w/ PCP for further imaging and cognitive testing. - Recommendations MBS: No - Frequency Frequency: 1x/Week Duration: 4-6 Months Education - Patient has Indicated that the Following Identified Educational Needs: None The Patient has indicated that they have no educational or learning abilities that may effect their care.: Yes - Patient Instruction Patient Education: Diagnosis Person Taught: Patient Teaching Method: Discussion Response to teaching: Return demonstration
--- NOTE | 2022-02-25 13:56 | HP.PTREVAL ---
Dr. Jesu Dennison MD, It has been my pleasure to treat MARISSA WINKLER over the last 9 visits for R LOUIE posterior approach 01/13. Please see the progress note below for an update on the physical therapy plan of care! Subjective: Doing pretty good. Still hard to get up out of chair, painful and weak. Pain improving 3/10 on bad days and needed tylenol but that is unusual, normally painfree. Sleep is OK. Still not doing heavier housework like carrying bucket, avoiding some heavier barn work. Retired from work. Still hard to get R sock on herself, compression. Doiong HEP daily 2x sink and band walk and squat, steps. Objective/Function: 38 R ext # and 23 flexion#. 98 flexion ROM and 8 extyension with tightness. Gait is short L step length slightly but otherwise good. Steps are reciprocal with one rail up and down. Unable to touch ground due to posterior tightness in front of her sitting. Unable to reach R shoe for donning shoes. Plan Plan: Pt to continue via HEP and f/u in two weeks after doctor appointment. Check ROM and strength and gait. Goals still appropriate. Balance/Gait/Functional tests - Balance/Special Test Scores Functional Gait Assessment Score: 21 % Disability: 30.0000 Lower Extremity Functional Score: 57 TUG Test Time Seconds: 8 Tug Test: <10 sec.=free mobile WOMAC Total Score: 54 WOMAC Percentage: 43.7500 Goals Goal 1:: Patient able to walk 1+ mile without symptoms or gait deviations Goal Time Frame: 4-6 Weeks Goal Progress: Progressing Goal 2:: Pt feel hip and acitvity 80% back to normal Goal Time Frame: 4-6 Weeks Goal Progress: 45% Goal 3:: TUG to <10 sec Goal Time Frame: 4-6 Weeks Goal Progress: Goal Met Goal 4:: Patient ready to return to work Goal Time Frame: 4-6 Weeks Goal Progress: retired. Goal 5:: Put on shoes and socks without help Goal Time Frame: 4-6 Weeks Goal Progress: Goal Met Anticipated Interventions Patient/Client Instruction: Educate patient on: Condition, Plan of Care For the Purpose of:: To decrease pain, To increase ROM, To improve muscle performance and motor function, To increase tolerance to activity/condition/position, To improve ability of physical actions for home/community/work/leisure Therapeutic Exercise to Include: Strength training, Flexibilty training, Gait and locomotor training, Passive ROM, Active ROM For the Purpose of:: To decrease pain, To increase ROM, To improve muscle performance and motor function, To improve ability of physical actions for home/community/work/leisure, To improve gait and locomotor functions Please do not hesitate to contact me at [phone] by phone or if you have questions or concerns regarding this new plan of care! Sincerely, Junior Butler, DPT, OCS, CSCS
--- NOTE | 2022-03-20 14:00 | HP.PTDCSUM_ITS ---
It has been my pleasure to treat MARISSA WINKLER referred by Dr. Jesu Dennison MD, with the diagnosis of R LOUIE posterior approach 01/13 for a total of 10 visit(s). Discharge Date: 03/20/22 Please see the following information for a summary of their discharge status. Subjective: Saw doctor and everything looks good, encouraged her to have patience. Doing well and not coming back. No pain today. That is pretty normal now. Sleeping well. Activities are normal, hard to bend over, Can put shoes and socks on. Not going back to work. Doing home exercises. Getting more active. R hip Pain Intensity (Out of 10): 0 % Improvement: 60 Objective/Function: R hip flex strength 31. R hip ext strength 41. R hip aROM flexion 105. R hip AROM ext:4. TU. Walking well and steps normal. Extension is less than I would like but she can continue to work on this at home , PPU shown for ext stretch. Goal 1:: Patient able to walk 1+ mile without symptoms or gait deviations Goal Progress: Goal Met Goal 2:: Pt feel hip and acitvity 80% back to normal Goal Progress: 60% Goal 3:: TUG to <10 sec Goal Progress: Goal Met Goal 4:: Patient ready to return to work Goal Progress: retired. Goal 5:: Put on shoes and socks without help Goal Progress: Goal Met Plan: d/c If there are questions or concerns regarding this patient's physical therapy, please feel free to call me at [phone]. Thank you for the referral of this patient. Sincerely, Junior Butler, DPT, OCS, CSCS Balance/Gait/Functional tests - Balance/Special Test Scores Functional Gait Assessment Score: 21 % Disability: 30.0000 Lower Extremity Functional Score: 57 TUG Test Time Seconds: 8 Tug Test: <10 sec.=free mobile WOMAC Total Score: 13 WOMAC Percentage: 86.4600
--- NOTE | 2022-04-30 16:16 | HP.SP.DC_ITS ---
ST Discharge Summary - Discharged: Discharge: Pt was seen for initial speech/language/cognitive evaluation at [facility] on 01/28/22. Patient participated in initial evaluation only d/t scoring WNL on CLQT subtests re: attn, memory, executive function, language and visuospatial. Cognition presents grossly intact. Recommended Pt to f/u w/ PCP for further imaging and cognitive testing. Pt discharged from speech therapy caseload on this date. Thank you for allowing me to participate the care of your Pt. Will reevaluate at Pt?s request following script from physician.
== END 2022-03-20 14:34 | disposition home or self-care (01) ==
LOC: PT 13:30
PROVIDERS: PCP Internal Medicine; Referring Provider Internal Medicine; Visit Provider Internal Medicine
DX: S72.009D Fracture of unspecified part of neck of unspecified femur, subsequent encounter for closed fracture with routine healing (principal); X58.XXXD Exposure to other specified factors, subsequent encounter; R41.81 Age-related cognitive decline
CPT/HCPCS: 97110; 97161; 97164; 97530

== ENCOUNTER → 2022-06-17 | Outpatient (CLI) | payer MEDICARE, OTHER, SELFPAY ==
--- NOTE | 2022-06-17 08:44 | BI_ITS ---
MAMMOGRAPHY - BILATERAL SCREENING REASON FOR EXAM: Female, 71 years old. Routine annual screening examination. PERTINENT HISTORY: Sister with breast cancer. TECHNIQUE: Digital bilateral breast isac (3D mammographic acquisition) in the CC and MLO projections. 2-D mediolateral oblique (MLO) and craniocaudad (CC) views of both breasts were obtained. CAD: Full Field Digital Mammography with Computer Added Detection was performed. COMPARISON: Comparison is made with prior study December 2020 and 11/07/2019. FINDINGS: Breast Composition: There are scattered areas of fibroglandular density. There are no dominant masses or suspicious calcifications. Stable asymmetry of breast tissue where more breast tissue is seen in the retroareolar region of the left breast as compared to the right side. No other significant abnormalities are identified. There has been no significant change since the prior study. BI/SCRN MAMM (CAD)W/ISAC BILAT IMPRESSION: Stable bilateral screening mammogram. Yearly follow-up mammogram recommended. (A) ASSESSMENT CATEGORY: BIRADS Category 2: Benign. A letter regarding these results will be sent to the patient by the facility within 30 days. Approximately 10% of breast cancers are not detected by mammography. A normal mammogram should not delay biopsy of a clinically suspicious abnormality. [id number] Electronically Signed: Curry Maciel MD at 10:40 EDT ,
== END | disposition home or self-care (01) ==
LOC: OPBI 08:43
PROVIDERS: PCP Internal Medicine; Visit Provider Internal Medicine
DX: Z12.31 Encounter for screening mammogram for malignant neoplasm of breast (principal); Z80.3 Family history of malignant neoplasm of breast
CPT/HCPCS: 77063; 77067

== ENCOUNTER → 2022-10-09 | Outpatient (CLI) | payer MEDICARE, OTHER, SELFPAY ==
[2022-10-09 14:56] LABS: Absolute Neutrophil Count 5.7 X10^3/uL (2.0-7.7); Basophil# 0.04 X10^3/uL; Basophil% 0.5 % (0-1); Eosinophil# 0.15 X10^3/uL; Eosinophils% 1.8 % (0-5); Hematocrit 39.7 % (37-47); Hemoglobin 12.7 g/dL (12.0-15.0); Lymphocyte % 23.6 % (19-41); Mean Corpuscular Hgb 30.3 pg (27.0-32.0); Mean Corpuscular Volume 94.7 fL (81-99); Mean Platelet Vol. 10.3 fl (6.2-12.0); Monocyte# 0.59 X10^3/uL; NRBC Flagged by Analyzer 0 % (0-5); Neutrophil # 5.65 X10^3/uL (2.7-7.7); Neutrophil % 66.7 % (47-70); Platelet Count 361 K/mm3 (150-450); RBC Distribution Width CV 13.8 % (11.6-14.6); RBC Distribution Width SD 48.5 fl (35.1-43.9); Red Blood Count 4.19 M/mm3 (4.2-5.4); White Blood Count 8.5 K/mm3 (4.4-11.0)
[2022-10-09 15:11] LABS: ALB/GLOB Ratio 1.1 RATIO (0.9-2.4); AST(SGOT) 25 U/L (15-37); Alanine Aminotransfer ALT/SGPT 33 U/L (13-56); Albumin, Serum 3.9 g/dL (3.2-5.0); Alkaline Phosphatase 71 U/L (45-117); Anion Gap 6 (5-15); BUN 22 mg/dL (7-18); BUN/Creat Ratio 22.9 RATIO (10-20); Calcium,Total 9.4 mg/dL (8.5-10.1); Chloride 106 mmol/L (98-107); Cholesterol 165 mg/dL (200); Creatinine, Serum 0.96 mg/dL (0.55-1.02); EST Glomerular Filtration Rate 61 mL/min (>60); Est Glom Filt Rate - Afr Amer 74 mL/min (>60); Globulin 3.6 g/dL (2.2-4.2); Glucose 107 mg/dL (74-106); High Density Lipoprotein 98 mg/dL; Potassium 4.2 mmol/L (3.5-5.1); Protein, Total 7.5 g/dL (6.4-8.2); Sodium Level 139 mmol/L (136-145); Triglycerides 94 mg/dL; Very Low Density Lipoprotein 19 mg/dL (5-40)
== END | disposition home or self-care (01) ==
LOC: BIMLAB 12:18
PROVIDERS: PCP Internal Medicine; Referring Provider Internal Medicine; Visit Provider Internal Medicine
DX: I10 Essential (primary) hypertension (principal)
CPT/HCPCS: 36415; 80053; 80061; 85025

== ENCOUNTER → 2023-01-07 | Outpatient (CLI) | payer MEDICARE, SELFPAY ==
[2023-01-07 18:05] LABS: T4 Free Direct 1.29 ng/dL (0.76-1.46)
== END | disposition home or self-care (01) ==
LOC: BIMLAB 13:27
PROVIDERS: PCP Internal Medicine; Referring Provider Nurse Practitioner Family; Visit Provider Nurse Practitioner Family
DX: I10 Essential (primary) hypertension (principal); E03.9 Hypothyroidism, unspecified
CPT/HCPCS: 36415; 84439; 84443

== ENCOUNTER → 2023-07-09 | Outpatient (CLI) | payer MEDICARE, SELFPAY ==
[2023-07-09 15:43] LABS: Anion Gap 5 (5-15); BUN 19 mg/dL (7-18); BUN/Creat Ratio 19.6 RATIO (10-20); Chloride 107 mmol/L (98-107); Creatinine, Serum 0.97 mg/dL (0.55-1.02); EST Glomerular Filtration Rate 60 mL/min (>60); Est Glom Filt Rate - Afr Amer 73 mL/min (>60); Glucose 141 mg/dL (74-106); Potassium 4.2 mmol/L (3.5-5.1); Sodium Level 140 mmol/L (136-145)
[2023-07-09 15:48] LABS: Hemoglobin A1c 6.8 % (3.8-5.6)
== END | disposition home or self-care (01) ==
LOC: BIMLAB 11:55
PROVIDERS: Nurse Practitioner Family; PCP Internal Medicine; Referring Provider Internal Medicine; Visit Provider Internal Medicine
DX: I10 Essential (primary) hypertension (principal); E13.9 Other specified diabetes mellitus without complications; M81.0 Age-related osteoporosis without current pathological fracture
CPT/HCPCS: 36415; 80048; 82306; 83036

== ENCOUNTER → 2023-08-19 | Outpatient (CLI) | payer MEDICARE, SELFPAY ==
[2023-08-19 12:11] LABS: Absolute Lymphocyte Count 1.75 X10^3/uL (0.83-4.51); Absolute Neutrophil Count 5.1 X10^3/uL (2.0-7.7); Basophil# 0.07 X10^3/uL; Basophil% 0.9 % (0-1); Eosinophil# 0.12 X10^3/uL; Eosinophils% 1.6 % (0-5); Hematocrit 39.3 % (37-47); Hemoglobin 12.8 g/dL (12.0-15.0); Lymphocyte # 1.75 X10^3/ul (0.83-4.51); Mean Corp Hgb Conc 32.6 g/dL (32-36); Mean Corpuscular Hgb 31.2 pg (27.0-32.0); Mean Corpuscular Volume 95.9 fL (81-99); Monocyte# 0.53 X10^3/uL; NRBC Flagged by Analyzer 0 % (0-5); Neutrophil # 5.13 X10^3/uL (2.7-7.7); Neutrophil % 67.4 % (47-70); Platelet Count 364 K/mm3 (150-450); RBC Distribution Width CV 13.6 % (11.6-14.6); RBC Distribution Width SD 48.2 fl (35.1-43.9); White Blood Count 7.6 K/mm3 (4.4-11.0)
[2023-08-19 13:03] LABS: AST(SGOT) 18 U/L (15-37); Alanine Aminotransfer ALT/SGPT 30 U/L (13-56); Albumin, Serum 3.7 g/dL (3.2-5.0); Alkaline Phosphatase 67 U/L (45-117); Anion Gap 4 (5-15); BUN 11 mg/dL (7-18); BUN/Creat Ratio 12.9 RATIO (10-20); Calcium,Total 9.2 mg/dL (8.5-10.1); Chloride 106 mmol/L (98-107); Cholesterol 172 mg/dL (200); Creatinine, Serum 0.86 mg/dL (0.55-1.02); EST Glomerular Filtration Rate 70 mL/min (>60); Est Glom Filt Rate - Afr Amer 84 mL/min (>60); Globulin 3.7 g/dL (2.2-4.2); Glucose 126 mg/dL (74-106); High Density Lipoprotein 94 mg/dL; Potassium 3.9 mmol/L (3.5-5.1); Protein, Total 7.4 g/dL (6.4-8.2); Sodium Level 138 mmol/L (136-145); Thyroid Stim Hormone (TSH) 0.74 uIU/mL (0.358-3.74); Triglycerides 84 mg/dL; Very Low Density Lipoprotein 17 mg/dL (5-40)
[2023-08-20 11:09] LABS: C-Peptide < 0.1 ng/mL (1.1-4.4)
== END | disposition home or self-care (01) ==
PROVIDERS: Nurse Practitioner Family; PCP Internal Medicine; Referring Provider Internal Medicine; Visit Provider Internal Medicine
DX: E03.9 Hypothyroidism, unspecified (principal); E13.9 Other specified diabetes mellitus without complications; I10 Essential (primary) hypertension
CPT/HCPCS: 36415; 80053; 80061; 84443; 84681; 85025

== ENCOUNTER → 2023-12-30 | Outpatient (CLI) | payer MEDICARE, SELFPAY ==
--- NOTE | 2023-12-30 09:55 | BI_ITS ---
MAMMOGRAPHY - BILATERAL SCREENING REASON FOR EXAM: Female, 73 years old. Routine annual screening examination. PERTINENT HISTORY: Sister with breast cancer. TECHNIQUE: Digital bilateral breast isac (3D mammographic acquisition) in the CC and MLO projections. 2-D mediolateral oblique (MLO) and craniocaudad (CC) views of both breasts were obtained. CAD: Full Field Digital Mammography with Computer Added Detection was performed. COMPARISON: Comparison is made with prior study dated June 17, 2022 and December 31, 2020. FINDINGS: Breast Composition: There are scattered areas of fibroglandular density. There are no dominant masses or suspicious calcifications. Stable benign-appearing bilateral axillary lymph nodes. Stable asymmetry of breast tissue with more breast tissue is seen in the retroareolar region of the left breast as compared to the right side. No other significant abnormalities are identified. There has been no significant change since the prior study. BI/SCRN MAMM (CAD)W/ISAC BILAT IMPRESSION: Stable bilateral screening mammogram. Yearly follow-up mammogram recommended. (A) ASSESSMENT CATEGORY: BIRADS Category 2: Benign. A letter regarding these results will be sent to the patient by the facility within 30 days. Approximately 10% of breast cancers are not detected by mammography. A normal mammogram should not delay biopsy of a clinically suspicious abnormality. [id number] Electronically Signed: Curry Maciel MD at 12:37 EST ,
--- NOTE | 2023-12-30 09:58 | BD_ITS ---
STUDY: DUAL ENERGY X-RAY ABSORPTIOMETRY / DXA REASON FOR EXAM: Female, 73 years old. Post Menopausal TECHNIQUE: Bone Mineral Density (BMD) measurements of lumbar spine and left hip were obtained. COMPARISON: Comparison is made with prior study dated August 13, 2021. FINDINGS: Lumbar Spine (L1-L4): g/cm2 (0.882) / T-score (-1.4) / Z-score (0.8) Findings are suggestive of osteopenia with a low fracture risk. Left Femur Total: g/cm2 (0.787) / T-score (-1.3) / Z-score (0.3) Left Femoral Neck: g/cm2 (0.645) / T-score (-1.8) / Z-score (0.0) The T-Scores on the most recent prior examination were: Lumbar Spine (L1-L4): There has been improvement of bone density since the previous examination. Left Femur Total: which represents an improvement of 0.4%. BD/Dexa Bone Density Study IMPRESSION: The patient is considered osteopenic as outlined below according to World Rex Organization (WHO) criteria with a moderate fracture risk. There has been improvement of bone density since the previous examination. Reference Information: The T-score is the number of standard deviations above or below the standard which is normal for young adults at their peak bone mineral density. The World Health Organization (WHO) interprets the T-scores as follows: Above -1 Normal bone density Between -1 and -2.5 Osteopenia Equal to / or below -2.5 Osteoporosis As a practical clinical guideline, osteopenia may be graded as follows: Mild -1 through -1.5 Moderate -1.6 through -2.0 Severe -2.1 through -2.4 The Z-score is the number of standard deviations above or below age-matched controls. A Z-score of less than -1.5 would be considered abnormal. References: 1. NIH Osteoporosis and Related Bone Diseases www osteo.org 2. International Society for Clinical Densitometry www iscd.org 3. National Osteoporosis Foundation www nof.org Electronically Signed: Curry Maciel MD at 12:46 EST ,
== END | disposition home or self-care (01) ==
LOC: OPBD 09:55
PROVIDERS: PCP Internal Medicine; Referring Provider Internal Medicine; Visit Provider Internal Medicine
DX: M81.0 Age-related osteoporosis without current pathological fracture (principal); Z78.0 Asymptomatic menopausal state; Z12.31 Encounter for screening mammogram for malignant neoplasm of breast; Z80.3 Family history of malignant neoplasm of breast
CPT/HCPCS: 77063; 77067; 77080

== ENCOUNTER → 2024-03-23 | Outpatient (CLI) | payer MEDICARE, SELFPAY ==
[2024-03-23 12:22] LABS: Anion Gap 3 (5-15); BUN 14 mg/dL (7-18); BUN/Creat Ratio 16.5 RATIO (10-20); Calcium,Total 9.4 mg/dL (8.5-10.1); Chloride 106 mmol/L (98-107); Creatinine, Serum 0.85 mg/dL (0.55-1.02); EST Glomerular Filtration Rate 70 mL/min (>60); Est Glom Filt Rate - Afr Amer 85 mL/min (>60); Glucose 146 mg/dL (74-106); Potassium 4.1 mmol/L (3.5-5.1); Sodium Level 139 mmol/L (136-145)
== END | disposition home or self-care (01) ==
LOC: BIMLAB 10:21
PROVIDERS: PCP Internal Medicine; Visit Provider Internal Medicine
DX: I10 Essential (primary) hypertension (principal)
CPT/HCPCS: 36415; 80048

== ENCOUNTER → 2024-09-20 | Outpatient (CLI) | payer MEDICARE, SELFPAY ==
--- OUTSIDE RECORDS SUMMARY | 2024-09-20 12:07 | XMS RPT_ITS | CCD ---
Author Organization [facility] Inform ion Partnership [facility] Care Team Providers [facility] Manager Name Role Phone Noel Eddie BEJARANO Unavailable Unavailable Jesu Dennison MD Unavailable [phone] Viviane He Unavailable Unavailable Jesu Dennison Primary Care Provider Jesu Dennison Primary Care Provider Allergies Allergy Classification Reported Allergen(s) Allergy Type Date of Onset Reaction(s) Facility (6 sources) tetracycline Drug Allergy 1 [facility] Work Phone: (2 sources) Tetracyclines & Related Propensity to adverse reactions to drug 2 Rash [facility] Medications Current Medications Medication Drug Class(es) Dates Sig (Normalized) Sig (Original) amLODIPine / atorvastatin (2 sources) Dihydropyridine Calcium Channel Nicki, HMG-CoA Reductase Inhibitor AMLODIPINE-ATORVAST ATIN PO Take by mouth 0 Active Calcium Carb-Cholecalcifer ol (CALTRATE 600+D3 PO) (2 sources) take 1 tablet by mouth at bedtime Calcium Carb-Cholecalcifero l (CALTRATE 600+D3 PO) Take 1 tablet by mouth in the morning and at bedtime 0 Active Continuous Blood Gluc Bench Assembler (FREESTYLE NINFA 14 DAY READER) ALEXANDER (2 sources) Continuous Blood Gluc Bench Assembler (FREESTYLE NINFA 14 DAY READER) ALEXANDER by Does not apply route 0 Active Continuous Blood Gluc Sensor (FREESTYLE NINFA 14 DAY SENSOR) MISC (2 sources) Continuous Blood Gluc Sensor (FREESTYLE NINFA 14 DAY SENSOR) MISC by Does not apply route 0 Active denosumab (2 sources) RANK Ligand Inhibitor Denosumab (PROLIA SC) Inject into the skin 0 Active 1.5 ml insulin glargine 300 unt/ml pen injector (20 sources) Insulin Analog Start: 03-21-2022 inject 30 [IU] by subcutaneous injection once daily TOFRANKIE SOLOSTAR 300 UNIT/ML SOPN INJECT 30 UNIT SUBCUTANEOUSLY DAILY 0 03/21/2022 Active Start: 08-26-2017 TOUDORON SOLOSTA R 300 UNIT/ML SOPN 4 o 8 per sliding scale with meals INSULIN GLARGINE [id number] Viviane He Start: 08-26-2017 TOUNEALO SOLOSTA R 300 UNIT/ML SOPN 22 units per day INSULIN GLARGINE [id number] Jesu Dennison MD End: 08-26-2017 LANTUS 100 UNIT/ML SOLN 22 u nits once a day INSULIN GLARGINE [id number] Chikis Bullard W-Qmtlbvziaxtb-Nnofd-B12-B6 (METANX PO) (2 sources) J-Wgbkthbasrcs-V lgae-B12-B6 (METANX PO) Take by mouth 0 Active lisinopril 20 mg oral tablet (8 sources) Angiotensin Converting Enzyme Inhibitor Sta rt: 2 take 1 tablet by mouth once daily lisinopril (PRINIVIL;ZESTRIL) 20 MG tablet TAKE 1 TABLET BY MOUTH ONCE DAILY 0 03/16/2022 Active take 1 tablet by mouth once garcia y LISINOPRIL 20 MG TABS One tablet by mouth daily LISINOPRIL [id number] Jesu Dennison MD rosuvastatin calcium 10 mg oral tablet (2 sources) HMG-CoA Reductase Inhibitor take 1 tablet by mouth once daily rosuvastatin (CRESTOR) 10 MG tablet Take 10 mg by mouth daily 0 Active Completed/Discontinued Medications Medication Drug Class(es) Dates Sig (Normalized) Sig (Original) amLODIPine 5 mg oral tablet (6 sources) Dihydropyridine Calcium Channel Nicki Start: 08-26-2017 take 1 tablet by mouth once daily NORVASC 5 MG TABS One tablet by mouth daily AMLODIPINE BESYLATE [id number] Eddie Steven Bert BARIATRIC NURSE-C aspirin 81 mg oral tablet (20 sources) Platelet Aggregation Inhibitor, Nonsteroidal Anti-inflammatory Drug Start: 08-26-2017 End: 08-26-2017 take 1 tablet by mouth once daily ASPIRIN 81 MG TABS One tablet by mouth daily ASPIRIN [id number] Viviane He take 1 tablet by mouth once garcia y aspirin 81 MG chewable tablet Take 81 mg by mouth daily 0 Active calcium (2 sources) Phosphate Binder, Calcium Start: 08-26-2017 take 1 tablet by mouth once daily CALCIUM + D3 600-200 MG-UNIT TABS One tablet by mouth daily CALCIUM CARB-CHOLECALCIFEROL [id number] Viviane He calcium carbonate 1500 mg / cholecalciferol 200 unt oral tablet (4 sources) Vitamin D Start: 08-26-2017 take 1 tablet by mouth once daily CALCIUM + D3 600-200 MG-UNIT TABS One tablet by mouth daily CALCIUM CARB-CHOLECALCIFEROL 59925872366 Viviane He CHOLECALCIFEROL TABS (8 sources) Vitamin D Start: 08-26-2017 take 1 tablet by mouth once daily VITAMIN D3 TABS One tablet by mouth daily CHOLECALCIFEROL TABS [id number] Viviane He Start: 08-26-2017 take 1 tablet by krystian th once daily VITAMIN D3 TABS One tablet by mouth daily CHOLECALCIFEROL TABS [id number] Viviane He Cholecalciferol (VITAMIN D3) 50 MCG (1999 UT) CAPS Take 2,000 Units by mouth 0 Active insulin lispro 100 unt/ml injectable solution (13 sources) Insulin Analog Start: 08-31-2017 HUMALOG 100 UN IT/ML SOLN per sliding scale INSULIN LISPRO (HUMAN) [id number] Jesu Dennison MD Insulin Lispro ( HUMALOG KWIKPEN SC) Inject 10 Units into the skin Inject 10 units with meals 0 Active take 1 tablet by krystian th three times daily HUMALOG 100 UNIT/ML SOLN One tablet by [facility] three times daily INSULIN LISPRO (HUMAN) 85255252390 Chikis Bullard levothyroxine sodium 0.088 mg oral tablet (18 sources) l-Thyroxine Start: 08-26-2017 take 1 tablet by mouth once daily LEVOXYL 88 MCG TABS One tablet by mouth daily LEVOTHYROXINE SODIUM [id number] Viviane He End: 08-26-2017 take 1 tablet by mouth once daily LEVOTHROID 88 MCG TABS One tablet by mouth daily LEVOTHYROXINE SODIUM 23497866476 Viviane He take 1 tablet by once daily LEVOTHROID 88 MCG TABS One tablet by mouth daily LEVOTHYROXINE SODIUM [id number] Chikis A Bullard metFORMIN hydrochloride 500 mg oral tablet (12 sources) Biguanide End: 08-26-2017 take 1 tablet by mouth twice daily METFORMIN HCL 500 MG TABS One tablet by mouth twice daily METFORMIN HCL [id number] Kulwinder Blanchard MD Problems Active Problems Problem Classification Problem Date Documented Da te Episodic/Chronic Administrative/social admission (1 source) Patient encounter status; Translations: [Other specified counseling] Onset: 07-02-2022 07-02-2022 Episodic Diabetes mellitus without complication (5 sources) Type 2 diabetes mellitus; Translations: [Type 2 diabetes mellitus without complications] Onset: 08-31-2017 08-31-2017 Chronic Disorders of lipid metabolism (5 sources) Hyperlipidemia; Translations: [Hyperlipidemia, unspecified] Onset: 08-31-2017 08-31-2017 Chronic Essential hypertension (5 sources) Hypertensive disorder; Translations: [Essential (primary) hypertension] Onset: 08-31-2017 08-31-2017 Chronic External cause codes: Natural/environment (6 sources) Dog bite; Translations: [Bitten by dog] Onset: 07-10-2011 07-11-2011 Residual codes; unclassified (1 source) Amnesia; Translations: [Other amnesia] Onset: 07-02-2022 07-02-2022 Episodic Thyroid disorders (5 sources) Hypothyroidism; Translations: [Hypothyroidism, unspecified] Onset: 08-31-2017 08-31-2017 Chronic Past or Other Problems Problem Classification Problem Date Documented Da te Episodic/Chronic Open wounds of extremities (6 sources) Unspecified open wound of unspecified forearm, initial encounter; Translations: [Unspecified open wound of unspecified forearm, initial encounter] Onset: 07-10-2011 07-11-2011 Episodic Unclassified (2 sources) Removal of suture ; Translations: [Encounter for removal of sutures] Onset: 07-10-2011 Resolved: 07-11-2011 07-11-2011 Results Test Name Value Interpretation Reference Range Facility [facility] 08-22-2021 CNOV Office Visit (OBGYWM) ---- MARISSA WINKLER ([id number]) 1950 F Date Time Provider Department 08/22/21 1:00 PM PURVI STEWART OBGYWM During your visit today, we recorded the following information about you: Blood pressure Weight Height 120/60 63.9 kg 1.626 m Purvi Stewart APRN.CNP 08/22/2021 1:26 PM Signed Marissa is a 70 year old who presents for an annual gynecologic exam without complaints. Postmenopausal: Yes since early 40's HRT use: No. Last Pap: 10/11/2018 normal HPV: 12/09/2012 negative History of abnormal pap: No Last mammogram: 2017 normal History of abnormal mammogram: No Sexually active: No OB History T0 L3 SAB0 TAB0 Ectopic0 Multiple0 Live Births0 PAST MEDICAL HISTORY Diagnosis Date - Hypertension - Hypothyroid - Type II or unspecified type diabetes mellitus without mention of complication, not stated as uncontrolled PAST SURGICAL HISTORY Procedure Laterality Date - REMOVAL ADENOIDS,PRIMARY,<1 2 Y/O Adenoidectomy - REMOVAL OF TONSILS,<12 Y/O Tonsillectomy - SKIN LESION BIOPSY 02/2015 FAMILY HISTORY Problem Relation Age of Onset - Hypertension Mother - Hypertension Father - Cancer Father renal - Thyroid Sister - Breast Cancer Sister SOCIAL HISTORY Social History Tobacco Use - Smoking status: Never Smoker - Smokeless tobacco: Never Used Vaping Use - Vaping Use: Never used Substance Use Topics - Alcohol use: No - Drug use: No REVIEW OF SYSTEMS Abdomen: No abdominal pain, nausea, vomiting, diarrhea, or constipation. No bloating, early satiety, indigestion, or increased flatulence. Bladder: No dysuria, gross hematuria, urinary frequency, urinary urgency, or incontinence Breast: No breast lumps, nipple d/c, overlying skin changes, skin retraction and + redness to b/l breast Allergies and current medication updated:Yes EXAM: Ht 5' 4 (1.63m) Wt 140 lb 12.8 oz (63.9kg) BMI 24.16 kg/(m2). GENERAL: pleasant, female in no apparent distress HEENT: Normocephalic, atraumatic, mucus membranes moist and no lesions NECK: Supple, full range of motion, no adenopathy and thyroid normal DERMATOLOGY: Normal, without lesions, non-icteric and non-hirsute BREAST: soft, non-tender, symmetric, no dominant mass, normal nipple-areolar complex, no lymphadenopathy, no nipple discharge and +yeast under breast CHEST: Normal inspiratory effort ABDOMEN: soft, non-tender and no masses PELVIC: external genitalia normal, normal Bartholin's glands, urethra, [place]'s glands, no vulvar lesions, no cervical lesions, good vaginal support, physiologic discharge present, normal appearing perineal body and perianal region BIMANUAL: uterus normal size, shape and consistency, no adnexal masses and non-tender RECTOVAGINAL: deferred. NEURO: alert and oriented x3,exam grossly non-focal EXTREMITIES: normal ASSESSMENT/PLAN: 1) Health maintenance: Pap/HPV screening no longer needed Mammogram ordered Nutrition, exercise and routine health maintenance exams reviewed. Calcium/Vitamin D supplementation information provided. Colon cancer screening: patient to discuss with PCP BMD: followed by PCP 2) Follow up one year or sooner as needed Purvi Stewart APRN.AISHWARYA Referring Provider: SELF [200] Allergies As of Date: 08/22/2021 Noted Allergy Reaction TETRACYCLINE 10/20/2005 4 - Hives Date Reviewed: 08/22/2021 Reviewed by: Purvi Stewart APRN.IT INFRASTRUCTURE SPECIALIST - Fully Assessed Reason for Visit: Yearly Exam [187] Immunizations [194] Cmt: Flu vaccination Primary Visit Diagnosis:Encounter for gynecological examination (general) (routine) without abnormal findings [Z01.419] Other Visit Diagnoses:Encounter for screening mammogram for breast cancer [Z12.31] Dense breast tissue [R92.2] Need for influenza vaccination [Z23] Order(s):RJ SCREENING [[id number]] Order #: [id number] FUTURE RJ SCREENING W ISAC [[id number]] Order #: [id number] FUTURE INFLUENZA SEASONAL QUADRIVALENT HIGH DOSE AGE 65+ [[id number]] Order #: [id number] clotrimazole-betame thasone (LOTRISONE) creamApply 1 application to affected area twice daily for 7 days.Disp: 15 gRfl: 0 Prescriptions as of 08/22/2021 - rosuvastatin (CRESTOR) 10 mg tablet Take 10 mg by mouth once daily. - PROLIA 60 mg/mL - clotrimazole-betame thasone (LOTRISONE) cream Apply 1 application to affected area twice daily for 7 days. - TOUJEO SOLOSTAR 300 unit/mL (1.5 mL) inpn Inject 22 Units subcutaneously one time only. - amLODIPine (NORVASC) 5 mg tablet Take 5 mg by mouth once daily. - lisinopril (PRINIVIL) 10 mg ORAL tablet Take one(2) tablet daily. - levothyroxine sodium(LEVOXYL 88 MCG TAB) Take one(1) tablet daily. - insulin lispro,human rec.anlog(HUMALOG PEN 100 UNIT/ML SUBQ) Use as directed. - ASPIRIN 81 MG TAB Take one(1) tablet daily. - calcium carbonate/vitamin d3(CALCIUM 600 + D(3) (more content not included)... Normal [facility] Lab Report: [facility] tabolic Profilon 09-10-2017 Alanine aminotransferase (ALT) 25 U/L Invalid Interpretation Code 1278 [facility] Work Phone: Albumin 3.5 g/dL Invalid Interpretation Code 3.4-5.0 [facility] Work Phone: Albumin/Globulin Ratio 1 {ratio} Invalid Interpretation Code 0.9-2.4 [facility] Work Phone: Alkaline phosphatase (ALP) 94 U/L Invalid Interpretation Code 45117 [facility] Work Phone: ALP enzyme act/vol (Bld) 94 U/L Invalid Interpretation Code 45-117 [facility] Work Phone: Anion gap 9 mmol/L Invalid Interpretation Code 15 [facility] Work Phone: Anion gap 4 molar conc 9 Invalid Interpretation Code 15 [facility] Work Phone: Aspartate aminotransferase (AST) 17 U/L Invalid Interpretation Code 15-37 [facility] Work Phone: Bilirubin (total) 0.40 mg/dL Invalid Interpretation Code 0.20-1.00 [facility] Work Phone: BUN/Creatinine Ratio 25.9 RATIO High 10-20 [facility] Work Phone: Calcium 8.6 mg/dL Invalid Interpretation Code 8.5-10.1 [facility] Work Phone: Chloride 103 mmol/L Invalid Interpretation Code 98-107 [facility] Work Phone: CO2 28.0 mmol/L Invalid Interpretation Code 21.0-32.0 [facility] Work Phone: CO2 ppres (BldV) 28.0 mmol/L Invalid Interpretation Code 21.0-32.0 [facility] Work Phone: Creatinine 0.81 mg/dL Invalid Interpretation Code 0.55-1.02 [facility] Work Phone: eGFR (non-black) 75 mL/min/{1.73_m2} Invalid Interpretation Code >60 [facility] Work Phone: eGFR (non-black) 91 mL/min/{1.73_m2} Invalid Interpretation Code >60 [facility] Work Phone: EST GFR - AA 91 mL/min Invalid Interpretation Code >60 [facility] Work Phone: Globulin 3.4 g/dL Invalid Interpretation Code 2.2-4.2 [facility] Work Phone: Glucose mass conc 93 mg/dL Invalid Interpretation Code 70-110 [facility] Work Phone: Potassium molar conc 4.0 mmol/L Invalid Interpretation Code 3.5-5.1 [facility] Work Phone: Protein 6.9 g/dL Invalid Interpretation Code 6.4-8.2 [facility] Work Phone: Sodium 140 mmol/L Invalid Interpretation Code 136-145 [facility] Work Phone: Urea nitrogen 21 mg/dL High 7-18 [facility] Work Phone: Lab Report: Hemoglobin A1con 09-10-2017 Hemoglobin A1c/Hemoglobin.total mass fraction (Bld) 8.2 % High 4.2-6.3 [facility] Work Phone: Lab Report: Lipid Profileon 09-10-2017 Cholesterol 184 mg/dL Invalid Interpretation Code 200 [facility] Work Phone: HDL Cholesterol 78 mg/dL Invalid Interpretation Code [facility] Work Phone: LDL Cholesterol 96 mg/dL Invalid Interpretation Code 0-130 [facility] Work Phone: Triglyceride 49 mg/dL Invalid Interpretation Code [facility] Work Phone: very low density lipoproteins 10 mg/dL Invalid Interpretation Code 5-40 [facility] Work Phone: Lab Report: Microalb:Creat R atio,Random URon 09-10-2017 ACR (microalbumin/creati nine) ratio Test not performed mg/g CRE Invalid Interpretation Code <30 mg/g CRE [facility] Work Phone: Albumin/Creatinine DL <= 20 mg/L Ratio (U) Test not performed mg/g CRE Invalid Interpretation Code <30 mg/g CRE [facility] Work Phone: Urine, creatinine 41.00 mg/dL Invalid Interpretation Code NO RANGE EST. [facility] Work Phone: Urine, microalbumin < 5.0 mg/L Invalid Interpretation Code NO RANGE EST. [facility] Work Phone: Lab Report: Thyroid Stim Hor lanny (TSH)on 09-10-2017 Thyroid stimulating hormone (TSH) 2.58 u[iU]/mL Invalid Interpretation Code 0.358-3.74 [facility] Work Phone: Office Visit: COPPERSMITH HELPER est care ne eds refillson 08-31-2017 Documentation of current medications (procedure) Done Invalid Interpretation Code [facility] Work Phone: Protein mass conc Done Invalid Interpretation Code [facility] Work Phone: Tobacco smoking status NHIS Never Invalid Interpretation Code [facility] Work Phone: Tobacco smoking status NHIS Never smoker Invalid Interpretation Code [facility] Work Phone: Tobacco use [facility] Never smoker Invalid Interpretation Code [facility] Work Phone: Clinical Lists Update: Prelo ecological technical officer 07-07-2011 Tobacco smoking status NHIS never Invalid Interpretation Code [facility] Work Phone: Vital Signs Date Time Vital Sign Value Performing Clinician Facility 08-31-2017 09:55-0400 BMI (Body Mass Index) 22.16 kg/m2 Jesu Dennison MD [facility] Work Phone: 08-31-2017 09:55-0400 Body Temperature 98.7 [degF] Jesu Dennison MD [facility] Work Phone: 08-31-2017 09:55-0400 BP Diastolic 71 mm[Hg] Jesu Dennison MD [facility] Work Phone: 08-31-2017 09:55-0400 BP Systolic 112 mm[Hg] Jesu Dennison MD [facility] Work Phone: 08-31-2017 09:55-0400 Height 171.45 cm Jesu Dennison MD [facility] Work Phone: 08-31-2017 09:55-0400 Pulse (Heart Rate) 69 /min [facility] Work Phone: 08-31-2017 09:55-0400 Respiratory Rate 12 /min Jesu Dennison MD [facility] Work Phone: 08-31-2017 09:55-0400 Weight 65.14 kg Jesu Dennison MD [facility] Work Phone: 07-10-2011 17:38-0400 BMI (Body Mass Index) 21.19 kg/m2 Viviane He [facility] Work Phone: 07-10-2011 17:38-0400 Body Temperature 98.7 [degF] [facility] Work Phone: 07-10-2011 17:38-0400 BP Diastolic 97 mm[Hg] Velvet Ying [facility] Work Phone: 07-10-2011 17:38-0400 BP Systolic 151 mm[Hg] Velvet Ying [facility] Work Phone: 07-10-2011 17:38-0400 Height 171.45 cm Miguelt Ying [facility] Work Phone: 07-10-2011 17:38-0400 Pulse (Heart Rate) 71 /min Viviane [facility] Work Phone: 07-10-2011 17:38-0400 Respiratory Rate 16 /min [facility]iane [facility] Work Phone: 07-10-2011 17:38-0400 Weight 62.05 kg Viviane [facility] Work Phone: Encounters Encounter Date Encounter Type Care Provider Facility Start: 07-02-2022 End: 07-02-2022 Subsequent hospital visit by physician Oneida Lipscomb MD Work Phone: [facility] Start: 06-04-2022 End: 06-04-2022 Subsequent hospital visit by physician Oneida Lipscomb MD Work Phone: [facility] Procedures Date Procedure Procedure Detail Performing Clinician Start: 07-10-2011 End: 07-11-2011 Removal of suture ENCOUNTER FOR REMOVAL OF SUTURES Viviane He Plan of Treatment Date Care Activity Detail Author Start: 06-04-2023 Depression Screen Depression Screen [facility] Start: 07-24-2022 Influenza vaccination Flu vaccine (#1) [facility] Start: 07-02-2022 End: 07-02-2022 Patient encounter procedure 07/02/2022 Office Visit Geriatric Medicine Oneida Lipscomb MD [facility] [address] [facility] [address] [place] [address] [facility] Start: 03-12-2022 COVID-19 Vaccine (4 - Booster for Pfizer series) COVID-19 Vaccine (4 - Booster for Pfizer series) [facility] Start: 11-30-2017 End: 11-30-2017 Appointment Appointment [facility] Work Phone: Start: 08-31-2017 End: 08-31-2017 Follow Up Appt 3 months Follow Up Appt 3 months [facility] Work Phone: Start: 08-31-2017 End: 08-31-2017 Appointment Appointment [facility] Work Phone: Start: 2007 Screening for osteoporosis DEXA (modify frequency per FRAX score) [facility] Start: 06-03-2005 DTaP/Tdap/Td vaccine (1 - Tdap) DTaP/Tdap/Td vaccine (1 - Tdap) [facility] Start: 2002 Screening for malignant neoplasm of breast Breast cancer screen [facility] Start: 2002 Shingles vaccine (1 of 2) Shingles vaccine (1 of 2) [facility] Start: 1997 Screening for malignant neoplasm of colon [facility] Start: 1970 Hepatitis C screening Hepatitis C screen [facility] Start: 1962 Lipid panel Lipids [facility] Start: 1950 Annual Wellness Visit (AWV) Annual Wellness Visit (AWV) [facility] Payers Date Payer Category Payer Medicare MEDICARE MEDICAR E PART A AND B [id number] 2022-Present [phone] [address] [address] [place] [address] [id number] 2022 Private Health Insurance [employer] MEDICARE SUPP [id number] 2022-Present [phone] [address] [place] [address] [id number] Social History Date Type Detail Facility Start: 06-04-2022 Tobacco smoking stat [facility] Never smoked tobacco [employer] Work Phone: Start: 06-04-2022 Tobacco use and exposure Smokeless tobacco non-user [employer] Work Phone: Start: 06-04-2022 Alcohol intake Ex-drinker (finding) [employer] Work Phone: Start: 06-04-2022 History SDOH Alcohol Frequency 1 [employer] Work Phone: Start: 1950 Sex Assigned At Not on file [employer] Work Phone: Progress note 08-22-2021 Note Date & Type Note Facility 08-22-2021 Note HNO ID: [id number] Author: Purvi Stewart APRN.IT INFRASTRUCTURE SPECIALIST Service: ? Author Type: Nurse Practitioner Type: Progress Notes Filed: 08/22/2021 1:26 PM Note Text: Marissa is a 70 year old who presents for an annual gynecologic exam without complaints. Postmenopausal: Yes since early 's HRT use: No. Last Pap: 10/11/2018 normal HPV: 12/09/2012 negative History of abnormal pap: No Last mammogram: 2018 normal History of abnormal mammogram: No Sexually active: No OB History T0 L3 SAB0 TAB0 Ectopic0 Multiple0 [...] - Cancer Father renal - Thyroid Sister - Breast Cancer Sister SOCIAL HISTORY Social History Tobacco Use - Smoking status: Never Smoker - Smokeless tobacco: Never Used Vaping Use - Vaping Use: Never used Substance Use Topics - Alcohol use: No - Drug use: No REVIEW OF SYSTEMS Abdomen: No abdominal pain, nausea, vomiting, diarrhea, or constipation. No bloating, early satiety, indigestion, or increased flatulence. Bladder: No dysuria, gross hematuria, urinary frequency, urinary urgency, or incontinence Breast: No breast lumps, nipple d/c, overlying skin changes, skin retraction and + redness to b/l breast Allergies and current medication updated:Yes EXAM: Ht 5' 4 (1.63m) Wt 140 lb 12.8 oz (63.9kg) BMI 24.16 kg/(m2). GENERAL: pleasant, female in no apparent distress HEENT: Normocephalic, atraumatic, mucus membranes moist and no lesions NECK: Supple, full range of motion, no adenopathy and thyroid normal DERMATOLOGY: Normal, without lesions, non-icteric and non-hirsute BREAST: soft, non-tender, symmetric, no dominant mass, normal nipple-areolar complex, no lymphadenopathy, no nipple discharge and +yeast under breast CHEST: Normal inspiratory effort ABDOMEN: soft, non-tender and no masses PELVIC: external genitalia normal, normal Bartholin's glands, urethra, [place]'s glands, no vulvar lesions, no cervical lesions, good vaginal support, physiologic discharge present, normal appearing perineal body and perianal region BIMANUAL: uterus normal size, shape and consistency, no adnexal masses and non-tender RECTOVAGINAL: deferred. NEURO: alert and oriented x3,exam grossly non-focal EXTREMITIES: normal ASSESSMENT/PLAN: 1) Health maintenance: Pap/HPV screening no longer needed Mammogram ordered Nutrition, exercise and routine health maintenance exams reviewed. Calcium/Vitamin D supplementation information provided. Colon cancer screening: patient to discuss with PCP BMD: followed by PCP 2) Follow up one year or sooner as needed Purvi Stewart APRN.AISHWARYA [facility] Summary Purpose Family History No Family History Records Found Advance Directives No Advanced Directives Records Found Additional Source Comments INFORMATION SOURCE (unrecogn ized section and content) DATE CREATED AUTHOR 12/15/2021 [facility] Care Teams (unrecognized sec tion and content) [employer] Relationship Specialty Start Date End Date Jesu Dennison [address] [place] [address] PCP - General Internal Medicine 03/24/22 [employer] Relationship Specialty Start Date End Date Jesu Dennison [address] [place] [id number] PCP - General Internal Medicine 03/24/22 FOR RECORDS PERTAINING TO PATIENTS WHO ARE OR HAVE BEEN ENROLLED IN A CHEMICAL DEPENDENCY/SUBSTANCEABUSE PROGRAM, SOME INFORMATION MAY BE OMITTED. This clinical summary was aggregated from multiple sources. Caution should be exercised in using it in the provision of clinical care. This summary normalizes information from multiple sources, and as a consequence, information in this document may materially change the coding, format and clinical context of patient data. In addition, data may be omitted in some cases. CLINICAL DECISIONS SHOULD BE BASED ON THE PRIMARY CLINICAL RECORDS. [facility] [employer] [facility]. provides no warranty or guarantee of the accuracy or completeness of information in this document.
[2024-09-20 12:24] LABS: Absolute Lymphocyte Count 1.29 X10^3/uL (0.83-4.51); Basophil# 0.07 X10^3/uL; Eosinophil# 0.28 X10^3/uL; Eosinophils% 3.9 % (0-5); Hemoglobin 12.4 g/dL (12.0-15.0); Lymphocyte # 1.29 X10^3/ul (0.83-4.51); Lymphocyte % 17.9 % (19-41); Mean Corp Hgb Conc 31.8 g/dL (32-36); Mean Corpuscular Hgb 30.5 pg (27.0-32.0); Mean Corpuscular Volume 95.8 fL (81-99); Mean Platelet Vol. 10.4 fl (6.2-12.0); Monocyte# 0.54 X10^3/uL; Monocyte% 7.5 % (0-10); NRBC Flagged by Analyzer 0 % (0-5); Neutrophil # 5.02 X10^3/uL (2.7-7.7); Neutrophil % 69.4 % (47-70); Platelet Count 320 K/mm3 (150-450); RBC Distribution Width CV 13.3 % (11.6-14.6); RBC Distribution Width SD 47.5 fl (35.1-43.9); Red Blood Count 4.07 M/mm3 (4.2-5.4); White Blood Count 7.2 K/mm3 (4.4-11.0)
[2024-09-20 12:53] LABS: Vitamin D,25 Hydroxy 39.2 ng/mL
[2024-09-20 13:01] LABS: Microalbumin,Random Urine < 5.0 mg/L (NO RANGE EST.)
[2024-09-20 13:05] LABS: AST(SGOT) 21 U/L (15-37); Alanine Aminotransfer ALT/SGPT 31 U/L (13-56); Albumin, Serum 3.9 g/dL (3.2-5.0); Alkaline Phosphatase 81 U/L (45-117); Anion Gap 5 (5-15); BUN 15 mg/dL (7-18); BUN/Creat Ratio 17.1 RATIO (10-20); Calcium,Total 9.7 mg/dL (8.5-10.1); Chloride 104 mmol/L (98-107); Cholesterol 193 mg/dL (200); Creatinine, Serum 0.88 mg/dL (0.55-1.02); EST Glomerular Filtration Rate 67 mL/min (>60); Est Glom Filt Rate - Afr Amer 82 mL/min (>60); Globulin 3.9 g/dL (2.2-4.2); Glucose 111 mg/dL (74-106); High Density Lipoprotein 108 mg/dL; Protein, Total 7.8 g/dL (6.4-8.2); Sodium Level 140 mmol/L (136-145); Triglycerides 64 mg/dL; Very Low Density Lipoprotein 13 mg/dL (5-40)
== END | disposition home or self-care (01) ==
LOC: BIMLAB 10:21
PROVIDERS: PCP Internal Medicine; Referring Provider Internal Medicine; Visit Provider Internal Medicine
DX: I10 Essential (primary) hypertension (principal); E13.9 Other specified diabetes mellitus without complications; E03.9 Hypothyroidism, unspecified; M81.0 Age-related osteoporosis without current pathological fracture
CPT/HCPCS: 36415; 80053; 80061; 82043; 82306; 82570; 84443; 85025

== ENCOUNTER → 2025-06-26 | Outpatient (CLI) | payer MEDICARE, SELFPAY ==
--- NOTE | 2025-06-26 12:30 | BI_ITS ---
EXAM: SCRN MAMM (CAD)W/ISAC BILAT DATE: 06/26/2025 CLINICAL HISTORY: F, Age 74 y/o , BREAST CANCER SCREENING TECHNIQUE: SCRN MAMM (CAD)W/ISAC BILAT COMPARISON: Prior exam(s) dated 12/30/2023 and 06/17/2022.. FINDINGS: TISSUE DENSITY: There are scattered areas of fibroglandular density. Bilateral Breast Mammographic Findings: There are no suspicious masses, suspicious cluster of microcalcifications, architectural distortion or secondary signs of malignancy identified in either breast. Benign-appearing microcalcifications are seen in both breasts. BI/SCRN MAMM (CAD)W/ISAC BILAT IMPRESSION: Benign screening mammogram. OVERALL FINAL ASSESSMENT BI-RADS 2: BENIGN RECOMMENDATION: Routine annual follow-up in 1 Year A letter with findings and recommendations will be mailed to the patient. Reading Location: [id number]
== END | disposition home or self-care (01) ==
LOC: OPBI 12:23
PROVIDERS: PCP Internal Medicine; Referring Provider Internal Medicine; Visit Provider Internal Medicine
DX: Z12.31 Encounter for screening mammogram for malignant neoplasm of breast (principal)
CPT/HCPCS: 77063; 77067

== ENCOUNTER → 2025-09-04 | Outpatient (CLI) | payer MEDICARE, SELFPAY ==
[2025-09-04 12:37] LABS: Hematocrit 37.9 % (37-47); Hemoglobin 12.7 g/dL (12.0-15.0); Immature Granulocytes Count 0.020 X10^3/uL (0.0-0.0); Mean Corp Hgb Conc 33.5 g/dL (32-36); Mean Corpuscular Volume 93.6 fL (81-99); Mean Platelet Vol. 9.7 fl (6.2-12.0); NRBC Flagged by Analyzer 0 % (0-5); Platelet Count 290 K/mm3 (150-450); RBC Distribution Width CV 13.2 % (11.6-14.6); RBC Distribution Width SD 45.6 fl (35.1-43.9); Red Blood Count 4.05 M/mm3 (4.2-5.4); White Blood Count 7.9 K/mm3 (4.4-11.0)
[2025-09-04 13:06] LABS: Creatinine, Urine (random) 22.30 mg/dL (28.00-217.00); Microalbumin,Random Urine < 12.0 mg/L (<20 mg/L)
[2025-09-04 13:17] LABS: AST(SGOT) 23 U/L (<=31); Alanine Aminotransfer ALT/SGPT 19 U/L (<=34); Albumin, Serum 4.3 g/dL (3.4-4.8); Alkaline Phosphatase 64 U/L (35-104); Anion Gap 11 (5-15); BUN 20 mg/dL (4-19); BUN/Creat Ratio 22.2 RATIO (10-20); Calcium,Total 9.4 mg/dL (7.6-11.0); Carbon Dioxide 23.4 mmol/L (21.0-32.0); Chloride 103 mmol/L (98-108); Cholesterol 181 mg/dL (<=200); Globulin 2.8 g/dL (2.2-4.2); Glucose 219 mg/dL (70-99); Low Density Lipoprotein Calc. 73 mg/dL; Potassium 4.5 mmol/L (3.3-5.1); Triglycerides 42 mg/dL; Very Low Density Lipoprotein 8 mg/dL (5-40); Vitamin D,25 Hydroxy 58.4 ng/mL (30-100); cholesterol:hdl ratio screen 1.82
== END | disposition home or self-care (01) ==
LOC: MTLAB 09:57
PROVIDERS: Nurse Practitioner Family; PCP Internal Medicine; Referring Provider Internal Medicine; Visit Provider Internal Medicine
DX: I10 Essential (primary) hypertension (principal); E13.9 Other specified diabetes mellitus without complications; M81.0 Age-related osteoporosis without current pathological fracture
CPT/HCPCS: 36415; 80053; 80061; 82043; 82306; 82570; 84439; 84443; 85025